=== PATIENT | female | born 1970 | race Two or more races ===

== ENCOUNTER 2020-11-17 09:16 | Outpatient (REF) | payer OTHER, SELFPAY ==
[2020-11-17 09:55] LABS: COVID-19 Test Negative (Negative); IDNOW Serial# 55D5AD1C
== END 2020-11-17 09:17 | disposition home or self-care (01) ==
LOC: HO.EMPCOV 09:16
PROVIDERS: Visit Provider Internal Medicine
DX: Z20.828 Contact with and (suspected) exposure to other viral communicable diseases (principal)
CPT/HCPCS: 87635; C9803

== ENCOUNTER 2020-11-25 09:18 | Outpatient (REF) | payer OTHER, SELFPAY ==
[2020-11-25 09:46] LABS: COVID-19 Test Negative (Negative)
== END 2020-11-25 09:19 | disposition home or self-care (01) ==
LOC: HO.EMPCOV 09:18
PROVIDERS: Visit Provider Internal Medicine
DX: Z20.822 Contact with and (suspected) exposure to COVID-19 (principal)
CPT/HCPCS: 36415; 87635; C9803

== ENCOUNTER 2020-11-29 09:55 | Outpatient (REF) | payer OTHER, SELFPAY ==
[2020-11-29 10:25] LABS: COVID-19 Test Negative (Negative)
== END 2020-11-29 09:56 | disposition home or self-care (01) ==
LOC: HO.EMPCOV 09:55
PROVIDERS: Visit Provider Internal Medicine
DX: Z20.822 Contact with and (suspected) exposure to COVID-19 (principal)
CPT/HCPCS: 36415; 87635; C9803

== ENCOUNTER 2021-01-16 11:22 | Outpatient (REF) | payer OTHER, SELFPAY ==
[2021-01-16 12:05] LABS: COVID-19 Test Negative (Negative); IDNOW Serial# 55D5AD1C
== END 2021-01-16 11:23 | disposition home or self-care (01) ==
LOC: HO.EMPCOV 11:22
PROVIDERS: Visit Provider Internal Medicine
DX: Z20.822 Contact with and (suspected) exposure to COVID-19 (principal)
CPT/HCPCS: 36415; 87635; C9803

== ENCOUNTER 2021-02-03 07:45 | Outpatient (REF) | payer OTHER, SELFPAY ==
[2021-02-03 08:06] LABS: COVID-19 Test Negative (Negative)
== END 2021-02-03 07:46 | disposition home or self-care (01) ==
LOC: HO.EMPCOV 07:45
PROVIDERS: Visit Provider Internal Medicine
DX: Z20.822 Contact with and (suspected) exposure to COVID-19 (principal)
CPT/HCPCS: 36415; 87635; C9803

== ENCOUNTER 2021-03-03 07:48 | Outpatient (REF) | payer OTHER, SELFPAY ==
[2021-03-03 09:23] LABS: COVID-19 Test Negative (Negative); IDNOW Serial# 55D5AD1C
== END 2021-03-03 07:49 | disposition home or self-care (01) ==
LOC: HO.EMPCOV 07:48
PROVIDERS: Visit Provider Internal Medicine
DX: Z20.822 Contact with and (suspected) exposure to COVID-19 (principal)
CPT/HCPCS: 36415; 87635; C9803

== ENCOUNTER 2021-03-07 07:43 | Outpatient (REF) | payer OTHER, SELFPAY ==
[2021-03-07 08:26] LABS: COVID-19 Test Negative (Negative)
== END 2021-03-07 07:44 | disposition home or self-care (01) ==
LOC: HO.EMPCOV 07:43
PROVIDERS: Visit Provider Internal Medicine
DX: Z20.822 Contact with and (suspected) exposure to COVID-19 (principal)
CPT/HCPCS: 36415; 87635; C9803

== ENCOUNTER → 2022-02-01 13:14 | Outpatient (BNVA) | payer OTHER, SELFPAY | PROVIDERS: PCP Nurse Practitioner Acute Care; Visit Provider Internal Medicine | DX: Z13.89 Encounter for screening for other disorder (principal) | CPT/HCPCS: 99203 ==

== ENCOUNTER → 2022-02-15 13:07 | Outpatient (BNVA) | payer OTHER, SELFPAY | PROVIDERS: PCP Nurse Practitioner Acute Care; Visit Provider Physician Assistant | DX: Z13.89 Encounter for screening for other disorder (principal) | CPT/HCPCS: 99213 ==

== ENCOUNTER 2022-03-08 14:00 | Outpatient (RCR) | payer OTHER, SELFPAY ==
--- NOTE | 2022-02-05 15:12 | MHC.PT.EP ---
[facility] [place] [facility] [place] [facility] [place] Office [address] Rosalva Ortiz [address] [phone] F: [phone] F: [phone] F: [phone] F: [phone] Physical Therapy Plan of Care Date of Evaluation: Date of Surgery: N/A Diagnosis: L trap and lat strain Assessment: pt's signs and symptoms consistent w/ muscle spasm and muscle strain. pt presents to physical therapy with pain, decreased range of motion, decreased strength, impaired functional mobility, impaired postural awareness, and gait deviations. pt is a good candidate for skilled PT due to age, potential remediation of impairments, typical disease/condition progression and prognosis, comorbidities, and motivation. pt would benefit from tailored strengthening and stretching exercise program, functional training, gait training, postural re-training, neuromuscular re-education, modalities as needed for pain, equipment safety demonstration. Frequency and Duration: The patient will be seen 2x/wk for 4 wks Short Term Goals: pt will be I w/ HEP to promote self-management of condition. pt will demo proper sitting posture w/ lumbar roll to promote neutral spine w/ seated ADLs and work-related tasks. Alf Goals: pt will report a statistically significant improvement in self-reported outcome measure, SPADI, to promote return to PLOF. pt will improve L shoulder flexion and abduction strength to at least 4+/5 to promote ease in carrying laundry basket down to basement. Treatment Plan: Modalities to reduce pain, spasms and effusion. Manual therapy to restore motion and function. Therapeutic exercise to improve strength and flexibility. Neuromuscular re-education for posture and balance. Therapeutic activities to return to functional activities of daily living. Electronically signed by: Elisha Lwo PT, DPT Please sign and return to therapist. Thank you for your referral.
--- NOTE | 2022-03-14 13:52 | MHC.PT.DC ---
[facility] [place] [facility] [place] [facility] [place] [facility] [address] Dev[address] Ortiz [address] [phone] F: [phone] F: [phone] F: [phone] F: [phone] Physical Therapy Discharge Report Diagnosis: L trap and lat strain Date of Surgery: N/A Date of Evaluation: 02/05/22 Date of Discharge: 03/14/22 Treatments to Date: 9 Cancellations to Date: 1 No Shows to Date: 0 Discharge Status: Achieved Goals Improved Function Independent with HEP Discharge Summary: The patient overall is reporting an improvement in her pain frequency and intensity. She has achieved all short term and salvage determiner goals established at the initial evaluation. She is independent with her home exercise program. She is discharged from this physical therapy plan of care. Electronically signed by: Elisha Low PT, DPT Please sign and return to therapist. Thank you for your referral.
== END 2022-03-14 13:52 | disposition home or self-care (01) ==
LOC: HO.PT 14:00
PROVIDERS: PCP Nurse Practitioner Acute Care; Visit Provider Physician Assistant
DX: S46.812D Strain of other muscles, fascia and tendons at shoulder and upper arm level, left arm, subsequent encounter (principal)
CPT/HCPCS: 97014; 97110; 97140; 97162; 97530

== ENCOUNTER 2022-05-05 07:57 | Outpatient (REF) | payer OTHER, SELFPAY ==
[2022-05-05 08:07] LABS: MANUAL DIFF FLAG NO
[2022-05-05 08:14] LABS: Basophils Percent Auto 0.4 % (0-2); Eosinophils Absolute Auto 0.1 X10*3/uL (0.0-0.4); Eosinophils Percent Auto 2.4 % (0-4); Hematocrit 40.1 % (37.0-47.0); Imm Gran Abs Auto 0.01 X10*3/uL (0.00-0.03); Imm Gran Pct Auto 0.2 % (0.0-0.4); Lymphocytes Absolute Auto 2.4 X10*3/uL (1.2-4.9); Lymphocytes Percent Auto 53.2 % (20-40); Mean Corpuscular HGB Conc 32.4 g/dl (31.0-35.0); Mean Corpuscular Hemoglobin 25.8 pg (27.0-33.0); Mean Corpuscular Volume 79.6 fL (80.0-98.0); Mean Platelet Volume 9.6 fL (9.4-12.3); Monocytes Absolute Auto 0.4 X10*3/uL (0.1-1.2); Monocytes Percent Auto 7.7 % (2-11); Neutrophils Absolute Auto 1.6 x10*3/uL (2.0-8.3); Neutrophils Percent Auto 36.1 % (45-73); Platelet Count 278 X10*3/uL (160-400); Red Blood Count 5.04 X10*6/uL (4.20-5.50); Red Cell Distribution Width 14.1 % (11.0-16.0); White Blood Count 4.5 X10*3/uL (4.8-10.8)
[2022-05-05 08:54] LABS: Alanine Aminotransferase 39 U/L (0-31); Albumin Level 3.8 g/dL (3.5-5.0); Alkaline Phosphatase 103 U/L (39-117); Anion Gap 10 (12-20); Aspartate Amino Transferase 23 U/L (5-31); Bilirubin Total 0.4 mg/dL (0.0-1.0); Blood Urea Nitrogen 13 mg/dL (9-16); Calcium 8.9 mg/dL (8.4-10.2); Carbon Dioxide 27 mmol/L (22-29); Chloride 109 mmol/L (96-108); Cholesterol 202 mg/dL; Estimated Glomerular Filt Rate > 60; Glucose Random 111 mg/dL (60-115); HDL Cholesterol 28 mg/dL; LDL Cholesterol Calculated 139 mg/dl; Potassium 4.1 mmol/L (3.3-5.1); Sodium 142 mmol/L (135-145); Total Protein 6.1 g/dL (6.5-8.0); Triglycerides 177 mg/dL; Uric Acid 5.8 mg/dL (2.4-5.7)
[2022-05-05 09:17] LABS: Free T4 (Free Thyroxine) 0.82 ng/dL (0.71-1.85); Thyroid Stimulating Hormone 2.56 uIU/mL (0.32-4.0)
[2022-05-07 06:13] LABS: Folate 5.2 ng/mL (> or = 4.0); Vitamin B12 < 146 pg/mL (200-900)
== END 2022-05-05 07:58 | disposition home or self-care (01) ==
LOC: HO.LAB 07:57
PROVIDERS: PCP Internal Medicine; Visit Provider Internal Medicine
DX: R79.89 Other specified abnormal findings of blood chemistry (principal); E78.00 Pure hypercholesterolemia, unspecified
CPT/HCPCS: 36415; 80053; 80061; 82607; 82746; 84439; 84443; 84550; 85025

== ENCOUNTER 2022-05-15 15:27 | Outpatient (REF) | payer OTHER, SELFPAY ==
--- NOTE | ~2022-05-15 | US_ITS ---
EXAMINATION: US RETROPERITONEAL LIMITED (RENAL ONLY) CLINICAL INFORMATION: Calculus of kidney. COMPARISON: None TECHNIQUE: Real-time imaging of the kidneys. FINDINGS: RIGHT KIDNEY: 10.8 x 3.8 x 5.3 cm (SAG x AP x TRV). The kidney is normal in size, contour, and echogenicity. Renal cortical thickness is normal. No calculi or focal parenchymal lesions. No hydronephrosis. LEFT KIDNEY: 11.6 x 5.7 x 4.9 cm (SAG x AP x TRV). The kidney is normal in size, contour, and echogenicity. Renal cortical thickness is normal. No renal calculi or hydronephrosis. There is a lateral midpole 1 cm cyst present with question of small wall calcification with the appearance of a Bosniak 2 cyst. US/US renal BI IMPRESSION: No renal calculi identified. 1 cm left renal cyst with the appearance of a Bosniak 2 cyst.
== END 2022-05-15 15:28 | disposition home or self-care (01) ==
LOC: HO.US 15:27
PROVIDERS: Visit Provider Internal Medicine
DX: N20.0 Calculus of kidney (principal)
CPT/HCPCS: 76775

== ENCOUNTER 2022-08-16 13:18 | Outpatient (REF) | payer OTHER, SELFPAY ==
[2022-08-16 14:10] LABS: Appearance Urine Hazy; Color Urine Yellow; Glucose Urine UA Negative (Negative); Leukocyte Esterase Urine Trace (Negative); Nitrite Urine Negative (Negative); PH 5.5 (5.0-9.0); Specific Gravity - Urine >= 1.030 (1.005-1.025); UMIC TRIGGER UACC YES; Urine Blood Large (3+) (Negative); Urine Ketones Negative (Negative); Urine Protein Trace mg/dL (Neg-Trace)
[2022-08-16 14:21] LABS: UACC Culture Trigger YES; WBC Urine >50 /HPF (0-5)
[2022-08-16 14:22] LABS: Bacteria Urine Trace (None Seen); Hyaline Casts Urine 0-2 /LPF (0-2); Squamous Epithelial Cell Urine 0-2 /HPF (0-2)
[2022-08-16 15:08] LABS: Folate 5.7 ng/mL (> or = 4.0); Vitamin B12 1277 pg/mL (200-900)
[2022-08-21 01:23] LABS: Intrinsic Factor Antibodies Negative (Negative)
[2022-08-22 10:57] LABS: Parietal Cell Antibody <=20.0 Unit (<=20.0)
== END 2022-08-16 13:19 | disposition home or self-care (01) ==
LOC: HO.LAB 13:18
PROVIDERS: PCP Internal Medicine; Visit Provider Internal Medicine
DX: E53.8 Deficiency of other specified B group vitamins (principal); R30.0 Dysuria
CPT/HCPCS: 36415; 81001; 82607; 82746; 83516; 86340; 87086; 87088; 87147; 87186

== ENCOUNTER 2022-08-17 11:25 | Outpatient (REF) | payer OTHER, SELFPAY ==
--- NOTE | ~2022-08-17 | XR_ITS ---
EXAMINATION: XR KNEE, RIGHT XR KNEE AP STANDING CLINICAL INFORMATION: Pain. COMPARISON: None. TECHNIQUE: Lateral and axial views of the right knee are submitted. AP bilateral standing view of the knees was obtained. FINDINGS: RIGHT KNEE: There is moderate asymmetric narrowing of the medial joint space compartment of the right knee. The lateral and patellofemoral joint space compartments are well-maintained. There is mild tricompartment peripheral osteophyte formation. No fracture, dislocation or significant joint effusion is seen. There is no foreign body. LEFT KNEE: The lateral and medial joint space compartments of the left knee are well maintained. There is mild peripheral osteophyte formation of the medial joint space compartment of the right knee. No significant varus or valgus configuration seen bilaterally. XR/XR knee standing BI IMPRESSION: 1. There is moderate osteoarthritic change of the medial joint space compartment of the right knee. 2. There is minimal osteoarthritic change of the medial joint space compartment the left knee. 3. No significant varus or valgus configuration is seen bilaterally.
--- NOTE | ~2022-08-17 | XR_ITS ---
EXAMINATION: XR KNEE, RIGHT XR KNEE AP STANDING CLINICAL INFORMATION: Pain. COMPARISON: None. TECHNIQUE: Lateral and axial views of the right knee are submitted. AP bilateral standing view of the knees was obtained. FINDINGS: RIGHT KNEE: There is moderate asymmetric narrowing of the medial joint space compartment of the right knee. The lateral and patellofemoral joint space compartments are well-maintained. There is mild tricompartment peripheral osteophyte formation. No fracture, dislocation or significant joint effusion is seen. There is no foreign body. LEFT KNEE: The lateral and medial joint space compartments of the left knee are well maintained. There is mild peripheral osteophyte formation of the medial joint space compartment of the right knee. No significant varus or valgus configuration seen bilaterally. XR/XR knee RT 2V IMPRESSION: 1. There is moderate osteoarthritic change of the medial joint space compartment of the right knee. 2. There is minimal osteoarthritic change of the medial joint space compartment the left knee. 3. No significant varus or valgus configuration is seen bilaterally.
== END 2022-08-17 11:26 | disposition home or self-care (01) ==
LOC: HO.HOSX 11:25
PROVIDERS: Visit Provider Orthopaedic Surgery
DX: M17.11 Unilateral primary osteoarthritis, right knee (principal)
CPT/HCPCS: 20610; 73560; 73565; J1100

== ENCOUNTER 2023-05-11 07:11 | Outpatient (REF) | payer OTHER, SELFPAY ==
[2023-05-11 07:34] LABS: MANUAL DIFF FLAG NO
[2023-05-11 07:52] LABS: Eosinophils Absolute Auto 0.1 X10*3/uL (0.0-0.4); Hematocrit 41.1 % (37.0-47.0); Hemoglobin 13.3 g/dl (12.0-16.0); Imm Gran Abs Auto 0.01 X10*3/uL (0.00-0.03); Imm Gran Pct Auto 0.2 % (0.0-0.4); Lymphocytes Absolute Auto 2.1 X10*3/uL (1.2-4.9); Lymphocytes Percent Auto 52.1 % (20-40); Mean Corpuscular HGB Conc 32.4 g/dl (31.0-35.0); Mean Corpuscular Hemoglobin 26.1 pg (27.0-33.0); Mean Corpuscular Volume 80.7 fL (80.0-98.0); Mean Platelet Volume 9.9 fL (9.4-12.3); Monocytes Absolute Auto 0.4 X10*3/uL (0.1-1.2); Neutrophils Absolute Auto 1.4 x10*3/uL (2.0-8.3); Neutrophils Percent Auto 34.7 % (45-73); Platelet Count 303 X10*3/uL (160-400); Red Blood Count 5.09 X10*6/uL (4.20-5.50); Red Cell Distribution Width 14.2 % (11.0-16.0)
[2023-05-11 08:08] LABS: Estimated Average Glucose 128 mg/dL; Hemoglobin A1c % 6.1 %
[2023-05-11 08:30] LABS: Alanine Aminotransferase 48 U/L (0-31); Albumin Level 3.9 g/dL (3.5-5.0); Alkaline Phosphatase 103 U/L (39-117); Anion Gap 10 (12-20); Aspartate Amino Transferase 26 U/L (5-31); Bilirubin Total 0.3 mg/dL (0.0-1.0); Blood Urea Nitrogen 10 mg/dL (9-16); Calcium 9.3 mg/dL (8.4-10.2); Carbon Dioxide 29 mmol/L (22-29); Chloride 107 mmol/L (96-108); Cholesterol 182 mg/dL; Estimated Glomerular Filt Rate > 60; Glucose Random 126 mg/dL (60-115); HDL Cholesterol 27 mg/dL; LDL Cholesterol Calculated 118 mg/dl; Potassium 4.3 mmol/L (3.3-5.1); Sodium 142 mmol/L (135-145); Total Protein 6.4 g/dL (6.5-8.0); Triglycerides 185 mg/dL
[2023-05-11 08:50] LABS: Free T4 (Free Thyroxine) 0.83 ng/dL (0.71-1.85); Vitamin D 25-OH Total 11.1 ng/mL (>30)
[2023-05-11 08:53] LABS: Folate 3.6 ng/mL (> or = 4.0); Vitamin B12 1848 pg/mL (200-900)
== END 2023-05-11 07:12 | disposition home or self-care (01) ==
LOC: HO.LAB 07:11
PROVIDERS: PCP Internal Medicine; Visit Provider Internal Medicine
DX: E78.00 Pure hypercholesterolemia, unspecified (principal); R73.02 Impaired glucose tolerance (oral); E55.9 Vitamin D deficiency, unspecified
CPT/HCPCS: 36415; 80053; 80061; 82306; 82607; 82746; 83036; 84439; 84443; 85025

== ENCOUNTER 2023-05-31 11:09 | Outpatient (AMB) | payer OTHER, SELFPAY ==
--- NOTE | 2023-05-31 11:09 | A.OFFPC_ITS ---
Intake Visit Reasons: Lab results Intake Note: Requesting a call back at around 11:45. Allergies Valium Allergy (Unknown, Uncoded 05/31/23 11:10) Abdominal Pain Tobacco use date assessed: 04/30/23 Dental Screening Dental Screen Date: 05/31/23 Did you have a dental visit in the last 12 months?: Yes Did you have a dental problem in the last 6 months where you did not have access to dental care?: No Was dental information given to patient?: Patient has dentist HPI Lab results HPI Details 53-year-old overweight female smoker with impaired glucose tolerance hypercholesterolemia generalized anxiety disorder coming in for follow-up through Telehealth last seen in 04/30/2023 and had blood work done. [facility] Medical History (Updated 05/31/23 @ 11:19 by Isi Cao MD) Generalized anxiety disorder Impaired glucose tolerance Knee osteoarthritis Obesity (BMI 30.0-34.9) Osteoarthritis of right knee Renal calculus, left TSH elevation Surgical History Breast cyst Hx of cholecystectomy Hx of tubal ligation Family History (Updated 04/30/23 @ 14:43 by Ila Ellis [facility]) Mother Breast cancer Cervical cancer Anxiety Father No problems noted. Sister Anxiety Sister No problems noted. Sister No problems noted. Sister No problems noted. Sister No problems noted. Brother No problems noted. Brother No problems noted. Brother No problems noted. Brother No problems noted. Daughter No problems noted. Daughter Substance abuse Daughter No problems noted. Social History (Updated 04/30/23 @ 15:15 by Isi Cao MD) Housing: House Alcohol intake: never Patient Tobacco Use Status: Current everyday Tobacco user Tobacco use type: Cigarette Cigarette Packs Per Day: 4 Cigarettes Per Day: 6 e-Cigarette/Vaping Use: Never Used Second Hand Smoke Exposure: No Current occupational status: employed Current occupation: [employer] Cognitive needs: No Hearing needs: No Vision needs: Yes Questionnaire PHQ-9 Over the last 2 weeks, how often have you been bothered by any of the following problems? 1. Little interest or pleasure in doing things: not at all 2. Feeling down, depressed, or hopeless: not at all 3. Trouble falling or staying asleep, or sleeping too much: not at all 4. Feeling tired or having little energy: not at all 5. Poor appetite or overeating: not at all 6. Feeling bad about yourself - or that you are a failure or have let yourself or your family down: not at all 7. Trouble concentrating on things, such as reading the newspaper or watching television: not at all 8. Moving or speaking so slowly that other people could have noticed. Or the opposite - being so fidgety or restless that you have been moving around a lot more than usual: not at all 9. Thoughts that you would be better off or of hurting yourself in some way: not at all Total score: 0 Depression Screening Interpretation: Negative Source: Developed by Drs. Medardo Sanches, Fabian Almonte and colleagues, with an educational dawood from [employer]. Thrive Questionnaire Date Thrive assessed: 04/30/23 AUDIT C Alcohol Use Questionnaire (AUDIT-C) 1. How often do you have a drink containing alcohol?: Never 3. How often do you have six or more drinks on one occasion?: Never Total Score: 0 JACQUELINE-7 AMB Questionnaire JACQUELINE-7 Date JACQUELINE - 7 assessed: 04/30/23 Source: Developed by Drs. Medardo Sanches, Fabian Almonte and colleagues, with an educational dawood from [employer]. Physical exam (Primary Care) Tobacco/Smoking Status: Tobacco use Status Tobacco use date assessed 04/30/23 05/31/23 11:11 Patient Tobacco Use Status Current everyday Tobacco 05/31/23 11:11 Tobacco use type Cigarette 05/31/23 11:11 e-Cigarette/Vaping Use Never Used 05/31/23 11:11 PHQ-9: PHQ-9 Score PHQ-9: Total score 0 05/31/23 11:11 Depression Screening Interpretation: Negative Thrive Assessment: Date of Thrive Assessment Date Thrive assessed 04/30/23 05/31/23 11:11 Telehealth Telehealth Location of provider rendering services: practice address Location of patient: address on file Patient Identification confirmed using: Name, : Yes Telehealth method: voice only Patient verbally consented to treatment: Yes Patient verbally consented to billing insurance company: Yes Patient informed of any privacy concerns related to visit: Yes Minutes spent on Phone/Video with Pt.: 25 Assessment and Plan Assessment & Plan (1) Type 2 diabetes mellitus with hyperglycemia: Code(s): E11.65 - Type 2 diabetes mellitus with hyperglycemia Plan: Decrease the amount of carbohydrate intake, pasta, bread, rice and potatoes are all sugar and that is aside from all the sweet stuff, remember that fruits are good but they are Sweet also. Hemoglobin A1c goal of less than 6.5 patient is at goal on diet and exercise. Advised to see the eye doctor every year (2) Folic acid deficiency: Code(s): E53.8 - Deficiency of other specified B group vitamins Plan: Folic acid 1 mg once a day (3) LFT elevation: Code(s): R79.89 - Other specified abnormal findings of blood chemistry Plan: Repeat blood work done as well as an ultrasound of the left (4) Tobacco abuse: Code(s): Z72.0 - Tobacco use Plan: Patient is strongly advised to stop! (5) Hypercholesterolemia: Code(s): E78.00 - Pure hypercholesterolemia, unspecified Plan: Avoid fried foods, chicken skin, eggs, butter margarine, pastries and meat. Be it pork or beef they have a lot of cholesterol LDL goal of less than 100 and triglyceride of less than 150 Orders: Orders Ferritin Today R79.89 - Other specified abnormal findings of blood chemistry Liver Panel Today R79.89 - Other specified abnormal findings of blood chemistry Hepatitis B,C Profile Today R79.89 - Other specified abnormal findings of blood chemistry US abdomen complete Today R79.89 - Other specified abnormal findings of blood chemistry Microalbumin, Random (w Creat) 3 Months E11.65 - Type 2 diabetes mellitus with hyperglycemia Creatinine Urine 3 Months E11.65 - Type 2 diabetes mellitus with hyperglycemia Hemoglobin A1c 3 Months E11.65 - Type 2 diabetes mellitus with hyperglycemia Lipid Panel 3 Months E11.65 - Type 2 diabetes mellitus with hyperglycemia, E78.00 - Pure hypercholesterolemia, unspecified Comprehensive Met. Panel 3 Months E11.65 - Type 2 diabetes mellitus with hyperglycemia Vitamin B12 and Folate 3 Months E11.65 - Type 2 diabetes mellitus with hyperglycemia Referrals Nutrition/Dietitian Referral E11.65 - Type 2 diabetes mellitus with hyperglycemia Medications: New folic acid 1 mg PO DAILY 30 tabs 3RF E53.8 - Deficiency of other specified B group vitamins folic acid 1 mg PO DAILY 30 tabs 3RF E53.8 - Deficiency of other specified B group vitamins Changed From cyanocobalamin (vitamin B-12) 1,000 mcg PO DAILY 30 days 30 caps 3RF E53.8 - Deficiency of other specified B group vitamins To cyanocobalamin (vitamin B-12) 1,000 mcg PO .Q week 12 caps 3RF 30 days E53.8 - Deficiency of other specified B group vitamins Coding Level of Care Code Tele Est Pt Level 4 (34386) Diagnoses Type 2 diabetes mellitus with hyperglycemia E11.65 Folic acid deficiency E53.8 LFT elevation R79.89 Tobacco abuse Z72.0 Hypercholesterolemia E78.00
== END 2023-05-31 11:45 | disposition home or self-care (01) ==
LOC: HO.HMGH 11:09
PROVIDERS: PCP Internal Medicine; Visit Provider Internal Medicine
DX: E11.65 Type 2 diabetes mellitus with hyperglycemia (principal); E53.8 Deficiency of other specified B group vitamins; R79.89 Other specified abnormal findings of blood chemistry; Z72.0 Tobacco use; E78.00 Pure hypercholesterolemia, unspecified
CPT/HCPCS: 99214

== ENCOUNTER 2023-06-13 08:04 | Outpatient (REF) | payer OTHER, SELFPAY ==
--- NOTE | ~2023-06-13 | US_ITS ---
EXAMINATION: US ABDOMEN COMPLETE CLINICAL INFORMATION: Other specified abnormal findings of blood chemistry. COMPARISON: Renal ultrasound 05/15/2022. TECHNIQUE: Real-time imaging of the abdominal viscera. Limited visualization due to bowel gas and body habitus. FINDINGS: PANCREAS: Limited visualization of pancreatic tail and head. Imaged portion of pancreatic body is unremarkable. ABDOMINAL AORTA: The proximal, mid, and distal segments are normal in caliber. INFERIOR VENA CAVA: Visualized portions are normal. LIVER: Diffuse increase in echogenicity of the liver is characteristic of hepatic steatosis and limits visualization of the liver. Hypoechoic areas within the liver, particularly adjacent to the gallbladder, are characteristic of focal sparing within a fatty liver. Liver measures 14.6 cm. GALLBLADDER: Surgically absent. COMMON BILE DUCT: Normal in caliber measuring 0.3 cm in diameter. RIGHT KIDNEY: No hydronephrosis. No renal calculi. Limited visualization. The kidney measures 10.1 cm in maximum dimension. LEFT KIDNEY: No hydronephrosis. No renal calculi. Limited visualization. The kidney measures 10.1 cm in maximum dimension. SPLEEN: Normal. The spleen measures 9.5 cm in maximum dimension. FREE FLUID: None. US/US abdomen complete IMPRESSION: 1. Diffuse increase in echogenicity of the liver is characteristic of hepatic steatosis and limits visualization of the liver. Hypoechoic areas within the liver, particularly adjacent to the gallbladder, are characteristic of focal sparing within a fatty liver. 2. Gallbladder surgically absent. 3. Limited visualization due to bowel gas and body habitus.
== END 2023-06-13 08:05 | disposition home or self-care (01) ==
LOC: HO.US 08:04
PROVIDERS: PCP Internal Medicine; Visit Provider Internal Medicine
DX: R79.89 Other specified abnormal findings of blood chemistry (principal)
CPT/HCPCS: 76700

== ENCOUNTER 2023-06-19 11:30 | Outpatient (AMB) | payer OTHER, SELFPAY ==
--- NOTE | 2023-06-19 11:32 | A.OFFVIS_ITS ---
Intake VS Expanded 06/19/23 11:35 06/19/23 12:58 Height 5 ft 5 ft Weight 147 lb 11.355 oz 148 lb BMI 28.8 28.9 Intake Visit Reasons: DM2 Allergies Valium Allergy (Unknown, Uncoded 05/31/23 11:10) Abdominal Pain HPI Nutrition Presentation Details Pt presents for MNT for hyperglycemia. 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 Patient reports working on trying different meal recipes that her care 2 words low carbohydrate. Food frequency Fruits: 0 per day Vegetables: 2-3 servings per day Dairy: To 3 servings per day Protein foods: Poultry, mainly, eggs, beef, fish Starches: Breads, root vegetables, oatmeal Beverages: Water or tea, 36 oz per day Physical activity: --- Alcohol: denies Smoking: Denies ARD-Dfznrxf-Mt.Jeor Equation Height 5 ft Weight 148 lb Resting Metabolic Rate 1191.55 Calculated Activity Level Sedentary Calories Needed to Maintain Weight 1429.86 Diagnosis Nutrition problem #1 food nutri know defi As related to (etiology) #1 diagnosis As evidenced by (sign/symptom) #1 knowledge deficit of diet Monitoring/Goals Nutrition problem monitoring level of knowledge/skill Nutrition goal/outcome list 3 CHO foods and list 3 high fiber foods Outcome progress verbalized understanding Learning/Education Readiness to learn good Stages of change action Educational materials provided Yes (Meal planning) Most Recent Diabetes Results: Cholesterol 182 mg/dL 05/11/23 HDL Cholesterol 27 mg/dL 05/11/23 Triglycerides 185 mg/dL 05/11/23 Creatinine 0.72 mg/dL (0.5-1.4) 05/11/23 Blood Urea Nitrogen 10 mg/dL (9-16) 05/11/23 Sodium 142 mmol/L (135-145) 05/11/23 Potassium 4.3 mmol/L (3.3-5.1) 05/11/23 Chloride 107 mmol/L (96-108) 05/11/23 Carbon Dioxide 29 mmol/L (22-29) 05/11/23 Calcium 9.3 mg/dL (8.4-10.2) 05/11/23 AST 26 U/L (5-31) 05/11/23 ALT 48 U/L (0-31) H 05/11/23 Total Protein 6.4 g/dL (6.5-8.0) L 05/11/23 Albumin 3.9 g/dL (3.5-5.0) 05/11/23 PFS Medical History (Updated 05/31/23 @ 11:19 by Isi Cao MD) Generalized anxiety disorder Impaired glucose tolerance Knee osteoarthritis Obesity (BMI 30.0-34.9) Osteoarthritis of right knee Renal calculus, left TSH elevation Surgical History Breast cyst Hx of cholecystectomy Hx of tubal ligation Family History (Updated 04/30/23 @ 14:43 by Ila Ellis CMA) Mother Breast cancer Cervical cancer Anxiety Father No problems noted. Sister Anxiety Sister No problems noted. Sister No problems noted. Sister No problems noted. Sister No problems noted. Brother No problems noted. Brother No problems noted. Brother No problems noted. Brother No problems noted. Daughter No problems noted. Daughter Substance abuse Daughter No problems noted. Social History (Updated 04/30/23 @ 15:15 by Isi Cao MD) Housing: House Alcohol intake: never Patient Tobacco Use Status: Current everyday Tobacco user Tobacco use type: Cigarette Cigarette Packs Per Day: 4 Cigarettes Per Day: 6 e-Cigarette/Vaping Use: Never Used Second Hand Smoke Exposure: No Current occupational status: employed Current occupation: [employer] Cognitive needs: No Hearing needs: No Vision needs: Yes Assessment & Plan Assessment & Plan (1) Type 2 diabetes mellitus with hyperglycemia: Code(s): E11.65 - Type 2 diabetes mellitus with hyperglycemia Plan: wt: 67 kg Est kcal needs as per MSJ: 1400 (40% carb, 30% protein/fat) Est fluid needs as per 25-30 ml/d: 1675 Est prot per day as per 1 g/kg bw: 67 Recommend fiber intake : 8-10 g per day and gradually increase to 25-28 g per day for women and 35-38 g for men or as tolerated Recommend sodium intake per day : less than 2000 mg Educated patient on: ( R = reviewed V = verbalizes understanding N/R = needs review N/A = not applicable * Food sources of carbohydrate, adequate serving sizes and its role in various health conditions: R * Differences between complex carbohydrates a simple carbohydrates, role of fiber in diet: R * Differences between types of fats and role in diet (mono on saturated fat fatty acids, saturated fatty acids, trans fats): R * Food sources of sodium in salt and healthy modifications for heart health in kidney health: R * Vitamins and minerals: R * Healthy plate method concept: R * Physical activity: Benefits a precaution: R * Dietary prevention of Hyperglycemia: R Patient Instructions: Work on having 3 balanced meals per day Following the healthy plate method reducing on total carbs to 30 -40 g Read food labels keep physically active see meal plan as reference l Coding Level of Care Code Nutr Indiv Intake (99363) Diagnoses Type 2 diabetes mellitus with hyperglycemia E11.65 Time Spent (min) 40
[2023-06-19 11:35] VITALS: BMI 28.8
[2023-06-26 08:53] VITALS: BMI 28.9
== END 2023-06-19 13:36 | disposition home or self-care (01) ==
PROVIDERS: PCP Internal Medicine; Visit Provider Dietitian, Registered
DX: E11.65 Type 2 diabetes mellitus with hyperglycemia (principal)

== ENCOUNTER → 2023-06-19 11:30 | Outpatient (BNVA) | payer OTHER, SELFPAY | PROVIDERS: PCP Internal Medicine; Visit Provider Dietitian, Registered | DX: E11.65 Type 2 diabetes mellitus with hyperglycemia (principal); Z71.3 Dietary counseling and surveillance | CPT/HCPCS: 97802 ==

== ENCOUNTER 2023-08-17 07:28 | Outpatient (REF) | payer OTHER, SELFPAY ==
[2023-08-17 08:23] LABS: Estimated Average Glucose 123 mg/dL; Hemoglobin A1c % 5.9 % (<6.0)
[2023-08-17 08:26] LABS: Appearance Urine Clear; Color Urine Yellow; Glucose Urine UA Negative (Negative); Leukocyte Esterase Urine Negative (Negative); Nitrite Urine Negative (Negative); PH 5.5 (5.0-9.0); UMIC TRIGGER UACC YES; Urine Blood Small (1+) (Negative); Urine Ketones Negative (Negative); Urine Protein Negative (Neg-Trace)
[2023-08-17 08:41] LABS: Microalbum/Creatinine Ratio Ur 5.3 ug/mg cr (<30)
[2023-08-17 08:45] LABS: Bacteria Urine None Seen (None Seen); Hyaline Casts Urine 0-2 /LPF (0-2); Squamous Epithelial Cell Urine 0-2 /HPF (0-2); WBC Urine 0-5 /HPF (0-5)
[2023-08-17 09:10] LABS: Alanine Aminotransferase 22 U/L (0-31); Alkaline Phosphatase 90 U/L (39-117); Anion Gap 15 (12-20); Aspartate Amino Transferase 17 U/L (5-31); Bilirubin Direct < 0.2 mg/dL (0.0-0.5); Bilirubin Total 0.2 mg/dL (0.0-1.0); Blood Urea Nitrogen 15 mg/dL (9-16); Calcium 9.5 mg/dL (8.4-10.2); Carbon Dioxide 23 mmol/L (22-29); Chloride 109 mmol/L (96-108); Cholesterol 203 mg/dL (<200); Estimated Glomerular Filt Rate > 60; Glucose Random 106 mg/dL (60-115); HDL Cholesterol 28 mg/dL (>40); LDL Cholesterol Calculated 150 mg/dL (<100); Sodium 143 mmol/L (135-145); Total Protein 6.6 g/dL (6.5-8.0); Triglycerides 128 mg/dL (<150)
[2023-08-17 09:25] LABS: Ferritin 90 ng/mL (10-250)
[2023-08-17 09:32] LABS: Folate 16.6 ng/mL (> or = 4.0); Vitamin B12 848 pg/mL (200-900)
[2023-08-19 08:17] LABS: HBS Num1 0.22 mIU/mL (0-7.99); HBc Num1 0.03 S/CO (0.00-0.79); HBsAGNum1 0.31 S/CO (0.00-0.99); Hepatitis B Core Antibody Nonreactive (Nonreactive); Hepatitis B Surface Antigen Negative (Negative); ~HepC Num1 0.03 S/CO (0.00-0.79); ~Hepatitis B Surface Antibody NONREACTIVE (Nonreactive); ~Hepatitis C Antibody Nonreactive (Nonreactive)
== END 2023-08-17 07:29 | disposition home or self-care (01) ==
LOC: HO.LAB 07:28
PROVIDERS: PCP Internal Medicine; Visit Provider Internal Medicine
DX: E11.65 Type 2 diabetes mellitus with hyperglycemia (principal); E78.00 Pure hypercholesterolemia, unspecified; R79.89 Other specified abnormal findings of blood chemistry
CPT/HCPCS: 36415; 80053; 80061; 81001; 82043; 82248; 82570; 82607; 82728; 82746; 83036; 86704; 86706; 86803; 87340

== ENCOUNTER 2023-08-20 14:04 | Outpatient (AMB) | payer OTHER, SELFPAY ==
[2023-08-20 14:12] VITALS: BP 120/60; PULSE 61; O2SAT 98; BMI 27.1
--- NOTE | 2023-08-20 14:12 | MHC.PC.OV ---
Vital Signs 08/20/23 14:12 Height 5 ft Weight 139 lb BMI 27.1 BP 120/60 Blood Pressure Location Lt brachial Position Sitting Pulse 61 Pulse Source Pulse Oximeter Pulse Oximetry (%) 98 Oxygen Delivery Method Room Air Intake Visit Reasons: elevated BP Corporate Director Talent Assessment: Not Required per policy Accompanied by: Self / Same As Patient Allergies Valium Allergy (Unknown, Uncoded 08/20/23 14:12) Abdominal Pain Medication List - Last Reconciled 08/20/23 by Isi Cao MD clonazepam 1 mg PO BEDTIME fluticasone propionate 50 mcg/actuation (Flonase Allergy Relief) 2 sprays intranasal DAILY folic acid 1 mg PO DAILY ibuprofen (Advil) 200 mg PO Q6H PRN Tobacco use date assessed: 04/30/23 Dental Screening Dental Screen Date: 08/20/23 Did you have a dental visit in the last 12 months?: No Did you have a dental problem in the last 6 months where you did not have access to dental care?: No Was dental information given to patient?: Patient has dentist HPI elevated BP HPI Details 53-year-old overweight female smoker with controlled diabetes mellitus hypercholesterolemia coming in for follow-up. Last seen in May 2023. Colonoscopy is up-to-date, mammogram is up-to-date. Review of the notes patient had an ultrasound of the liver in June 2023 showing hepatic steatosis PFSH Medical History (Updated 08/20/23 @ 14:49 by Isi Cao MD) LFT elevation Impaired glucose tolerance Osteoarthritis of right knee Knee osteoarthritis TSH elevation Renal calculus, left Generalized anxiety disorder Obesity (BMI 30.0-34.9) Surgical History Hx of cholecystectomy Breast cyst Hx of tubal ligation Family History Mother Breast cancer Cervical cancer Anxiety Father No problems noted. Sister Anxiety Sister No problems noted. Sister No problems noted. Sister No problems noted. Sister No problems noted. Brother No problems noted. Brother No problems noted. Brother No problems noted. Brother No problems noted. Daughter No problems noted. Daughter Substance abuse Daughter No problems noted. Social History Housing: House Alcohol intake: never Patient Tobacco Use Status: Current everyday Tobacco user Tobacco use type: Cigarette Cigarette Packs Per Day: 4 Cigarettes Per Day: 6 e-Cigarette/Vaping Use: Never Used Second Hand Smoke Exposure: No Current occupational status: employed Current occupation: [employer] [place] [employer] Cognitive needs: No Hearing needs: No Vision needs: Yes Questionnaire PHQ-9 Over the last 2 weeks, how often have you been bothered by any of the following problems? 1. Little interest or pleasure in doing things: not at all 2. Feeling down, depressed, or hopeless: not at all 3. Trouble falling or staying asleep, or sleeping too much: not at all 4. Feeling tired or having little energy: not at all 5. Poor appetite or overeating: not at all 6. Feeling bad about yourself - or that you are a failure or have let yourself or your family down: not at all 7. Trouble concentrating on things, such as reading the newspaper or watching television: not at all 8. Moving or speaking so slowly that other people could have noticed. Or the opposite - being so fidgety or restless that you have been moving around a lot more than usual: not at all 9. Thoughts that you would be better off or of hurting yourself in some way: not at all Total score: 0 Depression Screening Interpretation: Negative Depression Screening Done: Yes Source: Developed by Drs. Medardo Sanches, Ijeoma Botello, Fabian Stevenson and colleagues, with an educational dawood from [employer]. Thrive Questionnaire Date Thrive assessed: 04/30/23 JACQUELINE-7 AMB Questionnaire JACQUELINE-7 Date JACQUELINE - 7 assessed: 04/30/23 Source: Developed by Drs. Medardo Sanches, Ijeoma Botello, Fabian Stevenson and colleagues, with an educational dawood from [employer]. Physical exam (Primary Care) Vital Signs: Last Vital Signs Pulse 61 08/20/23 14:12 BP 120/60 08/20/23 14:12 Pulse Ox 98 08/20/23 14:12 Oxygen Delivery Method Room Air 08/20/23 14:12 BMI result Body Mass Index 27.1 Tobacco/Smoking Status: Tobacco use Status Tobacco use date assessed 04/30/23 08/20/23 14:13 Patient Tobacco Use Status Current everyday Tobacco 08/20/23 14:13 Tobacco use type Cigarette 08/20/23 14:13 e-Cigarette/Vaping Use Never Used 08/20/23 14:13 PHQ-9: PHQ-9 Score PHQ-9: Total score 0 08/20/23 14:23 Depression Screening Interpretation: Negative Thrive Assessment: Date of Thrive Assessment Date Thrive assessed 04/30/23 08/20/23 14:13 Const General: alert; No acute distress Eyes Conjunctivae: conjunctivae normal Resp Auscultation: clear to auscultation bilaterally Cardio Rate: regular rate Rhythm: regular rhythm GI Inspection: Yes normal to inspection Extrem General: Yes normal to inspection and No edema Office Procedures Flu Questionnaire Does the patient have a severe egg allergy?: No Does the patient have severe life threatening allergies?: No Does the patient have a fever or illness today?: No Has the patient ever had Guillain-[place] Syndrome?: No Has the patient ever had any past reaction to a flu shot?: No Immunizations flu vacc [id number] 6mos up(PF) 60 mcg(15 mcgx4)/0.5 mL IM syringe Performing Provider: Isi Cao MD Performing Location: [facility] Administered by: JOSEPH Holguin on 08/20/23 14:23 Dose Route Admin Location Dispensed Lot Number Expiration Date IAC Scoop Filler 0.5 mL IM Left Deltoid 0.5 mL [id number] 08/20/23 34511-328-56 [email or web address] V[facility] Given Date VIS Provided VIS Publication Date 08/20/23 Single Vaccine 21 Eligibility Eligibility Date Funding Source Not [facility] Eligible 08/20/23 Private Assessment and Plan Assessment & Plan (1) Type 2 diabetes mellitus with hyperglycemia: Comment: [employer] Code(s): E11.65 - Type 2 diabetes mellitus with hyperglycemia Plan: Decrease the amount of carbohydrate intake, pasta, bread, rice and potatoes are all sugar and that is aside from all the sweet stuff, remember that fruits are good but they are Sweet also. Hemoglobin A1c goal of less than 6.5 patient on diet control (2) Tobacco abuse: Code(s): Z72.0 - Tobacco use Plan: Patient is strongly advised to stop smoking! (3) Fatty liver: Code(s): K76.0 - Fatty (change of) liver, not elsewhere classified Plan: Low-fat diet and exercise (4) Hypercholesterolemia: Code(s): E78.00 - Pure hypercholesterolemia, unspecified Plan: Avoid fried foods, chicken skin, eggs, butter margarine, pastries and meat. Be it pork or beef they have a lot of cholesterol LDL goal of less than 100 (5) Overweight (BMI 25.0-29.9): Code(s): E66.3 - Overweight Plan: Diet and exercise noted weight loss extremity ! (6) Blood pressure elevated without history of HTN: Code(s): R03.0 - Elevated blood-pressure reading, without diagnosis of hypertension Plan: Blood pressure is controlled Orders: Orders Hemoglobin A1c 3 Months E78.00 - Pure hypercholesterolemia, unspecified Influenza [id number] Immunization Today Z23 - Encounter for immunization Lipid Panel 3 Months E78.00 - Pure hypercholesterolemia, unspecified Comprehensive Met. Panel 3 Months E78.00 - Pure hypercholesterolemia, unspecified Medications: New simvastatin 5 mg PO BEDTIME 30 tabs 4RF E78.00 - Pure hypercholesterolemia, unspecified simvastatin 5 mg PO BEDTIME 30 tabs 4RF E78.00 - Pure hypercholesterolemia, unspecified Coding Level of Care Code Est Pt Level 4 (88480) Diagnoses Type 2 diabetes mellitus with hyperglycemia E11.65 Tobacco abuse Z72.0 Fatty liver K76.0 Hypercholesterolemia E78.00 Overweight (BMI 25.0-29.9) E66.3 Blood pressure elevated without history of HTN R03.0
== END 2023-08-20 14:53 | disposition home or self-care (01) ==
PROVIDERS: PCP Internal Medicine; Visit Provider Internal Medicine
DX: E11.65 Type 2 diabetes mellitus with hyperglycemia (principal); Z72.0 Tobacco use; K76.0 Fatty (change of) liver, not elsewhere classified; E78.00 Pure hypercholesterolemia, unspecified; E66.3 Overweight; R03.0 Elevated blood-pressure reading, without diagnosis of hypertension; Z23 Encounter for immunization
CPT/HCPCS: 90471; 90686; 99214

== ENCOUNTER 2023-09-25 15:00 | Outpatient (AMB) | payer OTHER, SELFPAY ==
--- NOTE | 2023-09-25 15:00 | A.OFFPC_ITS ---
Vital Signs 09/25/23 15:02 Height 5 ft Weight 131 lb 6 oz BMI 25.7 BP 135/89 Blood Pressure Location Lt brachial Position Sitting Pulse 69 Pulse Source Pulse Oximeter Pulse Oximetry (%) 96 Oxygen Delivery Method Room Air Intake Visit Reasons: Hernia? Intake Note: Patient is here today for possible hernia Manager Of Regulatory Affairs Required: No Biochemistry Technologist: Not Required per policy Accompanied by: Self / Same As Patient Allergies Valium Allergy (Unknown, Uncoded 09/25/23 15:01) Abdominal Pain Tobacco use date assessed: 04/30/23 Dental Screening Did you have a dental visit in the last 12 months?: Yes Did you have a dental problem in the last 6 months where you did not have access to dental care?: No Was dental information given to patient?: Patient has dentist HPI Hernia? HPI Details 53-year-old overweight female smoker wit h controlled diabetes mellitus fatty liver hypercholesterolemia coming in for an acute problem. PAtient feels she has a her ia bilateral inguinal area. 2 days ago COUNT INCLUDES THE [facility] Medical History (Updated 09/25/23 @ 15:10 by Isi Cao MD) LFT elevation Impaired glucose tolerance Osteoarthritis of right knee Knee osteoarthritis TSH elevation Renal calculus, left Generalized anxiety disorder Obesity (BMI 30.0-34.9) Surgical History Hx of cholecystectomy Breast cyst Hx of tubal ligation Family History Mother Breast cancer Cervical cancer Anxiety Father No problems noted. Sister Anxiety Sister No problems noted. Sister No problems noted. Sister No problems noted. Sister No problems noted. Brother No problems noted. Brother No problems noted. Brother No problems noted. Brother No problems noted. Daughter No problems noted. Daughter Substance abuse Daughter No problems noted. Social History Housing: House Alcohol intake: never Patient Tobacco Use Status: Current everyday Tobacco user Tobacco use type: Cigarette Cigarette Packs Per Day: 4 Cigarettes Per Day: 6 e-Cigarette/Vaping Use: Never Used Second Hand Smoke Exposure: No Current occupational status: employed Current occupation: [employer] Cognitive needs: No Hearing needs: No Vision needs: Yes Questionnaire Thrive Questionnaire Date Thrive assessed: 04/30/23 JACQUELINE-7 AMB Questionnaire JACQUELINE-7 Date JACQUELINE - 7 assessed: 04/30/23 Source: Developed by Drs. Medardo Sanches, Ijeoma Botello, Fabian Stevenson and colleagues, with an educational dawood from [employer]. Physical exam (Primary Care) Vital Signs: Last Vital Signs Pulse 69 09/25/23 15:02 BP 135/89 09/25/23 15:02 Pulse Ox 96 09/25/23 15:02 Oxygen Delivery Method Room Air 09/25/23 15:02 BMI result Body Mass Index 25.7 Tobacco/Smoking Status: Tobacco use Status Tobacco use date assessed 04/30/23 09/25/23 15:03 Patient Tobacco Use Status Current everyday Tobacco 09/25/23 15:03 Tobacco use type Cigarette 09/25/23 15:03 e-Cigarette/Vaping Use Never Used 09/25/23 15:03 Thrive Assessment: Date of Thrive Assessment Date Thrive assessed 04/30/23 09/25/23 15:03 GI Other: Abdomen is soft tender on inguinal area no definite mass noted no redness no swelling no rebound no guarding. Assessment and Plan Assessment & Plan (1) Inguinal pain of both sides: Code(s): R10.31 - Right lower quadrant pain; R10.32 - Left lower quadrant pain Plan: will order for CT with contrast Orders: Orders CT abdomen pelvis w IV con Today R10.31 - Right lower quadrant pain, R10.32 - Left lower quadrant pain Blood Urea Nitrogen Today R10.31 - Right lower quadrant pain, R10.32 - Left lower quadrant pain Creatinine Today R10.31 - Right lower quadrant pain, R10.32 - Left lower quadrant pain Coding Level of Care Code Est Pt Level 3 (53109) Diagnoses Inguinal pain of both sides R10.31; R10.32
[2023-09-25 15:02] VITALS: BP 135/89; PULSE 69; O2SAT 96; BMI 25.7
== END 2023-09-25 15:17 | disposition home or self-care (01) ==
PROVIDERS: PCP Internal Medicine; Visit Provider Internal Medicine
DX: R10.31 Right lower quadrant pain (principal); R10.32 Left lower quadrant pain
CPT/HCPCS: 99213

== ENCOUNTER 2023-10-26 07:39 | Outpatient (REF) | payer OTHER, SELFPAY ==
[2023-10-26 08:19] LABS: Estimated Average Glucose 126 mg/dL
[2023-10-26 08:40] LABS: Alanine Aminotransferase 28 U/L (0-31); Albumin Level 3.9 g/dL (3.5-5.0); Alkaline Phosphatase 85 U/L (39-117); Anion Gap 12 (12-20); Aspartate Amino Transferase 20 U/L (5-31); Bilirubin Total 0.5 mg/dL (0.0-1.0); Blood Urea Nitrogen 10 mg/dL (9-16); Calcium 9.3 mg/dL (8.4-10.2); Carbon Dioxide 27 mmol/L (22-29); Chloride 109 mmol/L (96-108); Cholesterol 114 mg/dL (<200); Estimated Glomerular Filt Rate > 60; Glucose Random 106 mg/dL (60-115); HDL Cholesterol 26 mg/dL (>40); LDL Cholesterol Calculated 65 mg/dL (<100); Potassium 3.9 mmol/L (3.3-5.1); Sodium 144 mmol/L (135-145); Total Protein 6.7 g/dL (6.5-8.0); Triglycerides 118 mg/dL (<150)
== END 2023-10-26 07:40 | disposition home or self-care (01) ==
LOC: HO.LAB 07:39
PROVIDERS: PCP Internal Medicine; Visit Provider Internal Medicine
DX: E78.00 Pure hypercholesterolemia, unspecified (principal)
CPT/HCPCS: 36415; 80053; 80061; 83036

== ENCOUNTER 2023-10-31 08:20 | Outpatient (REF) | payer OTHER, SELFPAY ==
--- NOTE | ~2023-10-31 | CT_ITS ---
EXAMINATION: CT ABDOMEN AND PELVIS WITH CONTRAST CLINICAL INFORMATION: Right lower quadrant abdominal pain. COMPARISON: Abdominal ultrasound 06/13/2023. Renal ultrasound 05/15/2022. TECHNIQUE: Multidetector volumetric images were obtained from the superior aspect of the liver through the pubic symphysis following administration 85 mL of Omnipaque 350 intravenous contrast. Sagittal and coronal reformatted images were obtained on the technologist's workstation. Oral contrast: Yes This CT examination was performed using dose optimization techniques as appropriate, variously including the following: *Automated exposure control *Adjustment of mA and/or kV according to patient size (this includes techniques or standardized protocols for targeted exams where dose is matched to indication/reason for exam; i.e. extremities or head) *Use of iterative reconstruction technique DLP: 274 mGy-cm FINDINGS: LUNG BASES: The visualized lung bases are unremarkable. LIVER, GALLBLADDER, AND BILIARY TREE: Mild low-attenuation of the liver parenchyma consistent with steatosis seen on ultrasound. The liver is not enlarged. No suspicious liver mass. No biliary ductal dilatation. Cholecystectomy. PANCREAS: No discrete pancreatic mass. No pancreatic ductal dilatation. No peripancreatic inflammation. SPLEEN: Normal size spleen. ADRENAL GLANDS: No adrenal mass. KIDNEYS AND URETERS: Symmetric nephrograms. Small cyst in the posterior mid left kidney measures simple attenuation. No follow-up imaging is recommended. No nephrolithiasis or hydronephrosis. BLADDER: Unremarkable. GASTROINTESTINAL TRACT: The small and large bowel are normal in caliber. No mesenteric mass or fluid. The appendix is normal. No periappendiceal inflammation. No evidence of enteritis or colitis. Nonspecific subtle haziness in the mesentery suggestive of panniculitis. No mesenteric adenopathy. ABDOMINAL WALL: No significant hernia is appreciated. LYMPH NODES: No lymphadenopathy. VASCULAR: No aortic aneurysm. PELVIC VISCERA: Unremarkable. OSSEOUS STRUCTURES: Mild degenerative changes in the lower thoracic and lumbar spine. CT/CT abdomen pelvis w IV con IMPRESSION: No explanation for right lower quadrant pain. Normal appendix. No nephrolithiasis or hydronephrosis. Hepatic steatosis. Fleischner guidelines were followed.
[2023-10-31] MEDS: iohexoL 350 MG/ML 100 ML INFUS..BTL IV (10:52)
[2023-10-31] MEDS: Barium Sulfate Oral (Mocha) 450 ML ORAL.SUSP 900 ML PO (10:53)
== END 2023-10-31 08:21 | disposition home or self-care (01) ==
LOC: HO.CT 08:20
PROVIDERS: PCP Internal Medicine; Visit Provider Internal Medicine
DX: R10.31 Right lower quadrant pain (principal); R10.32 Left lower quadrant pain
CPT/HCPCS: 74177; Q9967

== ENCOUNTER 2023-12-05 14:45 | Outpatient (AMB) | payer OTHER, SELFPAY ==
[2023-12-05 14:47] VITALS: BP 124/72; PULSE 99; O2SAT 97; BMI 24.8
--- NOTE | 2023-12-05 14:47 | A.OFFPC_ITS ---
Vital Signs 12/05/23 14:47 Height 5 ft Weight 127 lb 0.4 oz BMI 24.8 BP 124/72 Blood Pressure Location Lt brachial Position Sitting Pulse 99 Pulse Source Pulse Oximeter Pulse Oximetry (%) 97 Oxygen Delivery Method Room Air Intake Visit Reasons: cholesterol Senior Climate Advisor Required: No Allergies Valium Allergy (Unknown, Uncoded 12/05/23 14:50) Abdominal Pain Medication List - Last Reconciled 12/05/23 by Isi Cao MD clonazepam 1 mg PO BEDTIME fluticasone propionate 50 mcg/actuation (Flonase Allergy Relief) 2 sprays intranasal DAILY folic acid 1 mg PO DAILY ibuprofen (Advil) 200 mg PO Q6H PRN simvastatin 5 mg PO BEDTIME tizanidine 4 mg PO BEDTIME PRN Tobacco use date assessed: 12/05/23 Dental Screening Dental Screen Date: 12/05/23 Did you have a dental visit in the last 12 months?: No Did you have a dental problem in the last 6 months where you did not have access to dental care?: No HPI cholesterol HPI Details 53-year-old female smoker with generaliz ed anxiety disorder, left nephrolithiasis knee osteoarthritis diabetes mellitus coming in for follow-up. Last seen in September [address] scan ordered. Patient's colonoscopy is up-to-date January 2022 mammogram up-to-date February 2023 CT done October 31 showing hepatic steatosis mild degenerative changes in the lower thoracic and lumbar spine mid left kidney posterior cyst blood work done showing impaired glucose tolerance with an A1c of 6.0 cholesterol is much better with an LDL of 65 PFSH Medical History (Updated 12/05/23 @ 15:00 by Isi Cao MD) Annual physical exam Overweight (BMI 25.0-29.9) Dysuria Blood pressure elevated without history of HTN COVID-19 virus infection Nasal congestion Burn of pharynx Renal calculus, left LFT elevation Impaired glucose tolerance Osteoarthritis of right knee Knee osteoarthritis TSH elevation Generalized anxiety disorder Obesity (BMI 30.0-34.9) Surgical History Hx of cholecystectomy Breast cyst Hx of tubal ligation Family History Mother Breast cancer Cervical cancer Anxiety Father No problems noted. Sister Anxiety Sister No problems noted. Sister No problems noted. Sister No problems noted. Sister No problems noted. Brother No problems noted. Brother No problems noted. Brother No problems noted. Brother No problems noted. Daughter No problems noted. Daughter Substance abuse Daughter No problems noted. Social History Housing: House Alcohol intake: never Patient Tobacco Use Status: Current everyday Tobacco user Tobacco use type: Cigarette Cigarette Packs Per Day: 4 Cigarettes Per Day: 6 e-Cigarette/Vaping Use: Never Used Second Hand Smoke Exposure: No Current occupational status: employed Current occupation: [employer] Cognitive needs: No Hearing needs: No Vision needs: Yes Questionnaire Thrive Questionnaire Date Thrive assessed: 12/05/23 AUDIT C Alcohol Use Questionnaire (AUDIT-C) 1. How often do you have a drink containing alcohol?: Never 3. How often do you have six or more drinks on one occasion?: Never Total Score: 0 JACQUELINE-7 AMB Questionnaire JACQUELINE-7 Date JACQUELINE - 7 assessed: 12/05/23 Source: Developed by Drs. Medardo Sanches, Ijeoma Botello, Fabian Stevenson and colleagues, with an educational dawood from [employer]. Physical exam (Primary Care) Vital Signs: Last Vital Signs Pulse 99 12/05/23 14:47 BP 124/72 12/05/23 14:47 Pulse Ox 97 12/05/23 14:47 Oxygen Delivery Method Room Air 12/05/23 14:47 BMI result Body Mass Index 24.8 Tobacco/Smoking Status: Tobacco use Status Tobacco use date assessed 12/05/23 12/05/23 14:48 Patient Tobacco Use Status Current everyday Tobacco 12/05/23 14:48 Tobacco use type Cigarette 12/05/23 14:48 e-Cigarette/Vaping Use Never Used 12/05/23 14:48 Thrive Assessment: Date of Thrive Assessment Date Thrive assessed 12/05/23 12/05/23 14:48 Const General: alert; No acute distress Eyes Conjunctivae: conjunctivae normal Resp Auscultation: clear to auscultation bilaterally Cardio Rate: regular rate Rhythm: regular rhythm GI Inspection: Yes normal to inspection Extrem General: Yes normal to inspection and No edema Assessment and Plan Assessment & Plan (1) Inguinal pain of both sides: Comment: CT scan done November 06- Code(s): R10.31 - Right lower quadrant pain; R10.32 - Left lower quadrant pain Plan: CT scan done revealed negative results (2) Fatty liver: Code(s): K76.0 - Fatty (change of) liver, not elsewhere classified Plan: Low-fat diet and exercise (3) Type 2 diabetes mellitus with hyperglycemia: Comment: [employer] Code(s): E11.65 - Type 2 diabetes mellitus with hyperglycemia Plan: Decrease the amount of carbohydrate intake, pasta, bread, rice and potatoes are all sugar and that is aside from all the sweet stuff, remember that fruits are good but they are Sweet also. Diet controlled A1c 6.0 (4) Tobacco abuse: Code(s): Z72.0 - Tobacco use Plan: Strongly advised to stop smoking (5) Hypercholesterolemia: Code(s): E78.00 - Pure hypercholesterolemia, unspecified Plan: Avoid fried foods, chicken skin, eggs, butter margarine, pastries and meat. Be it pork or beef they have a lot of cholesterol LDL goal of less than 100 and triglyceride of less than 150. Patient is on simvastatin 5 mg at bedtime (6) Generalized anxiety disorder: Comment: [facility] Dr. Fabian Q3 months counselling Q month (03/2022) Code(s): F41.1 - Generalized anxiety disorder Plan: Continue with counseling and therapy Coding Level of Care Code Est Pt Level 4 (26842) Diagnoses Inguinal pain of both sides R10.31; R10.32 Fatty liver K76.0 Type 2 diabetes mellitus with hyperglycemia E11.65 Tobacco abuse Z72.0 Hypercholesterolemia E78.00 Generalized anxiety disorder F41.1
== END 2023-12-05 15:17 | disposition home or self-care (01) ==
PROVIDERS: PCP Internal Medicine; Visit Provider Internal Medicine
DX: R10.31 Right lower quadrant pain (principal); R10.32 Left lower quadrant pain; K76.0 Fatty (change of) liver, not elsewhere classified; E11.65 Type 2 diabetes mellitus with hyperglycemia; Z72.0 Tobacco use; E78.00 Pure hypercholesterolemia, unspecified; F41.1 Generalized anxiety disorder
CPT/HCPCS: 99214

== ENCOUNTER 2024-02-18 16:12 | Outpatient (AMB) | payer OTHER, SELFPAY ==
--- NOTE | 2024-02-18 16:12 | MHC.PC.OV ---
Intake Visit Reasons: Sinus Infection Restorative Care Technician Required: No Allergies Valium Allergy (Unknown, Uncoded 02/18/24 16:12) Abdominal Pain Medication List - Last Reconciled 02/18/24 by Isi Cao MD amoxicillin 875 mg PO BID clonazepam 1 mg PO BEDTIME fexofenadine (Esther Allergy) 180 mg PO DAILY fluticasone propionate 50 mcg/actuation (Flonase Allergy Relief) 2 sprays intranasal DAILY folic acid 1 mg PO DAILY ibuprofen (Advil) 200 mg PO Q6H PRN simvastatin 5 mg PO BEDTIME tizanidine 4 mg PO BEDTIME PRN Tobacco use date assessed: 02/18/24 Dental Screening Dental Screen Date: 12/05/23 HPI Sinus Infection HPI Details 53 Year old female smoker with a history of diabetes mellitus controlled hypercholesterolemia generalized anxiety disorder coming in for follow-up through Telehealth. still smoking. was in [place] - saturday, sick vomiting, dizzy, congestion, nasal no fevers, has chills, ear pain. . [facility] Medical History (Updated 02/18/24 @ 16:48 by Isi Cao MD) Nasal congestion Annual physical exam Overweight (BMI 25.0-29.9) Dysuria Blood pressure elevated without history of HTN COVID-19 virus infection Burn of pharynx Renal calculus, left LFT elevation Impaired glucose tolerance Osteoarthritis of right knee Knee osteoarthritis TSH elevation Generalized anxiety disorder Obesity (BMI 30.0-34.9) Surgical History Hx of cholecystectomy Breast cyst Hx of tubal ligation Family History Mother Breast cancer Cervical cancer Anxiety Father No problems noted. Sister Anxiety Sister No problems noted. Sister No problems noted. Sister No problems noted. Sister No problems noted. Brother No problems noted. Brother No problems noted. Brother No problems noted. Brother No problems noted. Daughter No problems noted. Daughter Substance abuse Daughter No problems noted. Social History Housing: House Alcohol intake: never Patient Tobacco Use Status: Current everyday Tobacco user Tobacco use type: Cigarette Cigarette Packs Per Day: 4 Cigarettes Per Day: 6 e-Cigarette/Vaping Use: Never Used Second Hand Smoke Exposure: No Current occupational status: employed Current occupation: [employer] - [employer] Cognitive needs: No Hearing needs: No Vision needs: Yes Questionnaire Thrive Questionnaire Date Thrive assessed: 12/05/23 JACQUELINE-7 AMB Questionnaire JACQUELINE-7 Date JACQUELINE - 7 assessed: 12/05/23 Source: Developed by Drs. Medardo Sanches, Ijeoma Botello, Fabian Stevenson and colleagues, with an educational dawood from [employer]. Physical exam (Primary Care) Tobacco/Smoking Status: Tobacco use Status Tobacco use date assessed 02/18/24 02/18/24 16:13 Patient Tobacco Use Status Current everyday Tobacco 02/18/24 16:13 Tobacco use type Cigarette 02/18/24 16:13 e-Cigarette/Vaping Use Never Used 02/18/24 16:13 Thrive Assessment: Date of Thrive Assessment Date Thrive assessed 12/05/23 02/18/24 16:13 Telehealth Telehealth Location of provider rendering services: practice address Location of patient: address on file Patient Identification confirmed using: Name, : Yes Telehealth method: voice only Patient verbally consented to treatment: Yes Patient verbally consented to billing insurance company: Yes Patient informed of any privacy concerns related to visit: Yes Minutes spent on Phone/Video with Pt.: 15 Assessment and Plan Assessment & Plan (1) Nasal congestion: Code(s): R09.81 - Nasal congestion Plan: advised to take allergy and flonase. Declined nausea medication advised to keep well hydrated to avoid dehydration (2) Nausea: Code(s): R11.0 - Nausea Plan: Declined nausea medication. Patient states was able to take oral today. Advised to increase oral fluids to avoid dehydration. (3) Tobacco abuse: Code(s): Z72.0 - Tobacco use Plan: Patient still continues to smoke. Advised to stop! Medications: New amoxicillin 875 mg PO BID 14 tabs 0RF R09.81 - Nasal congestion fexofenadine (Esther Allergy) 180 mg PO DAILY 30 tabs 3RF R09.81 - Nasal congestion Refilled fluticasone propionate 50 mcg/actuation (Flonase Allergy Relief) administer into each nostril 2 sprays intranasal DAILY 16 grams 0RF R09.81 - Nasal congestion Coding Level of Care Code Tele Est Pt Level 4 (12024) Diagnoses Nasal congestion R09.81 Nausea R11.0 Tobacco abuse Z72.0
== END 2024-02-18 17:53 | disposition home or self-care (01) ==
LOC: HO.HMGH 16:12
PROVIDERS: PCP Internal Medicine; Visit Provider Internal Medicine
DX: R09.81 Nasal congestion (principal); R11.0 Nausea; Z72.0 Tobacco use
CPT/HCPCS: 99214

== ENCOUNTER 2024-02-20 13:17 | Outpatient (REF) | payer OTHER, SELFPAY | END 2024-02-20 13:18 | disposition home or self-care (01) | LOC: HO.LAB 13:17 | PROVIDERS: Visit Provider Urology | DX: N39.0 Urinary tract infection, site not specified (principal) | CPT/HCPCS: 87086; 87147 ==

== ENCOUNTER 2024-04-16 11:31 | Outpatient (AMB) | payer OTHER, SELFPAY ==
[2024-04-16 11:32] VITALS: BP 128/68; PULSE 72; O2SAT 98; BMI 25.0
--- NOTE | 2024-04-16 11:32 | A.OFFPC_ITS ---
Vital Signs 04/16/24 11:32 Height 5 ft Weight 128 lb BMI 25.0 BP 128/68 Blood Pressure Location Lt brachial Position Sitting Pulse 72 Pulse Source Pulse Oximeter Pulse Oximetry (%) 98 Oxygen Delivery Method Room Air Intake Visit Reasons: Popping sound in ears [employer] Required: No Allergies Valium Allergy (Unknown, Uncoded 04/16/24 11:33) Abdominal Pain Tobacco use date assessed: 04/16/24 Dental Screening Dental Screen Date: 12/05/23 HPI Popping sound in ears HPI Details 53-year-old female smoker with diabetes and hypercholesterolemia coming in for an acute problem.. still smoking . 1 week ago urgent cares congested strep throat and antibiotic given congestion better but R ear blocked [facility] Medical History (Updated 04/16/24 @ 12:05 by Isi Cao MD) Nasal congestion Annual physical exam Overweight (BMI 25.0-29.9) Dysuria Blood pressure elevated without history of HTN COVID-19 virus infection Burn of pharynx Renal calculus, left LFT elevation Impaired glucose tolerance Osteoarthritis of right knee Knee osteoarthritis TSH elevation Generalized anxiety disorder Obesity (BMI 30.0-34.9) Surgical History Hx of cholecystectomy Breast cyst Hx of tubal ligation Family History Mother Breast cancer Cervical cancer Anxiety Father No problems noted. Sister Anxiety Sister No problems noted. Sister No problems noted. Sister No problems noted. Sister No problems noted. Brother No problems noted. Brother No problems noted. Brother No problems noted. Brother No problems noted. Daughter No problems noted. Daughter Substance abuse Daughter No problems noted. Social History Housing: House Alcohol intake: never Patient Tobacco Use Status: Current everyday Tobacco user Tobacco use type: Cigarette Cigarette Packs Per Day: 4 Cigarettes Per Day: 6 e-Cigarette/Vaping Use: Never Used Second Hand Smoke Exposure: No Current occupational status: employed Current occupation: [employer] [place] Cognitive needs: No Hearing needs: No Vision needs: Yes Questionnaire Thrive Questionnaire Date Thrive assessed: 12/05/23 AUDIT C Alcohol Use Questionnaire (AUDIT-C) 1. How often do you have a drink containing alcohol?: Never 3. How often do you have six or more drinks on one occasion?: Never Total Score: 0 JACQUELINE-7 AMB Questionnaire JACQUELINE-7 Date JACQUELINE - 7 assessed: 12/05/23 Source: Developed by Drs. Medardo Sanches, Ijeoma Botello, Fabian Stevenson and colleagues, with an educational dawood from [employer]. Physical exam (Primary Care) Vital Signs: Last Vital Signs Pulse 72 04/16/24 11:32 BP 128/68 04/16/24 11:32 Pulse Ox 98 04/16/24 11:32 Oxygen Delivery Method Room Air 04/16/24 11:32 BMI result Body Mass Index 25.0 Tobacco/Smoking Status: Tobacco use Status Tobacco use date assessed 04/16/24 04/16/24 11:33 Patient Tobacco Use Status Current everyday Tobacco 04/16/24 11:33 Tobacco use type Cigarette 04/16/24 11:33 e-Cigarette/Vaping Use Never Used 04/16/24 11:33 Thrive Assessment: Date of Thrive Assessment Date Thrive assessed 12/05/23 04/16/24 11:33 Const General: alert; No acute distress Eyes Conjunctivae: conjunctivae normal Resp Auscultation: clear to auscultation bilaterally Cardio Rate: regular rate Rhythm: regular rhythm GI Inspection: Yes normal to inspection Extrem General: Yes normal to inspection and No edema Results AMB Hemoglobin A1c AMB Hemoglobin A1c 6.0 % Last Edit by JOSEPH Ayala on 04/16/24 11:44 Results Reviewed Results Reviewed: Laboratory Last Values Hgb A1c (Clinic) 6.0 % (4.0-6.0) 04/16/24 11:31 Assessment and Plan Assessment & Plan (1) Type 2 diabetes mellitus with hyperglycemia: Comment: [employer] Code(s): E11.65 - Type 2 diabetes mellitus with hyperglycemia Plan: Decrease the amount of carbohydrate intake, pasta, bread, rice and potatoes are all sugar and that is aside from all the sweet stuff, remember that fruits are good but they are Sweet also. Hemoglobin A1c goal of less than 6.5 patient is at goal diet controlled (2) Hypercholesterolemia: Code(s): E78.00 - Pure hypercholesterolemia, unspecified Plan: Avoid fried foods, chicken skin, eggs, butter margarine, pastries and meat. Be it pork or beef they have a lot of cholesterol LDL goal of less than 100 and triglyceride of less than 150 on simvastatin 5 mg once a day 11/06/2023 last blood work (3) Tobacco abuse: Code(s): Z72.0 - Tobacco use Plan: Patient is strongly advised to stop smoking! 3-4 cigarettes a day (4) Otitis media, right: Code(s): H66.91 - Otitis media, unspecified, right ear Orders: Orders AMB Hemoglobin A1c Today E11.65 - Type 2 diabetes mellitus with hyperglycemia Medications: New levofloxacin 750 mg PO DAILY 5 days 5 tabs 0RF H66.91 - Otitis media, unspecified, right ear metaoaty-cqbykkdbx-US 3.5-10,000-1 mg/mL-unit/mL-% 4 drps otic (ear) right Q8H 10 days 10 mL 0RF H66.91 - Otitis media, unspecified, right ear Coding Level of Care Code Est Pt Level 4 (91548) Complex EM visit Add On G2211 Diagnoses Type 2 diabetes mellitus with hyperglycemia E11.65 Hypercholesterolemia E78.00 Tobacco abuse Z72.0 Otitis media, right H66.91
== END 2024-04-16 13:17 | disposition home or self-care (01) ==
PROVIDERS: PCP Internal Medicine; Visit Provider Internal Medicine
DX: E11.65 Type 2 diabetes mellitus with hyperglycemia (principal); E78.00 Pure hypercholesterolemia, unspecified; Z72.0 Tobacco use; H66.91 Otitis media, unspecified, right ear
CPT/HCPCS: 83036; 99214; G2211

== ENCOUNTER → 2024-06-29 15:31 | Outpatient (BNV) | payer OTHER, SELFPAY | PROVIDERS: PCP Internal Medicine; Visit Provider Urology | DX: N20.0 Calculus of kidney (principal); R30.0 Dysuria | CPT/HCPCS: 81003 ==

== ENCOUNTER 2024-06-29 16:13 | Outpatient (REF) | payer OTHER, SELFPAY | END 2024-06-29 16:14 | disposition home or self-care (01) | LOC: HO.LNP 16:13 | PROVIDERS: Visit Provider Urology | DX: N20.0 Calculus of kidney (principal); R30.0 Dysuria | CPT/HCPCS: 87086; 87088; 87186 ==

== ENCOUNTER 2024-07-14 08:09 | Outpatient (REF) | payer OTHER, SELFPAY | END 2024-07-14 08:10 | disposition home or self-care (01) | LOC: HO.LAB 08:09 | PROVIDERS: Visit Provider Urology | DX: N39.0 Urinary tract infection, site not specified (principal); A49.9 Bacterial infection, unspecified | CPT/HCPCS: 87086 ==

== ENCOUNTER → 2024-07-14 08:09 | Outpatient (BNV) | payer OTHER, SELFPAY | PROVIDERS: PCP Internal Medicine; Visit Provider Urology | DX: N39.0 Urinary tract infection, site not specified (principal); A49.9 Bacterial infection, unspecified | CPT/HCPCS: 81003 ==

== ENCOUNTER 2024-09-19 07:15 | Outpatient (REF) | payer OTHER, SELFPAY ==
[2024-09-19 07:29] LABS: MANUAL DIFF FLAG NO
[2024-09-19 07:39] LABS: Basophils Percent Auto 0.4 % (0-2); Eosinophils Absolute Auto 0.1 X10*3/uL (0.0-0.4); Hematocrit 41.6 % (37.0-47.0); Hemoglobin 13.6 g/dl (12.0-16.0); Imm Gran Abs Auto 0.01 X10*3/uL (0.00-0.03); Imm Gran Pct Auto 0.2 % (0.0-0.4); Lymphocytes Absolute Auto 2.4 X10*3/uL (1.2-4.9); Lymphocytes Percent Auto 51.7 % (20-40); Mean Corpuscular HGB Conc 32.7 g/dl (31.0-35.0); Mean Corpuscular Hemoglobin 26.3 pg (27.0-33.0); Mean Corpuscular Volume 80.3 fL (80.0-98.0); Mean Platelet Volume 9.5 fL (9.4-12.3); Monocytes Absolute Auto 0.4 X10*3/uL (0.1-1.2); Monocytes Percent Auto 8.9 % (2-11); Neutrophils Absolute Auto 1.7 x10*3/uL (2.0-8.3); Neutrophils Percent Auto 35.8 % (45-73); Platelet Count 255 X10*3/uL (160-400); Red Blood Count 5.18 X10*6/uL (4.20-5.50); Red Cell Distribution Width 13.6 % (11.0-16.0); White Blood Count 4.7 X10*3/uL (4.8-10.8)
[2024-09-19 07:49] LABS: Estimated Average Glucose 126 mg/dL; Hemoglobin A1C 145.7277 umol/L; Total Hemoglobin (HGBA1C) 3505.5777 umol/L
[2024-09-19 08:13] LABS: Creatinine Urine 264.14 mg/dL; Microalbum/Creatinine Ratio Ur 6.8 ug/mg cr (<30)
[2024-09-19 08:21] LABS: Alanine Aminotransferase 40 U/L (0-31); Albumin Level 4.1 g/dL (3.5-5.0); Alkaline Phosphatase 80 U/L (39-117); Anion Gap 13 (12-20); Aspartate Amino Transferase 25 U/L (5-31); Bilirubin Total 0.5 mg/dL (0.0-1.0); Blood Urea Nitrogen 13 mg/dL (9-16); Calcium 9.2 mg/dL (8.4-10.2); Carbon Dioxide 26 mmol/L (22-29); Chloride 110 mmol/L (96-108); Cholesterol 144 mg/dL (<200); Estimated Glomerular Filt Rate > 60; Glucose Random 114 mg/dL (60-115); HDL Cholesterol 38 mg/dL (>40); LDL Cholesterol Calculated 89 mg/dL (<100); Potassium 3.9 mmol/L (3.3-5.1); Sodium 145 mmol/L (135-145); Total Protein 6.9 g/dL (6.5-8.0); Triglycerides 89 mg/dL (<150)
[2024-09-19 08:31] LABS: Free T4 (Free Thyroxine) 0.99 ng/dL (0.71-1.85)
[2024-09-19 08:43] LABS: Folate 5.6 ng/mL (> or = 4.0); Vitamin B12 323 pg/mL (200-900)
== END 2024-09-19 07:16 | disposition home or self-care (01) ==
LOC: HO.LAB 07:15
PROVIDERS: PCP Internal Medicine; Visit Provider Internal Medicine
DX: E11.65 Type 2 diabetes mellitus with hyperglycemia (principal); E78.00 Pure hypercholesterolemia, unspecified; L65.9 Nonscarring hair loss, unspecified
CPT/HCPCS: 36415; 80053; 80061; 82043; 82306; 82570; 82607; 82746; 83036; 84439; 84443; 85025

== ENCOUNTER 2024-10-08 12:59 | Outpatient (AMB) | payer OTHER, SELFPAY ==
[2024-10-08 13:03] VITALS: BP 130/68; PULSE 52; O2SAT 99; BMI 26.2
--- NOTE | 2024-10-08 13:03 | A.OFFPC_ITS ---
Vital Signs 10/08/24 13:03 Height 5 ft Weight 134 lb 0.2 oz BMI 26.2 BP 130/68 Blood Pressure Location Lt brachial Position Sitting Pulse 52 Pulse Source Pulse Oximeter Pulse Oximetry (%) 99 Oxygen Delivery Method Room Air Intake Visit Reasons: Physical Allergies Valium Allergy (Unknown, Uncoded 10/08/24 13:15) Abdominal Pain Medication List - Last Reconciled 10/08/24 by Taylor Espinal PA-C clonazepam 1 mg PO BEDTIME fluticasone propionate 50 mcg/actuation 2 sprays intranasal DAILY simvastatin 5 mg PO BEDTIME Tobacco use date assessed: 04/16/24 Dental Screening Dental Screen Date: 12/05/23 HPI Physical HPI Details 53-year-old female with tobacco abuse, d iabetes, generalized anxiety disorder, fatty liver disease, hypercholesterolemia last seen by Dr. Cao March 2024 coming in for annual exam. Patient states she is feeling generally well. She states these simvastatin has been causing constipation and would like to discontinue it. She also recently started her shingles vaccine. [facility] Medical History (Updated 10/08/24 @ 14:00 by Taylor Espinal PA-C) Annual physical exam Nasal congestion Overweight (BMI 25.0-29.9) Dysuria Blood pressure elevated without history of HTN COVID-19 virus infection Burn of pharynx Renal calculus, left LFT elevation Impaired glucose tolerance Osteoarthritis of right knee Knee osteoarthritis TSH elevation Generalized anxiety disorder Obesity (BMI 30.0-34.9) Surgical History Hx of cholecystectomy Breast cyst Hx of tubal ligation Family History Mother Breast cancer Cervical cancer Anxiety Father No problems noted. Sister Anxiety Sister No problems noted. Sister No problems noted. Sister No problems noted. Sister No problems noted. Brother No problems noted. Brother No problems noted. Brother No problems noted. Brother No problems noted. Daughter No problems noted. Daughter Substance abuse Daughter No problems noted. Other UTI (urinary tract infection), bacterial Social History Housing: House Alcohol intake: never Patient Tobacco Use Status: Current everyday Tobacco user Tobacco use type: Cigarette Cigarette Packs Per Day: 4 Cigarettes Per Day: 6 e-Cigarette/Vaping Use: Never Used Second Hand Smoke Exposure: No Current occupational status: employed Current occupation: [employer] [place] - [place] Cognitive needs: No Hearing needs: No Vision needs: Yes Questionnaire PHQ-9 Over the last 2 weeks, how often have you been bothered by any of the following problems? 1. Little interest or pleasure in doing things: not at all 2. Feeling down, depressed, or hopeless: several days 3. Trouble falling or staying asleep, or sleeping too much: not at all 4. Feeling tired or having little energy: not at all 5. Poor appetite or overeating: not at all 6. Feeling bad about yourself - or that you are a failure or have let yourself or your family down: not at all 7. Trouble concentrating on things, such as reading the newspaper or watching television: not at all 8. Moving or speaking so slowly that other people could have noticed. Or the opposite - being so fidgety or restless that you have been moving around a lot more than usual: not at all 9. Thoughts that you would be better off or of hurting yourself in some way: not at all Total score: 1 Depression Screening Interpretation: Negative Depression Screening Done: Yes 15919 - PHQ-9 Billing: Yes Source: Developed by Drs. Medardo Sanches, Ijeoma Botello, Fabian Stevenson and colleagues, with an educational dawood from [employer]. Thrive Questionnaire Date Thrive assessed: 12/05/23 I am a: Patient What is your living situation today?: I choose not to answer this question Within the past 12 months, did the food you bought not last and you didn't have the money to get more?: I choose not to answer this question Within the past 12 months, did you worry whether your food would run out before you got money to buy more?: I choose not to answer this question Do you have trouble paying for medicines?: No Do you have trouble getting transportation to medical appointments?: No Do you have trouble paying your heating and electricity bill?: No Do you have trouble taking care of your child, family member or friend?: No Do you have trouble with day-to-day activities such as bathing, preparing meals, shopping, managing finances, etc.?: No Are you currently unemployed and looking for a job?: No Are you interested in more education?: No Please select the resources that you would like help with: None Currently or been in a relationship where the following occur: No concerns reported THRIVE Score: 0 AUDIT C Alcohol Use Questionnaire (AUDIT-C) 1. How often do you have a drink containing alcohol?: Never 3. How often do you have six or more drinks on one occasion?: Never Total Score: 0 JACQUELINE-7 AMB Questionnaire JACQUELINE-7 Date JACQUELINE - 7 assessed: 10/08/24 Feeling nervous, anxious, or on edge: 0 = Not at all Not being able to stop or control worryin = Not at all Worrying too much about different things: 0 = Not at all Trouble relaxin = Not at all Being so restless that it is hard to sit still: 0 = Not at all Becoming easily annoyed or irritable: 0 = Not at all Feeling afraid as if something awful might happen: 0 = Not at all Total JACQUELINE-7 score (0-4 normal; 5-9 mild; 10-14 moderate; 15-21 severe): 0 Source: Developed by Drs. Medardo Sanches, Ijeoma Botello, Fabian Stevenson and colleagues, with an educational dawood from [employer]. JACQUELINE-7 Assessment Billing JACQUELINE-7 Assessment Tool: JACQUELINE-7 Assessment 63308 Review of Systems Const Denies body aches, Denies fatigue, Denies fever(s), Denies frequent falls, Denies headache(s) and Denies weakness Eyes Reports no additional complaints and Denies change in vision ENT Denies dysphagia, Denies dizziness, Denies facial pain, Denies headache(s), Denies nasal congestion and Denies odynophagia Card Denies chest pain, Denies syncope, Denies irregular heart rhythm, Denies leg edema, Denies lightheadedness and Denies dyspnea Resp Denies cough and Denies dyspnea GI Denies constipation, Denies dysphagia, Denies dyspepsia, Denies diarrhea, Denies nausea, Denies odynophagia and Denies vomiting Denies urinary frequency, Denies dysuria, Denies urinary hesitancy and Denies urinary urgency Musc Denies back pain and Denies myalgias Skin/Breast Reports system reviewed and no additional complaints, except as documented Neuro Denies dizziness, Denies syncope, Denies frequent falls, Denies headache(s) and Denies weakness Psych Reports no additional complaints Endo Denies fatigue Physical exam (Primary Care) Vital Signs: Oxygen Delivery Method Room Air 10/08/24 13:03 BMI result Body Mass Index 26.2 Tobacco/Smoking Status: Tobacco use Status Tobacco use date assessed 04/16/24 10/08/24 13:08 Patient Tobacco Use Status Current everyday Tobacco 10/08/24 13:08 Tobacco use type Cigarette 10/08/24 13:08 e-Cigarette/Vaping Use Never Used 10/08/24 13:08 PHQ-9: PHQ-9 Score PHQ-9: Total score 0 10/08/24 13:08 Depression Screening Interpretation: Negative Thrive Assessment: Date of Thrive Assessment Date Thrive assessed 12/05/23 10/08/24 13:08 Currently or been in a relationship where the following occur: No concerns reported Const General: cooperative, healthy appearing, comfortable and no acute distress Orientation/consciousness: patient oriented x3 HENMT Head: Yes normocephalic Ears: hearing grossly normal bilaterally, external ears normal, TM's normal bilaterally and EAC's normal General nose exam: Normal external nose present Face and sinus: Yes normal facial exam and Yes sinuses nontender Mouth: Normal oral and palatal mucosa present and tongue normal Throat: Yes posterior oropharynx normal Eyes General: appearance normal, both eyes and all related structures Conjunctivae: conjunctivae normal Pupils: Equal, round and reactive pupils present EOM: EOMs intact bilaterally and No Nystagmus present Neck Neck: Yes normal visual inspection, Yes full ROM and Yes no lymphadenopathy Chest Chest palpation & inspection: normal inspection of the chest Resp Effort & Inspection: normal respiratory effort Auscultation: clear to auscultation bilaterally, no crackles, no rales, no rhonchi, no wheezes and breath sounds present Cardio Rate: regular rate Rhythm: regular rhythm Peripheral pulses: radial pulses present and dorsalis pedis present GI Inspection: Yes normal to inspection and No Abdominal wall edema Palpation (GI): Soft to palpation, not firm and nontender Auscultation: normal bowel sounds Rectal Exam - Female: deferred General: Yes no CVA tenderness Back/Spine/Pelvis Back: no CVA tenderness Skin General skin exam: no rashes or lesions noted Neuro General: patient oriented x3 Cranial nerves: Yes Equal, round and reactive pupils present, Yes Midline tongue present, Yes Ability to bilaterally elevate shoulders present and No Nystagmus present Gait exam (Neuro): Normal gait present Extrem General: Yes normal to inspection, Yes full ROM, No no pedal edema and No edema Psych Speech and movement: Normal speech and movement present Affect: normal affect Insight: Good insight present (Psych) Judgement: Good judgement present (Psych) Coding Level of Care Code Est Pt Prev Care 40-64y(93506) Diagnoses Type 2 diabetes mellitus with hyperglycemia E11.65 Tobacco abuse Z72.0 Hypercholesterolemia E78.00 Knee osteoarthritis M17.10 Vitamin B12 deficiency E53.8 Generalized anxiety disorder F41.1 Hair loss L65.9 Annual physical exam Z00.00 Additional Codes JACQUELINE-7 Assessment Billing - JACQUELINE-7 Assessment Tool: JACQUELINE-7 Assessment 01620 ([id number]) PHQ-9 - 17209 - PHQ-9 Billing: Yes ([id number]) Assessment & Plan Assessment & Plan (1) Type 2 diabetes mellitus with hyperglycemia: Comment: [employer] Code(s): E11.65 - Type 2 diabetes mellitus with hyperglycemia Category: Medical Plan: Decrease the amount of carbohydrates such as pasta, bread, rice, and potatoes and limit the amount of sweets. Although fruits are generally healthy they should be eaten in moderation as they are still high in sugar. Hemoglobin A1c goal of less than 7% (2) Tobacco abuse: Code(s): Z72.0 - Tobacco use Category: Medical Plan: Smoking cigarettes and the use of tobacco can be harmful. We discussed the importance of stopping and options to aid in smoking cessation. (3) Hypercholesterolemia: Code(s): E78.00 - Pure hypercholesterolemia, unspecified Category: Medical Plan: Avoid foods that are high in cholesterol such as red meat, fried foods, eggs and baked goods. Triglyceride goal of less than 150 and LDL goal of less than 100. We will discontinue simvastatin at this time and redraw cholesterol labs in 3 months. (4) Knee osteoarthritis: Comment: July 2022There is moderate osteoarthritic change of the medial joint space compartment of the right knee. 2. There is minimal osteoarthritic change of the medial joint space compartment the left knee. 3. No significant varus or valgus configuration is seen bilaterally. Code(s): M17.10 - Unilateral primary osteoarthritis, unspecified knee Category: Medical (5) Vitamin B12 deficiency: Code(s): E53.8 - Deficiency of other specified B group vitamins Category: Medical Plan: Will continue to monitor blood work (6) Generalized anxiety disorder: Comment: [facility] Dr. Fabian Q3 months counselling Q month (03/2022) Code(s): F41.1 - Generalized anxiety disorder Category: Medical Plan: Continue to follow with [facility]. Taking Clonazepam daily. (7) Hair loss: Code(s): L65.9 - Nonscarring hair loss, unspecified Category: Medical Plan: Will order for iron panel. likely related to postmenopausal changes. Advised patient to use over the counter biotin. (8) Annual physical exam: Code(s): Z00.00 - Encounter for general adult medical examination without abnormal findings Category: Medical Plan: patient is up to date on all recommended routine screenings for her age. She is not up to date on her tetanus and is refusing the vaccine today. She is not up to date on her annual pap smear was referred to Gynecology today. Blood work up-to-date. Plan This note was constructed using voice recognition software. While every effort has been made to ensure accuracy and financial analysis manager, still areas may have been included sometimes these areas may affect the content or meeting of the given symptoms. Total time spent caring for the patient today was 30 minutes. This includes time spent before the visit reviewing the chart, time spent during the visit, and time spent after the visit and documentation. Orders: Orders IRON PROFILE Today L65.9 - Nonscarring hair loss, unspecified Lipid Panel Today E78.00 - Pure hypercholesterolemia, unspecified MM tomosynthesis screening BI 4 Months Z12.31 - Encounter for screening mammogram for malignant neoplasm of breast Referrals [facility] Referral Z12.4 - Encounter for screening for malignant neoplasm of cervix Medications: New cholecalciferol (vitamin D3) 25 mcg PO DAILY 90 caps 3RF On Hold simvastatin Hold Comment: Doctor's Order 5 mg PO BEDTIME 30 tabs 3RF E78.00 - Pure hypercholesterolemia, unspecified
== END 2024-10-08 13:43 | disposition home or self-care (01) ==
PROVIDERS: PCP Internal Medicine
DX: E11.65 Type 2 diabetes mellitus with hyperglycemia (principal); Z72.0 Tobacco use; E78.00 Pure hypercholesterolemia, unspecified; M17.10 Unilateral primary osteoarthritis, unspecified knee; E53.8 Deficiency of other specified B group vitamins; F41.1 Generalized anxiety disorder; L65.9 Nonscarring hair loss, unspecified; Z00.00 Encounter for general adult medical examination without abnormal findings

== ENCOUNTER → 2024-10-08 12:59 | Outpatient (BNVA) | payer OTHER, SELFPAY | PROVIDERS: PCP Internal Medicine | DX: Z00.00 Encounter for general adult medical examination without abnormal findings (principal); E11.65 Type 2 diabetes mellitus with hyperglycemia; E78.00 Pure hypercholesterolemia, unspecified; M17.0 Bilateral primary osteoarthritis of knee; E53.8 Deficiency of other specified B group vitamins; F41.1 Generalized anxiety disorder; L65.9 Nonscarring hair loss, unspecified; F17.210 Nicotine dependence, cigarettes, uncomplicated | CPT/HCPCS: 96127 ==

== ENCOUNTER 2024-12-21 10:47 | Outpatient (AMB) | payer OTHER, SELFPAY ==
--- NOTE | 2024-12-21 11:04 | AM.OFFWIN_ITS ---
Intake Vital Signs 12/21/24 11:07 Weight 136 lb BP 130/82 Blood Pressure Location Rt brachial Position Sitting Pulse 100 Pulse Source Pulse Oximeter Temp 100 F Temp Source Oral Pulse Oximetry (%) 98 Oxygen Delivery Method Room Air Intake Visit Reasons: EP-fever, chills, headaches Intake Note: Patient here for cough,headache, fevers which started yesterday morning. Patient Tobacco Use Status: Current everyday Tobacco user Allergies Valium Allergy (Unknown, Uncoded 12/21/24 11:07) Abdominal Pain Do you need a note to return to daycare/school/sports/work: Yes HPI HPI Comments History of Present Illness Details 54 y/o female patient who presents to [facility] clinic with c/o URI symptoms since Saturday. Pt reports Fevers, chills and cough. [facility] Medical History (Updated 12/21/24 @ 11:21 by Elayne Bob NP) Acute respiratory disease Annual physical exam Nasal congestion Overweight (BMI 25.0-29.9) Dysuria Blood pressure elevated without history of HTN COVID-19 virus infection Burn of pharynx Renal calculus, left LFT elevation Impaired glucose tolerance Osteoarthritis of right knee Knee osteoarthritis TSH elevation Generalized anxiety disorder Obesity (BMI 30.0-34.9) Surgical History Hx of cholecystectomy Breast cyst Hx of tubal ligation Family History Mother Breast cancer Cervical cancer Anxiety Father No problems noted. Sister Anxiety Sister No problems noted. Sister No problems noted. Sister No problems noted. Sister No problems noted. Brother No problems noted. Brother No problems noted. Brother No problems noted. Brother No problems noted. Daughter No problems noted. Daughter Substance abuse Daughter No problems noted. Other UTI (urinary tract infection), bacterial Social History Housing: House Alcohol intake: never Patient Tobacco Use Status: Current everyday Tobacco user Tobacco use type: Cigarette Cigarette Packs Per Day: 4 Cigarettes Per Day: 6 e-Cigarette/Vaping Use: Never Used Second Hand Smoke Exposure: No Current occupational status: employed Current [place]: [employer] [place] Cognitive needs: No Hearing needs: No Vision needs: Yes Review of Systems Const All systems reviewed & are unremarkable except as noted in HPI and below Physical Exam Vital Signs: Last Vital Signs Temp 100 F 12/21/24 11:07 Pulse 100 12/21/24 11:07 BP 130/82 12/21/24 11:07 Pulse Ox 98 12/21/24 11:07 Oxygen Delivery Method Room Air 12/21/24 11:07 Const General: cooperative and no acute distress; No comfortable Orientation/consciousness: patient oriented x3 HEENT Head: Yes normocephalic Ears: external ears normal and TM abnormal with fluid behind the TM General nose exam: Normal external nose present and Nasal discharge present Face and sinus: Yes sinuses nontender Mouth: moist mucous membranes Resp Effort & Inspection: normal respiratory effort, able to speak in complete sentences, no audible wheezes and Actively coughing Auscultation: clear to auscultation bilaterally, no crackles, no rales, no rhonchi and no wheezes Cardio Heart sounds: S1 normal heart sound present and S2 normal heart sound present Neuro General: patient oriented x3, gait normal and moves all extremities Psych Speech and movement: Normal speech and movement present Assessment & Plan Assessment & Plan (1) Acute respiratory disease: Code(s): J06.9 - Acute upper respiratory infection, unspecified Plan: Acetaminophen for pain and fever relief Rest and hydrate well Ordered SARs Medications: New acetaminophen 1,000 mg (2 x 500 mg) PO Q8H PRN 30 caps 0RF fever J06.9 - Acute upper respiratory infection, unspecified Coding Level of Care Code Est Pt Level 4 (68831) Diagnoses Acute respiratory disease J06.9 Time Spent (min) 20
[2024-12-21 11:07] VITALS: BP 130/82; PULSE 100; TEMP 37.7; O2SAT 98
--- OUTSIDE RECORDS SUMMARY | 2024-12-21 11:42 | XMS_ITS | Clinical Summary ---
Author Organization [facility] it Address [address] [place] [address] Care Team Providers Care Truck Guard Name Role Phone Adenike Haider MD Primary Care Provider [phone] Allergies Active Allergy Reactions Criticality Noted Date Comments Diazepam Other 12/03/2012 suicidal ideation Medications Medication Sig Dispensed Refills Start Date End Date Status clonazePAM (KlonoPIN) 1 mg tablet Take 1 mg by mouth at bedtime. Active Active Problems Problem Noted Date Diagnosed Date Anxiety 11/03/2024 Bilateral sciatica 11/03/2024 Major depression 11/03/2024 Hypothyroidism 10/25/2021 Cervical polyp 01/18/2020 Overview (11/03/2024): Last Assessment & Plan: Biopsy performed 03/29/2020 and if benign, no further intervention Chronic maxillary sinusitis 02/28/2016 Degenerative disc disease, lumbar 06/18/2014 Immunizations Name Administration Dates Next Due Influenza Quadravalent, MDCK , 0.5ml, preservative free (Flucelvax) 6mo and older 08/04/2018 Influenza trivalent, with pr eservative (Fluzone; Afluria) 6mo and older 10/21/2013,12/03/2012 Influenza, Unspecified 09/15/2021,09/18/2016 Moderna SARS-CoV-2 COVID-19, mRNA, LNP-S, preservative free 02/27/2021 Tdap Tetanus diptheria acell ular pertussis (Boostrix; Adacel) 7yo and older 10/21/2013 Surgical History Surgery Date Site/Laterality Comments TUBAL LIGATION PROCEDURE: HISTORICAL TUBAL LIGATION CHOLECYSTECTOMY PROCEDURE: HISTORICAL CHOLECYSTECTOMY; COMMENT: 1989 LASER ABLATION OF THE CERVIX PROCEDURE: [place] CAUTERY CERVIX LASER ABLATION; COMMENT: for a polyp BREAST SURGERY 25 YRS AGO PROCEDURE: [place] UNLISTED PROCEDURE BREAST; COMMENT: for a cyst on the right breast OTHER SURGICAL HISTORY 07/2021 PROCEDURE: MAMMOGRAM, SCREENING, BOTH BREASTS COLONOSCOPY 02/07/2022 PROCEDURE: HISTORICAL COLONOSCOPY; COMMENT: tiny polyps removed - normal mucosa Medical History Medical History Date Comments Major depression DX:Major depres tanya; COMMENT: follows at [facility]- Dr Marte Anxiety DX:Anxiety Bilateral sciatica DX:Bilateral sciatica Degenerative disc disease, lumbar 06/18/2014 DX:Degenerative disc disease, lumbar Chronic maxillary sinusitis 02/28/2016 DX:C hronic maxillary sinusitis Subclinical hypothyroidism DX:Slade bclinical hypothyroidism Hypothyroidism 10/25/2021 Family History Medical History Relation Name Comments Depression Brother Breast cancer Maternal Grandmother dx'd age 70s Breast cancer Mother dx'd age 50 cervical cance r, of cervical cancer in her late 50s, HTN, cholesterol Depression Sister Colon cancer Neg Hx Ovarian cancer Neg Hx Relation Name Status Comments Brother Maternal Grandmother dx'd age 70s Mother dx'd age 50 Sister Social History Tobacco Use Types Packs/Day Years Used Date Smoking Tobacco: Every Day Cigarettes Smokeless Tobacco: Never Alcohol Use Standard Drinks/Week Comments No 0 (1 standard drink = 0.6 oz pur e alcohol) Sex and Gender Information Value Date Recorded Sex Assigned at Not on file Gender Identity Not on file Sexual Orientation Not on file Obstetrics History Plan of Treatment Upcoming Encounters Date Type Department Care Team (Late Contact Info) Description 03/27/2025 12:00 PM EDT Appointment Radiology Department [address] [address] Health Maintenance Due Date Last Done Comments Pneumococcal Vaccine: Pediatrics (0 to 5 Years) and At-Risk Patients (6 to 64 Years) (1 of 2 - PCV) 1974 Hepatitis B Vaccines (1 of 3 - 19+ 3-dose series) 1987 Zoster Vaccines (1 of 2) 2018 Cervical Cancer Screening: Pap Smear 10/29/2021 10/29/2018, 10/29/2018, 10/29/2018 Depression Screening 10/27/2022 HIV Screening 10/27/2022 Hepatitis C Screening 10/27/2022 Social Influencers of Health Screening 10/27/2022 DTaP,Tdap,and Td Vaccines (2 - Td or Tdap) 10/21/2023 10/21/2013 Cholesterol Screening (Lipid Panel) 03/09/2024 03/09/2019 COVID-19 Vaccine (3 - season) 2024 03/29/2021, 02/27/2021 Influenza Vaccine (#1) 2024 , 08/04/2018, 09/18/2016, Additional history exists Breast Cancer Screening 03/07/2026 03/07/20, 03/07/2024, 02/09/2023, Additional history exists Colorectal Cancer Screening: Colonoscopy 02/08/2032 02/07/2022 HIB Vaccines Aged Out No longer eligi ble based on patient's age to complete this topic HPV Vaccines Aged Out No longer eligi ble based on patient's age to complete this topic Hepatitis A Vaccines Aged Out No long er eligible based on patient's age to complete this topic IPV Vaccines Aged Out No longer eligi ble based on patient's age to complete this topic MMR Vaccines Aged Out No longer eligi ble based on patient's age to complete this topic Meningococcal ACWY Vaccine Aged Out N o longer eligible based on patient's age to complete this topic RSV Immunization Patients Under 20 months Aged Out No longer eligible based on patient's age to complete this topic Varicella Vaccines Aged Out No longer eligible based on patient's age to complete this topic Procedures Procedure Name Priority Date/Time Associated Diagnosis Comments SCREENING MAMMOGRAPHY BI 2-VIEW BREAST INC CAD Routine 03/07/2024 12:27 PM EDT Encounter for screening mammogram for malignant neoplasm of breast HM COLONOSCOPY Routine 02/07/2022 LIPID PANEL Routine 03/09/2019 PAP SMEAR Routine 10/29/2018 from Last 3 Months or Most Recently Relevant to Health Maintenance Results * SCREENING MAMMOGRAPHY BI 2-VIEW BREAST INC CAD (03/07/2024 12:27 PM EDT) Anatomical Region Laterality Modality Radiographic Roxy ging 02/09/2023 12:4 8 PM EDT Narrative 03/09/2024 5:24 PM EDT This is a summary report. The complete report is available in the patient's medical record. If you cannot access the medical record, please contact the sending organization for a detailed fax or copy. BILATERAL 3D DIGITAL SCREENING MAMMOGRAM History: Routine screening. ??No current breast complaints. ??Family history of breast cancer in mother and grandmother Comparison: Multiple priors dating back to 08/08/2019 Technique: Bilateral full-field digital 3D mammography was performed using standard CC and MLO projections CAD was used to evaluate this mammogram. Findings: Density: ??There are scattered areas of fibroglandular density-B RIGHT: No suspicious masses, groups of microcalcification or areas of architectural distortion identified. Stable typically benign parenchymal asymmetries LEFT: No suspicious masses, groups of microcalcifications or areas of architectural distortion identified. Stable typically benign parenchymal asymmetries IMPRESSION: : 1. ??No mammographic evidence of malignancy. BI-RADS Category 2 benign findings Recommendation: Routine annual screening mammography is recommended Procedure Note Kenna Villaseñor MD - 07/06/2024 This is a summary report. The complete report is available in thepatient's medical record. If you cannot access the medical record, pleasecontact the sending organization for a detailed fax or copy. BILATERAL 3D DIGITAL SCREENING MAMMOGRAM History: Routine screening. No current breast complaints. Family historyof breast cancer in mother and grandmother Comparison: Multiple priors dating back to 08/08/2019 Technique: Bilateral full-field digital 3D mammography was performed usingstandard CC and MLO projections CAD was used to evaluate this mammogram. Findings: Density: There are scattered areas of fibroglandular density-B RIGHT: No suspicious masses, groups of microcalcification or areas ofarchitectural distortion identified. Stable typically benign parenchymalasymmetries LEFT: No suspicious masses, groups of microcalcifications or areas ofarchitectural distortion identified. Stable typically benign parenchymalasymmetries IMPRESSION: : 1. No mammographic evidence of malignancy. BI-RADS Category 2 benign findings Recommendation: Routine annual screening mammography is recommended Isi Cao MD IMG XR PROCEDURES * Colonoscopy (02/07/2022) Colonoscopy abstracted,no interpretation Anatomical Region Laterality Modality Other Historical Provider MD LONI TERRY E * (ABNORMAL) Lipid panel (03/09/2019) LDL/HDL Ratio 4 0 - 4 Triglycerides 191(A) 0 - 150 mg/dL Cholesterol 142 0 - 200 mg/dL HDL 32(A) 40 mg/dL LDL Cholesterol 72 0 - 100 mg/dL Blood Venous blood specimen / Unknown Historical Provider LAB BLOOD ORDERAB LES * Pap smear (10/29/2018) 10/29/2018 Narrative HISTORICAL TESTING LAB RESULTING AGENCY - 11/03/2018 1:18 PM EST [id number] THINPREP PAP, IMAGED: NEGATIVE FOR SQUAMOUS INTRAEPITHELIAL LESION AND MALIGNANCY . ANDREINA BRODERICK(ASCP) (CASE ELECTRONICALLY SIGNED 11 03 2018) RESULT OF APTIMA HIGH RISK HPV ASSAY: HIGH RISK HPV: ??NEGATIVE (SEROTYPES 16,18,31,33,35,39,45,51,52,56,58,59,66,68) COMPLETED ON 2018-10-31 ADEQUACY: SATISFACTORY ENDOCERVICAL/TRANSFORMATION ZONE COMPONENT PRESENT. SOURCE: THINPREP PAP HPV ANY DX: ??REFLEX 16 AND 18, CERVICAL, IMAGED CLINICAL INFORMATION: HPV ANY DIAGNOSIS. Z12.4, Z01.419 MENOPAUSE, POSITIVE HX ABN PAP PER PATIENT Charleen Nix MD LAB CYTOLOGY ORDERAB LES HISTORICAL TESTING LAB RESULTING AGENCY from Last 3 Months or Most Recently Relevant to Health Maintenance Care Teams Truck Guard Relationship Specialty Start Date End Date Adenike Haider MD [address] [place] [address] PCP - General Internal Medicine 05/24/21
== END 2024-12-21 11:34 | disposition home or self-care (01) ==
PROVIDERS: PCP Internal Medicine; Visit Provider Nurse Practitioner Family
DX: J06.9 Acute upper respiratory infection, unspecified (principal)

== ENCOUNTER 2024-12-21 10:48 | Outpatient (REF) | payer OTHER, SELFPAY ==
--- OUTSIDE RECORDS SUMMARY | 2024-12-21 15:53 | XMS_ITS | Clinical Summary ---
Author Organization [facility] it Address [address] [place] [address] Care Team Providers Care Watershed Engineer Name Role Phone Adenike Haider MD Primary Care Provider [phone] Allergies Active Allergy Reactions Criticality Noted Date [...] 1989 LASER ABLATION OF THE CERVIX PROCEDURE: [place] CAUTERY CERVIX LASER ABLATION; COMMENT: for a polyp BREAST SURGERY 25 YRS AGO PROCEDURE: [place] UNLISTED PROCEDURE BREAST; COMMENT: for a cyst on the right breast OTHER SURGICAL HISTORY 07/2021 PROCEDURE: MAMMOGRAM, SCREENING, BOTH BREASTS COLONOSCOPY 02/07/2022 PROCEDURE: HISTORICAL COLONOSCOPY; COMMENT: tiny polyps removed - normal mucosa Medical History Medical History Date Comments Major depression DX:Major depres tanya; COMMENT: follows at [facility]- Dr Marte Anxiety DX:Anxiety Bilateral sciatica DX:Bilateral [...] 03/27/2025 12:00 PM EDT Appointment Radiology Department [address] [address] Health Maintenance Due Date Last Done Comments [...] RESULTING AGENCY - 11/03/2018 1:18 PM EST [id number] THINPREP PAP, IMAGED: NEGATIVE FOR SQUAMOUS INTRAEPITHELIAL [...] Recently Relevant to Health Maintenance Care Teams Watershed Engineer Relationship Specialty Start Date End Date Adenike Haider MD [address] [place] [address] PCP - General Internal Medicine 05/24/21
[2024-12-21 17:30] LABS: Influenza A PCR NEGATIVE (Negative); Influenza B PCR NEGATIVE (Negative); Resp Syncy Virus RNA Qual PCR NEGATIVE (Negative); SARS COV2 PCR INHOUSE NEGATIVE (Negative)
== END 2024-12-21 10:49 | disposition home or self-care (01) ==
LOC: HO.LNP 10:48
PROVIDERS: PCP Internal Medicine; Visit Provider Nurse Practitioner Family
DX: J06.9 Acute upper respiratory infection, unspecified (principal)
CPT/HCPCS: 0241U

== ENCOUNTER 2025-01-05 07:01 | Outpatient (REF) | payer OTHER, SELFPAY ==
[2025-01-05 11:06] LABS: Cholesterol 234 mg/dL (<200); HDL Cholesterol 40 mg/dL (>40); Iron 101 mcg/dL (30-160); LDL Cholesterol Calculated 161 mg/dL (<100); Percent Iron Saturation 34 % (15-50); Total Iron Binding Capacity 297 mcg/dL (228-428); Triglycerides 168 mg/dL (<150); Unsaturated Iron Binding 196 ug/dL
== END 2025-01-05 07:02 | disposition home or self-care (01) ==
LOC: HO.10HDL 07:01
DX: L65.9 Nonscarring hair loss, unspecified (principal); E78.00 Pure hypercholesterolemia, unspecified
CPT/HCPCS: 36415; 80061; 83540

== ENCOUNTER 2025-01-11 15:37 | Outpatient (AMB) | payer OTHER, SELFPAY ==
--- NOTE | 2025-01-11 15:49 | A.OFFPC_ITS ---
Vital Signs 01/11/25 15:56 Height 5 ft Weight 135 lb BMI 26.4 BP 150/78 H Blood Pressure Location Lt brachial Position Sitting Pulse 52 Pulse Source Pulse Oximeter Pulse Oximetry (%) 98 Oxygen Delivery Method Room Air Intake Visit Reasons: f/u cholesterol Intake Note: Patient here for a follow cholesterol Healthcare Science Specialist Required: No Accompanied by: Self / Same As Patient Allergies Valium Allergy (Unknown, Uncoded 01/11/25 15:52) Abdominal Pain zetia Adverse Reaction (Severe, Uncoded 01/11/25 15:55) drowsyness, bodyaches Medication List - Last Reconciled 01/11/25 by Isi Cao MD acetaminophen 1,000 mg (2 x 500 mg) PO Q8H PRN cholecalciferol (vitamin D3) 25 mcg PO DAILY clonazepam 1 mg PO BEDTIME fluticasone propionate 50 mcg/actuation 2 sprays intranasal DAILY simvastatin 5 mg PO BEDTIME Tobacco use date assessed: 01/11/25 Dental Screening Dental Screen Date: 01/11/25 Did you have a dental visit in the last 12 months?: No Did you have a dental problem in the last 6 months where you did not have access to dental care?: No Was dental information given to patient?: Patient has dentist [facility] Medical History (Updated 01/11/25 @ 16:20 by Isi Cao MD) Blood pressure elevated without history of HTN Acute respiratory disease Annual physical exam Nasal congestion Overweight (BMI 25.0-29.9) Dysuria COVID-19 virus infection Burn of pharynx Renal calculus, left LFT elevation Impaired glucose tolerance Osteoarthritis of right knee Knee osteoarthritis TSH elevation Generalized anxiety disorder Obesity (BMI 30.0-34.9) Surgical History Hx of cholecystectomy Breast cyst Hx of tubal ligation Family History Mother Breast cancer Cervical cancer Anxiety Father No problems noted. Sister Anxiety Sister No problems noted. Sister No problems noted. Sister No problems noted. Sister No problems noted. Brother No problems noted. Brother No problems noted. Brother No problems noted. Brother No problems noted. Daughter No problems noted. Daughter Substance abuse Daughter No problems noted. Other UTI (urinary tract infection), bacterial Social History Housing: House Alcohol intake: never Patient Tobacco Use Status: Current everyday Tobacco user Tobacco use type: Cigarette Cigarette Packs Per Day: 4 Cigarettes Per Day: 6 e-Cigarette/Vaping Use: Never Used Second Hand Smoke Exposure: No service: No Current occupational status: employed Current occupation: [employer] - [employer] Current occupational exposures/hazards: No Cognitive needs: No Hearing needs: No Vision needs: Yes Questionnaire PHQ-9 Over the last 2 weeks, how often have you been bothered by any of the following problems? 1. Little interest or pleasure in doing things: not at all 2. Feeling down, depressed, or hopeless: not at all 3. Trouble falling or staying asleep, or sleeping too much: not at all 4. Feeling tired or having little energy: not at all 5. Poor appetite or overeating: not at all 6. Feeling bad about yourself - or that you are a failure or have let yourself or your family down: not at all 7. Trouble concentrating on things, such as reading the newspaper or watching television: not at all 8. Moving or speaking so slowly that other people could have noticed. Or the opposite - being so fidgety or restless that you have been moving around a lot more than usual: not at all 9. Thoughts that you would be better off or of hurting yourself in some way: not at all Total score: 0 Depression Screening Interpretation: Negative Depression Screening Done: Yes Source: Developed by Drs. Medardo Sanches, Ijeoma Botello, Fabian Stevenson and colleagues, with an educational dawood from [employer]. Thrive Questionnaire Date Thrive assessed: 01/11/25 I am a: Patient What is your living situation today?: I choose not to answer this question Within the past 12 months, did the food you bought not last and you didn't have the money to get more?: I choose not to answer this question Within the past 12 months, did you worry whether your food would run out before you got money to buy more?: I choose not to answer this question Do you have trouble paying for medicines?: No Do you have trouble getting transportation to medical appointments?: No Do you have trouble paying your heating and electricity bill?: No Do you have trouble taking care of your child, family member or friend?: No Do you have trouble with day-to-day activities such as bathing, preparing meals, shopping, managing finances, etc.?: No Are you currently unemployed and looking for a job?: No Are you interested in more education?: No Please select the resources that you would like help with: None Currently or been in a relationship where the following occur: No concerns reported THRIVE Score: 0 AUDIT C Alcohol Use Questionnaire (AUDIT-C) 1. How often do you have a drink containing alcohol?: Never Total Score: 0 JACQUELINE-7 AMB Questionnaire JACQUELINE-7 Date JACQUELINE - 7 assessed: 01/11/25 Feeling nervous, anxious, or on edge: 0 = Not at all Not being able to stop or control worryin = Not at all Worrying too much about different things: 0 = Not at all Trouble relaxin = Not at all Being so restless that it is hard to sit still: 0 = Not at all Becoming easily annoyed or irritable: 0 = Not at all Feeling afraid as if something awful might happen: 0 = Not at all Total JACQUELINE-7 score (0-4 normal; 5-9 mild; 10-14 moderate; 15-21 severe): 0 Source: Developed by Drs. Medardo aSnches, Ijeoma Botello, Fabian Stevenson and colleagues, with an educational dawood from [employer]. Physical exam (Primary Care) Vital Signs: Last Vital Signs Pulse 52 01/11/25 15:56 BP 150/78 H 01/11/25 15:56 Pulse Ox 98 01/11/25 15:56 Oxygen Delivery Method Room Air 01/11/25 15:56 BMI result Body Mass Index 26.4 Tobacco/Smoking Status: Tobacco use Status Tobacco use date assessed 01/11/25 01/11/25 15:58 Patient Tobacco Use Status Current everyday Tobacco 01/11/25 15:58 Tobacco use type Cigarette 01/11/25 15:58 e-Cigarette/Vaping Use Never Used 01/11/25 15:58 PHQ-9: PHQ-9 Score PHQ-9: Total score 0 01/11/25 16:36 Depression Screening Interpretation: Negative Thrive Assessment: Date of Thrive Assessment Date Thrive assessed 01/11/25 01/11/25 15:58 Currently or been in a relationship where the following occur: No concerns reported Const General: alert; No acute distress Eyes Conjunctivae: conjunctivae normal Resp Auscultation: clear to auscultation bilaterally Cardio Rate: regular rate Rhythm: regular rhythm GI Inspection: Yes normal to inspection Extrem General: Yes normal to inspection and No edema Office Procedures Flu Questionnaire Does the patient have a severe egg allergy?: No Does the patient have severe life threatening allergies?: No Does the patient have a fever or illness today?: No Has the patient ever had Guillain-[place] Syndrome?: No Has the patient ever had any past reaction to a flu shot?: No Immunizations Fluarix Triv [id number] (PF) 45 mcg (15 mcg x 3)/0.5 mL IM syringe Performing Provider: Isi Cao MD Performing Location: [facility] Administered by: JOSEPH Javier on 01/11/25 16:36 Dose Route Admin Location Dispensed Lot Number Expiration Date [facility] Scaffold Setter 0.5 mL IM Left Deltoid 0.5 mL [id number] 05/17/25 [id number] Sviral VIS Given Date VIS Provided VIS Publication Date 01/11/25 Single Vaccine 21 Eligibility Eligibility Date Funding Source Not [facility] Eligible 01/11/25 Private Coding Level of Care Code Est Pt Level 4 (71114) Complex EM visit Add On G2211 Diagnoses Type 2 diabetes mellitus with hyperglycemia E11.65 Tobacco abuse Z72.0 Hypercholesterolemia E78.00 Generalized anxiety disorder F41.1 Fatty liver K76.0 Blood pressure elevated without history of HTN R03.0 Assessment & Plan Assessment & Plan (1) Type 2 diabetes mellitus with hyperglycemia: Comment: [employer] Code(s): E11.65 - Type 2 diabetes mellitus with hyperglycemia Category: Medical Plan: Decrease the amount of carbohydrate intake, pasta, bread, rice and potatoes are all sugar and that is aside from all the sweet stuff, remember that fruits are good but they are Sweet also. Hemoglobin A1c goal of less than 6.5. Patient diet controlled (2) Tobacco abuse: Code(s): Z72.0 - Tobacco use Category: Medical Plan: Patient is strongly advised to stop smoking (3) Hypercholesterolemia: Code(s): E78.00 - Pure hypercholesterolemia, unspecified Category: Medical Plan: Avoid fried foods, chicken skin, eggs, butter margarine, pastries and meat. Be it pork or beef they have a lot of cholesterol LDL goal of less than 100 and triglyceride of less than 150 on simvastatin 5 mg at bedtime (4) Generalized anxiety disorder: Comment: [facility] Dr. Fabian Q3 months counselling Q month (03/2022) Code(s): F41.1 - Generalized anxiety disorder Category: Medical Plan: Continue with clonazepam as needed (5) Fatty liver: Code(s): K76.0 - Fatty (change of) liver, not elsewhere classified Category: Medical Plan: Low-fat diet (6) Blood pressure elevated without history of HTN: Code(s): R03.0 - Elevated blood-pressure reading, without diagnosis of hypertension Category: Medical Plan: monitor BP and record Plan History of Present Illness The patient is a 54-year-old female presenting with a follow-up visit for her chronic conditions, including type 2 diabetes mellitus, hypercholesterolemia, generalized anxiety disorder, and nonalcoholic fatty liver disease. The patient has a significant history of smoking. She previously had episodes of fever, chills, and headache, leading to a diagnosis of an acute respiratory tract infection, for which she was seen in December at an urgent care center. Her diabetes has been diet-controlled, with a recent hemoglobin A1c of 6.0 reported in September, but she requires ongoing lifestyle management to prevent elevation. Her hypercholesterolemia remains poorly controlled, with LDL levels noted to be very high and cholesterol readings increasing to 234, despite management with simvastatin. There is underutilization of pharmacotherapy due to the patient's personal preference to avoid medications. Anxiety is mentioned; however, no recent exacerbations were noted. She has been advised on lifestyle modifications and periodically tests her cholesterol at home. Previous blood work from September demonstrated mild leukopenia, a normal platelet count, and satisfactory liver function except for elevations consistent with her diagnosed fatty liver. Health Maintenance - Last colonoscopy and mammogram are up to date. - She was advised to adhere to a diet to control diabetes, with a focus on maintaining an A1c below 6.5%. - Encouraged to discontinue smoking for overall health improvement and reduction of cardiovascular risk. - Blood pressure monitoring and documentation were advised for cardiovascular risk mitigation. Social History - Long-standing history of smoking. - Prefers dietary management over pharmacological treatments for diabetes. - Reports social interactions and family support as central to her lifestyle. - Self-disciplined in maintaining a diet controlled regimen for diabetes. - Occasionally consumes peanuts as part of her diet. Review of Systems - Cardiovascular: Reports no current symptoms related to blood pressure elevation. - Musculoskeletal: Mentions issues with her shoulder. - Neurological: Denies current headaches. - Ophthalmological: Seen by an eye doctor earlier this year. Physical Exam Results - Labs: Hemoglobin A1c was 6.0 in September; cholesterol was 234; LDL was very high. - Mild leukopenia noted in prior blood work. Plan - Encourage continued lifestyle management, primarily dietary control for diabetes. - Discussed need for adjustment in hypercholesterolemia management, considering pharmacotherapy adherence. - Smoking cessation was reinforced as a crucial intervention. - Regular follow-up and blood work advised in three months to review cholesterol and glycemic control. - Suggested continuation of existing anxiolytics for anxiety management as needed. Patient was informed and verbally consented to the use of an ambient scribe for clinic note documentation during this visit. Discussion Notes I discussed with the patient the importance of maintaining lifestyle modifications for her diabetes and hypercholesterolemia. We reviewed the recent blood work, emphasizing the need to adjust her cholesterol management plan due to current elevated values. I detailed the benefits of continuing physical activity and advised monitoring vital signs, particularly related to her cardiovascular risks. We consented on a follow-up plan include home monitoring and regular office visits to ensure consistent management of her chronic conditions. She acknowledged understanding the significance of medication adherence, particularly in controlling her lipids, while maintaining her preference for diet-focused management when possible. Patient Instructions - Continue to monitor and document blood pressure regularly. - Maintain dietary modifications to continue managing diabetes. - Attempt to quit smoking with available cessation resources. - Adhere to prescribed medications for hypercholesterolemia unless side effects occur. - Follow-up appointment scheduled in three months; contact the office for any new or worsening symptoms in the interim. Orders: Orders Vitamin B12 and Folate 3 Months E11. - Type 2 diabetes mellitus with hyperglycemia Influenza [id number] Immunization Today Z23 - Encounter for immunization Complete Blood Count Auto Diff 3 Months - Type 2 diabetes mellitus with hyperglycemia Comprehensive Met. Panel 3 Months - Type 2 diabetes mellitus with hyperglycemia Free T4 (Free Thyroxine) 3 Months . - Type 2 diabetes mellitus with hyperglycemia Hemoglobin A1c 3 Months . - Type 2 diabetes mellitus with hyperglycemia Thyroid Stimulating Hormone 3 Months E11.65 - Type 2 diabetes mellitus with hyperglycemia Lipid Panel 3 Months E11.65 - Type 2 diabetes mellitus with hyperglycemia, E78.00 - Pure hypercholesterolemia, unspecified Vitamin D 25-OH Total 3 Months E11.65 - Type 2 diabetes mellitus with hyperglycemia Creatinine Urine 3 Months E11.65 - Type 2 diabetes mellitus with hyperglycemia Microalbumin, Random (w Creat) 3 Months E11.65 - Type 2 diabetes mellitus with hyperglycemia Medications: Resumed simvastatin 5 mg PO BEDTIME 90 tabs 3RF E78.00 - Pure hypercholesterolemia, unspecified simvastatin 5 mg PO BEDTIME 30 tabs 3RF E78.00 - Pure hypercholesterolemia, unspecified simvastatin 5 mg PO BEDTIME 30 tabs 3RF E78.00 - Pure hypercholesterolemia, unspecified
[2025-01-11 15:56] VITALS: BP 150/78; PULSE 52; O2SAT 98; BMI 26.4
--- OUTSIDE RECORDS SUMMARY | 2025-01-11 17:52 | XMS_ITS | Clinical Summary ---
Author Organization [facility] it Address [address] [place] [address] Care Team Providers Care Life Skills Worker Name Role Phone Adenike Haider MD Primary Care Provider [phone] Allergies Active Allergy Reactions Criticality Noted Date Comments Diazepam Other 12/03/2012 suicidal ideation Medications clonazePAM (KlonoPIN) 1 mg tablet Take 1 [...] 1989 LASER ABLATION OF THE CERVIX PROCEDURE: RI CAUTERY CERVIX LASER ABLATION; COMMENT: for a polyp BREAST SURGERY 25 YRS AGO PROCEDURE: RI UNLISTED PROCEDURE BREAST; COMMENT: for a cyst on the right breast OTHER SURGICAL HISTORY 07/2021 PROCEDURE: MAMMOGRAM, SCREENING, BOTH BREASTS COLONOSCOPY 02/07/2022 PROCEDURE: HISTORICAL COLONOSCOPY; COMMENT: tiny polyps removed - normal mucosa Medical History Medical History Date Comments Major depression DX:Major depres tanya; COMMENT: follows at [facility] [place]- Dr Marte Anxiety DX:Anxiety Bilateral sciatica DX:Bilateral [...] drink = 0.6 oz pur e alcohol) Comments Unknown Sex and Gender Information Value Date Recorded Sex Assigned at Not on file Legal Sex Female 9:43 AM EST Gender Identity Not on file Sexual Orientation Not on file Obstetrics History Plan of Treatment Upcoming Encounters Date Type Department Care Team ([facility] Contact Info) Description 03/27/2025 12:00 PM EDT Appointment Radiology Department [address] [address] Health Maintenance Due Date Last Done Comments Hepatitis B Vaccines (1 of 3 - 19+ 3-dose series) 1987 Pneumococcal Vaccine: 50+ Years (1 of 2 - PCV) 1987 Pneumococcal Vaccine: Pediatrics (0 to 5 Years) and At-Risk Patients (6 to 64 Years) (1 of 2 - PCV) 1987 Zoster Vaccines (1 of 2) 2018 [...] patient's age to complete this topic Meningococcal B Vacine Aged Out No lo nger eligible based on patient's age to complete [...] recommended Isi Cao MD IMG XR PROCEDURES Final Result * Colonoscopy (02/07/2022) Colonoscopy abstracted,no interpretation Anatomical Region Laterality Modality Other Historical Provider HEALTH MAINTENANCE Final Result * (ABNORMAL) Lipid panel (03/09/2019) LDL/HDL Ratio 4 0 - 4 Triglycerides 191(A) 0 - 150 mg/dL Cholesterol 142 0 - 200 mg/dL HDL 32(A) >=40 mg/dL LDL Cholesterol 72 0 - 100 mg/dL Blood Venous blood specimen / Unknown Historical Provider LAB BLOOD ORDERABLES Evelia l Result * Pap smear (10/29/2018) 10/29/2018 Narrative HISTORICAL TESTING LAB RESULTING AGENCY - 11/03/2018 1:18 PM EST [id number] THINPREP PAP, IMAGED: NEGATIVE FOR SQUAMOUS INTRAEPITHELIAL LESION AND MALIGNANCY . NESHA SANTIAGO , ANDREINA(ASCP) (CASE ELECTRONICALLY SIGNED 11 03 2018) RESULT OF APTIMA HIGH RISK HPV ASSAY: HIGH RISK HPV: ??NEGATIVE (SEROTYPES 16,18,31,33,35,39,45,51,52,56,58,59,66,68) COMPLETED ON 2018-10-31 ADEQUACY: SATISFACTORY ENDOCERVICAL/TRANSFORMATION ZONE COMPONENT PRESENT. SOURCE: THINPREP PAP HPV ANY DX: ??REFLEX 16 AND 18, CERVICAL, IMAGED CLINICAL INFORMATION: HPV ANY DIAGNOSIS. Z12.4, Z01.419 MENOPAUSE, POSITIVE HX ABN PAP PER PATIENT Charleen Nxi MD LAB CYTOLOGY ORDERABLES Final R esult HISTORICAL TESTING LAB RESULTING AGENCY from Last 3 Months or Most Recently Relevant to Health Maintenance Care Teams Life Skills Worker Relationship Specialty Start Date End Date Adenike Haider MD [address] [place] [address] PCP - General Internal Medicine 05/24/21
== END 2025-01-11 16:35 | disposition home or self-care (01) ==
PROVIDERS: PCP Internal Medicine; Visit Provider Internal Medicine
DX: E11.65 Type 2 diabetes mellitus with hyperglycemia (principal); Z72.0 Tobacco use; E78.00 Pure hypercholesterolemia, unspecified; F41.1 Generalized anxiety disorder; K76.0 Fatty (change of) liver, not elsewhere classified; R03.0 Elevated blood-pressure reading, without diagnosis of hypertension; Z23 Encounter for immunization

== ENCOUNTER → 2025-01-11 15:37 | Outpatient (BNVA) | payer OTHER, SELFPAY | PROVIDERS: PCP Internal Medicine; Visit Provider Internal Medicine | DX: E11.65 Type 2 diabetes mellitus with hyperglycemia (principal); E78.00 Pure hypercholesterolemia, unspecified; F41.1 Generalized anxiety disorder; R03.0 Elevated blood-pressure reading, without diagnosis of hypertension; Z72.0 Tobacco use; Z23 Encounter for immunization | CPT/HCPCS: 90471; 90656; 96127 ==

== ENCOUNTER 2025-01-21 16:03 | Outpatient (AMB) | payer OTHER, SELFPAY ==
[2025-01-21 16:09] VITALS: BP 130/74; PULSE 56; RESP 16; TEMP 36.3; O2SAT 96; BMI 26.4
--- NOTE | 2025-01-21 16:09 | A.OFFPC_ITS ---
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 Required: No Accompanied by: Self / Same As Patient Allergies diazepam [From Valium] Adverse Reaction (Unknown, Verified 01/21/25 16:18) Abdominal Pain ezetimibe [From Zetia] Adverse Reaction (Unknown, Verified 01/21/25 16:18) Drowsiness, Bodyaches Medication List - Last Reconciled 01/21/25 by Taylor Espinal PA-C acetaminophen 1,000 mg (2 x 500 mg) PO Q8H PRN cholecalciferol (vitamin D3) 25 mcg PO DAILY clonazepam 1 mg PO BEDTIME fluticasone propionate 50 mcg/actuation 2 sprays intranasal DAILY simvastatin 5 mg PO BEDTIME Tobacco use date assessed: 01/11/25 Dental Screening Dental Screen Date: 01/11/25 HPI (R) shoulder pain HPI Details 54-year-old female with past medical his tory of tobacco abuse, diabetes, generalized anxiety disorder, fatty liver disease, hypercholesterolemia last seen 12/2024 coming in for acute problem. Presenting with muscular strain. Current pain and tenderness have been present for one week, seemingly brought on by awkward sleeping positions affecting the trapezius muscle. The pain is unilateral, located in the shoulder area, and is worsened by specific arm movements. Initial interventions with ibuprofen have alleviated some symptoms, but the pain persists variably, without sleep interruption. She has a history of elevated cholesterol related to diet, though currently managed through dietary adjustments. [facility] Medical History Blood pressure elevated without history of HTN Acute respiratory disease Annual physical exam Nasal congestion Overweight (BMI 25.0-29.9) Dysuria COVID-19 virus infection Burn of pharynx Renal calculus, left LFT elevation Impaired glucose tolerance Osteoarthritis of right knee Knee osteoarthritis TSH elevation Generalized anxiety disorder Obesity (BMI 30.0-34.9) Surgical History Hx of cholecystectomy Breast cyst Hx of tubal ligation Family History Mother Breast cancer Cervical cancer Anxiety Father No problems noted. Sister Anxiety Sister No problems noted. Sister No problems noted. Sister No problems noted. Sister No problems noted. Brother No problems noted. Brother No problems noted. Brother No problems noted. Brother No problems noted. Daughter No problems noted. Daughter Substance abuse Daughter No problems noted. Other UTI (urinary tract infection), bacterial Social History Housing: House Alcohol intake: never Patient Tobacco Use Status: Current everyday Tobacco user Tobacco use type: Cigarette Cigarette Packs Per Day: 4 Cigarettes Per Day: 6 e-Cigarette/Vaping Use: Never Used Second Hand Smoke Exposure: No service: No Current occupational status: employed Current occupation: [employer] Current occupational exposures/hazards: No Cognitive needs: No Hearing needs: No Vision needs: Yes Questionnaire Thrive Questionnaire Date Thrive assessed: 01/11/25 JACQUELINE-7 AMB Questionnaire JACQUELINE-7 Date JACQUELINE - 7 assessed: 01/11/25 Source: Developed by Drs. Medardo Sanches, Ijeoma Botello, Fabian Stevenson and colleagues, with an educational dawood from [employer]. Review of Systems Const Denies body aches, Denies chills, Denies fever(s), Denies headache(s) and Denies poor appetite Eyes Reports no additional complaints ENT Denies dysphagia, Denies dizziness, Denies headache(s) and Denies odynophagia Card Denies chest pain, Denies syncope, Denies edema, Denies irregular heart rhythm, Denies lightheadedness and Denies dyspnea Resp Denies cough and Denies dyspnea GI Denies abdominal pain, Denies constipation, Denies dysphagia, Denies diarrhea, Denies nausea, Denies odynophagia and Denies vomiting Reports no additional complaints Musc Reports no additional complaints and Denies abnormal gait Skin/Breast Reports system reviewed and no additional complaints, except as documented Neuro Denies abnormal gait, Denies dizziness, Denies syncope and Denies headache(s) Psych Reports no additional complaints Physical exam (Primary Care) Vital Signs: Last Vital Signs Temp 97.3 F 01/21/25 16:09 Pulse 56 03/06/25 16:09 Resp 16 01/21/25 16:09 BP 130/74 01/21/25 16:09 Pulse Ox 96 01/21/25 16:09 Oxygen Delivery Method Room Air 01/21/25 16:09 BMI result Body Mass Index 26.4 Tobacco/Smoking Status: Tobacco use Status Tobacco use date assessed 01/11/25 01/21/25 16:12 Patient Tobacco Use Status Current everyday Tobacco 01/21/25 16:12 Tobacco use type Cigarette 01/21/25 16:12 e-Cigarette/Vaping Use Never Used 01/21/25 16:12 Thrive Assessment: Date of Thrive Assessment Date Thrive assessed 01/11/25 01/21/25 16:12 Const General: cooperative, healthy appearing, comfortable and no acute distress Orientation/consciousness: patient oriented x3 HENMT Head: Yes normocephalic Ears: hearing grossly normal bilaterally General nose exam: Normal external nose present Eyes General: appearance normal, both eyes and all related structures Conjunctivae: conjunctivae normal Neck Neck: Yes full ROM and Yes no lymphadenopathy Resp Effort & Inspection: normal respiratory effort Auscultation: clear to auscultation bilaterally, no crackles, no rales, no rhonchi and no wheezes Cardio Rate: regular rate Rhythm: regular rhythm Skin General skin exam: no rashes or lesions noted Neuro General: patient oriented x3 Gait exam (Neuro): Normal gait present Extrem Other: Tenderness to palpation over entirety of left shoulder. Pain with extension flexion of shoulder. Intact strength and sensation and pulses General: Yes normal to inspection, Yes full ROM and No edema Psych Affect: normal affect Attitude: cooperative Insight: Good insight present (Psych) Judgement: Good judgement present (Psych) Coding Level of Care Code Est Pt Level 3 (45157) Diagnoses Right shoulder pain M25.511 Assessment & Plan Assessment & Plan (1) Right shoulder pain: Code(s): M25.511 - Pain in right shoulder Category: Medical Plan: The patient's symptoms are consistent with a muscular strain of the trapezius, managed with ibuprofen, heat therapy, and stretches. Lidocaine patches may provide additional relief, with an emphasis on posture correction and sleeping modifications. Advised to follow up worsens or persists. Can consider referral to physical therapy. Plan This note was constructed using voice recognition software. While every effort has been made to ensure accuracy and nightman, still areas may have been included sometimes these areas may affect the content or meeting of the given symptoms. Total time spent caring for the patient today was 30 minutes. This includes time spent before the visit reviewing the chart, time spent during the visit, and time spent after the visit and documentation. Medications: New lidocaine 5% leave on most painful area for up to 12 hrs 1 patch topical DAILY 30 ea 0RF
--- OUTSIDE RECORDS SUMMARY | 2025-01-21 19:18 | XMS_ITS | Clinical Summary ---
Author Organization [facility] it Address [address] [place] [address] Care Team Providers Care Laborer Wood Preserving Plant Name Role Phone Adenike Haider MD Primary Care Provider [phone] Allergies Active Allergy Reactions Criticality Noted Date [...] 1989 LASER ABLATION OF THE CERVIX PROCEDURE: [place] CAUTERY CERVIX LASER ABLATION; COMMENT: for a polyp BREAST SURGERY 25 YRS AGO PROCEDURE: [place] UNLISTED PROCEDURE BREAST; COMMENT: for a cyst on the right breast OTHER SURGICAL HISTORY 07/2021 PROCEDURE: MAMMOGRAM, SCREENING, BOTH BREASTS COLONOSCOPY 02/07/2022 PROCEDURE: HISTORICAL COLONOSCOPY; COMMENT: tiny polyps removed - normal mucosa Medical History Medical History Date Comments Major depression DX:Major depres tanya; COMMENT: follows at [facility]- Dr Marte Anxiety DX:Anxiety Bilateral sciatica DX:Bilateral [...] Upcoming Encounters Date Type Department Care Team ([facility] Contact Info) Description 03/27/2025 12:00 PM EDT Appointment Radiology Department [address] [address] Health Maintenance Due Date Last Done Comments [...] RESULTING AGENCY - 11/03/2018 1:18 PM EST [id number] THINPREP PAP, IMAGED: NEGATIVE FOR SQUAMOUS INTRAEPITHELIAL [...] PER PATIENT Charleen Nix MD LAB CYTOLOGY ORDERABLES Final R esult HISTORICAL TESTING LAB RESULTING AGENCY from Last 3 Months or Most Recently Relevant to Health Maintenance Care Teams Laborer Wood Preserving Plant Relationship Specialty Start Date End Date Adenike Haider MD [address] [place] [address] PCP - General Internal Medicine 05/24/21
== END 2025-01-21 16:43 | disposition home or self-care (01) ==
PROVIDERS: PCP Internal Medicine
DX: M25.511 Pain in right shoulder (principal)

== ENCOUNTER 2025-03-12 14:54 | Outpatient (AMB) | payer OTHER, SELFPAY ==
[2025-03-12 14:59] VITALS: BP 120/86; PULSE 59; O2SAT 95; BMI 26.2
--- NOTE | 2025-03-12 14:59 | A.OFFPC_ITS ---
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: No Accompanied by: Self / Same As Patient Allergies diazepam [From Valium] Adverse Reaction (Unknown, Verified 03/12/25 14:59) Abdominal Pain ezetimibe [From Zetia] Adverse Reaction (Unknown, Verified 03/12/25 14:59) Drowsiness, Bodyaches Tobacco use date assessed: 03/12/25 Dental Screening Dental Screen Date: 03/12/25 Did you have a dental visit in the last 12 months?: No Did you have a dental problem in the last 6 months where you did not have access to dental care?: No Was dental information given to patient?: No HPI HPI Comments 2 History of Present Illness0 Details 54 y/o Female patient who presents to [facility] for same day appointment with c/o Right breast Pain/Tenderness. Pt reports h/o Right breast Cysts. Previous Screening Mammo 03/07/24 done at [facility] showed BI-RADS 2. [facility] Medical History (Updated 03/12/25 @ 15:29 by Elayne Bob NP) Breast tenderness Blood pressure elevated without history of HTN Acute respiratory disease Annual physical exam Nasal congestion Overweight (BMI 25.0-29.9) Dysuria COVID-19 virus infection Burn of pharynx Renal calculus, left LFT elevation Impaired glucose tolerance Osteoarthritis of right knee Knee osteoarthritis TSH elevation Generalized anxiety disorder Obesity (BMI 30.0-34.9) Surgical History Hx of cholecystectomy Breast cyst Hx of tubal ligation Family History Mother Breast cancer Cervical cancer Anxiety Father No problems noted. Sister Anxiety Sister No problems noted. Sister No problems noted. Sister No problems noted. Sister No problems noted. Brother No problems noted. Brother No problems noted. Brother No problems noted. Brother No problems noted. Daughter No problems noted. Daughter Substance abuse Daughter No problems noted. Other UTI (urinary tract infection), bacterial Social History Housing: House Alcohol intake: never Patient Tobacco Use Status: Current everyday Tobacco user Tobacco use type: Cigarette Cigarette Packs Per Day: 4 Cigarettes Per Day: 6 e-Cigarette/Vaping Use: Never Used Second Hand Smoke Exposure: No service: No Current occupational status: employed Current occupation: [employer] [place] [employer] Current occupational exposures/hazards: No Cognitive needs: No Hearing needs: No Vision needs: Yes Questionnaire PHQ-9 Over the last 2 weeks, how often have you been bothered by any of the following problems? 1. Little interest or pleasure in doing things: not at all 2. Feeling down, depressed, or hopeless: not at all 3. Trouble falling or staying asleep, or sleeping too much: not at all 4. Feeling tired or having little energy: not at all 5. Poor appetite or overeating: not at all 6. Feeling bad about yourself - or that you are a failure or have let yourself or your family down: not at all 7. Trouble concentrating on things, such as reading the newspaper or watching television: not at all 8. Moving or speaking so slowly that other people could have noticed. Or the opposite - being so fidgety or restless that you have been moving around a lot more than usual: not at all 9. Thoughts that you would be better off or of hurting yourself in some way: not at all Total score: 0 Source: Developed by Drs. Medardo Sanches, Ijeoma Botello, Fabian Stevenson and colleagues, with an educational dawood from [employer]. Thrive Questionnaire Date Thrive assessed: 03/12/25 I am a: Patient What is your living situation today?: I have a steady place to live Within the past 12 months, did the food you bought not last and you didn't have the money to get more?: Never true Within the past 12 months, did you worry whether your food would run out before you got money to buy more?: Never true Do you have trouble paying for medicines?: No Do you have trouble getting transportation to medical appointments?: No Do you have trouble paying your heating and electricity bill?: No Do you have trouble taking care of your child, family member or friend?: No Do you have trouble with day-to-day activities such as bathing, preparing meals, shopping, managing finances, etc.?: No Are you currently unemployed and looking for a job?: No Are you interested in more education?: No Please select the resources that you would like help with: None Currently or been in a relationship where the following occur: No concerns reported THRIVE Score: 0 AUDIT C Alcohol Use Questionnaire (AUDIT-C) 1. How often do you have a drink containing alcohol?: Never 3. How often do you have six or more drinks on one occasion?: Never Total Score: 0 JACQUELINE-7 AMB Questionnaire JACQUELINE-7 Date JACQUELINE - 7 assessed: 03/12/25 Feeling nervous, anxious, or on edge: 0 = Not at all Not being able to stop or control worryin = Not at all Worrying too much about different things: 0 = Not at all Trouble relaxin = Not at all Being so restless that it is hard to sit still: 0 = Not at all Becoming easily annoyed or irritable: 0 = Not at all Feeling afraid as if something awful might happen: 0 = Not at all Total JACQUELINE-7 score (0-4 normal; 5-9 mild; 10-14 moderate; 15-21 severe): 0 Source: Developed by Drs. Medardo Sanches, Ijeoma Botello, Fabian Stevenson and colleagues, with an educational dawood from [employer]. Review of Systems Const All systems reviewed & are unremarkable except as noted in HPI and below Physical exam (Primary Care) Vital Signs: Last Vital Signs Pulse 59 03/12/25 14:59 BP 120/86 03/12/25 14:59 Pulse Ox 95 03/12/25 14:59 Oxygen Delivery Method Room Air 03/12/25 14:59 BMI result Body Mass Index 26.2 Tobacco/Smoking Status: Tobacco use Status Tobacco use date assessed 03/12/25 03/12/25 15:04 Patient Tobacco Use Status Current everyday Tobacco 03/12/25 15:04 Tobacco use type Cigarette 03/12/25 15:04 e-Cigarette/Vaping Use Never Used 03/12/25 15:04 PHQ-9: PHQ-9 Score PHQ-9: Total score 0 03/12/25 15:29 Thrive Assessment: Date of Thrive Assessment Date Thrive assessed 03/12/25 03/12/25 15:04 Currently or been in a relationship where the following occur: No concerns reported Const General: cooperative and no acute distress Nutritional Appearance: overweight Orientation/consciousness: patient oriented x3 Chest Breast/axilla inspection: normal inspection of the breasts and normal inspection of the axillae Breast/axilla palpation: normal palpation of the breasts, normal palpation of the axillae and no axillary lymphadenopathy Chest/axillae images: 2 1. TTP between 11 and 12'oclock regions. No masses or lumps palpated. Skin General skin exam: no rashes or lesions noted Neuro General: patient oriented x3, gait normal and moves all extremities Psych Speech and movement: Normal speech and movement present Coding Level of Care Code Est Pt Level 4 (97855) Diagnoses Breast tenderness N64.4 Time Spent (min) 20 Assessment & Plan Assessment & Plan (1) Breast tenderness: Code(s): N64.4 - Mastodynia Category: Medical Plan: Ordered Dx Mammo and US right breast. NSAIDs and Acetaminophen for pain relief. Orders: Orders 2 MM diagnostic mammo unilat RT Today N64.4 - Mastodynia US breast RT complete Today N64.4 - Mastodynia
--- OUTSIDE RECORDS SUMMARY | 2025-03-12 15:37 | XMS_ITS | Clinical Summary ---
Author Organization [facility] it Address [address] [place] [address] Care Team Providers Care Gravel Wheeler Name Role Phone Adenike Haider MD Primary Care Provider [phone] Allergies Active Allergy Reactions Criticality Noted Date [...] 1989 LASER ABLATION OF THE CERVIX PROCEDURE: [place] CAUTERY CERVIX LASER ABLATION; COMMENT: for a polyp BREAST SURGERY 25 YRS AGO PROCEDURE: [place] UNLISTED PROCEDURE BREAST; COMMENT: for a cyst on the right breast OTHER SURGICAL HISTORY 07/2021 PROCEDURE: MAMMOGRAM, SCREENING, BOTH BREASTS COLONOSCOPY 02/07/2022 PROCEDURE: HISTORICAL COLONOSCOPY; COMMENT: tiny polyps removed - normal mucosa Medical History Medical History Date Comments Major depression DX:Major depres tanya; COMMENT: [place] at [facility] [place] Marte Anxiety DX:Anxiety Bilateral sciatica DX:Bilateral [...] Upcoming Encounters Date Type Department Care Team ([facility] Contact Info) Description 03/27/2025 12:00 PM EDT Appointment Radiology Department [address] [address] Health Maintenance Due Date Last Done Comments [...] Screening (Lipid Panel) 03/09/2024 03/09/2019 COVID-19 Vaccine ( season) 2024 03/29/2021, 02/27/2021 Influenza Vaccine (Season Ended) 2025 09/15/2021, 08/04/2018, 09/18/2016, Additional history exists Breast Cancer [...] age to complete this topic Meningococcal B Vaccine Aged Out No l onger eligible based on patient's age to complete [...] RESULTING AGENCY - 11/03/2018 1:18 PM EST [id number] THINPREP PAP, IMAGED: NEGATIVE FOR SQUAMOUS INTRAEPITHELIAL [...] Recently Relevant to Health Maintenance Care Teams Gravel Wheeler Relationship Specialty Start Date End Date Adenike Haider MD [address] [place] [address] PCP - General Internal Medicine 05/24/21
== END 2025-03-12 15:32 | disposition home or self-care (01) ==
LOC: HO.HMCH 14:55
PROVIDERS: PCP Internal Medicine; Visit Provider Nurse Practitioner Family
DX: N64.4 Mastodynia (principal)

== ENCOUNTER → 2025-03-12 14:54 | Outpatient (BNVA) | payer OTHER, SELFPAY | PROVIDERS: PCP Internal Medicine; Visit Provider Nurse Practitioner Family | DX: Z13.89 Encounter for screening for other disorder (principal) ==

== ENCOUNTER 2025-04-17 07:13 | Outpatient (REF) | payer OTHER, SELFPAY ==
[2025-04-17 07:27] LABS: MANUAL DIFF FLAG NO
[2025-04-17 07:55] LABS: Eosinophils Absolute Auto 0.1 X10*3/uL (0.0-0.4); Eosinophils Percent Auto 2.7 % (0-4); Hematocrit 41.1 % (37.0-47.0); Hemoglobin 13.3 g/dl (12.0-16.0); Imm Gran Abs Auto 0.01 X10*3/uL (0.00-0.03); Imm Gran Pct Auto 0.2 % (0.0-0.4); Lymphocytes Absolute Auto 2.2 X10*3/uL (1.2-4.9); Lymphocytes Percent Auto 53.8 % (20-40); Mean Corpuscular HGB Conc 32.4 g/dl (31.0-35.0); Mean Corpuscular Volume 80.3 fL (80.0-98.0); Mean Platelet Volume 9.3 fL (9.4-12.3); Monocytes Absolute Auto 0.3 X10*3/uL (0.1-1.2); Monocytes Percent Auto 7.7 % (2-11); Neutrophils Absolute Auto 1.4 x10*3/uL (2.0-8.3); Neutrophils Percent Auto 34.6 % (45-73); Platelet Count 265 X10*3/uL (160-400); Red Blood Count 5.12 X10*6/uL (4.20-5.50); Red Cell Distribution Width 13.5 % (11.0-16.0); White Blood Count 4.1 X10*3/uL (4.8-10.8)
[2025-04-17 08:03] LABS: Estimated Average Glucose 126 mg/dL
[2025-04-17 08:36] LABS: Alanine Aminotransferase 35 U/L (0-31); Albumin Level 4.1 g/dL (3.5-5.0); Alkaline Phosphatase 70 U/L (39-117); Anion Gap 12 (12-20); Aspartate Amino Transferase 26 U/L (5-31); Bilirubin Total 0.5 mg/dL (0.0-1.0); Blood Urea Nitrogen 14 mg/dL (9-16); Calcium 9.2 mg/dL (8.4-10.2); Carbon Dioxide 27 mmol/L (22-29); Chloride 109 mmol/L (96-108); Cholesterol 148 mg/dL (<200); Estimated Glomerular Filt Rate > 60; Glucose Random 104 mg/dL (60-115); HDL Cholesterol 36 mg/dL (>40); LDL Cholesterol Calculated 85 mg/dL (<100); Potassium 3.9 mmol/L (3.3-5.1); Sodium 144 mmol/L (135-145); Total Protein 6.7 g/dL (6.5-8.0); Triglycerides 138 mg/dL (<150)
[2025-04-17 08:52] LABS: Free T4 (Free Thyroxine) 0.91 ng/dL (0.71-1.85); Thyroid Stimulating Hormone 3.18 uIU/mL (0.32-4.0); Vitamin D 25-OH Total 35.7 ng/mL (>30)
[2025-04-17 08:55] LABS: Folate 5.2 ng/mL (> or = 4.0); Vitamin B12 278 pg/mL (200-900)
[2025-04-17 10:09] LABS: Creatinine Urine 213.63 mg/dL
== END 2025-04-17 07:14 | disposition home or self-care (01) ==
LOC: HO.LAB 07:13
PROVIDERS: PCP Internal Medicine; Visit Provider Internal Medicine
DX: E11.65 Type 2 diabetes mellitus with hyperglycemia (principal); E78.00 Pure hypercholesterolemia, unspecified
CPT/HCPCS: 36415; 80053; 80061; 82043; 82306; 82570; 82607; 82746; 83036; 84439; 84443; 85025

== ENCOUNTER 2025-04-22 16:04 | Outpatient (AMB) | payer OTHER, SELFPAY ==
--- NOTE | 2025-04-22 16:05 | MHC.PC.OV ---
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: No Accompanied by: Self / Same As Patient Allergies diazepam [From Valium] Adverse Reaction (Unknown, Verified 04/22/25 16:05) Abdominal Pain ezetimibe [From Zetia] Adverse Reaction (Unknown, Verified 04/22/25 16:05) Drowsiness, Bodyaches Medication List - Last Reconciled 04/22/25 by Isi Cao MD acetaminophen 1,000 mg (2 x 500 mg) PO Q8H PRN cholecalciferol (vitamin D3) 25 mcg PO DAILY cholestyramine-aspartame 4 gram (Prevalite) 4 grams PO BID clonazepam 1 mg PO BEDTIME cyanocobalamin (vitamin B-12) 1,000 mcg PO .once a week 90 days fluticasone propionate 50 mcg/actuation 2 sprays intranasal DAILY lidocaine 5% 1 patch topical DAILY loratadine (Claritin) 10 mg PO DAILY simvastatin 5 mg PO BEDTIME Tobacco use date assessed: 04/22/25 Dental Screening Dental Screen Date: 04/22/25 [facility] Medical History (Updated 03/12/25 @ 15:29 by Elayne Bob NP) Breast tenderness Blood pressure elevated without history of HTN Acute respiratory disease Annual physical exam Nasal congestion Overweight (BMI 25.0-29.9) Dysuria COVID-19 virus infection Burn of pharynx Renal calculus, left LFT elevation Impaired glucose tolerance Osteoarthritis of right knee Knee osteoarthritis TSH elevation Generalized anxiety disorder Obesity (BMI 30.0-34.9) Surgical History Hx of cholecystectomy Breast cyst Hx of tubal ligation Family History Mother Breast cancer Cervical cancer Anxiety Father No problems noted. Sister Anxiety Sister No problems noted. Sister No problems noted. Sister No problems noted. Sister No problems noted. Brother No problems noted. Brother No problems noted. Brother No problems noted. Brother No problems noted. Daughter No problems noted. Daughter Substance abuse Daughter No problems noted. Other UTI (urinary tract infection), bacterial Social History Housing: House Alcohol intake: never Patient Tobacco Use Status: Current everyday Tobacco user Tobacco use type: Cigarette Cigarette Packs Per Day: 4 Cigarettes Per Day: 6 e-Cigarette/Vaping Use: Never Used Second Hand Smoke Exposure: No service: No Current occupational status: employed Current occupation: [employer] Current occupational exposures/hazards: No Cognitive needs: No Hearing needs: No Vision needs: Yes Questionnaire PHQ-9 Over the last 2 weeks, how often have you been bothered by any of the following problems? 1. Little interest or pleasure in doing things: not at all 2. Feeling down, depressed, or hopeless: not at all 3. Trouble falling or staying asleep, or sleeping too much: not at all 4. Feeling tired or having little energy: not at all 5. Poor appetite or overeating: not at all 6. Feeling bad about yourself - or that you are a failure or have let yourself or your family down: not at all 7. Trouble concentrating on things, such as reading the newspaper or watching television: not at all 8. Moving or speaking so slowly that other people could have noticed. Or the opposite - being so fidgety or restless that you have been moving around a lot more than usual: not at all 9. Thoughts that you would be better off or of hurting yourself in some way: not at all Total score: 0 Source: Developed by Drs. Medardo Sanches, Ijeoma Boetllo, Fabian Stevenson and colleagues, with an educational dawood from [employer]. Thrive Questionnaire Date Thrive assessed: 04/22/25 I am a: Patient What is your living situation today?: I have a steady place to live Within the past 12 months, did the food you bought not last and you didn't have the money to get more?: Never true Within the past 12 months, did you worry whether your food would run out before you got money to buy more?: Never true Do you have trouble paying for medicines?: No Do you have trouble getting transportation to medical appointments?: No Do you have trouble paying your heating and electricity bill?: No Do you have trouble taking care of your child, family member or friend?: No Do you have trouble with day-to-day activities such as bathing, preparing meals, shopping, managing finances, etc.?: No Are you currently unemployed and looking for a job?: No Are you interested in more education?: No Please select the resources that you would like help with: None Currently or been in a relationship where the following occur: No concerns reported THRIVE Score: 0 AUDIT C Alcohol Use Questionnaire (AUDIT-C) 1. How often do you have a drink containing alcohol?: Monthly or less 2. How many drinks containing alcohol do you have on a typical day when you are drinking?: 1 or 2 3. How often do you have six or more drinks on one occasion?: Never Total Score: 1 JACQUELINE-7 AMB Questionnaire JACQUELINE-7 Date JACQUELINE - 7 assessed: 04/22/25 Feeling nervous, anxious, or on edge: 0 = Not at all Not being able to stop or control worryin = Not at all Worrying too much about different things: 0 = Not at all Trouble relaxin = Not at all Being so restless that it is hard to sit still: 0 = Not at all Becoming easily annoyed or irritable: 0 = Not at all Feeling afraid as if something awful might happen: 0 = Not at all Total JACQUELINE-7 score (0-4 normal; 5-9 mild; 10-14 moderate; 15-21 severe): 0 Source: Developed by Drs. Medardo Sanches, Ijeoma Botello, Fabian Stevenson and colleagues, with an educational dawood from [employer]. Physical exam (Primary Care) Tobacco/Smoking Status: Tobacco use Status Tobacco use date assessed 04/22/25 04/22/25 16:07 Patient Tobacco Use Status Current everyday Tobacco 04/22/25 16:07 Tobacco use type Cigarette 04/22/25 16:07 e-Cigarette/Vaping Use Never Used 04/22/25 16:07 PHQ-9: PHQ-9 Score PHQ-9: Total score 0 04/22/25 17:36 Thrive Assessment: Date of Thrive Assessment Date Thrive assessed 04/22/25 04/22/25 16:07 Currently or been in a relationship where the following occur: No concerns reported Telehealth Telehealth Telehealth Platform: Telephone Location of provider rendering services: practice address Location of patient: address on file Patient Identification confirmed using: Name, : Yes Telehealth method: video (IPHONE) Patient verbally consented to treatment: Yes Patient verbally consented to billing insurance company: Yes Patient informed of any privacy concerns related to visit: Yes Minutes spent on Phone/Video with Pt.: 25 Coding Level of Care Code Tele Est Pt Level 4 (50589) Diagnoses Type 2 diabetes mellitus with hyperglycemia E11.65 Hypercholesterolemia E78.00 Vitamin B12 deficiency E53.8 Generalized anxiety disorder F41.1 Tobacco abuse Z72.0 Fatty liver K76.0 Breast tenderness N64.4 Assessment & Plan Assessment & Plan (1) Type 2 diabetes mellitus with hyperglycemia: Comment: [employer] Code(s): E11.65 - Type 2 diabetes mellitus with hyperglycemia Category: Medical Plan: Decrease the amount of carbohydrate intake, pasta, bread, rice and potatoes are all sugar and that is aside from all the sweet stuff, remember that fruits are good but they are Sweet also. Hemoglobin A1c goal of less than 6.5 diet controlled (2) Hypercholesterolemia: Code(s): E78.00 - Pure hypercholesterolemia, unspecified Category: Medical Plan: Avoid fried foods, chicken skin, eggs, butter margarine, pastries and meat. Be it pork or beef they have a lot of cholesterol LDL goal of less than 100 and triglyceride of less than 150 on simvastatin 5 mg once a day (3) Vitamin B12 deficiency: Code(s): E53.8 - Deficiency of other specified B group vitamins Category: Medical Plan: Vitamin B12 1000 mcg once a day (4) Generalized anxiety disorder: Comment: [facility] Dr. Fabian Q3 months counselling Q month (03/2022) Code(s): F41.1 - Generalized anxiety disorder Category: Medical Plan: On clonazepam take as needed (5) Tobacco abuse: Code(s): Z72.0 - Tobacco use Category: Medical Plan: Patient is strongly advised to stop smoking!! (6) Fatty liver: Code(s): K76.0 - Fatty (change of) liver, not elsewhere classified Category: Medical Plan: Low-fat diet and exercise (7) Breast tenderness: Code(s): N64.4 - Mastodynia Category: Medical Plan: Mammogram is pending Plan History of Present Illness The patient is a 54-year-old female presenting with breast pain, which necessitates a follow-up mammogram scheduled for May 03. Her medical history is significant for diabetes mellitus, which is well-controlled with an HbA1c of 6.0%, hypercholesterolemia now within target levels, anxiety disorder, and the presence of a hepatic septum cyst. She is a current smoker, despite being advised to cease smoking for health benefits. In the past, the patient has undergone a colon test and a previous mammogram, the latter revealing no significant results. Routine blood work indicates normal renal function, electrolyte balance, and no anemia; however, mild leukopenia persists. The patient?s cholesterol levels have improved significantly, and liver function tests remain stable. Despite supplementation, vitamin B12 levels are slightly below the desired range. The patient has also raised concerns regarding increased hair shedding, which was addressed with a potential need for biotin. Continued vitamin D3 supplementation is advised, given her levels are above the threshold. She is pending a second dose of the shingles vaccine within the recommended interval. Review of Systems - General: Denies weight loss or fever. - Endocrine: Denies thyroid symptoms. - Cardiovascular: Reports hypercholesterolemia. - Respiratory: Reports smoking; denies respiratory symptoms. - Gastrointestinal: Denies abdominal pain; reports normal liver function. - Hematologic: Reports mild leukopenia. - Dermatologic: Reports increased hair shedding. - Mental Health: Reports anxiety disorder. - Breast: Reports pain warranting follow-up mammogram. Plan 1. 5%. Her lipid profile is improved under simvastatin 5 mg, with cholesterol targets achieved. Management of vitamin deficiency includes weekly supplementation, with the prescription sent to [facility]. Tobacco cessation remains a priority due to its adverse health effects, necessitating the patient's commitment. Vitamin D levels are sufficient, with continuation of supplementation, and her shingles vaccination schedule is to be completed accordingly: . Patient was informed and verbally consented to the use of an ambient scribe for clinic note documentation during this visit. Discussion Notes During the consultation, I discussed the breast pain and scheduled mammogram for further assessment. The patient's overall metabolic control was acknowledged, particularly her managed HbA1c and improved cholesterol levels under current therapy. I emphasized the significance of smoking cessation, addressing the patient's hesitation and underscoring the health benefits of quitting. We discussed the low vitamin B12 levels, addressing concerns about hair shedding with supplemental biotin. Plans for completing the shingles vaccine were outlined, while reinforcing adherence to prescribed medications for managing chronic conditions. Patient Instructions - Attend the mammogram appointment on May 03. - Maintain current diet to control blood sugar and cholesterol. - Take simvastatin 5 mg daily for cholesterol management. - Use vitamin B12 supplement weekly as directed. - Keep taking vitamin D3; maintain levels above 30 ng/mL. - Plan to get the second shingles shot within the next 2-6 months. - Strongly advised to quit smoking; seek help if needed. - Monitor hair health; consider biotin supplementation. - Follow up as recommended with any new or worsening symptoms. Medications: New cyanocobalamin (vitamin B-12) 1,000 mcg PO .once a week 13 caps 3RF 90 days E53.8 - Deficiency of other specified B group vitamins
--- OUTSIDE RECORDS SUMMARY | 2025-04-22 18:11 | XMS_ITS | Clinical Summary ---
Author Organization [facility] it Address [address] [place] [address] Care Team Providers Care Clinical Research Administrator Name Role Phone Adenike Haider MD Primary Care Provider [phone] Allergies Active Allergy Reactions Criticality Noted Date [...] 1989 LASER ABLATION OF THE CERVIX PROCEDURE: [place] CAUTERY CERVIX LASER ABLATION; COMMENT: for a polyp BREAST SURGERY 25 YRS AGO PROCEDURE: [place] UNLISTED PROCEDURE BREAST; COMMENT: for a cyst on the right breast OTHER SURGICAL HISTORY 07/2021 PROCEDURE: MAMMOGRAM, SCREENING, BOTH BREASTS COLONOSCOPY 02/07/2022 PROCEDURE: HISTORICAL COLONOSCOPY; COMMENT: tiny polyps removed - normal mucosa Medical History Medical History Date Comments Major depression DX:Major depres tanya; COMMENT: follows at [facility]- Dr Marte Anxiety DX:Anxiety Bilateral sciatica DX:Bilateral [...] on file Obstetrics History Plan of Treatment Health Maintenance Due Date Last Done Comments [...] MD IMG XR PROCEDURES Final Result * Hm Colonoscopy (02/07/2022) Pathologist [facility] HM Colonoscopy abstracted,no interpretation Anatomical Region Laterality Modality Other Historical Provider HEALTH MAINTENANCE Final Result * (ABNORMAL) Lipid panel (03/09/2019) Pathologist [facility] LDL/HDL Ratio 4 0 - 4 Triglycerides 191(A) 0 - 150 mg/dL Cholesterol 142 0 - 200 mg/dL HDL 32(A) >=40 mg/dL LDL Cholesterol 72 0 - 100 mg/dL Blood Venous blood specimen / Unknown Historical Provider LAB BLOOD ORDERABLES Evelia l Result * Pap smear (10/29/2018) 10/29/2018 Narrative HISTORICAL TESTING LAB RESULTING AGENCY - 11/03/2018 1:18 PM EST [id number] THINPREP PAP, IMAGED: NEGATIVE FOR SQUAMOUS INTRAEPITHELIAL [...] Recently Relevant to Health Maintenance Care Teams Clinical Research Administrator Relationship Specialty Start Date End Date Adenike Haider MD [address] [place] [address] PCP - General Internal Medicine 05/24/21
== END 2025-04-22 18:08 | disposition home or self-care (01) ==
LOC: HO.HMCH 16:04
PROVIDERS: PCP Internal Medicine; Visit Provider Internal Medicine
DX: E11.65 Type 2 diabetes mellitus with hyperglycemia (principal); E78.00 Pure hypercholesterolemia, unspecified; E53.8 Deficiency of other specified B group vitamins; F41.1 Generalized anxiety disorder; Z72.0 Tobacco use; K76.0 Fatty (change of) liver, not elsewhere classified; N64.4 Mastodynia

== ENCOUNTER → 2025-04-22 16:04 | Outpatient (BNVA) | payer OTHER, SELFPAY | PROVIDERS: PCP Internal Medicine; Visit Provider Internal Medicine ==

== ENCOUNTER 2025-05-03 08:22 | Outpatient (REF) | payer OTHER, SELFPAY ==
--- NOTE | ~2025-05-03 | US_ITS ---
EXAMINATION: MM DIAGNOSTIC DIGITAL BREAST TOMOSYNTHESIS, BILATERAL Limited right breast ultrasound. CLINICAL INFORMATION: Right breast pain. COMPARISON: Mammography: Comparison is made with relevant prior exams. TECHNIQUE: Digital breast mammography with tomosynthesis is performed in both the craniocaudal and mediolateral oblique views along with computer-aided detection (CAD). FINDINGS: There are scattered areas of fibroglandular density (ACR BI-RADS breast composition Category b). Right excisional biopsy. Bilateral circumscribed oval masses which wax and wane consistent with benign fibrocystic changes. Some were demonstrated to be simple cysts on prior ultrasounds. There are no significant masses, abnormal calcifications, or other abnormalities. Targeted color Doppler ultrasound scanning in the area of the patient's right breast pain from 10-2 o'clock demonstrates incidental hypoechoic oval circumscribed minimally complicated cysts at 12:00 2 cm from nipple measuring 5 x 6 x 5 mm and at 10:00 4 7 m from nipple measuring 6 x 5 x 3 mm. These cysts are not significantly changed on prior mammograms and are benign. There is no internal vascular flow. Results are provided to the patient at time of visit by the technologist. US/US breast RT limited mamm only IMPRESSION: Left: Minimally complicated cysts on ultrasound. Benign. No mammographic or sonographic abnormal finding in the right breast to account for the patient's right breast pain. Recommend clinical evaluation and follow-up. Left: Benign. ASSESSMENT: BI-RADS BI-RADS 2 - Benign Findings RECOMMENDATION: 1 year F/U This patient's information was entered into a reminder system with a target due date for their next mammogram. Electronically signed by: Ban Becerra DO 05/03/2025 12:04 PM EDT
--- OUTSIDE RECORDS SUMMARY | 2025-05-03 08:43 | XMS_ITS | Clinical Summary ---
Author Organization [facility] it Address [address] [place] [address] Care Team Providers Care Athletic Field Custodian Name Role Phone Adenike Haider MD Primary Care Provider [phone] Allergies Active Allergy Reactions Criticality Noted Date [...] 1989 LASER ABLATION OF THE CERVIX PROCEDURE: [place] CAUTERY CERVIX LASER ABLATION; COMMENT: for a polyp BREAST SURGERY 25 YRS AGO PROCEDURE: [place] UNLISTED PROCEDURE BREAST; COMMENT: for a cyst on the right breast OTHER SURGICAL HISTORY 07/2021 PROCEDURE: MAMMOGRAM, SCREENING, BOTH BREASTS COLONOSCOPY 02/07/2022 PROCEDURE: HISTORICAL COLONOSCOPY; COMMENT: tiny polyps removed - normal mucosa Medical History Medical History Date Comments Major depression DX:Major depres tanya; COMMENT: follows at [facility]- Dr Marte Anxiety DX:Anxiety Bilateral [...] Final Result * Hm Colonoscopy (02/07/2022) Pathologist [facility] HM Colonoscopy abstracted,no interpretation Anatomical Region Laterality Modality Other Historical Provider HEALTH MAINTENANCE Final Result * (ABNORMAL) Lipid panel (03/09/2019) Pathologist [facility] LDL/HDL Ratio 4 0 - 4 Triglycerides 191(A) 0 - 150 mg/dL Cholesterol 142 0 - 200 mg/dL HDL 32(A) >=40 mg/dL LDL Cholesterol 72 0 - 100 mg/dL Blood Venous blood specimen / Unknown Historical Provider LAB BLOOD ORDERABLES Evelia l Result * Pap smear (10/29/2018) 10/29/2018 Narrative HISTORICAL TESTING LAB RESULTING AGENCY - 11/03/2018 1:18 PM EST [id number] THINPREP PAP, IMAGED: NEGATIVE FOR SQUAMOUS INTRAEPITHELIAL [...] Recently Relevant to Health Maintenance Care Teams Athletic Field Custodian Relationship Specialty Start Date End Date Adenike Haider MD [address] [place] [address] PCP - General Internal Medicine 05/24/21
== END 2025-05-03 08:23 | disposition home or self-care (01) ==
LOC: HO.MAMMO 08:22
PROVIDERS: PCP Internal Medicine; Visit Provider Nurse Practitioner Family
DX: N64.4 Mastodynia (principal)
CPT/HCPCS: 76642; 77062; 77066

== ENCOUNTER → 2025-05-03 08:30 | Outpatient (BNV) | payer OTHER, SELFPAY | PROVIDERS: PCP Internal Medicine; Visit Provider Internal Medicine | DX: N64.4 Mastodynia (principal); N60.01 Solitary cyst of right breast | CPT/HCPCS: 76642; 77062; 77066 ==

== ENCOUNTER 2025-05-10 13:55 | Outpatient (REF) | payer OTHER, SELFPAY ==
--- NOTE | ~2025-05-10 | XR_ITS ---
EXAMINATION: XR KNEE, RIGHT CLINICAL INFORMATION: M17.11 - Unilateral primary osteoarthritis, right knee COMPARISON: August 17, 2022 TECHNIQUE: AP standing, lateral, and sunrise view of the right knee. FINDINGS: There is moderate narrowing of the medial greater than lateral joint space. There are large marginal osteophytes along the medial joint line and small osteophytes along the lateral. Patellofemoral joint marginal osteophytes are also present, largest along the medial trochlea. There is a small amount of joint fluid. XR/XR knee RT 3V IMPRESSION: Moderate degenerative changes consistent with osteoarthritis. Electronically signed by: Angel Henriquez MD 05/10/2025 03:34 PM EDT
--- OUTSIDE RECORDS SUMMARY | 2025-05-10 15:27 | XMS_ITS | Clinical Summary ---
Author Organization [facility] it Address [address] [place] [address] Care Team Providers Care Utilization Review Specialist Name Role Phone Adenike Haider MD Primary Care Provider [phone] Allergies Active Allergy Reactions Criticality Noted Date [...] 1989 LASER ABLATION OF THE CERVIX PROCEDURE: CT CAUTERY CERVIX LASER ABLATION; COMMENT: for a polyp BREAST SURGERY 25 YRS AGO PROCEDURE: CT UNLISTED PROCEDURE BREAST; COMMENT: for a cyst on the right breast OTHER SURGICAL HISTORY 07/2021 PROCEDURE: MAMMOGRAM, SCREENING, BOTH BREASTS COLONOSCOPY 02/07/2022 PROCEDURE: HISTORICAL COLONOSCOPY; COMMENT: tiny polyps removed - normal mucosa Medical History Medical History Date Comments Major depression DX:Major depres tanya; COMMENT: follows at [facility]- Dr Marte Anxiety DX:Anxiety Bilateral [...] Routine screening. No current breast complaints. Family history of breast cancer in mother and [...] typically benign parenchymal asymmetries IMPRESSION: : 1. No mammographic evidence of [...] XR PROCEDURES Final Result * Colonoscopy (02/07/2022) HM Colonoscopy abstracted,no interpretation Anatomical Region Laterality Modality Other Historical Provider HEALTH MAINTENANCE Final Result * (ABNORMAL) Lipid panel (03/09/2019) Pathologist [facility] LDL/HDL Ratio 4 0 - 4 Triglycerides 191(A) 0 - 150 mg/dL Cholesterol 142 0 - 200 mg/dL HDL 32(A) >=40 mg/dL LDL Cholesterol 72 0 - 100 mg/dL Blood Venous blood specimen / Unknown Historical Provider LAB BLOOD ORDERABLES Evelia l Result * Pap smear (10/29/2018) 10/29/2018 Narrative HISTORICAL TESTING LAB RESULTING AGENCY - 11/03/2018 1:18 PM EST [id number] THINPREP PAP, IMAGED: NEGATIVE FOR SQUAMOUS INTRAEPITHELIAL LESION AND MALIGNANCY . ANDREINA BRODERICK(ASCP) (CASE ELECTRONICALLY SIGNED 11 03 2018) RESULT OF APTIMA HIGH RISK HPV ASSAY: HIGH RISK HPV: NEGATIVE (SEROTYPES 16,18,31,33,35,39,45,51,52,56,58,59,66,68) COMPLETED ON 2018-10-31 ADEQUACY: SATISFACTORY ENDOCERVICAL/TRANSFORMATION ZONE COMPONENT PRESENT. SOURCE: THINPREP PAP HPV ANY DX: REFLEX 16 AND 18, CERVICAL, IMAGED CLINICAL INFORMATION: HPV ANY DIAGNOSIS. Z12.4, Z01.419 MENOPAUSE, POSITIVE HX ABN PAP PER PATIENT Charleen Nix MD LAB CYTOLOGY ORDERABLES Final R esult HISTORICAL TESTING LAB RESULTING AGENCY from Last 3 Months or Most Recently Relevant to Health Maintenance Care Teams Utilization Review Specialist Relationship Specialty Start Date End Date Adenike Haider MD [address] [place] [address] PCP - General Internal Medicine 05/24/21
== END 2025-05-10 13:56 | disposition home or self-care (01) ==
LOC: HO.HOSX 13:55
DX: M17.11 Unilateral primary osteoarthritis, right knee (principal)
CPT/HCPCS: 20610; 73562; J1010; J2003

== ENCOUNTER 2025-05-10 14:44 | Outpatient (AMB) | payer OTHER, SELFPAY ==
--- NOTE | 2025-05-10 15:03 | A.OFFVIS_ITS ---
Vital Signs 05/10/25 15:04 Height 5 ft Weight 137 lb BMI 26.8 Intake Visit Reasons: OV-RT knee OA f/u Intake Note: Priyanka 55 yr old female presents today for a follow up visit for her right knee S/P knee injection with Dr Qureshi on 08/17/22. States injection did not help. At her last visait she was also ordered a knee brace. Reports she received the brace however it did not help either. States she is here to discuss other treatment options. Allergies diazepam (From Valium) Adverse Reaction (Unknown, Verified 05/10/25 15:08) Abdominal Pain ezetimibe (From Zetia) Adverse Reaction (Unknown, Verified 05/10/25 15:08) Drowsiness, Bodyaches HPI HPI OV-RT knee OA f/u: Details: Priyanka 55 yr old female presents today for a follow up visit for her right knee S/P knee injection with Dr Qureshi on 08/17/22. States injection helped for a while, but states that over the last few days her knee pain has been gradually worsening.. At her last visait she was also ordered a knee brace. Reports she received the brace however it did not help either. States she is here to discuss other treatment options. [facility] Medical History (Updated 03/12/25 @ 15:29 by Elayne Bob NP) Breast tenderness Blood pressure elevated without history of HTN Acute respiratory disease Annual physical exam Nasal congestion Overweight (BMI 25.0-29.9) Dysuria COVID-19 virus infection Burn of pharynx Renal calculus, left LFT elevation Impaired glucose tolerance Osteoarthritis of right knee Knee osteoarthritis TSH elevation Generalized anxiety disorder Obesity (BMI 30.0-34.9) Surgical History Hx of cholecystectomy Breast cyst Hx of tubal ligation Family History Mother Breast cancer Cervical cancer Anxiety Father No problems noted. Sister Anxiety Sister No problems noted. Sister No problems noted. Sister No problems noted. Sister No problems noted. Brother No problems noted. Brother No problems noted. Brother No problems noted. Brother No problems noted. Daughter No problems noted. Daughter Substance abuse Daughter No problems noted. Other UTI (urinary tract infection), bacterial Social History Housing: House Alcohol intake: never Patient Tobacco Use Status: Current everyday Tobacco user Tobacco use type: Cigarette Cigarette Packs Per Day: 4 Cigarettes Per Day: 6 e-Cigarette/Vaping Use: Never Used Second Hand Smoke Exposure: No service: No Current occupational status: employed Current occupation: [employer] - [employer] Current occupational exposures/hazards: No Cognitive needs: No Hearing needs: No Vision needs: Yes Review of Systems Const All systems reviewed & are unremarkable except as noted in HPI and below Physical Exam Vital Signs: BMI result Body Mass Index 26.8 Extrem Other: Patient's right knee normal to inspection No erythema, ecchymosis, edema noted No lacerations, abrasions, open areas No evidence of infection Patient reports tenderness to palpation of the medial and lateral joint lines, posterior knee Positive patellar grind Patient is able to flex and extend the right knee fully Negative Evgeny's Distal sensation intact Capillary refill brisk Office Procedures Joint Inj/Aspir; Non-Pain Clin Joint Injection/Drain Prep: site was prepped using aseptic technique and injection warnings given Approach Used: anterolateral Procedure: The patient tolerated the procedure well and there was some relief with the local anesthesia Shoulders, Hips, Knees, Knee Large Joint Injection [id number]: Right Knee Coding Procedure code (CPT) selection complete Results Reviewed Results Reviewed: X-rays obtained in the office today and independently reviewed by me, Justus Oliveira PA-C, demonstrate moderate to severe tricompartmental arthritis of the right knee. Assessment & Plan Assessment & Plan (1) Knee osteoarthritis: Comment: July 2022There is moderate osteoarthritic change of the medial joint space compartment of the right knee. 2. There is minimal osteoarthritic change of the medial joint space compartment the left knee. 3. No significant varus or valgus configuration is seen bilaterally. Code(s): M17.10 - Unilateral primary osteoarthritis, unspecified knee Category: Medical Plan 1. Osteoarthritis of right knee Patient is educated about this condition Patient is educated about the treatment options available Patient would like to proceed with steroid injection The risks and benefits of a steroid injection including but not limited to risk of damage to blood vessels, nerves, tendons, infection, skin bleaching, failure to improve symptoms, increased pain, and possible need for further injections or other intervention were discussed with the patient and the patient wishes to proceed with the steroid injection. Once consent was obtained, I aseptically prepped the area over the anterolateral joint line of the right knee. I then injected the area over the lateral epicondyle with a combination of 40 mg of dexamethasone and 8 mL of 1% lidocaine. The patient tolerated the procedure well with no complications. If the patient continues to experience symptoms over the following few weeks or months, they can make an appointment to return and discuss alternative treatment measures, such as physical therapy. Follow-up prn Coding Level of Care Code New Pt Level 3 (78326) Diagnoses Knee osteoarthritis M17.10 CPT Codes Shoulders, Hips, Knees, - Knee Large Joint Injection : Right Knee ([id number])
[2025-05-10 15:04] VITALS: BMI 26.8
== END 2025-05-10 15:52 | disposition home or self-care (01) ==
LOC: HO.HOS 14:45
PROVIDERS: PCP Internal Medicine
DX: M17.11 Unilateral primary osteoarthritis, right knee (principal)
CPT/HCPCS: 20610; 99203

== ENCOUNTER → 2025-05-10 14:53 | Outpatient (BNV) | payer OTHER, SELFPAY | PROVIDERS: Visit Provider Radiology Diagnostic Radiology | DX: M17.11 Unilateral primary osteoarthritis, right knee (principal) | CPT/HCPCS: 73562 ==

== ENCOUNTER 2025-08-09 13:32 | Outpatient (AMB) | payer OTHER, SELFPAY ==
--- NOTE | 2025-08-09 13:46 | A.OFFPC_ITS ---
Vital Signs 08/09/25 13:47 Height 5 ft Weight 125 lb 3.561 oz BMI 24.5 BP 120/66 Blood Pressure Location Rt brachial Position Sitting Pulse 59 Pulse Source Pulse Oximeter Temp 97.1 F Temp Source Temporal Artery Scan Pulse Oximetry (%) 95 Oxygen Delivery Method Room Air Intake Visit Reasons: [facility], 08/01 Intake Note: Patient is here for hospital discharge follow up. Patient was discharged from [facility] on 08/01/25. Certified Home Health Aide Required: No Cryptologic Technician: Present Accompanied by: Daughter Allergies diazepam (From Valium) Adverse Reaction (Unknown, Verified 08/09/25 13:47) Abdominal Pain ezetimibe (From Zetia) Adverse Reaction (Unknown, Verified 08/09/25 13:47) Drowsiness, Bodyaches Medication List - Last Reconciled 08/09/25 by Michelle Mendoza MD acetaminophen 1,000 mg (2 x 500 mg) PO Q8H PRN aspirin 1 tab PO DAILY cholecalciferol (vitamin D3) 25 mcg PO DAILY cholestyramine-aspartame 4 gram (Prevalite) 4 grams PO BID clonazepam 1 mg PO BEDTIME docusate sodium 100 mg (10 mL) PO BEDTIME fluoxetine 20 mg PO BEDTIME lidocaine 5% 1 patch topical DAILY loratadine (Claritin) 10 mg PO DAILY metformin 500 mg PO BID ondansetron HCl 4 mg PO Q8H PRN 7 days simethicone (Gas Relief 80 (simethicone)) 80 mg PO TID-QID PRN simvastatin 5 mg PO BEDTIME Tobacco use date assessed: 08/09/25 Dental Screening Dental Screen Date: 04/22/25 HPI HPI Comments History of Present Illness Details The patient is a 55-year-old female presenting with a hospital discharge follow-up after a stroke. She was hospitalized for a stroke and subsequently underwent rehabilitation, which was beneficial. Patient had G tube placed at rehab center. Her PO intake improved and she has been taking some pills per mouth. I advised her caregiver to check with pharmacy if all pills can be crushed. She was started on Statin and ASA in the hospital which she has been tolearting well. Today she reported history of heart murmur. She did not undergo an echo, carotid US nore LE US while in the hospital as per her caregiver. [facility] Medical History (Updated 06/17/25 @ 14:30 by Isi Cao MD) Breast tenderness Blood pressure elevated without history of HTN Acute respiratory disease Annual physical exam Nasal congestion Overweight (BMI 25.0-29.9) Dysuria COVID-19 virus infection Burn of pharynx Renal calculus, left LFT elevation Impaired glucose tolerance Osteoarthritis of right knee Knee osteoarthritis TSH elevation Generalized anxiety disorder Obesity (BMI 30.0-34.9) Surgical History (Updated 08/09/25 @ 14:00 by JOSEPH Cardoza) History of surgery History of brain surgery Hx of cholecystectomy Breast cyst Hx of tubal ligation Family History Mother Breast cancer Cervical cancer Anxiety Father No problems noted. Sister Anxiety Sister No problems noted. Sister No problems noted. Sister No problems noted. Sister No problems noted. Brother No problems noted. Brother No problems noted. Brother No problems noted. Brother No problems noted. Daughter No problems noted. Daughter Substance abuse Daughter No problems noted. Other UTI (urinary tract infection), bacterial Social History Housing: House Alcohol intake: never Patient Tobacco Use Status: Former Tobacco user Tobacco use type: Cigarette Cigarette Packs Per Day: 4 Cigarettes Per Day: 6 e-Cigarette/Vaping Use: Never Used Second Hand Smoke Exposure: Yes service: No Current occupational status: employed Current occupation: [employer] Current occupational exposures/hazards: No Cognitive needs: No Hearing needs: No Vision needs: Yes Questionnaire Thrive Questionnaire Date Thrive assessed: 03/12/25 I am a: Patient What is your living situation today?: I have a steady place to live Within the past 12 months, did the food you bought not last and you didn't have the money to get more?: Never true Within the past 12 months, did you worry whether your food would run out before you got money to buy more?: Never true Do you have trouble paying for medicines?: No Do you have trouble getting transportation to medical appointments?: No Do you have trouble paying your heating and electricity bill?: No Do you have trouble taking care of your child, family member or friend?: No Do you have trouble with day-to-day activities such as bathing, preparing meals, shopping, managing finances, etc.?: No Are you currently unemployed and looking for a job?: No Are you interested in more education?: No Please select the resources that you would like help with: None Currently or been in a relationship where the following occur: No concerns reported THRIVE Score: 0 JACQUELINE-7 AMB Questionnaire JACQUELINE-7 Date JACQUELINE - 7 assessed: 04/22/25 Source: Developed by Drs. Medardo Sanches, Ijeoma Botello, Fabian Stevenson and colleagues, with an educational dawood from [employer]. Review of Systems Const Details: Not completed. Physical exam (Primary Care) Vital Signs: Last Vital Signs Temp 97.1 F 08/09/25 13:47 Pulse 59 08/09/25 13:47 BP 120/66 08/09/25 13:47 Pulse Ox 95 08/09/25 13:47 Oxygen Delivery Method Room Air 08/09/25 13:47 BMI result Body Mass Index 24.5 Tobacco/Smoking Status: Tobacco use Status Tobacco use date assessed 08/09/25 08/09/25 13:52 Patient Tobacco Use Status Former Tobacco user 08/09/25 14:01 Tobacco use type Cigarette 08/09/25 13:52 e-Cigarette/Vaping Use Never Used 08/09/25 13:52 Thrive Assessment: Date of Thrive Assessment Date Thrive assessed 03/12/25 08/09/25 13:52 Currently or been in a relationship where the following occur: No concerns reported Const Other: Pertinent findings are in BOLD GENERAL APPEARANCE NAD, activity normal for age, well developed/ well nourished, no cyanosis, pallor, or diaphoresis. EYES lids/conjunctiva normal. EARS/NOSE/THROAT Mucous membranes moist, nares normal, lips/teeth normal uvula midline without oral pharyngeal erythema, exudate or swelling TMs normal bilaterally. No lymphangitis/lymphedema. HEAD/NECK normocephalic atraumatic, no facial trauma, neck is supple. RESPIRATORY respiratory effort normal, speaks in full sentences, no tripod position, no accessory muscle use. Lungs clear to auscultation without rhonchi, wheezes, rales CARDIAC Regular rate and rhythm, no edema, Systolic murmur. ABDOMINAL Soft, ND/NT. No evidence of fluid wave. No pulsatile masses on exam, rebound tenderness, Prince sign or pain over Mcburney's point. MUSCLES/EXTREMITIES No abnormal range of motion, no swelling. SKIN Warm, pink and dry. No rashes, dermatoses, petechiae or lesions. NEUROLOGICAL Speech is clear and appropriate. Normal level of consciousness. Gait and coordination are normal. 3/5 Muscle strength on left side. PSYCH Normal mood and affect. Judgement/competence is appropriate Coding Level of Care Code Est Pt Level 4 (19609) Diagnoses CVA (cerebral vascular accident) I63.9 Time Spent (min) 30 Comment Time spent on physical exam, hosp records. Assessment & Plan Assessment & Plan (1) CVA (cerebral vascular accident): Comment: Right middle cerebral, 06/16/2025 left hemiplegia TNK had thrombectomy via right femoral access Code(s): I63.9 - Cerebral infarction, unspecified Category: Medical Plan: Patient following up today after recent hospitalization for CVA. She completed and tolerated well PT. She continues to have home PT, OT and sppeech therapy at home. Continue Statin, ASA as prescribed in the hospital. Neurology referral placed. To complete stroke W-U and knowing the patient's history of heart murmur we will get: heart US, BL LE US and carotid US. Orders: Orders CA Echo Limited Today I63.9 - Cerebral infarction, unspecified US arterial duplex LE BI Today I63.9 - Cerebral infarction, unspecified US carotid duplex BI Today I63.9 - Cerebral infarction, unspecified Referrals Neurology Referral I63.9 - Cerebral infarction, unspecified
[2025-08-09 13:47] VITALS: BP 120/66; PULSE 59; TEMP 36.2; O2SAT 95; BMI 24.5
--- OUTSIDE RECORDS SUMMARY | 2025-08-09 15:59 | XMS_ITS | Encounter Summary ---
Author Organization [facility] Address [address] [place] [address] Care Team Providers Care Pullman Car Repairer Name Role Phone Adenike Haider MD Primary Care Provider [phone] Encounter Details Date Type Department Care Team (Late st Contact Info) Description 07/29/[address] [facility] - Main Lab [address] [place] [address] Reji Cueto PA [address] [place] [phone]
--- OUTSIDE RECORDS SUMMARY | 2025-08-09 15:59 | XMS_ITS | Encounter Summary ---
Author Organization [facility] Address [address] [place] [address] Care Team Providers Care Laminator Printed Circuit Boards Name Role Phone Adenike Haider MD Primary Care Provider Encounter Details Date Type Department Care Team (Late st Contact Info) Description 07/22/2025 Lab Requisition [facility] - Main Lab
--- OUTSIDE RECORDS SUMMARY | 2025-08-09 15:59 | XMS_ITS ---
[facility] Total Bilirubin 0.3 0.0 - 1.4 mg/dL LAB CHEMISTRY METHOD 07/13/2025 2:12 PM EDT [facility] Blood Venous blood specimen / Unknown Venipuncture / Unknown 07/13/2025 6:20 AM EDT 07/13/2025 10:28 AM EDT Zoë TOLBERT LAB BLOOD ORDERABLES Final Re sult Performing Organization Address [facility] Co de Phone Number [facility] [address] [place] [address], [place] [phone] * Magnesium (07/10/2025 5:26 AM EDT) Magnesium 2.4 1.9 - 2.6 mg/dL LAB CHEMISTRY METHOD 07/10/2025 11:26 AM EDT [facility] Blood Venous blood specimen / Unknown Venipuncture / Unknown 07/10/2025 5:26 AM EDT 07/10/2025 10:06 AM EDT Destiney TOLBERT LAB BLOOD ORDERABLES Final Resul t Performing Organization Address [facility] de Phone Number [facility] [address] [place] [address], [place] [phone] * SCREENING MAMMOGRAPHY BI 2-VIEW BREAST INC [...] Anatomical Region Laterality Modality Other Historical Provider [facility] Final Result * (ABNORMAL) Lipid panel (03/09/2019) LDL/HDL Ratio 4 0 - 4 Triglycerides 191(A) 0 - 150 mg/dL Cholesterol 142 0 - 200 mg/dL HDL 32(A) >=40 mg/dL LDL Cholesterol 72 0 - 100 mg/dL Blood Venous blood specimen / Unknown us Historical Provider LAB BLOOD ORDERABLES Evelia brittani Result * Pap smear (10/29/2018) 10/29/2018 Narrative HISTORICAL TESTING LAB RESULTING AGENCY - 11/03/2018 1:18 PM EST [id number] THINPREP PAP, IMAGED: NEGATIVE FOR SQUAMOUS INTRAEPITHELIAL [...] or Most Recently Relevant to Health Maintenance Insurance [facility] Care Teams Tractor Driver Relationship Specialty Start Date End Date Adenike Haider MD [address] [place] [address] PCP - General Internal Medicine 05/24/21
== END 2025-08-09 14:33 | disposition home or self-care (01) ==
LOC: HO.HMCH 13:33
PROVIDERS: Visit Provider Internal Medicine
DX: I63.9 Cerebral infarction, unspecified (principal)

== ENCOUNTER 2025-08-19 12:35 | Outpatient (REF) | payer OTHER, SELFPAY ==
--- OUTSIDE RECORDS SUMMARY | 2025-08-19 14:02 | XMS_ITS | Encounter Summary ---
Author Organization [facility] Address [address] [place] [address] Care Team Providers Care Cash Applications Analyst Name Role Phone Adenike Haider MD Primary Care Provider [phone] Encounter Details Date Type Department Care Team (Late st Contact Info) Description 07/26/2025 Lab Requisition [facility] - Main Lab [address] [facility] [employer] [place] [phone] Reji Cueto PA [address] [address] Other longterm (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 therapy Social History Tobacco Use Types Packs/Day Years [...] on file Sexual Orientation Not on file documented as of this encounter Plan of Treatment Not on file documented as of this encounter Procedures Procedure Name Priority Date/Time Associated Diagnosis Comments CBC WITH AUTO DIFFERENTIAL Routine 07/26/2025 6:19 AM EDT 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 (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 therapy CBC AND DIFFERENTIAL Routine 07/26/2025 6:19 AM EDT Other longterm (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 therapy BASIC METABOLIC PANEL Routine 07/26/2025 6:19 AM EDT 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 (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 therapy documented in this encounter Results * (ABNORMAL) CBC auto differential (07/26/2025 6:19 AM EDT) [facility] WBC 5.6 4.8 - 10.8 K/mcL LAB HEMETOLOGY METHOD 07/26/2025 8:30 AM [facility] RBC 3.70(L) 3.80 - 4.80 M/mcL LAB HEMETOLOGY METHOD 07/26/2025 8:30 AM [facility] Hemoglobin 9.5(L) 11.5 - 16.0 g/dL LAB HEMETOLOGY METHOD 07/26/2025 8:30 AM [facility] Hematocrit 30.7(L) 35.0 - 47.0 % LAB HEMETOLOGY METHOD 07/26/2025 8:30 AM [facility] MCV 82.7 79.0 - 98.0 FL LAB HEMETOLOGY METHOD 07/26/2025 8:30 AM [facility] MCH 25.6(L) 27.0 - 32.0 pcg LAB HEMETOLOGY METHOD 07/26/2025 8:30 AM [facility] MCHC 30.9(L) 32.0 - 37.0 g/dL LAB HEMETOLOGY METHOD 07/26/2025 8:30 AM [facility] RDW 14.9 11.0 - 15.0 % LAB HEMETOLOGY METHOD 07/26/2025 8:30 AM [facility] Platelets 351 130 - 400 K/mcL LAB HEMETOLOGY METHOD 07/26/2025 8:30 AM [facility] MPV 9.1 7.0 - 11.0 FL LAB HEMETOLOGY METHOD 07/26/2025 8:30 AM [facility] NRBC 0.0 <1.0 % LAB HEMETOLOGY METHOD 07/26/2025 8:30 AM [facility] NRBC Absolute 0.00 <0.10 K/mcL LAB HEMETOLOGY METHOD 07/26/2025 8:30 AM [facility] Neutrophils Relative 45.8 % LAB HEMETOLOGY METHOD 07/26/2025 8:30 AM [facility] Lymphocytes Relative 39.2 % LAB HEMETOLOGY METHOD 07/26/2025 8:30 AM [facility] Monocytes Relative 8.4 % LAB HEMETOLOGY METHOD 07/26/2025 8:30 AM [facility] Eosinophils Relative 5.2 % LAB HEMETOLOGY METHOD 07/26/2025 8:30 AM [facility] Basophils Relative 0.7 % LAB HEMETOLOGY METHOD 07/26/2025 8:30 AM [facility] Immature Granulocytes Relative 0.7 % LAB HEMETOLOGY METHOD 07/26/2025 8:30 AM [facility] Neutrophils Absolute 2.57 1.50 - 7.00 K/mcL LAB HEMETOLOGY METHOD 07/26/2025 8:30 AM [facility] Lymphocytes Absolute 2.20 1.00 - 5.00 K/mcL LAB HEMETOLOGY METHOD 07/26/2025 8:30 AM [facility] Monocytes Absolute 0.47 0.20 - 1.00 K/mcL LAB HEMETOLOGY METHOD 07/26/2025 8:30 AM [facility] Eosinophils Absolute 0.29 0.00 - 0.50 K/mcL LAB HEMETOLOGY METHOD 07/26/2025 8:30 AM [facility] Basophils Absolute 0.04 0.00 - 0.20 K/mcL LAB HEMETOLOGY METHOD 07/26/2025 8:30 AM [facility] Immature Granulocytes Absolute 0.04(H) 0.00 - 0.03 K/mcL LAB HEMETOLOGY METHOD 07/26/2025 8:30 AM [facility] Blood Venous blood specimen / Unknown 07/26/2025 6:19 AM EDT 07/26/2025 7:23 AM EDT us Reji TOLBERT LAB BLOOD ORDERABLES Final R esult [facility] [address] [place] [address], * (ABNORMAL) Basic metabolic panel (07/26/2025 6:19 AM EDT) Sodium 139 133 - 145 mmol/L LAB CHEMISTRY METHOD 07/26/2025 8:33 AM [facility] Potassium 4.3 3.5 - 5.5 mmol/L LAB CHEMISTRY METHOD 07/26/2025 8:33 AM [facility] Chloride 107 96 - 110 mmol/L LAB CHEMISTRY METHOD 07/26/2025 8:33 AM [facility] CO2 30 21 - 32 mmol/L LAB CHEMISTRY METHOD 07/26/2025 8:33 AM [facility] Anion Gap 2(L) 3 - 11 LAB CHEMISTRY METHOD 07/26/2025 8:33 AM [facility] Glucose 84 70 - 100 mg/dL LAB CHEMISTRY METHOD 07/26/2025 8:33 AM [facility] BUN 17 5 - 25 mg/dL LAB CHEMISTRY METHOD 07/26/2025 8:33 AM [facility] Creatinine 0.55 0.50 - 1.10 mg/dL LAB CHEMISTRY METHOD 07/26/2025 8:33 AM [facility] eGFR 107 >=60 mL/min/1. 73m2 LAB CHEMISTRY METHOD 07/26/2025 8:33 AM [facility] Comment:Calculation based on the Chronic Kidney Disease Epidemiology Collaboration (CKD-EPI) equation refit without adjustment for race. BUN/Creatinine Ratio 30.9 LAB CHEMISTRY METHOD 07/26/2025 8:33 AM EDT [facility] Calcium 9.1 8.5 - 10.5 mg/dL LAB CHEMISTRY METHOD 07/26/2025 8:33 AM EDT [facility] Blood Venous blood specimen / Unknown Venipuncture / Unknown 07/26/2025 6:19 AM EDT 07/26/2025 7:23 AM EDT us Reji TOLBERT LAB BLOOD ORDERABLES Final R esult [facility] [address] [place] [address], documented in this encounter Visit Diagnoses Diagnosis 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 (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 therapy documented in this encounter Care Teams Cash Applications Analyst Relationship Specialty Start Date End Date Adenike Haider MD [address] [place] [address] PCP - General Internal Medicine 05/24/21 documented as of this encounter
--- OUTSIDE RECORDS SUMMARY | 2025-08-19 14:02 | XMS_ITS | Encounter Summary ---
Author Organization [facility] Address [address] [place] [address] Care Team Providers Care Animal Attendant Name Role Phone Adenike Haider MD Primary Care Provider [phone] Encounter Details Date Type Department Care Team (Late st Contact Info) Description 07/13/2025 Lab Requisition [facility] - Main Lab [address] [facility] [place] [address] Zoë Zambrano PA [address] [place] [id number] Encounter for other general examination Social History Tobacco Use Types Packs/Day Years [...] Diagnosis Comments CBC WITH AUTO DIFFERENTIAL Routine 07/13/2025 6:20 AM EDT Encounter for other general examination CBC AND DIFFERENTIAL Routine 07/13/2025 6:20 AM EDT Encounter for other general examination LIPASE Routine 07/13/2025 6:20 AM EDT Encounter for other general examination AMYLASE Routine 07/13/2025 6:20 AM EDT Encounter for other general examination COMPREHENSIVE METABOLIC PANEL Routine 07/13/2025 6:20 AM EDT Encounter for other general examination documented in this encounter Results * (ABNORMAL) CBC auto differential (07/13/2025 6:20 AM EDT) WBC 6.9 4.8 - 10.8 K/mcL LAB HEMETOLOGY METHOD 07/13/2025 11:27 AM [facility] RBC 4.00 3.80 - 4.80 M/mcL LAB HEMETOLOGY METHOD 07/13/2025 11:27 AM [facility] Hemoglobin 10.1(L) 11.5 - 16.0 g/dL LAB HEMETOLOGY METHOD 07/13/2025 11:27 AM [facility] Hematocrit 33.0(L) 35.0 - 47.0 % LAB HEMETOLOGY METHOD 07/13/2025 11:27 AM [facility] MCV 83.1 79.0 - 98.0 FL LAB HEMETOLOGY METHOD 07/13/2025 11:27 AM [facility] MCH 25.4(L) 27.0 - 32.0 pcg LAB HEMETOLOGY METHOD 07/13/2025 11:27 AM [facility] MCHC 30.6(L) 32.0 - 37.0 g/dL LAB HEMETOLOGY METHOD 07/13/2025 11:27 AM [facility] RDW 14.8 11.0 - 15.0 % LAB HEMETOLOGY METHOD 07/13/2025 11:27 AM [facility] Platelets 371 130 - 400 K/mcL LAB HEMETOLOGY METHOD 07/13/2025 11:27 AM [facility] MPV 10.4 7.0 - 11.0 FL LAB HEMETOLOGY METHOD 07/13/2025 11:27 AM [facility] NRBC 0.0 <1.0 % LAB HEMETOLOGY METHOD 07/13/2025 11:27 AM [facility] NRBC Absolute 0.00 <0.10 K/mcL LAB HEMETOLOGY METHOD 07/13/2025 11:27 AM [facility] Neutrophils Relative 55.6 % LAB HEMETOLOGY METHOD 07/13/2025 11:27 AM [facility] Lymphocytes Relative 33.4 % LAB HEMETOLOGY METHOD 07/13/2025 11:27 AM [facility] Monocytes Relative 6.7 % LAB HEMETOLOGY METHOD 07/13/2025 11:27 AM [facility] Eosinophils Relative 3.4 % LAB HEMETOLOGY METHOD 07/13/2025 11:27 AM [facility] Basophils Relative 0.3 % LAB HEMETOLOGY METHOD 07/13/2025 11:27 AM [facility] Immature Granulocytes Relative 0.6 % LAB HEMETOLOGY METHOD 07/13/2025 11:27 AM [facility] Neutrophils Absolute 3.81 1.50 - 7.00 K/mcL LAB HEMETOLOGY METHOD 07/13/2025 11:27 AM [facility] Lymphocytes Absolute 2.29 1.00 - 5.00 K/mcL LAB HEMETOLOGY METHOD 07/13/2025 11:27 AM [facility] Monocytes Absolute 0.46 0.20 - 1.00 K/mcL LAB HEMETOLOGY METHOD 07/13/2025 11:27 AM [facility] Eosinophils Absolute 0.23 0.00 - 0.50 K/mcL LAB HEMETOLOGY METHOD 07/13/2025 11:27 AM [facility] Basophils Absolute 0.02 0.00 - 0.20 K/mcL LAB HEMETOLOGY METHOD 07/13/2025 11:27 AM [facility] Immature Granulocytes Absolute 0.04(H) 0.00 - 0.03 K/mcL LAB HEMETOLOGY METHOD 07/13/2025 11:27 AM EDT [facility] Blood Venous blood specimen / Unknown Venipuncture / Unknown 07/13/2025 6:20 AM EDT 07/13/2025 10:28 AM EDT us Zoë TOLBERT LAB BLOOD ORDERABLES Final Re sult [facility] [address] [place] [address], * (ABNORMAL) Comprehensive metabolic panel (07/13/2025 6:20 AM EDT) Sodium 135 133 - 145 mmol/L LAB CHEMISTRY METHOD 07/13/2025 2:12 PM [facility] Potassium 4.7 3.5 - 5.5 mmol/L LAB CHEMISTRY METHOD 07/13/2025 2:12 PM [facility] Chloride 100 96 - 110 mmol/L LAB CHEMISTRY METHOD 07/13/2025 2:12 PM [facility] CO2 27 21 - 32 mmol/L LAB CHEMISTRY METHOD 07/13/2025 2:12 PM [facility] Anion Gap 8 3 - 11 LAB CHEMISTRY METHOD 07/13/2025 2:12 PM [facility] Glucose 109(H) 70 - 100 mg/dL LAB CHEMISTRY METHOD 07/13/2025 2:12 PM [facility] BUN 19 5 - 25 mg/dL LAB CHEMISTRY METHOD 07/13/2025 2:12 PM [facility] Creatinine 0.57 0.50 - 1.10 mg/dL LAB CHEMISTRY METHOD 07/13/2025 2:12 PM [facility] eGFR 106 >=60 mL/min/1. 73m2 LAB CHEMISTRY METHOD 07/13/2025 2:12 PM EDT [facility] Comment:Calculation based on the Chronic Kidney Disease Epidemiology Collaboration (CKD-EPI) equation refit without adjustment for race. BUN/Creatinine Ratio 33.3 LAB CHEMISTRY METHOD 07/13/2025 2:12 PM EDT [facility] Calcium 9.7 8.5 - 10.5 mg/dL LAB CHEMISTRY METHOD 07/13/2025 2:12 PM EDT [facility] AST (SGOT) 40 10 - 42 unit/L LAB CHEMISTRY METHOD 07/13/2025 2:12 PM [facility] ALT (SGPT) 121(H) 10 - 60 unit/L LAB CHEMISTRY METHOD 07/13/2025 2:12 PM [facility] Alkaline Phosphatase 179(H) 42 - 121 unit/L LAB CHEMISTRY METHOD 07/13/2025 2:[facility] Total Protein 6.3 6.0 - 8.0 g/dL LAB CHEMISTRY METHOD 07/13/2025 2:12 PM [facility] Albumin 3.2 3.2 - 5.0 g/dL LAB CHEMISTRY METHOD 07/13/2025 2:12 PM [facility] Total Bilirubin 0.3 0.0 - 1.4 mg/dL LAB CHEMISTRY METHOD 07/13/2025 2:12 PM T [facility] Blood Venous blood specimen / Unknown Venipuncture / Unknown 07/13/2025 6:20 AM EDT 07/13/2025 10:28 AM EDT us Zoë TOLBERT LAB BLOOD ORDERABLES Final Re sult [facility] [address] [place] [address], * Lipase (07/13/2025 6:20 AM EDT) Lipase 57 13 - 75 unit/L LAB CHEMISTRY METHOD 07/13/2025 1:48 PM EDT [facility] Blood Venous blood specimen / Unknown Venipuncture / Unknown 07/13/2025 6:20 AM EDT 07/13/2025 10:28 AM EDT Zoë TOLBERT LAB BLOOD ORDERABLES Final Re sult Performing Organization Address [facility]/ZIP Co de Phone Number [facility] [address] [place] [address], [place] [phone] * Amylase (07/13/2025 6:20 AM EDT) Amylase 51 25 - 115 unit/L LAB CHEMISTRY METHOD 07/13/2025 1:48 PM EDT [facility] Blood Venous blood specimen / Unknown Venipuncture / Unknown 07/13/2025 6:20 AM EDT 07/13/2025 10:28 AM EDT Zoë TOLBERT LAB BLOOD ORDERABLES Final Re sult Performing Organization Address [facility] Co de Phone Number [facility] [address] [place] [address], [place] [phone] documented in this encounter Visit Diagnoses Diagnosis Encounter for other general examination documented in this encounter Care Teams Animal Attendant Relationship Specialty Start Date End Date Adenike Haider MD [address] [place] [address] PCP - General Internal Medicine 05/24/21 documented as of this encounter
--- OUTSIDE RECORDS SUMMARY | 2025-08-19 14:02 | XMS_ITS | Clinical Summary ---
Author Organization [address] [facility] Address [address] [place] [address] Phone Care Team Providers Care Vp Software Support Name Role Phone Adenike Haider MD Primary Care Provider [phone] Allergies Active Allergy Reactions Criticality Noted Date [...] sinusitis 02/28/2016 Degenerative disc disease, lumbar 06/18/2014 Encounters Date Type Department Care Team Description 07/31/[address] [facility] Main Lab [address] [place] [address] Kerri Hardy PA Encounter for other general examination 07/29/2025 Lab Requisition [facility] Lab [address] [place] [address] Reji Cueto PA Encounter for other general examination 07/26/[address] [facility] Main Lab [address] [place] [phone] Reji Cueto PA Other alf (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 therapy 07/22/2025 Lab Requisition [facility] - Main Lab [address] [place] [phone] Reji Cueto PA Encounter for other general examination 07/19/2025 Lab Requisition [facility] - Main Lab [address] [place] [phone] eRji Cueto PA Encounter for other general examination 07/15/[address] [facility] Main Lab [address] [place] [phone] Reji Cueto PA Encounter for other general examination 07/13/2025 Lab Requisition [facility] Lab [address] [place] [phone] Zoë Zambrano PA Encounter for other general examination 07/10/2025 Lab Requisition [facility] Lab [address] [place] [phone] Destiney Red PA Encounter for other general examination from Last 3 Months Immunizations Immunization Administration Dates Next Due Influenza Quadravalent, MDCK [...] 1989 LASER ABLATION OF THE CERVIX PROCEDURE: [place] CAUTERY CERVIX LASER ABLATION; COMMENT: for a polyp BREAST SURGERY 25 YRS AGO PROCEDURE: [place] UNLISTED PROCEDURE BREAST; COMMENT: for a cyst on the right breast OTHER SURGICAL HISTORY 07/2021 PROCEDURE: MAMMOGRAM, SCREENING, BOTH BREASTS COLONOSCOPY 02/07/2022 PROCEDURE: HISTORICAL COLONOSCOPY; COMMENT: tiny polyps removed - normal mucosa Medical History Medical History Date Comments Major depression DX:Major depres tanya; COMMENT: follows at [facility]- Dr Marte Anxiety DX:Anxiety Bilateral sciatica DX:Bilateral [...] Years (1 of 2 - PCV) 1987 Zoster Vaccines (1 of 2) 2018 Cervical Cancer Screening: Pap Smear 10/29/2021 10/29/2018, 10/29/2018, 10/29/2018 HIV Screening 10/27/2022 Hepatitis C Screening 10/27/2022 Social Influencers of Health Screening 10/27/2022 DTaP,Tdap,and Td Vaccines (2 - Td or Tdap) 10/21/2023 10/21/2013 Cholesterol Screening (Lipid Panel) 03/09/2024 03/09/2019 Depression Screening 11/18/2024 COVID-19 Vaccine (3 - 2024- season) 2025 03/29/2021, 02/27/2021 Influenza Vaccine (#1) 2025 , 08/04/2018, 09/18/2016, Additional history exists Breast Cancer Screening 03/07/2026 03/07/20 24, 03/07/2024, 02/09/2023, Additional history exists Colorectal Cancer Screening: Colonoscopy 02/08/2032 02/07/2022 RSV Immunization Adult Patients (1 - 1-dose 75+ series) 2043 HIB Vaccines Aged Out No longer eligi [...] Diagnosis Comments CBC WITH AUTO DIFFERENTIAL Routine 07/31/2025 7:12 AM EDT Encounter for other general examination CBC AND DIFFERENTIAL Routine 07/31/2025 7:12 AM EDT Encounter for other general examination BASIC METABOLIC PANEL Routine 07/29/2025 6:54 AM EDT Encounter for other general examination CBC WITH AUTO DIFFERENTIAL Routine 07/26/2025 6:19 AM EDT Other alf (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 therapy CBC AND DIFFERENTIAL Routine 07/26/2025 6:19 AM EDT Other alf (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 therapy BASIC METABOLIC PANEL Routine 07/26/2025 6:19 AM EDT Other alf (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 therapy BASIC METABOLIC PANEL Routine 07/22/2025 5:56 AM EDT Encounter for other general examination BASIC METABOLIC PANEL Routine 07/19/2025 6:06 AM EDT Encounter for other general examination BASIC METABOLIC PANEL Routine 07/15/2025 6:05 AM EDT Encounter for other general examination CBC WITH AUTO DIFFERENTIAL Routine 07/13/2025 6:20 AM EDT Encounter for other general examination CBC AND DIFFERENTIAL Routine 07/13/2025 6:20 AM EDT Encounter for other general examination COMPREHENSIVE METABOLIC PANEL Routine 07/13/2025 6:20 AM EDT Encounter for other general examination LIPASE Routine 07/13/2025 6:20 AM EDT Encounter for other general examination AMYLASE Routine 07/13/2025 6:20 AM EDT Encounter for other general examination CBC WITH AUTO DIFFERENTIAL Routine 07/10/2025 5:26 AM EDT Encounter for other general examination CBC AND DIFFERENTIAL Routine 07/10/2025 5:26 AM EDT Encounter for other general examination MAGNESIUM Routine 07/10/2025 5:26 AM EDT Encounter for other general examination COMPREHENSIVE METABOLIC PANEL Routine 07/10/2025 5:26 AM EDT Encounter for other general examination SCREENING MAMMOGRAPHY BI 2-VIEW BREAST INC CAD Routine 03/07/2024 12:27 PM EDT Encounter for screening mammogram for malignant neoplasm of breast HM COLONOSCOPY Routine 02/07/2022 LIPID PANEL Routine 03/09/2019 PAP SMEAR Routine 10/29/2018 from Last 3 Months or Most Recently Relevant to Health Maintenance Results * (ABNORMAL) CBC auto differential (07/31/2025 7:12 AM EDT) Only the most recent of4 resultswithin the time period is included. [facility] WBC 5.0 4.8 - 10.8 K/mcL LAB HEMETOLOGY METHOD 07/31/2025 10:55 AM [facility] RBC 4.50 3.80 - 4.80 M/mcL LAB HEMETOLOGY METHOD 07/31/2025 10:55 AM [facility] Hemoglobin 11.4(L) 11.5 - 16.0 g/dL LAB HEMETOLOGY METHOD 07/31/2025 10:55 AM [facility] Hematocrit 36.8 35.0 - 47.0 % LAB HEMETOLOGY METHOD 07/31/2025 10:55 AM [facility] MCV 82.0 79.0 - 98.0 FL LAB HEMETOLOGY METHOD 07/31/2025 10:55 AM [facility] MCH 25.4(L) 27.0 - 32.0 pcg LAB HEMETOLOGY METHOD 07/31/2025 10:55 AM [facility] MCHC 31.0(L) 32.0 - 37.0 g/dL LAB HEMETOLOGY METHOD 07/31/2025 10:55 AM [facility] RDW 15.0 11.0 - 15.0 % LAB HEMETOLOGY METHOD 07/31/2025 10:55 AM [facility] Platelets 441(H) 130 - 400 K/mcL LAB HEMETOLOGY METHOD 07/31/2025 10:55 AM [facility] MPV 9.3 7.0 - 11.0 FL LAB HEMETOLOGY METHOD 07/31/2025 10:55 AM [facility] NRBC 0.0 <1.0 % LAB HEMETOLOGY METHOD 07/31/2025 10:55 AM [facility] NRBC Absolute 0.00 <0.10 K/mcL LAB HEMETOLOGY METHOD 07/31/2025 10:55 AM [facility] Neutrophils Relative 43.0 % LAB HEMETOLOGY METHOD 07/31/2025 10:55 AM [facility] Lymphocytes Relative 44.0 % LAB HEMETOLOGY METHOD 07/31/2025 10:55 AM [facility] Monocytes Relative 8.4 % LAB HEMETOLOGY METHOD 07/31/2025 10:55 AM [facility] Eosinophils Relative 3.6 % LAB HEMETOLOGY METHOD 07/31/2025 10:55 AM [facility] Basophils Relative 0.6 % LAB HEMETOLOGY METHOD 07/31/2025 10:55 AM [facility] Immature Granulocytes Relative 0.4 % LAB HEMETOLOGY METHOD 07/31/2025 10:55 AM [facility] Neutrophils Absolute 2.16 1.50 - 7.00 K/mcL LAB HEMETOLOGY METHOD 07/31/2025 10:55 AM [facility] Lymphocytes Absolute 2.21 1.00 - 5.00 K/mcL LAB HEMETOLOGY METHOD 07/31/2025 10:55 AM [facility] Monocytes Absolute 0.42 0.20 - 1.00 K/mcL LAB HEMETOLOGY METHOD 07/31/2025 10:55 AM [facility] Eosinophils Absolute 0.18 0.00 - 0.50 K/mcL LAB HEMETOLOGY METHOD 07/31/2025 10:55 AM [facility] Basophils Absolute 0.03 0.00 - 0.20 K/mcL LAB HEMETOLOGY METHOD 07/31/2025 10:55 AM [facility] Immature Granulocytes Absolute 0.02 0.00 - 0.03 K/mcL LAB HEMETOLOGY METHOD 07/31/2025 10:55 AM [facility] Blood Venous blood specimen / Unknown Venipuncture / Unknown 07/31/2025 7:12 AM EDT 07/31/2025 9:56 AM EDT us Kerri TOLBERT LAB BLOOD ORDERABLES Final Resu lt [facility] [address] [place] [address], [place] [phone] * Basic metabolic panel (07/29/2025 6:54 AM EDT) Only the most recent of5 resultswithin the time period is included. Sodium 140 133 - 145 mmol/L LAB CHEMISTRY METHOD 07/29/2025 1:57 PM [facility] Potassium 4.3 3.5 - 5.5 mmol/L LAB CHEMISTRY METHOD 07/29/2025 1:57 PM [facility] Chloride 106 96 - 110 mmol/L LAB CHEMISTRY METHOD 07/29/2025 1:57 PM [facility] CO2 26 21 - 32 mmol/L LAB CHEMISTRY METHOD 07/29/2025 1:57 PM [facility] Anion Gap 8 3 - 11 LAB CHEMISTRY METHOD 07/29/2025 1:57 PM [facility] Glucose 80 70 - 100 mg/dL LAB CHEMISTRY METHOD 07/29/2025 1:[address] [facility] BUN 9 5 - 25 mg/dL LAB CHEMISTRY METHOD 07/29/2025 1:57 PM [facility] Creatinine 0.50 0.50 - 1.10 mg/dL LAB CHEMISTRY METHOD 07/29/2025 1:57 PM [facility] eGFR 110 >=60 mL/min/1. 73m2 LAB CHEMISTRY METHOD 07/29/2025 1:57 PM [facility] Comment:Calculation based on the Chronic Kidney Disease Epidemiology Collaboration (CKD-EPI) equation refit without adjustment for race. BUN/Creatinine Ratio 18.0 LAB CHEMISTRY METHOD 07/29/2025 1:[address] [facility] Calcium 9.4 8.5 - 10.5 mg/dL LAB CHEMISTRY METHOD 07/29/2025 1:[address] [facility] Blood Venous blood specimen / Unknown Venipuncture / Unknown 07/29/2025 6:54 AM EDT 07/29/2025 10:27 AM EDT Reji TOLBERT LAB BLOOD ORDERABLES Final R esult [facility] [address] [place] [address], [place] [phone] * Lipase (07/13/2025 6:20 AM EDT) Lipase 57 13 - 75 unit/L LAB CHEMISTRY METHOD 07/13/2025 1:[address] [facility] Blood Venous blood specimen / Unknown Venipuncture / Unknown 07/13/2025 6:20 AM EDT 07/13/2025 10:28 AM EDT Zoë TOLBERT LAB BLOOD ORDERABLES Final Re sult [facility] [address] [place] [address], [place] [phone] * Amylase (07/13/2025 6:20 AM EDT) Amylase 51 25 - 115 unit/L LAB CHEMISTRY METHOD 07/13/2025 1:[address] [facility] Blood Venous blood specimen / Unknown Venipuncture / Unknown 07/13/2025 6:20 AM EDT 07/13/2025 10:28 AM EDT Zoë TOLBERT LAB BLOOD ORDERABLES Final Re sult [facility] [address] [place] [address], * (ABNORMAL) Comprehensive metabolic panel (07/13/2025 6:20 AM EDT) Only the most recent of2 resultswithin the time period is included. Sodium 135 133 - 145 mmol/L LAB [facility] Potassium 4.7 3.5 - 5.5 mmol/L LAB CHEMISTRY METHOD 07/13/2025 2:12 PM [facility] Chloride 100 96 - 110 mmol/L LAB CHEMISTRY METHOD 07/13/2025 2:12 PM [facility] CO2 27 21 - 32 mmol/L LAB CHEMISTRY METHOD 07/13/2025 2:12 PM [facility] Anion Gap 8 3 - 11 LAB CHEMISTRY METHOD 07/13/2025 2:12 PM [facility] Glucose 109(H) 70 - 100 mg/dL LAB CHEMISTRY METHOD 07/13/2025 2:12 PM [facility] BUN 19 5 - 25 mg/dL LAB CHEMISTRY METHOD 07/13/2025 2:12 PM [facility] Creatinine 0.57 0.50 - 1.10 mg/dL LAB CHEMISTRY METHOD 07/13/2025 2:12 PM [facility] eGFR 106 >=60 mL/min/1. 73m2 LAB CHEMISTRY METHOD 07/13/2025 2:12 PM [facility] Comment:Calculation based on the Chronic Kidney Disease Epidemiology Collaboration (CKD-EPI) equation refit without adjustment for race. BUN/Creatinine Ratio 33.3 LAB CHEMISTRY METHOD 07/13/2025 2:12 PM [facility] Calcium 9.7 8.5 - 10.5 mg/dL LAB CHEMISTRY METHOD 07/13/2025 2:[address] [facility] AST (SGOT) 40 10 - 42 unit/L LAB CHEMISTRY METHOD 07/13/2025 2:[address] [facility] ALT (SGPT) 121(H) 10 - 60 unit/L LAB CHEMISTRY METHOD 07/13/2025 2:[address] [facility] Alkaline Phosphatase 179(H) 42 - 121 unit/L LAB CHEMISTRY METHOD 07/13/2025 2:[address] [facility] Total Protein 6.3 6.0 - 8.0 g/dL LAB CHEMISTRY METHOD 07/13/2025 2:[address] [facility] Albumin 3.2 3.2 - 5.0 g/dL LAB CHEMISTRY METHOD 07/13/2025 2:[address] [facility] Total Bilirubin 0.3 0.0 - 1.4 mg/dL LAB CHEMISTRY METHOD 07/13/2025 2:[address] [facility] Blood Venous blood specimen / Unknown Venipuncture / Unknown 07/13/2025 6:20 AM EDT 07/13/2025 10:28 AM EDT Zoë TOLBERT LAB BLOOD ORDERABLES Final Re sult [facility] [address] [place] [address], * Magnesium (07/10/2025 5:26 AM EDT) Magnesium 2.4 1.9 - 2.6 mg/dL LAB CHEMISTRY METHOD 07/10/2025 11:[address] [facility] Blood Venous blood specimen / Unknown Venipuncture / Unknown 07/10/2025 5:26 AM EDT 07/10/2025 10:06 AM EDT us Destiney TOLBERT LAB BLOOD ORDERABLES Final Resul t [facility] [place] [address] [facility] [place] [address], * SCREENING MAMMOGRAPHY BI 2-VIEW BREAST INC [...] RESULTING AGENCY - 11/03/2018 1:18 PM EST [id number] THINPREP PAP, IMAGED: NEGATIVE FOR SQUAMOUS INTRAEPITHELIAL [...] MENOPAUSE, POSITIVE HX ABN PAP PER PATIENT us Charleen Nix MD LAB CYTOLOGY ORDERABLES Final R esult [facility] RESULTING AGENCY from Last 3 Months or Most Recently Relevant to Health Maintenance Insurance Care Teams Vp Software Support Relationship Specialty Start Date End Date Adenike Haider MD [address] [place] [phone] PCP - General Internal Medicine 05/24/21
--- OUTSIDE RECORDS SUMMARY | 2025-08-19 14:02 | XMS_ITS | Encounter Summary ---
[facility] Organization [facility] Address [address] [place] [address] Care Team Providers Care Digital Media Analyst Name Role Phone Adenike Haider MD Primary Care Provider [phone] Encounter Details Date Type Department Care Team (Late st Contact Info) Description 07/19/2025 Lab Requisition [facility] - Main Lab [address] [facility] [place] [address] Reji Cueto PA [address] [address] Encounter for other general examination Social History [...] Procedure Name Priority Date/Time Associated Diagnosis Comments BASIC METABOLIC PANEL Routine 07/19/2025 6:06 AM EDT Encounter for other general examination documented in this encounter Results * (ABNORMAL) Basic metabolic panel (07/19/2025 6:06 AM EDT) Sodium 135 133 - 145 mmol/L LAB CHEMISTRY METHOD 07/19/2025 9:55 AM EDT [facility] Potassium 4.0 3.5 - 5.5 mmol/L LAB CHEMISTRY METHOD 07/19/2025 9:55 AM [facility] Chloride 98 96 - 110 mmol/L LAB CHEMISTRY METHOD 07/19/2025 9:55 AM [facility] CO2 30 21 - 32 mmol/L LAB CHEMISTRY METHOD 07/19/2025 9:55 AM [facility] Anion Gap 7 3 - 11 LAB CHEMISTRY METHOD 07/19/2025 9:55 AM [facility] Glucose 139(H) 70 - 100 mg/dL LAB CHEMISTRY METHOD 07/19/2025 9:55 AM [facility] BUN 25 5 - 25 mg/dL LAB CHEMISTRY METHOD 07/19/2025 9:55 AM [facility] Creatinine 0.47(L) 0.50 - 1.10 mg/dL LAB CHEMISTRY METHOD 07/19/2025 9:55 AM [facility] eGFR 111 >=60 mL/min/1. 73m2 LAB CHEMISTRY METHOD 07/19/2025 9:55 AM [facility] Comment:Calculation based on the Chronic Kidney Disease Epidemiology Collaboration (CKD-EPI) equation refit without adjustment for race. BUN/Creatinine Ratio 53.2 LAB CHEMISTRY METHOD 07/19/2025 9:55 AM [facility] Calcium 9.3 8.5 - 10.5 mg/dL LAB CHEMISTRY METHOD 07/19/2025 9:55 AM [facility] Blood Venous blood specimen / Unknown Venipuncture / Unknown 07/19/2025 6:06 AM EDT 07/19/2025 8:54 AM EDT us Reji TOLBERT LAB BLOOD ORDERABLES Final R esult [facility] [address] [place] [address], documented in this encounter Visit Diagnoses Diagnosis Encounter for other general examination documented in this encounter Care Teams Digital Media Analyst Relationship Specialty Start Date End Date Adenike Haider MD [address] [place] [address] PCP - General Internal Medicine 05/24/21 documented as of this encounter
--- OUTSIDE RECORDS SUMMARY | 2025-08-19 14:02 | XMS_ITS | Encounter Summary ---
Author Organization [facility] Address [address] [place] [address] Care Team Providers Care Greige Goods Examiner Name Role Phone Adenike Haider MD Primary Care Provider [phone] Encounter Details Date Type Department Care Team (Late st Contact Info) Description 07/10/2025 Lab Requisition [facility] - Main Lab 299 [facility] [place] [address] Destiney Red PA [address] [place] [phone] Encounter for other general examination Social History [...] Diagnosis Comments CBC WITH AUTO DIFFERENTIAL Routine 07/10/2025 5:26 AM EDT Encounter for other general examination CBC AND DIFFERENTIAL Routine 07/10/2025 5:26 AM EDT Encounter for other general examination MAGNESIUM Routine 07/10/2025 5:26 AM EDT Encounter for other general examination COMPREHENSIVE METABOLIC PANEL Routine 07/10/2025 5:26 AM EDT Encounter for other general examination documented in this encounter Results * (ABNORMAL) CBC auto differential (07/10/2025 5:26 AM EDT) [facility] Signature WBC 7.4 4.8 - 10.8 K/mcL LAB HEMETOLOGY METHOD 07/10/2025 10:57 AM [facility] LAB RBC 4.10 3.80 - 4.80 M/mcL LAB HEMETOLOGY METHOD 07/10/2025 10:57 AM [facility] LAB Hemoglobin 10.3(L) 11.5 - 16.0 g/dL LAB HEMETOLOGY METHOD 07/10/2025 10:57 AM [facility] LAB Hematocrit 33.3(L) 35.0 - 47.0 % LAB HEMETOLOGY METHOD 07/10/2025 10:57 AM [facility] LAB MCV 82.2 79.0 - 98.0 FL LAB HEMETOLOGY METHOD 07/10/2025 10:57 AM [facility] LAB MCH 25.4(L) 27.0 - 32.0 pcg LAB HEMETOLOGY METHOD 07/10/2025 10:57 AM [facility] LAB MCHC 30.9(L) 32.0 - 37.0 g/dL LAB HEMETOLOGY METHOD 07/10/2025 10:57 AM [facility] LAB RDW 15.2(H) 11.0 - 15.0 % LAB HEMETOLOGY METHOD 07/10/2025 10:57 AM [facility] LAB Platelets 466(H) 130 - 400 K/mcL LAB HEMETOLOGY METHOD 07/10/2025 10:57 AM [facility] LAB MPV 10.3 7.0 - 11.0 FL LAB HEMETOLOGY METHOD 07/10/2025 10:57 AM [facility] LAB NRBC 0.0 <1.0 % LAB HEMETOLOGY METHOD 07/10/2025 10:57 AM [facility] LAB NRBC Absolute 0.00 <0.10 K/mcL LAB HEMETOLOGY METHOD 07/10/2025 10:57 AM [facility] LAB Neutrophils Relative 47.6 % LAB HEMETOLOGY METHOD 07/10/2025 10:57 AM [facility] LAB Lymphocytes Relative 39.7 % LAB HEMETOLOGY METHOD 07/10/2025 10:57 AM [facility] LAB Monocytes Relative 7.6 % LAB HEMETOLOGY METHOD 07/10/2025 10:57 AM [facility] LAB Eosinophils Relative 3.4 % LAB HEMETOLOGY METHOD 07/10/2025 10:57 AM [facility] LAB Basophils Relative 0.5 % LAB HEMETOLOGY METHOD 07/10/2025 10:57 AM [facility] LAB Immature Granulocytes Relative 1.2 % LAB HEMETOLOGY METHOD 07/10/2025 10:57 AM [facility] LAB Neutrophils Absolute 3.51 1.50 - 7.00 K/mcL LAB HEMETOLOGY METHOD 07/10/2025 10:57 AM [facility] LAB Lymphocytes Absolute 2.93 1.00 - 5.00 K/mcL LAB HEMETOLOGY METHOD 07/10/2025 10:57 AM [facility] LAB Monocytes Absolute 0.56 0.20 - 1.00 K/mcL LAB HEMETOLOGY METHOD 07/10/2025 10:57 AM [facility] LAB Eosinophils Absolute 0.25 0.00 - 0.50 K/mcL LAB HEMETOLOGY METHOD 07/10/2025 10:57 AM [facility] LAB Basophils Absolute 0.04 0.00 - 0.20 K/mcL LAB HEMETOLOGY METHOD 07/10/2025 10:57 AM [facility] LAB Immature Granulocytes Absolute 0.09(H) 0.00 - 0.03 K/mcL LAB HEMETOLOGY METHOD 07/10/2025 10:57 AM EDT [facility] LAB Blood Venous blood specimen / Unknown Venipuncture / Unknown 07/10/2025 5:26 AM EDT 07/10/2025 10:06 AM EDT Destiney TOLBERT LAB BLOOD ORDERABLES Final Resul t [facility] LAB [address] [place] [address], [place] [phone] * Magnesium (07/10/2025 5:26 AM EDT) Pathologist [facility] Magnesium 2.4 1.9 - 2.6 mg/dL LAB CHEMISTRY METHOD 07/10/2025 11:26 AM EDT [facility] LAB Blood Venous blood specimen / Unknown Venipuncture / Unknown 07/10/2025 5:26 AM EDT 07/10/2025 10:06 AM EDT Destiney TOLBERT LAB BLOOD ORDERABLES Final Resul t Performing Organization Address City/[facility]/ZIP Co de Phone Number [facility] LAB [address] [place] [address], [place] [phone] * (ABNORMAL) Comprehensive metabolic panel (07/10/2025 5:26 AM EDT) Pathologist [facility] Sodium 134 133 - 145 mmol/L LAB CHEMISTRY METHOD 07/10/2025 11:26 AM EDT [facility] LAB Potassium 4.7 3.5 - 5.5 mmol/L LAB CHEMISTRY METHOD 07/10/2025 11:26 AM EDT [facility] LAB Chloride 99 96 - 110 mmol/L LAB CHEMISTRY METHOD 07/10/2025 11:26 AM EDT [facility] LAB CO2 27 21 - 32 mmol/L LAB CHEMISTRY METHOD 07/10/2025 11:26 AM EDT [facility] LAB Anion Gap 8 3 - 11 LAB CHEMISTRY METHOD 07/10/2025 11:26 AM [facility] LAB Glucose 113(H) 70 - 100 mg/dL LAB CHEMISTRY METHOD 07/10/2025 11:26 AM [facility] LAB BUN 22 5 - 25 mg/dL LAB CHEMISTRY METHOD 07/10/2025 11:26 AM [facility] LAB Creatinine 0.58 0.50 - 1.10 mg/dL LAB CHEMISTRY METHOD 07/10/2025 11:26 AM [facility] LAB eGFR 106 >=60 mL/min/1. 73m2 LAB CHEMISTRY METHOD 07/10/2025 11:26 AM [facility] LAB Comment:Calculation based on the Chronic Kidney Disease Epidemiology Collaboration (CKD-EPI) equation refit without adjustment for race. BUN/Creatinine Ratio 37.9 LAB CHEMISTRY METHOD 07/10/2025 11:26 AM [facility] LAB Calcium 9.4 8.5 - 10.5 mg/dL LAB CHEMISTRY METHOD 07/10/2025 11:26 AM [facility] LAB AST (SGOT) 70(H) 10 - 42 unit/L LAB CHEMISTRY METHOD 07/10/2025 11:26 AM [facility] LAB ALT (SGPT) 198(H) 10 - 60 unit/L LAB CHEMISTRY METHOD 07/10/2025 11:26 AM [facility] LAB Alkaline Phosphatase 179(H) 42 - 121 unit/L LAB CHEMISTRY METHOD 07/10/2025 11:26 AM [facility] LAB Total Protein 6.5 6.0 - 8.0 g/dL LAB CHEMISTRY METHOD 07/10/2025 11:26 AM [facility] LAB Albumin 3.1(L) 3.2 - 5.0 g/dL LAB CHEMISTRY METHOD 07/10/2025 11:26 AM [facility] Total Bilirubin 0.3 0.0 - 1.4 mg/dL LAB CHEMISTRY METHOD 07/10/2025 11:26 AM EDT [facility] LAB Blood Venous blood specimen / Unknown Venipuncture / Unknown 07/10/2025 5:26 AM EDT 07/10/2025 10:06 AM EDT us Detsiney TOLBERT LAB BLOOD ORDERABLES Final Resul t [facility] LAB [address] [place] [address], documented in this encounter Visit Diagnoses Diagnosis Encounter for other general examination documented in this encounter Care Teams Greige Goods Examiner Relationship Specialty Start Date End Date Adenike Haider MD [address] [place] [address] PCP - General Internal Medicine 05/24/21 documented as of this encounter
--- OUTSIDE RECORDS SUMMARY | 2025-08-19 14:02 | XMS_ITS | Encounter Summary ---
Author Organization [facility] Address [address] [place] [address] Care Team Providers Care Property Site Manager Name Role Phone Adenike Haider MD Primary Care Provider [phone] Encounter Details Date Type Department Care Team (Late st Contact Info) Description 07/22/2025 Lab Requisition [facility] - Main Lab 299 [facility] [place] [address] Reji Cueto PA [address] [address] Encounter for other general examination [...] Associated Diagnosis Comments BASIC METABOLIC PANEL Routine 07/22/2025 5:56 AM EDT Encounter for other general examination documented in this encounter Results * Basic metabolic panel (07/22/2025 5:56 AM EDT) Sodium 139 133 - 145 mmol/L LAB CHEMISTRY METHOD 07/22/2025 12:31 PM EDT [facility] LAB Potassium 4.2 3.5 - 5.5 mmol/L LAB CHEMISTRY METHOD 07/22/2025 12:31 PM [facility] LAB Chloride 102 96 - 110 mmol/L LAB CHEMISTRY METHOD 07/22/2025 12:31 PM [facility] LAB CO2 28 21 - 32 mmol/L LAB CHEMISTRY METHOD 07/22/2025 12:31 PM [facility] LAB Anion Gap 9 3 - 11 LAB CHEMISTRY METHOD 07/22/2025 12:31 PM [facility] LAB Glucose 95 70 - 100 mg/dL LAB CHEMISTRY METHOD 07/22/2025 12:31 PM [facility] LAB BUN 21 5 - 25 mg/dL LAB CHEMISTRY METHOD 07/22/2025 12:31 PM [facility] LAB Creatinine 0.58 0.50 - 1.10 mg/dL LAB CHEMISTRY METHOD 07/22/2025 12:31 PM [facility] LAB eGFR 106 >=60 mL/min/1. 73m2 LAB CHEMISTRY METHOD 07/22/2025 12:31 PM [facility] LAB Comment:Calculation based on the Chronic Kidney Disease Epidemiology Collaboration (CKD-EPI) equation refit without adjustment for race. BUN/Creatinine Ratio 36.2 LAB CHEMISTRY METHOD 07/22/2025 12:31 PM [facility] LAB Calcium 9.2 8.5 - 10.5 mg/dL LAB CHEMISTRY METHOD 07/22/2025 12:31 PM [facility] LAB Blood Venous blood specimen / Unknown Venipuncture / Unknown 07/22/2025 5:56 AM EDT 07/22/2025 9:40 AM EDT us Reji TOLBERT LAB BLOOD ORDERABLES Final R esult [facility] LAB [address] [place] [address], documented in this encounter Visit Diagnoses Diagnosis Encounter for other general examination documented in this encounter Care Teams Property Site Manager Relationship Specialty Start Date End Date Adenike Haider MD [address] [place] [address] PCP - General Internal Medicine 05/24/21 documented as of this encounter
--- OUTSIDE RECORDS SUMMARY | 2025-08-19 14:02 | XMS_ITS | Encounter Summary ---
Author Organization [facility] Address [address] [place] [address] Care Team Providers Care Director Of Occupational Health Name Role Phone Adenike Haider MD Primary Care Provider [phone] Encounter Details Date Type Department Care Team (Late st Contact Info) Description 07/15/2025 Lab Requisition [facility] - Main Lab 299 [facility] [place] [employer] [address] Reji Cueto PA [address] [address] Encounter for other general examination [...] Associated Diagnosis Comments BASIC METABOLIC PANEL Routine 07/15/2025 6:05 AM EDT Encounter for other general examination documented in this encounter Results * Basic metabolic panel (07/15/2025 6:05 AM EDT) Sodium 134 133 - 145 mmol/L LAB CHEMISTRY METHOD 07/15/2025 12:51 PM EDT [facility] LAB Potassium 4.4 3.5 - 5.5 mmol/L LAB CHEMISTRY METHOD 07/15/2025 12:51 PM [facility] Chloride 97 96 - 110 mmol/L LAB CHEMISTRY METHOD 07/15/2025 12:51 PM [facility] CO2 29 21 - 32 mmol/L LAB CHEMISTRY METHOD 07/15/2025 12:51 PM [facility] Anion Gap 8 3 - 11 LAB CHEMISTRY METHOD 07/15/2025 12:51 PM [facility] Glucose 94 70 - 100 mg/dL LAB CHEMISTRY METHOD 07/15/2025 12:51 PM [facility] BUN 23 5 - 25 mg/dL LAB CHEMISTRY METHOD 07/15/2025 12:51 PM [facility] Creatinine 0.52 0.50 - 1.10 mg/dL LAB CHEMISTRY METHOD 07/15/2025 12:51 PM [facility] LAB eGFR 109 >=60 mL/min/1. 73m2 LAB CHEMISTRY METHOD 07/15/2025 12:51 PM [facility] LAB Comment:Calculation based on the Chronic Kidney Disease Epidemiology Collaboration (CKD-EPI) equation refit without adjustment for race. BUN/Creatinine Ratio 44.2 LAB CHEMISTRY METHOD 07/15/2025 12:51 PM [facility] Calcium 9.7 8.5 - 10.5 mg/dL LAB CHEMISTRY METHOD 07/15/2025 12:51 PM [facility] LAB Blood Venous blood specimen / Unknown Venipuncture / Unknown 07/15/2025 6:05 AM EDT 07/15/2025 11:04 AM EDT us Reji TOLBERT LAB BLOOD ORDERABLES Final R esult [facility] LAB [address] [place] [address], documented in this encounter Visit Diagnoses Diagnosis Encounter for other general examination documented in this encounter Care Teams Director Of Occupational Health Relationship Specialty Start Date End Date Adenike Haider MD [address] [place] [address] PCP - General Internal Medicine 05/24/21 documented as of this encounter
--- OUTSIDE RECORDS SUMMARY | 2025-08-19 14:02 | XMS_ITS | Encounter Summary ---
Author Organization [facility] Address [address] [place] [address] Care Team Providers Care Ventilation Mechanic Name Role Phone Adenike Haidre MD Primary Care Provider [phone] Encounter Details Date Type Department Care Team (Late st Contact Info) Description 07/31/2025 Lab Requisition [facility] - Main Lab 299 [facility] [phone] Kerri Hardy PA [address] [place] [phone] Encounter for other general examination Social History [...] encounter Results * (ABNORMAL) CBC auto differential (07/31/2025 7:12 AM EDT) WBC 5.0 4.8 - 10.8 K/[facility] LAB HEMETOLOGY METHOD 07/31/2025 10:55 AM [facility] LAB RBC 4.50 3.80 - 4.80 M/mcL LAB HEMETOLOGY METHOD 07/31/2025 10:55 AM [facility] LAB Hemoglobin 11.4(L) 11.5 - 16.0 g/dL LAB HEMETOLOGY METHOD 07/31/2025 10:55 AM [facility] LAB Hematocrit 36.8 35.0 - 47.0 % LAB HEMETOLOGY METHOD 07/31/2025 10:55 AM [facility] LAB MCV 82.0 79.0 - 98.0 FL LAB HEMETOLOGY METHOD 07/31/2025 10:55 AM [facility] LAB MCH 25.4(L) 27.0 - 32.0 pcg LAB HEMETOLOGY METHOD 07/31/2025 10:55 AM [facility] LAB MCHC 31.0(L) 32.0 - 37.0 g/dL LAB HEMETOLOGY METHOD 07/31/2025 10:55 AM [facility] LAB RDW 15.0 11.0 - 15.0 % LAB HEMETOLOGY METHOD 07/31/2025 10:55 AM [facility] LAB Platelets 441(H) 130 - 400 K/mcL LAB HEMETOLOGY METHOD 07/31/2025 10:55 AM [facility] LAB MPV 9.3 7.0 - 11.0 FL LAB HEMETOLOGY METHOD 07/31/2025 10:55 AM [facility] LAB NRBC 0.0 <1.0 % LAB HEMETOLOGY METHOD 07/31/2025 10:55 AM [facility] LAB NRBC Absolute 0.00 <0.10 K/mcL LAB HEMETOLOGY METHOD 07/31/2025 10:55 AM [facility] LAB Neutrophils Relative 43.0 % LAB HEMETOLOGY METHOD 07/31/2025 10:55 AM [facility] LAB Lymphocytes Relative 44.0 % LAB HEMETOLOGY METHOD 07/31/2025 10:55 AM [facility] LAB Monocytes Relative 8.4 % LAB HEMETOLOGY METHOD 07/31/2025 10:55 AM [facility] LAB Eosinophils Relative 3.6 % LAB HEMETOLOGY METHOD 07/31/2025 10:55 AM [facility] LAB Basophils Relative 0.6 % LAB HEMETOLOGY METHOD 07/31/2025 10:55 AM [facility] LAB Immature Granulocytes Relative 0.4 % LAB HEMETOLOGY METHOD 07/31/2025 10:55 AM [facility] LAB Neutrophils Absolute 2.16 1.50 - 7.00 K/mcL LAB HEMETOLOGY METHOD 07/31/2025 10:55 AM [facility] LAB Lymphocytes Absolute 2.21 1.00 - 5.00 K/mcL LAB HEMETOLOGY METHOD 07/31/2025 10:55 AM [facility] LAB Monocytes Absolute 0.42 0.20 - 1.00 K/mcL LAB HEMETOLOGY METHOD 07/31/2025 10:55 AM [facility] LAB Eosinophils Absolute 0.18 0.00 - 0.50 K/mcL LAB HEMETOLOGY METHOD 07/31/2025 10:55 AM [facility] LAB Basophils Absolute 0.03 0.00 - 0.20 K/mcL LAB HEMETOLOGY METHOD 07/31/2025 10:55 AM [facility] LAB Immature Granulocytes Absolute 0.02 0.00 - 0.03 K/mcL LAB HEMETOLOGY METHOD 07/31/2025 10:55 AM [facility] LAB Blood Venous blood specimen / Unknown Venipuncture / Unknown 07/31/2025 7:12 AM EDT 07/31/2025 9:56 AM EDT us Kerri TOLBERT LAB BLOOD ORDERABLES Final Resu lt [facility] LAB [address] [place] [address], documented in this encounter Visit Diagnoses Diagnosis Encounter for other general examination documented in this encounter Care Teams Ventilation Mechanic Relationship Specialty Start Date End Date Adenike Haider MD [address] [place] [address] PCP - General Internal Medicine 05/24/21 documented as of this encounter
--- OUTSIDE RECORDS SUMMARY | 2025-08-19 14:02 | XMS_ITS | Encounter Summary ---
Author Organization [facility] Address [address] [place] [address] Care Team Providers Care Six Sigma Black Belt Engineer Name Role Phone Adenike Haider MD Primary Care Provider [phone] Encounter Details Date Type Department Care Team (Late st Contact Info) Description 07/29/2025 Lab Requisition [facility] - Main Lab [address] [facility] [employer] [place] [address] Reji Cueto PA [address] [address] Encounter for other general examination [...] Associated Diagnosis Comments BASIC METABOLIC PANEL Routine 07/29/2025 6:54 AM EDT Encounter for other general examination documented in this encounter Results * Basic metabolic panel (07/29/2025 6:54 AM EDT) Sodium 140 133 - 145 mmol/L LAB CHEMISTRY METHOD 07/29/2025 1:57 PM EDT [facility] LAB Potassium 4.3 3.5 - 5.5 mmol/L LAB CHEMISTRY METHOD 07/29/2025 1:57 PM EDT [facility] LAB Chloride 106 96 - 110 mmol/L LAB CHEMISTRY METHOD 07/29/2025 1:57 PM EDT [facility] LAB CO2 26 21 - 32 mmol/L LAB CHEMISTRY METHOD 07/29/2025 1:57 PM [facility] LAB Anion Gap 8 3 - 11 LAB CHEMISTRY METHOD 07/29/2025 1:57 PM EDT [facility] LAB Glucose 80 70 - 100 mg/dL LAB CHEMISTRY METHOD 07/29/2025 1:57 PM [facility] LAB BUN 9 5 - 25 mg/dL LAB CHEMISTRY METHOD 07/29/2025 1:57 PM [facility] LAB Creatinine 0.50 0.50 - 1.10 mg/dL LAB CHE[facility]STR[facility] e[facility] 110 >=60 mL/min/1. 73m2 LAB CHEMISTRY METHOD 07/29/2025 1:57 PM T [facility] LAB Comment:Calculation based on the Chronic Kidney Disease Epidemiology Collaboration (CKD-EPI) equation refit without adjustment for race. BUN/Creatinine Ratio 18.0 LAB CHEMISTRY METHOD 07/29/2025 1:57 PM T [facility] LAB Calcium 9.4 8.5 - 10.5 mg/dL LAB CHEMISTRY METHOD 07/29/2025 1:57 PM T [facility] LAB Blood Venous blood specimen / Unknown Venipuncture / Unknown 07/29/2025 6:54 AM EDT 07/29/2025 10:27 AM EDT us Reji TOLBERT LAB BLOOD ORDERABLES Final R esult [facility] LAB [address] [place] [address], documented in this encounter Visit Diagnoses Diagnosis Encounter for other general examination documented in this encounter Care Teams Six Sigma Black Belt Engineer Relationship Specialty Start Date End Date Adenike Haider MD [address] [place] [address] PCP - General Internal Medicine 05/24/21 documented as of this encounter
== END 2025-08-19 12:36 | disposition home or self-care (01) ==
LOC: HO.HVNA 12:35
PROVIDERS: Visit Provider Internal Medicine
DX: E11.65 Type 2 diabetes mellitus with hyperglycemia (principal); R30.0 Dysuria
CPT/HCPCS: 82570; 87086

== ENCOUNTER 2025-08-27 10:13 | Outpatient (AMB) | payer OTHER, SELFPAY ==
--- NOTE | 2025-08-27 10:37 | MHC.PC.OV ---
Vital Signs 08/27/25 10:38 Height 5 ft BMI Reason not done Patient refused/unable BP 120/80 Blood Pressure Location Lt brachial Position Sitting Pulse 58 Pulse Source Pulse Oximeter Temp 96.9 F Temp Source Temporal Artery Scan Pulse Oximetry (%) 98 Oxygen Delivery Method Room Air Intake Visit Reasons: discuss extending FMLA Intake Note: Patient is here to follow up on FMLA extension. Varying Exceptionalities Teacher Required: No Certified Appliance Service Technician: Present Accompanied by: Daughter Allergies diazepam (From Valium) Adverse Reaction (Unknown, Verified 08/27/25 10:37) Abdominal Pain ezetimibe (From Zetia) Adverse Reaction (Unknown, Verified 08/27/25 10:37) Drowsiness, Bodyaches Tobacco use date assessed: 08/27/25 Dental Screening Dental Screen Date: 04/22/25 HPI HPI Comments History of Present Illness Details Patient and family member presenting for FMLA paperwork assistance. Patient's daughter and were provided FMLA paperwork until 11/17/[address] Cao on 08/26/2025. No further needs at this time. [facility] Medical History (Updated 06/17/25 @ 14:30 by Isi Cao MD) Breast tenderness Blood pressure elevated without history of HTN Acute respiratory disease Annual physical exam Nasal congestion Overweight (BMI 25.0-29.9) Dysuria COVID-19 virus infection Burn of pharynx Renal calculus, left LFT elevation Impaired glucose tolerance Osteoarthritis of right knee Knee osteoarthritis TSH elevation Generalized anxiety disorder Obesity (BMI 30.0-34.9) Surgical History History of surgery History of brain surgery Hx of cholecystectomy Breast cyst Hx of tubal ligation Family History Mother Breast cancer Cervical cancer Anxiety Father No problems noted. Sister Anxiety Sister No problems noted. Sister No problems noted. Sister No problems noted. Sister No problems noted. Brother No problems noted. Brother No problems noted. Brother No problems noted. Brother No problems noted. Daughter No problems noted. Daughter Substance abuse Daughter No problems noted. Other UTI (urinary tract infection), bacterial Social History Housing: House Alcohol intake: never Patient Tobacco Use Status: Former Tobacco user Tobacco use type: Cigarette Cigarette Packs Per Day: 4 Cigarettes Per Day: 6 e-Cigarette/Vaping Use: Never Used Second Hand Smoke Exposure: Yes service: No Current occupational status: employed Current occupation: [employer] Current occupational exposures/hazards: No Cognitive needs: No Hearing needs: No Vision needs: Yes Questionnaire Thrive Questionnaire Date Thrive assessed: 03/12/25 I am a: Patient What is your living situation today?: I have a steady place to live Within the past 12 months, did the food you bought not last and you didn't have the money to get more?: Never true Within the past 12 months, did you worry whether your food would run out before you got money to buy more?: Never true Do you have trouble paying for medicines?: No Do you have trouble getting transportation to medical appointments?: No Do you have trouble paying your heating and electricity bill?: No Do you have trouble taking care of your child, family member or friend?: No Do you have trouble with day-to-day activities such as bathing, preparing meals, shopping, managing finances, etc.?: No Are you currently unemployed and looking for a job?: No Are you interested in more education?: No Please select the resources that you would like help with: None Currently or been in a relationship where the following occur: No concerns reported THRIVE Score: 0 JACQUELINE-7 AMB Questionnaire JACQUELINE-7 Date JACQUELINE - 7 assessed: 04/22/25 Source: Developed by Drs. Medardo Sanches, Ijeoma Botello, Fabian Stevenson and colleagues, with an educational dawood from [employer]. Review of Systems Const Details: Not applicable. Physical exam (Primary Care) Vital Signs: Last Vital Signs Temp 96.9 F 08/27/25 10:38 Pulse 58 08/27/25 10:38 BP 120/80 08/27/25 10:38 Pulse Ox 98 08/27/25 10:38 Oxygen Delivery Method Room Air 08/27/25 10:38 Tobacco/Smoking Status: Tobacco use Status Tobacco use date assessed 08/27/25 08/27/25 10:42 Patient Tobacco Use Status Former Tobacco user 08/27/25 10:42 Tobacco use type Cigarette 08/27/25 10:42 e-Cigarette/Vaping Use Never Used 08/27/25 10:42 Thrive Assessment: Date of Thrive Assessment Date Thrive assessed 03/12/25 08/27/25 10:42 Currently or been in a relationship where the following occur: No concerns reported Const Other: Not applicable. Coding Level of Care Code Admin Sign Off/No Billing Diagnoses CVA (cerebral vascular accident) I63.9 Comment No billing required as the visit was for assistance with documentation. 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 Plan FMLA paperwork provided to family members until 11/17/2025.
[2025-08-27 10:38] VITALS: BP 120/80; PULSE 58; TEMP 36.1; O2SAT 98
== END 2025-08-27 12:19 | disposition home or self-care (01) ==
LOC: HO.HMCH 10:14
PROVIDERS: PCP Internal Medicine; Visit Provider Internal Medicine
DX: I63.9 Cerebral infarction, unspecified (principal)

== ENCOUNTER → 2025-09-08 12:44 | Outpatient (REF) | payer OTHER, SELFPAY ==
--- NOTE | 2025-09-08 12:48 | CA_ITS ---
Transthoracic Echocardiogram Patient (Last, First, Middle): Priyanka Dean, Gender: F Date of : 1970 Age: 55 Procedure Date: 09/08/2025 Procedure Type: Transthoracic Echocardiogram Location: OP Height: 152.4 cm Weight: 57.61 kg BSA: 1.54 m2 Heart Rate: 46 bpm BP: 110 / 76 mmHg Powderer: FABIENNE Referring MD: Michelle Mendoza MD Manufacturing Baker: Chris Morales MD Symptoms: I63.9 - Cerebral infarction, unspecified Study Quality: Fair ECG Rhythm: Bradycardia Conclusions: - Essentially normal study with no evidence of intracardiac shunting by saline contrast study Findings Procedure Information Contrast agent, definity, is being given per protocol without apparent complications. The quality of the study was technically difficult. The study quality is limited by lung artifact. Left Ventricle Normal left ventricular size, thickness, and systolic function. The visually estimated ejection fraction is between 55-60%. Spectral Doppler is indicative of an impaired relaxation filling pattern. E/E prime ratio is <8, consistent with normal filling pressures. Evidence suggests grade I (mild) diastolic dysfunction. Right Ventricle The right ventricle was not well visualized. Normal right ventricular cavity size. Atria The left atrium is normal in size. There is no evidence of interatrial shunt by color Doppler and contrast. The right atrium was not well visualized. Aortic Valve The aortic valve structure and function is likely normal. There is no aortic valve stenosis. There is no aortic valve regurgitation. Mitral Valve Normal mitral valve structure and function. There is trace mitral valve regurgitation. There is no mitral valve stenosis. Pulmonic Valve The pulmonic valve was not well visualized. Tricuspid Valve Likely normal tricuspid valve structure and function. There is trace tricuspid valve regurgitation. The right ventricular systolic pressure is normal. The right ventricular systolic pressure is 20 mmHg. Normal right atrial pressure. There is no evidence of pulmonary hypertension. Great Vessels The aorta was not well visualized. The pulmonary artery was not well visualized. There is no dilatation of the ascending aorta measuring 3.20 cm. Venous The inferior vena cava is normal in size and collapses greater than 50% with inspiration. Pericardium/Pleural There is no evidence of pericardial effusion. Prior Study Comparison No prior study available for comparison. Measurements 2D Linear Measurements IVSd: 0.96 0.6-0.9/0.6-1.0 cm LVIDd: 4.41 3.9-5.3/4.2-5.9 cm LVIDd Index: 2.86 2.4-3.2/2.2-3.1 cm/m2 LVIDs: 3.23 2.0-3.6 cm LVPWd: 0.59 0.7-1.1 cm LA Diam: 3.30 2.7-3.8/3.0-4.0 cm LAIDs Index: 2.14 1.5-2.3 cm/m2 LV Mass: 131.20 67-162/88-224 g LV Mass Index: 85.20 43-95/49-115 g/m2 LVOT Diam: 2.00 3.0+(-)1.3 cm 2D Systolic Function EF 4C: 48.10 >55% EF 2C: 68.00 >55% EF BiP: 57.60 >55% Mitral Valve MV Pk E: 0.63 MV PK A: 0.44 MV Decel Time: 229.00 E/A: 1.40 E'Lateral: 8.81 E'Medial: 6.20 E/E' Med: 10.20 E/E' Lat: 7.20 PHT: 67.00 MVA PHT: 3.28 Decel Barry: 2.75 Aortic Valve AoV Pk Emre: 1.17 AoV Mn Emre: 0.83 AoV VTI: 0.25 AoV Pk Grad: 5.00 Aov Mn Grad: 3.00 JUAN C Cont.VTI: 2.42 LVOT LVOT Pk Emre: 0.99 LVOT Mn Emre: 0.70 LVOT VTI: 0.19 LVOT Pk Grad: 4.00 LVOT Mn Grad: 2.00 LVOT Diam: 2.00 LVOT Area: 3.14 Diastolic Function MV Pk E: 0.63 MV Pk A: 0.44 E/A: 1.40 E'Medial: 6.20 E/E' Med: 10.20 E' Laterial: 8.81 E/E' Lat: 7.20 Right Ventricle TAPSE (mm): 17.10 TVS' Emre: 12.20 Tricuspid Valve TR Pk Emre: 2.07 TR Pk Grad: 17.00 RA Press: 3.00 RVSP: 20.00 Great Vessels Aorta Sinus of Valsalva: 3.00 2.0-3.5 cm Ao Asc: 3.20 2.1-3.4 cm Pulmonary Valve PV Pk Emre: 0.68 Peak PV Grad: 2.00 Updated in Other Vendor System with Status of Final Chris Morales MD electronically signed on 09/08/2025 3:28:47 PM with status of Final
== END ==
LOC: HO.CARD 12:44
PROVIDERS: PCP Internal Medicine; Visit Provider Internal Medicine
DX: I63.9 Cerebral infarction, unspecified (principal)
CPT/HCPCS: 93306; Q9957

== ENCOUNTER → 2025-09-08 12:48 | Outpatient (BNV) | payer OTHER, SELFPAY | PROVIDERS: PCP Internal Medicine; Visit Provider Internal Medicine Cardiovascular Disease | DX: I63.9 Cerebral infarction, unspecified (principal); I51.89 Other ill-defined heart diseases | CPT/HCPCS: 93306 ==

== ENCOUNTER 2025-09-20 15:21 | Outpatient (AMB) | payer OTHER, SELFPAY ==
--- NOTE | 2025-09-20 15:24 | A.OFFPC_ITS ---
Vital Signs 09/20/25 15:31 Height 5 ft BP 130/82 Blood Pressure Location Rt brachial Position Sitting Pulse 64 Pulse Source Pulse Oximeter Temp 97.3 F Temp Source Temporal Artery Scan Pulse Oximetry (%) 97 Oxygen Delivery Method Room Air Intake Visit Reasons: Pain Right Breast Accompanied by: DAUGHTER AND SPOUSE Allergies diazepam (From Valium) Adverse Reaction (Unknown, Verified 09/20/25 15:35) Abdominal Pain ezetimibe (From Zetia) Adverse Reaction (Unknown, Verified 09/20/25 15:35) Drowsiness, Bodyaches Medication List - Last Reconciled 09/20/25 by Michelle Mendoza MD acetaminophen 1,000 mg (2 x 500 mg) PO Q8H PRN aspirin 1 tab PO DAILY cholecalciferol (vitamin D3) 25 mcg PO DAILY cholestyramine-aspartame 4 gram (Prevalite) 4 grams PO BID clonazepam 1 mg PO BEDTIME docusate sodium 100 mg (10 mL) PO BEDTIME fluoxetine 20 mg PO BEDTIME gabapentin 100 mg PO BEDTIME lidocaine 5% 1 patch topical DAILY loratadine (Claritin) 10 mg PO DAILY metformin 500 mg PO BID ondansetron HCl 4 mg PO Q8H PRN 7 days simethicone (Gas Relief 80 (simethicone)) 80 mg PO TID-QID PRN simvastatin 5 mg PO BEDTIME trazodone 50 mg PO BEDTIME PRN Tobacco use date assessed: 08/27/25 Dental Screening Dental Screen Date: 09/20/25 Did you have a dental visit in the last 12 months?: No Did you have a dental problem in the last 6 months where you did not have access to dental care?: No Was dental information given to patient?: No HPI HPI Comments History of Present Illness Details The patient is a 55-year-old female presenting with right breast pain. The pain, rated as 7/10, has been bothering her for a couple of days and feels superficial, worsening with touch. She denies any associated skin changes, rashes, or nipple discharge. The patient is postmenopausal and denies any postmenopausal bleeding. She has a family history of breast cancer as her mother from the disease, which causes her concern. Her last mammogram was in February of the previous year and was negative. The patient also reports having trouble sleeping. She has tried 5 mg of melatonin without relief, and fluoxetine has not been effective. She was prescribed Trazadone by Dr. Cao but she never picked it up. She reports that her G-tube has been removed and she is eating and drinking well. [facility]LY [facility] Medical History Breast tenderness Blood pressure elevated without history of HTN Acute respiratory disease Annual physical exam Nasal congestion Overweight (BMI 25.0-29.9) Dysuria COVID-19 virus infection Burn of pharynx Renal calculus, left LFT elevation Impaired glucose tolerance Osteoarthritis of right knee Knee osteoarthritis TSH elevation Generalized anxiety disorder Obesity (BMI 30.0-34.9) Surgical History History of surgery History of brain surgery Hx of cholecystectomy Breast cyst Hx of tubal ligation Family History Mother Breast cancer Cervical cancer Anxiety Father No problems noted. Sister Anxiety Sister No problems noted. Sister No problems noted. Sister No problems noted. Sister No problems noted. Brother No problems noted. Brother No problems noted. Brother No problems noted. Brother No problems noted. Daughter No problems noted. Daughter Substance abuse Daughter No problems noted. Other UTI (urinary tract infection), bacterial Social History Housing: House Alcohol intake: never Patient Tobacco Use Status: Former Tobacco user Tobacco use type: Cigarette Cigarette Packs Per Day: 4 Cigarettes Per Day: 6 e-Cigarette/Vaping Use: Never Used Second Hand Smoke Exposure: No service: No Current occupational status: employed Current occupation: [employer] – [place] [employer] Current occupational exposures/hazards: No Cognitive needs: No Hearing needs: No Vision needs: Yes Questionnaire PHQ-9 Over the last 2 weeks, how often have you been bothered by any of the following problems? 1. Little interest or pleasure in doing things: not at all 2. Feeling down, depressed, or hopeless: not at all 3. Trouble falling or staying asleep, or sleeping too much: not at all 4. Feeling tired or having little energy: not at all 5. Poor appetite or overeating: not at all 6. Feeling bad about yourself - or that you are a failure or have let yourself or your family down: not at all 7. Trouble concentrating on things, such as reading the newspaper or watching television: not at all 8. Moving or speaking so slowly that other people could have noticed. Or the opposite - being so fidgety or restless that you have been moving around a lot more than usual: not at all 9. Thoughts that you would be better off or of hurting yourself in some way: not at all Total score: 0 Source: Developed by Drs. Medardo Sanches, Ijeoma Botello, Fabian Stevenson and colleagues, with an educational dawood from [employer]. Thrive Questionnaire Date Thrive assessed: 09/20/25 I am a: Patient What is your living situation today?: I have a steady place to live Within the past 12 months, did the food you bought not last and you didn't have the money to get more?: Never true Within the past 12 months, did you worry whether your food would run out before you got money to buy more?: Never true Do you have trouble paying for medicines?: No Do you have trouble getting transportation to medical appointments?: No Do you have trouble paying your heating and electricity bill?: No Do you have trouble taking care of your child, family member or friend?: No Do you have trouble with day-to-day activities such as bathing, preparing meals, shopping, managing finances, etc.?: No Are you currently unemployed and looking for a job?: No Are you interested in more education?: No Please select the resources that you would like help with: None Currently or been in a relationship where the following occur: No concerns reported THRIVE Score: 0 AUDIT C Alcohol Use Questionnaire (AUDIT-C) 1. How often do you have a drink containing alcohol?: Monthly or less 2. How many drinks containing alcohol do you have on a typical day when you are drinking?: 1 or 2 3. How often do you have six or more drinks on one occasion?: Never Total Score: 1 JACQUELINE-7 AMB Questionnaire JACQUELINE-7 Date JACQUELINE - 7 assessed: 09/20/25 Source: Developed by Drs. Medardo Sanches, Ijeoma Botello, Fabian Stevenson and colleagues, with an educational dawood from [employer]. Review of Systems Const Details: As per HPI. Physical exam (Primary Care) Vital Signs: Last Vital Signs Temp 97.3 F 09/20/25 15:31 Pulse 64 09/20/25 15:31 BP 130/82 09/20/25 15:31 Pulse Ox 97 09/20/25 15:31 Oxygen Delivery Method Room Air 09/20/25 15:31 Tobacco/Smoking Status: Tobacco use Status Tobacco use date assessed 08/27/25 09/20/25 15:25 Patient Tobacco Use Status Former Tobacco user 09/20/25 15:25 Tobacco use type Cigarette 09/20/25 15:25 e-Cigarette/Vaping Use Never Used 09/20/25 15:25 PHQ-9: PHQ-9 Score PHQ-9: Total score 0 09/20/25 15:41 Thrive Assessment: Date of Thrive Assessment Date Thrive assessed 09/20/25 09/20/25 15:41 Currently or been in a relationship where the following occur: No concerns reported Const Other: Pertinent findings are in BOLD GENERAL APPEARANCE NAD, activity normal for age, well developed/ well nourished, no cyanosis, pallor, or diaphoresis. EYES lids/conjunctiva normal. EARS/NOSE/THROAT Mucous membranes moist, nares normal, lips/teeth normal uvula midline without oral pharyngeal erythema, exudate or swelling TMs normal bilaterally. No lymphangitis/lymphedema. HEAD/NECK normocephalic atraumatic, no facial trauma, neck is supple. RESPIRATORY respiratory effort normal, speaks in full sentences, no tripod position, no accessory muscle use. Lungs clear to auscultation without rhonchi, wheezes, rales CARDIAC Regular rate and rhythm, no edema. ABDOMINAL Soft, ND/NT. No evidence of fluid wave. No pulsatile masses on exam, rebound tenderness, Prince sign or pain over Mcburney's point. MUSCLES/EXTREMITIES No abnormal range of motion, no swelling. SKIN Warm, pink and dry. No rashes, dermatoses, petechiae or lesions. Lump in right breast (3 oclock) NEUROLOGICAL Speech is clear and appropriate. Normal level of consciousness. Gait and coordination are normal. 5/5 strength in all extremities. PSYCH Normal mood and affect. Judgement/competence is appropriate Coding Level of Care Code Est Pt Level 4 (74529) Diagnoses Breast lump in female N63.0 Primary insomnia F51.01 Insomnia type: primary Time Spent (min) 30 Assessment & Plan Assessment & Plan (1) Breast lump in female: Code(s): N63.0 - Unspecified lump in unspecified breast Category: Medical Plan: - The patient presents with new-onset right breast pain, rated 7/10, with tenderness on exam. - While the last mammogram was negative, it was over a year ago. - A new mammogram will be ordered to evaluate the current symptoms, with consideration for family history. (lump in 3 oclock). - For symptomatic relief, the patient can use Advil (ibuprofen), continue topical lidocaine, and apply hot or cold compresses. - The patient will follow up with her primary care physician, Dr. Cao, after the mammogram. (2) Insomnia: Code(s): G47.00 - Insomnia, unspecified Category: Medical Qualifiers: Insomnia type: primary Qualified Code(s): F51.01 - Primary insomnia Plan: - The patient reports that melatonin 5mg and fluoxetine are not effective for her sleep disturbance. - It was noted that her PCP, Dr. Cao, recently prescribed trazodone for sleep, which should be available at her pharmacy. 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 - The use of clonazepam was discussed; given a recent history of stroke, it is advised to use it only intermittently (e.g., half a pill) if absolutely necessary and to discuss further with her PCP. Plan I discussed with the patient her new complaint of right breast pain. Given her symptoms, physical exam findings, and strong family history of breast cancer, I recommended a new mammogram to be scheduled, even though her last one a year ago was negative. For pain relief in the interim, I advised that she could use ibuprofen, continue with topical lidocaine, and apply a heating pad. We also addressed her trouble with sleep. I informed her that her primary care provider had recently prescribed trazodone, and she should try that medication. We discussed the use of her remaining clonazepam, and I advised cautious, intermittent use only, with a recommendation to discuss long-term sleep management with her PCP due to her history of stroke. I refilled her metformin and aspirin as requested. I recommended she follow up with her PCP, Dr. Cao, for continuity of care, preferably after the mammogram is completed. Orders: Orders MM diagnostic mammo unilat RT Today N63.0 - Unspecified lump in unspecified breast Medications: New metformin 500 mg PO BID 60 tabs 3RF Refilled aspirin 1 tab PO DAILY 30 tabs 0RF
[2025-09-20 15:31] VITALS: BP 130/82; PULSE 64; TEMP 36.3; O2SAT 97
== END 2025-09-20 16:13 | disposition home or self-care (01) ==
LOC: HO.HMCH 15:22
PROVIDERS: PCP Internal Medicine; Visit Provider Internal Medicine
DX: N63.0 Unspecified lump in unspecified breast (principal); F51.01 Primary insomnia

== ENCOUNTER 2025-10-06 13:57 | Outpatient (REF) | payer OTHER, SELFPAY ==
--- NOTE | ~2025-10-06 | US_ITS ---
EXAMINATION: US EXTRACRANIAL CAROTID DUPLEX, BILATERAL CLINICAL INFORMATION: I 63.9. COMPARISON: None available. TECHNIQUE: Real-time ultrasound and Doppler techniques (integrating B-mode 2-D vascular images, Doppler spectral analysis and color-flow Doppler imaging) were utilized to interrogate the extracranial carotid arteries, the vertebral arteries and proximal subclavian arteries bilaterally. The degree of stenosis is determined by criteria similar to NASCET. FINDINGS: Right Side: 1. There is mixed atherosclerotic plaque seen in the bifurcation/proximal ICA region. 2. The common carotid artery PSV proximally is 68 cm/s and distally 55 cm/s. 3. The proximal internal carotid artery velocities are 62 cm/s systolic and 16 cm/s diastolic. 4. The proximal external carotid artery PSV is 72 cm/s. 5. The vertebral artery shows antegrade flow. 6. The subclavian artery waveforms are normal. ICA/CCA ratio: 0.76. Left Side: 1. There is small atherosclerotic plaque seen in the bifurcation/proximal ICA region. 2. The common carotid artery PSV proximally is 70 cm/s and distally 62 cm/s. 3. The proximal internal carotid artery velocities are 85 cm/s systolic and 36 cm/s diastolic. 4. The proximal external carotid artery PSV is 71 cm/s. 5. The vertebral artery shows antegrade flow. 6. The subclavian artery waveforms are normal. ICA/CCA ratio: 1.13. US/US venous duplex LE IMPRESSION: 1. RIGHT: Mixed plaque representing 0-49% stenosis by ultrasound criteria. 2. LEFT: Small plaque representing 0-49% stenosis by ultrasound criteria. EXAMINATION: US TRIPLEX LOWER EXTREMITY, BILATERAL CLINICAL INFORMATION: I 82.409. COMPARISON: None available. TECHNIQUE: Color-flow triplex imaging with spectral analysis and compression Doppler were performed on the bilateral lower extremities. FINDINGS: Respiratory variation, normal compression and augmented flow are demonstrated in the interrogated common femoral vein, superficial femoral vein, profunda femoral vein, popliteal vein and midcalf peroneal and posterior tibial venous segments, both lower extremities. There is no Garza's cyst. IMPRESSION: No acute deep venous thrombosis i interrogated veins of the lower extremities. Negative for DVT. Electronically signed by: Osvaldo Lacy MD 10/06/2025 03:51 PM [facility]
--- NOTE | ~2025-10-06 | US_ITS ---
EXAMINATION: US EXTRACRANIAL CAROTID DUPLEX, BILATERAL CLINICAL INFORMATION: I 63.9. COMPARISON: None available. TECHNIQUE: Real-time ultrasound and Doppler techniques (integrating B-mode 2-D vascular images, Doppler spectral analysis and color-flow Doppler imaging) were utilized to interrogate the extracranial carotid arteries, the vertebral arteries and proximal subclavian arteries bilaterally. The degree of stenosis is determined by criteria similar to NASCET. FINDINGS: Right Side: 1. There is mixed atherosclerotic plaque seen in the bifurcation/proximal ICA region. 2. The common carotid artery PSV proximally is 68 cm/s and distally 55 cm/s. 3. The proximal internal carotid artery velocities are 62 cm/s systolic and 16 cm/s diastolic. 4. The proximal external carotid artery PSV is 72 cm/s. 5. The vertebral artery shows antegrade flow. 6. The subclavian artery waveforms are normal. ICA/CCA ratio: 0.76. Left Side: 1. There is small atherosclerotic plaque seen in the bifurcation/proximal ICA region. 2. The common carotid artery PSV proximally is 70 cm/s and distally 62 cm/s. 3. The proximal internal carotid artery velocities are 85 cm/s systolic and 36 cm/s diastolic. 4. The proximal external carotid artery PSV is 71 cm/s. 5. The vertebral artery shows antegrade flow. 6. The subclavian artery waveforms are normal. ICA/CCA ratio: 1.13. US/US carotid duplex BI IMPRESSION: 1. RIGHT: Mixed plaque representing 0-49% stenosis by ultrasound criteria. 2. LEFT: Small plaque representing 0-49% stenosis by ultrasound criteria. EXAMINATION: US TRIPLEX LOWER EXTREMITY, BILATERAL CLINICAL INFORMATION: I 82.409. COMPARISON: None available. TECHNIQUE: Color-flow triplex imaging with spectral analysis and compression Doppler were performed on the bilateral lower extremities. FINDINGS: Respiratory variation, normal compression and augmented flow are demonstrated in the interrogated common femoral vein, superficial femoral vein, profunda femoral vein, popliteal vein and midcalf peroneal and posterior tibial venous segments, both lower extremities. There is no Garza's cyst. IMPRESSION: No acute deep venous thrombosis i interrogated veins of the lower extremities. Negative for DVT. Electronically signed by: Osvaldo Lacy MD 10/06/2025 03:51 PM [facility]
== END 2025-10-06 13:58 | disposition home or self-care (01) ==
LOC: HO.US 13:57
PROVIDERS: PCP Internal Medicine; Visit Provider Internal Medicine
DX: I82.403 Acute embolism and thrombosis of unspecified deep veins of lower extremity, bilateral (principal); I63.9 Cerebral infarction, unspecified
CPT/HCPCS: 93880; 93970

== ENCOUNTER → 2025-10-06 14:00 | Outpatient (BNV) | payer OTHER, SELFPAY | PROVIDERS: PCP Internal Medicine; Visit Provider Radiology Diagnostic Radiology | DX: I63.9 Cerebral infarction, unspecified (principal); I82.403 Acute embolism and thrombosis of unspecified deep veins of lower extremity, bilateral | CPT/HCPCS: 93880; 93970 ==

== ENCOUNTER 2025-10-10 10:01 | Emergency (ER) | payer OTHER, SELFPAY ==
[2025-10-10 10:15] VITALS: BP 112/64; PULSE 76; RESP 16; TEMP 36.4; O2SAT 99; BMI 22.7
--- NOTE | 2025-10-10 11:30 | ED_ITS ---
HPI - Skin/Abscess/Foreign Bdy General Chief complaint: Skin/Abscess/Foreign Body Stated complaint: L breast pain, cyst Time Seen by Provider: 10/10/25 11:02 Source: patient and family (daughter/son) Mode of arrival: wheelchair Limitations: no limitations History of Present Illness ED Provider: Kayli Shea APRN HPI narrative: This is a 55-year-old female with a history of a CVA with left-sided deficits, high cholesterol, diabetes presents to the ER with complaints of right breast pain for several days. [facility] and ultrasound within the last week which showed a cyst. it was recommended that she follow up outpatient with her primary care doctor. she returns today for worsening pain over the last 2 days. She takes Tylenol every 8 hours 1000 mg and used a Salonpas patch prior to arrival. she denies any redness, swelling, fevers or chills. No previous injury to the site. no chest pain, shortness of breath, fevers, chills, leg swelling, leg pain. Related Data Home Medications ?Medication ?Instructions ?Recorded ?Confirmed clonazepam 1 mg tablet 1 mg PO BEDTIME 04/03/2202/09 fluoxetine 20 mg/5 mL (4 mg/mL) 20 mg PO BEDTIME 08/0909/20/25 oral solution Previous Rx's ?Medication ?Instructions ?Recorded lidocaine 5 % topical patch 1 patch topical DAILY #30 ea 01/21/25 cholestyramine-aspartame 4 gram 4 g PO BID #60 ea 01/17 05/12 oral powder for susp in a packet (Prevalite) loratadine 10 mg tablet (Claritin) 10 mg PO DAILY #90 tabs 04/14/25 acetaminophen 500 mg capsule 1,000 mg (2 x 500 mg) PO Q8H PRN 08/06/25 fever #30 caps cholecalciferol (vitamin D3) 25 25 mcg PO DAILY #90 ca ps 08/06/25 mcg (1,000 unit) capsule simethicone 80 mg chewable tablet 80 mg PO TID-QID PRN abdominal 08/06/25 (Gas Relief 80 (simethicone)) distention #60 tabs ondansetron HCl 4 mg tablet 4 mg PO Q8H PRN nausea and 08/07/25 vomiting 7 days #14 tabs docusate sodium 50 mg/5 mL oral 100 mg (10 mL) PO BEDT KARYNA #200 mL 09/01/25 liquid simvastatin 5 mg tablet 5 mg PO BEDTIME #90 tabs gabapentin 100 mg capsule 100 mg PO BEDTIME #30 caps 1 trazodone 50 mg tablet 50 mg PO BEDTIME PRN sleep # 20 tabs 09/15/25 aspirin 81 mg chewable tablet 1 tab PO DAILY #30 tabs 09/20/25 metformin 500 mg tablet 500 mg PO BID #60 tabs 09/20 acetaminophen 500 mg capsule 1,000 mg (2 x 500 mg) PO .q8 PRN 10/10/25 pain #60 caps lidocaine 5 % topical patch 1 patch topical DAILY #15 ea 10/10/25 (Lidoderm) Allergies Allergy/AdvReac Type Severity Reaction Status Date / Time diazepam (From Valium) AdvReac Unknown Abdominal Verified 10/10/25 10:15 Pain ezetimibe (From Zetia) AdvReac Unknown Drowsiness, Verified 10/10/25 10:15 Bodyaches Review of Systems Review of Systems: Yes all other systems are reviewed and are negative Constitutional: Constitutional: Reports no additional constitutional complaints, Denies body ache(s), Denies chills, Denies fever(s), Denies headache(s) and Denies weakness Eyes: Eyes: Reports no additional eye complaints and Denies change in vision ENT: Reports system reviewed and no additional complaints, except as documented, Denies dizziness, Denies headache(s), Denies nasal congestion, Denies nasal discharge and Denies neck pain Cardiovascular: Cardiovascular: Reports no additional cardiovascular complaints, Denies chest pain, Denies leg edema and Denies dyspnea Respiratory: Respiratory: Reports no additional respiratory complaints, Denies cough and Denies dyspnea Gastrointestinal: Gastrointestinal: Reports no additional gastrointestinal com plaints, Denies abdominal pain, Denies diarrhea, Denies nausea and Denies vomiting Genitourinary: Genitourinary: Reports no additional female genitourinary complaints, Denies nipple discharge and Denies urinary incontinence Musculoskeletal: Musculoskeletal: Reports no additional musculoskeletal complaints, Denies back pain, Denies arthralgias, Denies joint swelling, Denies neck pain, Denies numbness and Denies tingling Integumentary/Breasts: Skin/Breast: Reports system reviewed and no additional complaints, except as docu, Denies breast swelling, Denies swelling, Denies breast skin changes, Reports breast pain, Denies breast mass, Denies change in breast shape, Denies nipple discharge, Denies erythema and Denies rash Neurologic: Reports system reviewed and no additional complaints, except as documented, Denies Abnormal speech present, Denies dizziness, Denies headache(s), Denies numbness, Denies tingling and Denies weakness PMFSH Past Medical History Attestation statement: The following information was validated with the patient. Source: old records reviewed and nursing notes reviewed Medical History Breast tenderness Blood pressure elevated without history of HTN Acute respiratory disease Annual physical exam Nasal congestion Overweight (BMI 25.0-29.9) Dysuria COVID-19 virus infection Burn of pharynx Renal calculus, left LFT elevation Impaired glucose tolerance Osteoarthritis of right knee Knee osteoarthritis TSH elevation Generalized anxiety disorder Obesity (BMI 30.0-34.9) Surgical History History of surgery History of brain surgery Hx of cholecystectomy Breast cyst Hx of tubal ligation Family History Family History Mother Breast cancer Cervical cancer Anxiety Father No problems noted. Sister Anxiety Sister No problems noted. Sister No problems noted. Sister No problems noted. Sister No problems noted. Brother No problems noted. Brother No problems noted. Brother No problems noted. Brother No problems noted. Daughter No problems noted. Daughter Substance abuse Daughter No problems noted. Other UTI (urinary tract infection), bacterial Social History Social History Housing: House Alcohol intake: never Patient Tobacco Use Status: Former Tobacco user Tobacco use type: Cigarette Cigarette Packs Per Day: 4 Cigarettes Per Day: 6 e-Cigarette/Vaping Use: Never Used Second Hand Smoke Exposure: No Advance Directives: No Advance Directives Information Provided: Yes service: No Current occupational status: employed Current occupation: [employer] Current occupational exposures/hazards: No Cognitive needs: No Hearing needs: No Vision needs: Yes Physical Exam Vital Signs: Vital Signs: Last Vital Signs Temp 97.6 F 10/10/25 12:05 Pulse 76 10/10/25 12:05 Resp 16 10/10/25 12:05 BP 112/64 10/10/25 12:05 Pulse Ox 99 10/10/25 12:05 O2 Del Method Room Air 10/10/25 12:05 BMI result Body Mass Index 22.7 Const: General: cooperative, healthy appearing, comfortable and no acute distress Orientation/consciousness: patient oriented x3 Limitations: no limitations HEENT: Head: Yes normal to inspection Ears: hearing grossly normal bilaterally General nose exam: Normal external nose present Face and sinus: Yes normal facial exam Mouth: Normal oral and palatal mucosa present Throat: Yes posterior oropharynx normal Eyes: General: appearance normal, both eyes and all related structures Pupils: Equal, round and reactive pupils present Neck: Neck: Yes normal visual inspection Chest: Other: On exam she has tenderness on palpation to the 10 to 2 o'clock position of breast with no warmth, swelling. There is no nipple discharge. The breast is dense with multiple irregularities but I cannot palpate a specific mass. no axillary lymphadenopathy Chest palpation & inspection: normal inspection of the chest Resp: Effort & Inspection: normal respiratory effort Auscultation: clear to auscultation bilaterally Cardio: Rate: regular rate Rhythm: regular rhythm Peripheral pulses: Peripheral pulses 2+ throughout GI: Inspection: Yes normal to inspection Palpation (GI): Soft to palpation and nontender Auscultation: normal bowel sounds Back/Spine/Pelvis: Thoracic/Lumbar Spine: thoracic and lumbar spine normal to inspection Skin: General skin exam: no rashes or lesions noted Neuro: General: patient oriented x3, no focal motor deficits and normal sensation to monofilament Cranial nerves: Yes Equal, round and reactive pupils present Cognition (Neuro): normal cognition Speech: No Abnormal speech present Gait exam (Neuro): Normal gait present Motor exam (neuro): 5/5 motor strength present throughout Extrem: General: Yes normal to inspection Medications Administered Discontinued Medications Generic Name Dose Route Start Last Admin Trade Name Freq PRN Reason Stop Dose Admin Lidocaine 1 patch 10/10/25 11:28 10/10/25 11:51 Lidocaine 4 % Patch Adh..Patch TRANSDERMA 10/10/25 11:29 1 patch ONCE ONE Administration Protocol Medical Decision Making Medical Decision Making [facility] Narrative: This is a 55-year-old female with a history of a CVA with left-sided deficits, high cholesterol, diabetes presents to the ER with complaints of right breast pain for several days. Patient reports that she went to the [facility] and had an outpatient mammogram and ultrasound within the last week which showed a cyst. it was recommended that she follow up outpatient with her primary care doctor. she returns today for worsening pain over the last 2 days. She takes Tylenol every 8 hours 1000 mg and used a Salonpas patch prior to arrival. she denies any redness, swelling, fevers or chills. No previous injury to the site. no chest pain, shortness of breath, fevers, chills, leg swelling, leg pain. On chart review I am seeing A breast mammogram and ultrasound in April of 2025 which does show cyst in the right breast. I do not see any more recent imaging but the patient does not cyst with her family that she had imaging within the last week. On exam she has tenderness on palpation to the 10 to 2 o'clock position of breast with no warmth, swelling. There is no nipple discharge. The breast is dense with multiple irregularities but I cannot palpate a specific mass. no axillary lymphadenopathy No s/s infection. Low concern for other pathology. Recommend f/u with [facility], PCP as needed Reviewed return precautions. Will discharge home with prescriptions for Tylenol and Lidoderm patches Differential Diagnosis Differential Diagnoses: The differential diagnosis associated with the presentation includes see above Admission/Observation Consideration of admission/observation: Escalation of care including admission/observation considered External Record Review External record reviewed: Prior outpatient radiology Prescription Management I considered prescription management with: Pain Medication Discharge Plan Discharge Clinical Impression: Breast pain Patient Disposition: Home, Self-Care Instructions: Fibrocystic Breast Changes (ED) Additional Instructions: Please follow up with [facility] and or your primary care doctor as you may need additional imaging to rule out cancer or cyst requiring surgery Return for any signs of infection since redness, swelling, fevers or chills take the prescriptions as prescribed Prescriptions: New acetaminophen 500 mg capsule 1,000 mg PO .q8 PRN (Reason: pain) Qty: 60 0RF lidocaine [Lidoderm] 5 % adhesive patch,medicated 1 patch topical DAILY Qty: 15 0RF Rx Instructions: leave on most painful area for up to 12 hrs No Action cholestyramine-aspartame [Prevalite] 4 gram powder in packet 4 g PO BID Qty: 60 8RF Rx Instructions: administer w/meal; avoid other meds within 1hr before or 4-6hr after dose loratadine [Claritin] 10 mg tablet 10 mg PO DAILY Qty: 90 0RF cholecalciferol (vitamin D3) 25 mcg (1,000 unit) capsule 25 mcg PO DAILY Qty: 90 3RF acetaminophen 500 mg capsule 1,000 mg PO Q8H PRN (Reason: fever) Qty: 30 0RF simethicone [Gas Relief 80 (simethicone)] 80 mg tablet,chewable 80 mg PO TID-QID PRN (Reason: abdominal distention) Qty: 60 0RF ondansetron HCl 4 mg tablet 4 mg PO Q8H PRN (Reason: nausea and vomiting) 7 Days Qty: 14 0RF simvastatin 5 mg tablet 5 mg PO BEDTIME Qty: 90 3RF docusate sodium 50 mg/5 mL liquid 100 mg PO BEDTIME Qty: 200 0RF gabapentin 100 mg capsule 100 mg PO BEDTIME Qty: 30 0RF trazodone 50 mg tablet 50 mg PO BEDTIME PRN (Reason: sleep) Qty: 20 0RF clonazepam 1 mg tablet 1 mg PO BEDTIME Rx Instructions: administer 30 minutes before bedtime fluoxetine 20 mg/5 mL (4 mg/mL) solution 20 mg PO BEDTIME lidocaine 5 % adhesive patch,medicated 1 patch topical DAILY Qty: 30 0RF Rx Instructions: leave on most painful area for up to 12 hrs metformin 500 mg tablet 500 mg PO BID Qty: 60 3RF aspirin 81 mg tablet,chewable 1 tab PO DAILY Qty: 30 0RF Referrals: Po,Isi Vallejo MD [Primary Care Provider, Internal Medicine] Interventions: ED Discharge Assessment Last Done: 10/10/25 12:05 Discharge Date/Time: 10/10/25 12:06 Print Language: Bolivian
--- OUTSIDE RECORDS SUMMARY | 2025-10-10 11:36 | XMS_ITS | Encounter Summary ---
Author Organization [facility] Address [address] [place] [address] Care Team Providers Care Clearing Tub Worker Name Role Phone Adenike Haider MD Primary Care Provider [phone] Encounter Details Date Type Department Care Team (Late st Contact Info) Description 07/19/2025 Lab Requisition [facility] - Main Lab [address] [facility] [place] [address] Reji Cueto PA [address] [phone] Encounter for other general examination [...] LAB CHEMISTRY METHOD 07/19/2025 9:55 AM EDT [facility] Potassium 4.0 3.5 - 5.5 mmol/L LAB CHEMISTRY METHOD 07/19/2025 9:55 AM [facility] LAB Chloride 98 96 - 110 mmol/L LAB CHEMISTRY METHOD 07/19/2025 9:55 AM [facility] LAB CO2 30 21 - 32 mmol/L LAB CHEMISTRY METHOD 07/19/2025 9:55 AM [facility] LAB Anion Gap 7 3 - 11 LAB CHEMISTRY METHOD 07/19/2025 9:55 AM [facility] LAB Glucose 139(H) 70 - 100 mg/dL LAB CHEMISTRY METHOD 07/19/2025 9:55 AM [facility] LAB BUN 25 5 - 25 mg/dL LAB CHEMISTRY METHOD 07/19/2025 9:55 AM [facility] LAB Creatinine 0.47(L) 0.50 - 1.10 mg/dL LAB CHEMISTRY METHOD 07/19/2025 9:55 AM [facility] LAB eGFR 111 >=60 mL/min/1. 73m2 LAB CHEMISTRY METHOD 07/19/2025 9:55 AM [facility] LAB Comment:Calculation based on the Chronic Kidney Disease Epidemiology Collaboration (CKD-EPI) equation refit without adjustment for race. BUN/Creatinine Ratio 53.2 LAB CHEMISTRY METHOD 07/19/2025 9:55 AM [facility] LAB Calcium 9.3 8.5 - 10.5 mg/dL LAB CHEMISTRY METHOD 07/19/2025 9:55 AM [facility] LAB Blood Venous blood specimen / Unknown Venipuncture / Unknown 07/19/2025 6:06 AM EDT 07/19/2025 8:54 AM EDT us Reji TOLBERT LAB BLOOD ORDERABLES Final R esult [facility] [address] [place] [address], documented in this encounter Visit Diagnoses Diagnosis Encounter for other general examination documented in this encounter Care Teams Clearing Tub Worker Relationship Specialty Start Date End Date Adenike Haider MD [address] [place] [address] PCP - General Internal Medicine 05/24/21 documented as of this encounter
--- OUTSIDE RECORDS SUMMARY | 2025-10-10 11:36 | XMS_ITS | Encounter Summary ---
Author Organization [facility] Address [address] [place] [address] Care Team Providers Care Facilities Project Manager Name Role Phone Adenike Haider MD Primary Care Provider [phone] Encounter Details Date Type Department Care Team (Late st Contact Info) Description 07/26/2025 Lab Requisition [facility] - Main Lab [address] [facility] [place] [place] [phone] Reji Cueto PA [address] [address] Other detention (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 therapy Social History Tobacco Use [...] DIFFERENTIAL Routine 07/26/2025 6:19 AM EDT Other terminal superintendent (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 therapy CBC AND DIFFERENTIAL Routine 07/26/2025 6:19 AM EDT Other terminal superintendent (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 therapy BASIC METABOLIC PANEL Routine 07/26/2025 6:19 AM EDT Other detention (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 therapy documented in this encounter Results * (ABNORMAL) CBC auto differential (07/26/2025 6:19 AM EDT) [facility] WBC 5.6 4.8 - 10.8 K/mcL LAB [...] TOLBERT LAB BLOOD ORDERABLES Final R esult [facility] [address] [place] [address], * (ABNORMAL) Basic metabolic panel (07/26/2025 6:19 [...] LAB CHEMISTRY METHOD 07/26/2025 8:33 AM EDT [facility] Calcium 9.1 8.5 - 10.5 mg/dL LAB CHEMISTRY METHOD 07/26/2025 8:33 AM EDT [facility] Blood Venous blood specimen / Unknown Venipuncture / Unknown 07/26/2025 6:19 AM EDT 07/26/2025 7:23 AM EDT us Reji TOLBERT LAB BLOOD ORDERABLES Final R esult [facility] [address] [place] [address], documented in this encounter Visit Diagnoses Diagnosis Other terminal superintendent (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 therapy documented in this encounter Care Teams Facilities Project Manager Relationship Specialty Start Date End Date Adenike Haider MD [address] [place] [address] PCP - General Internal Medicine 05/24/21 documented as of this encounter
--- OUTSIDE RECORDS SUMMARY | 2025-10-10 11:36 | XMS_ITS | Encounter Summary ---
Author Organization [facility] [address] Address [address] [place] [address] Care Team Providers Care Radiation Protection Technician Name Role Phone Adenike Haider MD Primary Care Provider [phone] Encounter Details Date Type Department Care Team (Late st Contact Info) Description 07/31/[address] [facility] - Main Lab [address] [facility] [place] [phone] Kerri Hardy PA [address] [place] [phone] Encounter for other general examination Social History [...] AM EDT) WBC 5.0 4.8 - 10.8 [facility] LAB HEMETOLOGY METHOD 07/31/2025 10:55 AM [facility] LAB RBC 4.50 3.80 - 4.80 M/mcL LAB HEMETOLOGY METHOD 07/31/2025 10:55 AM [facility] LAB Hemoglobin 11.4(L) 11.5 - 16.0 g/dL LAB HEMETOLOGY METHOD 07/31/2025 10:55 AM [facility] LAB Hematocrit 36.8 35.0 - 47.0 % LAB HEMETOLOGY METHOD 07/31/2025 10:55 AM [facility] LAB MCV 82.0 79.0 - 98.0 FL LAB HEMETOLOGY METHOD 07/31/2025 10:55 AM [facility] LAB MCH 25.4(L) 27.0 - 32.0 pcg LAB HEMETOLOGY METHOD 07/31/2025 10:55 AM [facility] LAB MCHC 31.0(L) 32.0 - 37.0 g/dL LAB HEMETOLOGY METHOD 07/31/2025 10:55 AM [facility] LAB RDW 15.0 11.0 - 15.0 % LAB HEMETOLOGY METHOD 07/31/2025 10:55 AM [facility] LAB Platelets 441(H) 130 - 400 K/mcL LAB HEMETOLOGY METHOD 07/31/2025 10:55 AM [facility] LAB MPV 9.3 7.0 - 11.0 FL LAB HEMETOLOGY METHOD 07/31/2025 10:55 AM [facility] LAB NRBC 0.0 <1.0 % LAB HEMETOLOGY METHOD 07/31/2025 10:55 AM [facility] LAB NRBC Absolute 0.00 <0.10 K/mcL LAB HEMETOLOGY METHOD 07/31/2025 10:55 AM [facility] LAB Neutrophils Relative 43.0 % LAB HEMETOLOGY METHOD 07/31/2025 10:55 AM [facility] Lymphocytes Relative 44.0 % LAB HEMETOLOGY METHOD 07/31/2025 10:55 AM [facility] Monocytes Relative 8.4 % LAB HEMETOLOGY METHOD 07/31/2025 10:55 AM [facility] Eosinophils Relative 3.6 % LAB HEMETOLOGY METHOD 07/31/2025 10:55 AM [facility] Basophils Relative 0.6 % LAB HEMETOLOGY METHOD 07/31/2025 10:55 AM [facility] LAB Immature Granulocytes Relative 0.4 % LAB HEMETOLOGY METHOD 07/31/2025 10:55 AM [facility] LAB Neutrophils Absolute 2.16 1.50 - 7.00 K/mcL LAB HEMETOLOGY METHOD 07/31/2025 10:55 AM [facility] LAB Lymphocytes Absolute 2.21 1.00 - 5.00 K/mcL LAB HEMETOLOGY METHOD 07/31/2025 10:55 AM [facility] LAB Monocytes Absolute 0.42 0.20 - 1.00 K/mcL LAB HEMETOLOGY METHOD 07/31/2025 10:55 AM [facility] LAB Eosinophils Absolute 0.18 0.00 - 0.50 K/mcL LAB HEMETOLOGY METHOD 07/31/2025 10:55 AM [facility] LAB Basophils Absolute 0.03 0.00 - 0.20 K/mcL LAB HEMETOLOGY METHOD 07/31/2025 10:55 AM [facility] LAB Immature Granulocytes Absolute 0.02 0.00 - 0.03 K/mcL LAB HEMETOLOGY METHOD 07/31/2025 10:55 AM [facility] LAB Blood Venous blood specimen / Unknown Venipuncture / Unknown 07/31/2025 7:12 AM EDT 07/31/2025 9:56 AM EDT us Kerri TOLBERT LAB BLOOD ORDERABLES Final Resu lt [facility] ([facility] [address] [place] [address], documented in this encounter Visit Diagnoses Diagnosis Encounter for other general examination documented in this encounter Care Teams Radiation Protection Technician Relationship Specialty Start Date End Date Adenike Haider MD [address] [place] [address] PCP - General Internal Medicine 05/24/21 documented as of this encounter
--- OUTSIDE RECORDS SUMMARY | 2025-10-10 11:36 | XMS_ITS | Encounter Summary ---
Author Organization [facility] Address [address] [place] [address] Care Team Providers Care Steam Turbine Assembler Name Role Phone Adenike Haider MD Primary Care Provider [phone] Encounter Details Date Type Department Care Team (Late st Contact Info) Description 07/22/2025 Lab Requisition [facility] - Main Lab [address] [facility] [place] [address] Reji Cueto PA [address] [phone] Encounter for other general examination [...] LAB CHEMISTRY METHOD 07/22/2025 12:31 PM EDT [facility] Potassium 4.2 3.5 - 5.5 mmol/L LAB CHEMISTRY METHOD 07/22/2025 12:31 PM [facility] LAB Chloride 102 96 - 110 mmol/L LAB CHEMISTRY METHOD 07/22/2025 12:31 PM [facility] LAB CO2 28 21 - 32 mmol/L LAB CHEMISTRY METHOD 07/22/2025 12:31 PM [facility] LAB Anion Gap 9 3 - 11 LAB CHEMISTRY METHOD 07/22/2025 12:31 PM [facility] LAB Glucose 95 70 - 100 mg/dL LAB CHEMISTRY METHOD 07/22/2025 12:31 PM [facility] LAB BUN 21 5 - 25 mg/dL LAB CHEMISTRY METHOD 07/22/2025 12:31 PM [facility] LAB Creatinine 0.58 0.50 - 1.10 mg/dL LAB CHEMISTRY METHOD 07/22/2025 12:31 PM [facility] LAB eGFR 106 >=60 mL/min/1. 73m2 LAB CHEMISTRY METHOD 07/22/2025 12:31 PM [facility] LAB Comment:Calculation based on the Chronic Kidney Disease Epidemiology Collaboration (CKD-EPI) equation refit without adjustment for race. BUN/Creatinine Ratio 36.2 LAB CHEMISTRY METHOD 07/22/2025 12:31 PM [facility] LAB Calcium 9.2 8.5 - 10.5 mg/dL LAB CHEMISTRY METHOD 07/22/2025 12:31 PM [facility] LAB Blood Venous blood specimen / Unknown Venipuncture / Unknown 07/22/2025 5:56 AM EDT 07/22/2025 9:40 AM EDT us Reji TOLBERT LAB BLOOD ORDERABLES Final R esult [facility] [address] [place] [address], documented in this encounter Visit Diagnoses Diagnosis Encounter for other general examination documented in this encounter Care Teams Steam Turbine Assembler Relationship Specialty Start Date End Date Adenike Haider MD [address] [place] [address] PCP - General Internal Medicine 05/24/21 documented as of this encounter
--- OUTSIDE RECORDS SUMMARY | 2025-10-10 11:36 | XMS_ITS | Encounter Summary ---
[facility] Organization [facility] Address [address] [place] [address] Care Team Providers Care Nitrator Operator Name Role Phone Adenike aHider MD Primary Care Provider [phone] Encounter Details Date Type Department Care Team (Late st Contact Info) Description 07/15/2025 Lab Requisition [facility] - Main Lab [address] [facility] [place] [address] Reji Cueto PA [address] [address] Encounter for other general examination [...] LAB CHEMISTRY METHOD 07/15/2025 12:51 PM EDT [facility] Potassium 4.4 3.5 - 5.5 mmol/L LAB CHEMISTRY METHOD 07/15/2025 12:51 PM [facility] Chloride 97 96 - 110 mmol/L LAB CHEMISTRY METHOD 07/15/2025 12:51 PM [facility] CO2 29 21 - 32 mmol/L LAB CHEMISTRY METHOD 07/15/2025 12:51 PM [facility] Anion Gap 8 3 - 11 LAB CHEMISTRY METHOD 07/15/2025 12:51 PM [facility] Glucose 94 70 - 100 mg/dL LAB CHEMISTRY METHOD 07/15/2025 12:51 PM [facility] BUN 23 5 - 25 mg/dL LAB CHEMISTRY METHOD 07/15/2025 12:51 PM [facility] Creatinine 0.52 0.50 - 1.10 mg/dL LAB CHEMISTRY METHOD 07/15/2025 12:51 PM [facility] eGFR 109 >=60 mL/min/1. 73m2 LAB CHEMISTRY METHOD 07/15/2025 12:51 PM [facility] Comment:Calculation based on the Chronic Kidney Disease Epidemiology Collaboration (CKD-EPI) equation refit without adjustment for race. BUN/Creatinine Ratio 44.2 LAB CHEMISTRY METHOD 07/15/2025 12:51 PM [facility] Calcium 9.7 8.5 - 10.5 mg/dL LAB CHEMISTRY METHOD 07/15/2025 12:51 PM [facility] Blood Venous blood specimen / Unknown Venipuncture / Unknown 07/15/2025 6:05 AM EDT 07/15/2025 11:04 AM EDT us Reji TOLBERT LAB BLOOD ORDERABLES Final R esult [facility] [address] [place] [address], documented in this encounter Visit Diagnoses Diagnosis Encounter for other general examination documented in this encounter Care Teams Nitrator Operator Relationship Specialty Start Date End Date Adenike Haider MD [address] [place] [address] PCP - General Internal Medicine 05/24/21 documented as of this encounter
--- OUTSIDE RECORDS SUMMARY | 2025-10-10 11:36 | XMS_ITS | Encounter Summary ---
Author Organization [facility] Address [address] [place] [address] Care Team Providers Care Eyewear Consultant Name Role Phone Adenike Haider MD Primary Care Provider [phone] Encounter Details Date Type Department Care Team (Late st Contact Info) Description 07/10/2025 Lab Requisition [facility] - Main Lab 299 [facility] [place] [address] Destiney Red PA [address] [place] [phone] Encounter for other general examination Social History [...] CBC auto differential (07/10/2025 5:26 AM EDT) [facility] Signature WBC 7.4 4.8 - 10.8 K/mcL LAB HEMETOLOGY METHOD 07/10/2025 10:57 AM [facility] RBC 4.10 3.80 - 4.80 M/mcL LAB HEMETOLOGY METHOD 07/10/2025 10:57 AM [facility] Hemoglobin 10.3(L) 11.5 - 16.0 g/dL LAB HEMETOLOGY METHOD 07/10/2025 10:57 AM [facility] Hematocrit 33.3(L) 35.0 - 47.0 % LAB HEMETOLOGY METHOD 07/10/2025 10:57 AM [facility] MCV 82.2 79.0 - 98.0 FL LAB HEMETOLOGY METHOD 07/10/2025 10:57 AM [facility] MCH 25.4(L) 27.0 - 32.0 pcg LAB HEMETOLOGY METHOD 07/10/2025 10:57 AM [facility] MCHC 30.9(L) 32.0 - 37.0 g/dL LAB HEMETOLOGY METHOD 07/10/2025 10:57 AM [facility] RDW 15.2(H) 11.0 - 15.0 % LAB HEMETOLOGY METHOD 07/10/2025 10:57 AM [facility] Platelets 466(H) 130 - 400 K/mcL LAB HEMETOLOGY METHOD 07/10/2025 10:57 AM [facility] MPV 10.3 7.0 - 11.0 FL LAB HEMETOLOGY METHOD 07/10/2025 10:57 AM [facility] NRBC 0.0 <1.0 % LAB HEMETOLOGY METHOD 07/10/2025 10:57 AM [facility] NRBC Absolute 0.00 <0.10 K/mcL LAB HEMETOLOGY METHOD 07/10/2025 10:57 AM [facility] Neutrophils Relative 47.6 % LAB HEMETOLOGY METHOD 07/10/2025 10:57 AM [facility] Lymphocytes Relative 39.7 % LAB HEMETOLOGY METHOD 07/10/2025 10:57 AM [facility] Monocytes Relative 7.6 % LAB HEMETOLOGY METHOD 07/10/2025 10:57 AM [facility] Eosinophils Relative 3.4 % LAB HEMETOLOGY METHOD 07/10/2025 10:57 AM [facility] Basophils Relative 0.5 % LAB HEMETOLOGY METHOD 07/10/2025 10:57 AM [facility] Immature Granulocytes Relative 1.2 % LAB HEMETOLOGY METHOD 07/10/2025 10:57 AM [facility] Neutrophils Absolute 3.51 1.50 - 7.00 K/mcL LAB HEMETOLOGY METHOD 07/10/2025 10:57 AM [facility] Lymphocytes Absolute 2.93 1.00 - 5.00 K/mcL LAB HEMETOLOGY METHOD 07/10/2025 10:57 AM [facility] Monocytes Absolute 0.56 0.20 - 1.00 K/mcL LAB HEMETOLOGY METHOD 07/10/2025 10:57 AM [facility] Eosinophils Absolute 0.25 0.00 - 0.50 K/mcL LAB HEMETOLOGY METHOD 07/10/2025 10:57 AM [facility] Basophils Absolute 0.04 0.00 - 0.20 K/mcL LAB HEMETOLOGY METHOD 07/10/2025 10:57 AM [facility] Immature Granulocytes Absolute 0.09(H) 0.00 - 0.03 K/mcL LAB HEMETOLOGY METHOD 07/10/2025 10:57 AM EDT [facility] Blood Venous blood specimen / Unknown Venipuncture / Unknown 07/10/2025 5:26 AM EDT 07/10/2025 10:06 AM EDT Destiney TOLBERT LAB BLOOD ORDERABLES Final Resul t [facility] [address] [place] [address], [place] [phone] * Magnesium (07/10/2025 5:26 AM EDT) Pathologist [facility] Magnesium 2.4 1.9 - 2.6 mg/dL LAB CHEMISTRY METHOD 07/10/2025 11:26 AM EDT [facility] Blood Venous blood specimen / Unknown Venipuncture / Unknown 07/10/2025 5:26 AM EDT 07/10/2025 10:06 AM EDT Destiney TOLBERT LAB BLOOD ORDERABLES Final Resul t Performing Organization Address City/[facility]/ZIP Co de Phone Number [facility] [address] [place] [address], [place] [phone] * (ABNORMAL) Comprehensive metabolic panel (07/10/2025 5:26 AM EDT) Pathologist [facility] Sodium 134 133 - 145 mmol/L LAB CHEMISTRY METHOD 07/10/2025 11:26 AM EDT [facility] Potassium 4.7 3.5 - 5.5 mmol/L LAB CHEMISTRY METHOD 07/10/2025 11:26 AM EDT [facility] Chloride 99 96 - 110 mmol/L LAB CHEMISTRY METHOD 07/10/2025 11:26 AM EDT [facility] CO2 27 21 - 32 mmol/L LAB CHEMISTRY METHOD 07/10/2025 11:26 AM EDT [facility] Anion Gap 8 3 - 11 LAB CHEMISTRY METHOD 07/10/2025 11:26 AM [facility] Glucose 113(H) 70 - 100 mg/dL LAB CHEMISTRY METHOD 07/10/2025 11:26 AM [facility] BUN 22 5 - 25 mg/dL LAB CHEMISTRY METHOD 07/10/2025 11:26 AM [facility] Creatinine 0.58 0.50 - 1.10 mg/dL LAB CHEMISTRY METHOD 07/10/2025 11:26 AM [facility] eGFR 106 >=60 mL/min/1. 73m2 LAB CHEMISTRY METHOD 07/10/2025 11:26 AM [facility] Comment:Calculation based on the Chronic Kidney Disease Epidemiology Collaboration (CKD-EPI) equation refit without adjustment for race. BUN/Creatinine Ratio 37.9 LAB CHEMISTRY METHOD 07/10/2025 11:26 AM [facility] Calcium 9.4 8.5 - 10.5 mg/dL LAB CHEMISTRY METHOD 07/10/2025 11:26 AM [facility] AST (SGOT) 70(H) 10 - 42 unit/L LAB CHEMISTRY METHOD 07/10/2025 11:26 AM [facility] ALT (SGPT) 198(H) 10 - 60 unit/L LAB CHEMISTRY METHOD 07/10/2025 11:26 AM [facility] Alkaline Phosphatase 179(H) 42 - 121 unit/L LAB CHEMISTRY METHOD 07/10/2025 11:26 AM [facility] Total Protein 6.5 6.0 - 8.0 g/dL LAB CHEMISTRY METHOD 07/10/2025 11:26 AM [facility] Albumin 3.1(L) 3.2 - 5.0 g/dL LAB CHEMISTRY METHOD 07/10/2025 11:26 AM [facility] Total Bilirubin 0.3 0.0 - 1.4 mg/dL LAB CHEMISTRY METHOD 07/10/2025 11:26 AM EDT [facility] Blood Venous blood specimen / Unknown Venipuncture / Unknown 07/10/2025 5:26 AM EDT 07/10/2025 10:06 AM EDT us Destiney TOLBERT LAB BLOOD ORDERABLES Final Resul t [facility] [address] [place] [address], documented in this encounter Visit Diagnoses Diagnosis Encounter for other general examination documented in this encounter Care Teams Eyewear Consultant Relationship Specialty Start Date End Date Adenike Haider MD [address] [place] [address] PCP - General Internal Medicine 05/24/21 documented as of this encounter
--- OUTSIDE RECORDS SUMMARY | 2025-10-10 11:36 | XMS_ITS | Clinical Summary ---
Author Organization 299 [facility] Address [address] [place] [address] Phone Care Team Providers Care Overhauler Bus Truck Name Role Phone Adenike Haider MD Primary Care Provider [phone] Allergies Active Allergy Reactions Criticality Noted Date [...] Department Care Team Description 07/31/2025 Lab Requisition [facility] Main Lab [address] [place] [address] Kerri Hardy PA Encounter for other general examination 07/29/2025 Lab Requisition [facility] Lab [address] [place] [address] Reji Cueto PA Encounter for other general examination 07/26/2025 Lab Requisition [facility] Main Lab [address] [place] [phone] Reji Cueto PA 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 07/22/2025 Lab Requisition [facility] - Main Lab [address] [place] [phone] Reji Cueto PA Encounter for other general examination 07/19/2025 Lab Requisition [facility] - Main Lab [address] [place] [phone] Reji Cueto PA Encounter for other general examination 07/15/2025 Lab Requisition [facility] Main Lab [address] [place] [phone] Reji Cueto PA Encounter for other general examination 07/13/2025 Lab Requisition [facility] Lab [address] [place] [phone] Zoë Zambrano PA Encounter for other general examination 07/10/2025 Lab Requisition [facility] Lab [address] [place] [phone] Destiney Red PA Encounter for other general [...] 1989 LASER ABLATION OF THE CERVIX PROCEDURE: [place] CAUTERY CERVIX LASER ABLATION; COMMENT: for a polyp BREAST SURGERY 25 YRS AGO PROCEDURE: [place] UNLISTED PROCEDURE BREAST; COMMENT: for a cyst on the right breast OTHER SURGICAL HISTORY 07/2021 PROCEDURE: MAMMOGRAM, SCREENING, BOTH BREASTS COLONOSCOPY 02/07/2022 PROCEDURE: HISTORICAL COLONOSCOPY; COMMENT: tiny polyps removed - normal mucosa Medical History Medical History Date Comments Major depression DX:Major depres tanya; COMMENT: follows at [facility]- Dr Marte Anxiety DX:Anxiety Bilateral sciatica DX:Bilateral [...] DIFFERENTIAL Routine 07/26/2025 6:19 AM EDT Other group home (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 therapy CBC AND DIFFERENTIAL Routine 07/26/2025 6:19 AM EDT 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 [facility] WBC 5.0 4.8 - 10.8 K/mcL LAB HEMETOLOGY METHOD 07/31/2025 10:55 AM [facility] RBC 4.50 3.80 - 4.80 M/mcL LAB HEMETOLOGY METHOD 07/31/2025 10:55 AM [facility] Hemoglobin 11.4(L) 11.5 - 16.0 g/dL LAB HEMETOLOGY METHOD 07/31/2025 10:55 AM [facility] Hematocrit 36.8 35.0 - 47.0 % LAB HEMETOLOGY METHOD 07/31/2025 10:55 AM [facility] MCV 82.0 79.0 - 98.0 FL LAB HEMETOLOGY METHOD 07/31/2025 10:55 AM [facility] MCH 25.4(L) 27.0 - 32.0 pcg LAB HEMETOLOGY METHOD 07/31/2025 10:55 AM [facility] MCHC 31.0(L) 32.0 - 37.0 g/dL LAB HEMETOLOGY METHOD 07/31/2025 10:55 AM [facility] RDW 15.0 11.0 - 15.0 % LAB HEMETOLOGY METHOD 07/31/2025 10:55 AM [facility] Platelets 441(H) 130 - 400 K/mcL LAB HEMETOLOGY METHOD 07/31/2025 10:55 AM [facility] MPV 9.3 7.0 - 11.0 FL LAB HEMETOLOGY METHOD 07/31/2025 10:55 AM [facility] NRBC 0.0 <1.0 % LAB HEMETOLOGY METHOD 07/31/2025 10:55 AM [facility] NRBC Absolute 0.00 <0.10 K/mcL LAB HEMETOLOGY METHOD 07/31/2025 10:55 AM [facility] Neutrophils Relative 43.0 % LAB HEMETOLOGY METHOD 07/31/2025 10:55 AM [facility] Lymphocytes Relative 44.0 % LAB HEMETOLOGY METHOD 07/31/2025 10:55 AM [facility] Monocytes Relative 8.4 % LAB HEMETOLOGY METHOD 07/31/2025 10:55 AM [facility] Eosinophils Relative 3.6 % LAB HEMETOLOGY METHOD 07/31/2025 10:55 AM [facility] Basophils Relative 0.6 % LAB HEMETOLOGY METHOD 07/31/2025 10:55 AM [facility] Immature Granulocytes Relative 0.4 % LAB HEMETOLOGY METHOD 07/31/2025 10:55 AM [facility] Neutrophils Absolute 2.16 1.50 - 7.00 K/mcL LAB HEMETOLOGY METHOD 07/31/2025 10:55 AM [facility] Lymphocytes Absolute 2.21 1.00 - 5.00 K/mcL LAB HEMETOLOGY METHOD 07/31/2025 10:55 AM [facility] Monocytes Absolute 0.42 0.20 - 1.00 K/mcL LAB HEMETOLOGY METHOD 07/31/2025 10:55 AM [facility] Eosinophils Absolute 0.18 0.00 - 0.50 K/mcL LAB HEMETOLOGY METHOD 07/31/2025 10:55 AM [facility] Basophils Absolute 0.03 0.00 - 0.20 K/mcL LAB HEMETOLOGY METHOD 07/31/2025 10:55 AM [facility] Immature Granulocytes Absolute 0.02 0.00 - 0.03 K/mcL LAB HEMETOLOGY METHOD 07/31/2025 10:55 AM [facility] Blood Venous blood specimen / Unknown Venipuncture / Unknown 07/31/2025 7:12 AM EDT 07/31/2025 9:56 AM EDT us Kerri TOLBERT LAB BLOOD ORDERABLES Final Resu lt [facility] [address] [place] [address], [place] [phone] * Basic metabolic panel (07/29/2025 6:54 AM EDT) Only the most recent of5 resultswithin the time period is included. Sodium 140 133 - 145 mmol/L LAB CHEMISTRY METHOD 07/29/2025 1:57 PM [facility] Potassium 4.3 3.5 - 5.5 mmol/L LAB CHEMISTRY METHOD 07/29/2025 1:57 PM [facility] Chloride 106 96 - 110 mmol/L LAB CHEMISTRY METHOD 07/29/2025 1:57 PM [facility] CO2 26 21 - 32 mmol/L LAB CHEMISTRY METHOD 07/29/2025 1:57 PM [facility] Anion Gap 8 3 - 11 LAB CHEMISTRY METHOD 07/29/2025 1:57 PM [facility] Glucose 80 70 - 100 mg/dL LAB CHEMISTRY METHOD 07/29/2025 1:57 PM T [facility] BUN 9 5 - 25 mg/dL LAB CHEMISTRY METHOD 07/29/2025 1:57 PM [facility] Creatinine 0.50 0.50 - 1.10 mg/dL LAB CHEMISTRY METHOD 07/29/2025 1:57 PM [facility] eGFR 110 >=60 mL/min/1. 73m2 LAB CHEMISTRY METHOD 07/29/2025 1:57 PM [facility] Comment:Calculation based on the Chronic Kidney Disease Epidemiology Collaboration (CKD-EPI) equation refit without adjustment for race. BUN/Creatinine Ratio 18.0 LAB CHEMISTRY METHOD 07/29/2025 1:57 PM EDT [facility] Calcium 9.4 8.5 - 10.5 mg/dL LAB CHEMISTRY METHOD 07/29/2025 1:57 PM EDT [facility] Blood Venous blood specimen / Unknown Venipuncture / Unknown 07/29/2025 6:54 AM EDT 07/29/2025 10:27 AM EDT Reji TOLBERT LAB BLOOD ORDERABLES Final R esult [facility] [address] [place] [address], [place] [phone] * Lipase (07/13/2025 6:20 AM EDT) Lipase 57 13 - 75 unit/L LAB CHEMISTRY METHOD 07/13/2025 1:48 PM EDT [facility] Blood Venous blood specimen / Unknown Venipuncture / Unknown 07/13/2025 6:20 AM EDT 07/13/2025 10:28 AM EDT Zoë TOLBERT LAB BLOOD ORDERABLES Final Re sult [facility] [address] [place] [address], [place] [phone] * Amylase (07/13/2025 6:20 AM EDT) Amylase 51 25 - 115 unit/L LAB CHEMISTRY METHOD 07/13/2025 1:48 PM EDT [facility] Blood Venous blood specimen / Unknown Venipuncture / Unknown 07/13/2025 6:20 AM EDT 07/13/2025 10:28 AM EDT Zoë TOLBERT LAB BLOOD ORDERABLES Final Re sult [facility] [address] [place] [address], * (ABNORMAL) Comprehensive metabolic panel (07/13/2025 6:20 AM EDT) Only the most recent of2 resultswithin the time period is included. Sodium 135 133 - 145 mmol/L LAB CHEMISTRY [facility] Potassium 4.7 3.5 - 5.5 mmol/L LAB CHEMISTRY METHOD 07/13/2025 2:12 PM [facility] Chloride 100 96 - 110 mmol/L LAB CHEMISTRY METHOD 07/13/2025 2:12 PM [facility] CO2 27 21 - 32 mmol/L LAB CHEMISTRY METHOD 07/13/2025 2:12 PM [facility] Anion Gap 8 3 - 11 LAB CHEMISTRY METHOD 07/13/2025 2:12 PM [facility] Glucose 109(H) 70 - 100 mg/dL LAB CHEMISTRY METHOD 07/13/2025 2:12 PM [facility] BUN 19 5 - 25 mg/dL LAB CHEMISTRY METHOD 07/13/2025 2:12 PM [facility] Creatinine 0.57 0.50 - 1.10 mg/dL LAB CHEMISTRY METHOD 07/13/2025 2:12 PM [facility] eGFR 106 >=60 mL/min/1. 73m2 LAB CHEMISTRY METHOD 07/13/2025 2:12 PM [facility] Comment:Calculation based on the Chronic Kidney Disease Epidemiology Collaboration (CKD-EPI) equation refit without adjustment for race. BUN/Creatinine Ratio 33.3 LAB CHEMISTRY METHOD 07/13/2025 2:12 PM [facility] Calcium 9.7 8.5 - 10.5 mg/dL LAB CHEMISTRY METHOD 07/13/2025 2:12 PM EDT [facility] AST (SGOT) 40 10 - 42 unit/L LAB CHEMISTRY METHOD 07/13/2025 2:12 PM EDT [facility] ALT (SGPT) 121(H) 10 - 60 unit/L LAB CHEMISTRY METHOD 07/13/2025 2:12 PM EDT [facility] Alkaline Phosphatase 179(H) 42 - 121 unit/L LAB CHEMISTRY METHOD 07/13/2025 2:12 PM EDT [facility] Total Protein 6.3 6.0 - 8.0 g/dL LAB CHEMISTRY METHOD 07/13/2025 2:12 PM EDT [facility] Albumin 3.2 3.2 - 5.0 g/dL LAB CHEMISTRY METHOD 07/13/2025 2:12 PM EDT [facility] Total Bilirubin 0.3 0.0 - 1.4 mg/dL LAB CHEMISTRY METHOD 07/13/2025 2:12 PM EDT [facility] Blood Venous blood specimen / Unknown Venipuncture / Unknown 07/13/2025 6:20 AM EDT 07/13/2025 10:28 AM EDT Zoë TOLBERT LAB BLOOD ORDERABLES Final Re sult [facility] [address] [place] [address], * Magnesium (07/10/2025 5:26 AM EDT) Magnesium 2.4 1.9 - 2.6 mg/dL LAB CHEMISTRY METHOD 07/10/2025 11:26 AM EDT [facility] Blood Venous blood specimen / Unknown Venipuncture / Unknown 07/10/2025 5:26 AM EDT 07/10/2025 10:06 AM EDT us Destiney TOLBERT LAB BLOOD ORDERABLES Final Resul t [facility] [address] [facility] [place] [address], * SCREENING MAMMOGRAPHY BI 2-VIEW BREAST INC [...] RESULTING AGENCY - 11/03/2018 1:18 PM EST [id number] THINPREP PAP, IMAGED: NEGATIVE FOR SQUAMOUS INTRAEPITHELIAL [...] Relevant to Health Maintenance Insurance Care Teams Overhauler Bus Truck Relationship Specialty Start Date End Date Adenike Haider MD [address] [place] [phone] PCP - General Internal Medicine 05/24/21
--- OUTSIDE RECORDS SUMMARY | 2025-10-10 11:36 | XMS_ITS | Encounter Summary ---
Author Organization [facility] Address [address] [place] [address] Care Team Providers Care Strategic Development Manager Name Role Phone Adenike Haider MD Primary Care Provider [phone] Encounter Details Date Type Department Care Team (Late st Contact Info) Description 07/29/2025 Lab Requisition [facility] - Main Lab [address] [facility] [place] [address] Reji Cueto PA [address] [address] Encounter for other general examination [...] PM EDT [facility] Potassium 4.3 3.5 - 5.5 mmol/L LAB CHEMISTRY METHOD 07/29/2025 1:57 PM EDT [facility] Chloride 106 96 - 110 mmol/L LAB CHEMISTRY METHOD 07/29/2025 1:57 PM EDT [facility] CO2 26 21 - 32 mmol/L LAB CHEMISTRY METHOD 07/29/2025 1:57 PM [facility] Anion Gap 8 3 - 11 LAB CHEMISTRY METHOD 07/29/2025 1:57 PM EDT [facility] Glucose 80 70 - 100 mg/dL LAB CHEMISTRY METHOD 07/29/2025 1:57 PM [facility] BUN 9 5 - 25 mg/dL LAB CHEMISTRY METHOD 07/29/2025 1:57 PM [facility] Creatinine 0.50 0.50 - 1.10 mg/dL LAB CHEMISTRY METHOD 07/29[facility]2025 [facility] e[facility] 110 >=60 mL/min/1. 73m2 LAB CHEMISTRY METHOD 07/29/2025 1:57 PM T [facility] Comment:Calculation based on the Chronic Kidney Disease Epidemiology Collaboration (CKD-EPI) equation refit without adjustment for race. BUN/Creatinine Ratio 18.0 LAB CHEMISTRY METHOD 07/29/2025 1:57 PM T [facility] Calcium 9.4 8.5 - 10.5 mg/dL LAB CHEMISTRY METHOD 07/29/2025 1:57 PM T [facility] Blood Venous blood specimen / Unknown Venipuncture / Unknown 07/29/2025 6:54 AM EDT 07/29/2025 10:27 AM EDT us Reji TOLBERT LAB BLOOD ORDERABLES Final R esult [facility] [address] [place] [address], documented in this encounter Visit Diagnoses Diagnosis Encounter for other general examination documented in this encounter Care Teams Strategic Development Manager Relationship Specialty Start Date End Date Adenike Haider MD [address] [place] [address] PCP - General Internal Medicine 05/24/21 documented as of this encounter
--- OUTSIDE RECORDS SUMMARY | 2025-10-10 11:37 | XMS_ITS | Encounter Summary ---
Author Organization [facility] Address [address] [place] [address] Care Team Providers Care Combat Systems Officer Name Role Phone Adenike Haider MD Primary Care Provider [phone] Encounter Details Date Type Department Care Team (Late st Contact Info) Description 07/13/2025 Lab Requisition [facility] - Main Lab [address] [facility] [place] [address] Zoë Zambrano PA [address] [place] [id number] Encounter for other general examination Social History [...] K/mcL LAB HEMETOLOGY METHOD 07/13/2025 11:27 AM [facility] RBC 4.00 3.80 - 4.80 M/mcL LAB HEMETOLOGY METHOD 07/13/2025 11:27 AM [facility] Hemoglobin 10.1(L) 11.5 - 16.0 g/dL LAB HEMETOLOGY METHOD 07/13/2025 11:27 AM [facility] Hematocrit 33.0(L) 35.0 - 47.0 % LAB HEMETOLOGY METHOD 07/13/2025 11:27 AM [facility] MCV 83.1 79.0 - 98.0 FL LAB HEMETOLOGY METHOD 07/13/2025 11:27 AM [facility] MCH 25.4(L) 27.0 - 32.0 pcg LAB HEMETOLOGY METHOD 07/13/2025 11:27 AM [facility] LAB MCHC 30.6(L) 32.0 - 37.0 g/dL LAB HEMETOLOGY METHOD 07/13/2025 11:27 AM [facility] RDW 14.8 11.0 - 15.0 % LAB HEMETOLOGY METHOD 07/13/2025 11:27 AM [facility] Platelets 371 130 - 400 K/mcL LAB HEMETOLOGY METHOD 07/13/2025 11:27 AM [facility] LAB MPV 10.4 7.0 - 11.0 FL LAB HEMETOLOGY METHOD 07/13/2025 11:27 AM [facility] NRBC 0.0 <1.0 % LAB HEMETOLOGY METHOD 07/13/2025 11:27 AM [facility] LAB NRBC Absolute 0.00 <0.10 K/mcL LAB HEMETOLOGY METHOD 07/13/2025 11:27 AM [facility] Neutrophils Relative 55.6 % LAB HEMETOLOGY METHOD 07/13/2025 11:27 AM [facility] Lymphocytes Relative 33.4 % LAB HEMETOLOGY METHOD 07/13/2025 11:27 AM [facility] Monocytes Relative 6.7 % LAB HEMETOLOGY METHOD 07/13/2025 11:27 AM [facility] Eosinophils Relative 3.4 % LAB HEMETOLOGY METHOD 07/13/2025 11:27 AM [facility] Basophils Relative 0.3 % LAB HEMETOLOGY METHOD 07/13/2025 11:27 AM [facility] Immature Granulocytes Relative 0.6 % LAB HEMETOLOGY METHOD 07/13/2025 11:27 AM [facility] Neutrophils Absolute 3.81 1.50 - 7.00 K/mcL LAB HEMETOLOGY METHOD 07/13/2025 11:27 AM [facility] Lymphocytes Absolute 2.29 1.00 - 5.00 K/mcL LAB HEMETOLOGY METHOD 07/13/2025 11:27 AM [facility] Monocytes Absolute 0.46 0.20 - 1.00 K/mcL LAB HEMETOLOGY METHOD 07/13/2025 11:27 AM [facility] Eosinophils Absolute 0.23 0.00 - 0.50 K/mcL LAB HEMETOLOGY METHOD 07/13/2025 11:27 AM [facility] Basophils Absolute 0.02 0.00 - 0.20 K/mcL LAB HEMETOLOGY METHOD 07/13/2025 11:27 AM [facility] Immature Granulocytes Absolute 0.04(H) 0.00 - 0.03 K/mcL LAB HEMETOLOGY METHOD 07/13/2025 11:27 AM EDT [facility] Blood Venous blood specimen / Unknown Venipuncture / Unknown 07/13/2025 6:20 AM EDT 07/13/2025 10:28 AM EDT us Zoë TOLBERT LAB BLOOD ORDERABLES Final Re sult [facility] [address] [place] [address], * (ABNORMAL) Comprehensive metabolic panel (07/13/2025 6:20 AM EDT) Sodium 135 133 - 145 mmol/L LAB CHEMISTRY METHOD 07/13/2025 2:12 PM [facility] Potassium 4.7 3.5 - 5.5 mmol/L LAB CHEMISTRY METHOD 07/13/2025 2:12 PM [facility] Chloride 100 96 - 110 mmol/L LAB CHEMISTRY METHOD 07/13/2025 2:12 PM [facility] CO2 27 21 - 32 mmol/L LAB CHEMISTRY METHOD 07/13/2025 2:12 PM [facility] Anion Gap 8 3 - 11 LAB CHEMISTRY METHOD 07/13/2025 2:12 PM [facility] Glucose 109(H) 70 - 100 mg/dL LAB CHEMISTRY METHOD 07/13/2025 2:12 PM [facility] BUN 19 5 - 25 mg/dL LAB CHEMISTRY METHOD 07/13/2025 2:12 PM [facility] Creatinine 0.57 0.50 - 1.10 mg/dL LAB CHEMISTRY METHOD 07/13/2025 2:12 PM [facility] eGFR 106 >=60 mL/min/1. 73m2 LAB CHEMISTRY METHOD 07/13/2025 2:12 PM EDT [facility] Comment:Calculation based on the Chronic Kidney Disease Epidemiology Collaboration (CKD-EPI) equation refit without adjustment for race. BUN/Creatinine Ratio 33.3 LAB CHEMISTRY METHOD 07/13/2025 2:12 PM EDT [facility] Calcium 9.7 8.5 - 10.5 mg/dL LAB CHEMISTRY METHOD 07/13/2025 2:12 PM EDT [facility] AST (SGOT) 40 10 - 42 unit/L LAB CHEMISTRY METHOD 07/13/2025 2:12 PM [facility] ALT (SGPT) 121(H) 10 - 60 unit/L LAB CHEMISTRY METHOD 07/13/2025 2:12 PM [facility] Alkaline Phosphatase 179(H) 42 - 121 unit/L LAB CHE[facility]STR[facility] Total Protein 6.3 6.0 - 8.0 g/dL LAB CHEMISTRY METHOD 07/13/2025 2:12 PM [facility] Albumin 3.2 3.2 - 5.0 g/dL LAB CHEMISTRY METHOD 07/13/2025 2:12 PM [facility] Total Bilirubin 0.3 0.0 - 1.4 mg/dL LAB CHEMISTRY METHOD 07/13/2025 2:12 PM T [facility] Blood Venous blood specimen / Unknown Venipuncture / Unknown 07/13/2025 6:20 AM EDT 07/13/2025 10:28 AM EDT us Zoë TOLBERT LAB BLOOD ORDERABLES Final Re sult [facility] [address] [place] [address], * Lipase (07/13/2025 6:20 AM EDT) Lipase 57 13 - 75 unit/L LAB CHEMISTRY METHOD 07/13/2025 1:48 PM EDT [facility] Blood Venous blood specimen / Unknown Venipuncture / Unknown 07/13/2025 6:20 AM EDT 07/13/2025 10:28 AM EDT Zoë TOLBERT LAB BLOOD ORDERABLES Final Re sult Performing Organization Address [facility]/ZIP Co de Phone Number [facility] [address] [place] [address], [place] [phone] * Amylase (07/13/2025 6:20 AM EDT) Amylase 51 25 - 115 unit/L LAB CHEMISTRY METHOD 07/13/2025 1:48 PM EDT [facility] Blood Venous blood specimen / Unknown Venipuncture / Unknown 07/13/2025 6:20 AM EDT 07/13/2025 10:28 AM EDT Zoë TOLBERT LAB BLOOD ORDERABLES Final Re sult Performing Organization Address [facility] Co de Phone Number [facility] [address] [place] [address], [place] [phone] documented in this encounter Visit Diagnoses Diagnosis Encounter for other general examination documented in this encounter Care Teams Combat Systems Officer Relationship Specialty Start Date End Date Adenike Haider MD [address] [place] [address] PCP - General Internal Medicine 05/24/21 documented as of this encounter
[2025-10-10] MEDS: Lidocaine 4 % Patch ADH..PATCH 1 PATCH TRANSDERMA (11:51)
[2025-10-10 12:05] VITALS: BP 112/64; PULSE 76; RESP 16; TEMP 36.4; O2SAT 99
--- NOTE | 2025-10-10 12:06 | PC.NURSE ---
breast not visualized as pt requested privacy, family placed lidocaine patch on pt
== END 2025-10-10 12:06 | disposition home or self-care (01) ==
PROVIDERS: Emergency Provider Emergency Medicine Emergency Medical Services; PCP Internal Medicine
DX: N64.4 Mastodynia (principal); N60.01 Solitary cyst of right breast; E11.9 Type 2 diabetes mellitus without complications; I69.354 Hemiplegia and hemiparesis following cerebral infarction affecting left non-dominant side
CPT/HCPCS: 99283

== ENCOUNTER 2025-10-20 13:17 | Outpatient (AMB) | payer OTHER, SELFPAY ==
--- NOTE | 2025-10-20 13:38 | A.OFFPC_ITS ---
Vital Signs 10/20/25 13:48 Weight 112 lb 6.972 oz BP 122/70 Pulse 71 Pulse Source Pulse Oximeter Temp 97.8 F Temp Source Temporal Artery Scan Pulse Oximetry (%) 99 Oxygen Delivery Method Room Air Intake Visit Reasons: 4 week f/u Special Investigation Unit Investigator Required: No Accompanied by: Daughter Allergies diazepam (From Valium) Adverse Reaction (Unknown, Verified 10/20/25 13:38) Abdominal Pain ezetimibe (From Zetia) Adverse Reaction (Unknown, Verified 10/20/25 13:38) Drowsiness, Bodyaches Tobacco use date assessed: 08/27/25 Dental Screening Dental Screen Date: 09/20/25 HPI HPI Comments History of Present Illness Details The patient is a 55 year old F with PMH of stroke c/b left sided hemiplagia, behavioral changes, memory issues, presenting for follow-up for paperwork. The patient experienced a stroke on June 16, was hospitalized until July 09, and then transferred to a rehab facility until August 02. Sequelae from the stroke include left-sided weakness, inability to walk with the left leg, and memory impairment. The patient has reportedly fallen from the wheelchair twice. The patient's family reports significant trouble with sleep, with the patient waking up at 4:00 in the morning. Medications for sleep include trazodone and clonazepam, but the insomnia persists. Melatonin was previously tried without effect. Behavioral changes have increased since the stroke, characterized by frustration, confusion, aggression, and making accusations. The patient has been calling people nonstop, including a 911 call for pain that was an expected part of recovery, which resulted in the patient's phone being taken away. The family is requesting a refill of ondansetron for nausea. The patient experiences pain managed with gabapentin. There is also a need for diapers due to incontinence. [facility] Medical History Breast tenderness Blood pressure elevated without history of HTN Acute respiratory disease Annual physical exam Nasal congestion Overweight (BMI 25.0-29.9) Dysuria COVID-19 virus infection Burn of pharynx Renal calculus, left LFT elevation Impaired glucose tolerance Osteoarthritis of right knee Knee osteoarthritis TSH elevation Generalized anxiety disorder Obesity (BMI 30.0-34.9) Surgical History History of surgery History of brain surgery Hx of cholecystectomy Breast cyst Hx of tubal ligation Family History Mother Breast cancer Cervical cancer Anxiety Father No problems noted. Sister Anxiety Sister No problems noted. Sister No problems noted. Sister No problems noted. Sister No problems noted. Brother No problems noted. Brother No problems noted. Brother No problems noted. Brother No problems noted. Daughter No problems noted. Daughter Substance abuse Daughter No problems noted. Other UTI (urinary tract infection), bacterial Social History Housing: House Alcohol intake: never Patient Tobacco Use Status: Former Tobacco user Tobacco use type: Cigarette Cigarette Packs Per Day: 4 Cigarettes Per Day: 6 e-Cigarette/Vaping Use: Never Used Second Hand Smoke Exposure: No service: No Current occupational status: employed Current occupation: [employer] Current occupational exposures/hazards: No Cognitive needs: No Hearing needs: No Vision needs: Yes Questionnaire Thrive Questionnaire Date Thrive assessed: 03/12/25 I am a: Patient What is your living situation today?: I have a steady place to live Within the past 12 months, did the food you bought not last and you didn't have the money to get more?: Never true Within the past 12 months, did you worry whether your food would run out before you got money to buy more?: Never true Do you have trouble paying for medicines?: No Do you have trouble getting transportation to medical appointments?: No Do you have trouble paying your heating and electricity bill?: No Do you have trouble taking care of your child, family member or friend?: No Do you have trouble with day-to-day activities such as bathing, preparing meals, shopping, managing finances, etc.?: No Are you currently unemployed and looking for a job?: No Are you interested in more education?: No Please select the resources that you would like help with: None Currently or been in a relationship where the following occur: No concerns reported THRIVE Score: 0 JACQUELINE-7 AMB Questionnaire JACQUELINE-7 Date JACQUELINE - 7 assessed: 09/20/25 Source: Developed by Drs. Medardo Sanches, Ijeoma Botello, Fabian Stevenson and colleagues, with an educational dawood from [employer]. Review of Systems Const Details: Not done. Physical exam (Primary Care) Vital Signs: Last Vital Signs Temp 97.8 F 10/20/25 13:48 Pulse 71 10/20/25 13:48 BP 122/70 10/20/25 13:48 Pulse Ox 99 10/20/25 13:48 Oxygen Delivery Method Room Air 10/20/25 13:48 Tobacco/Smoking Status: Tobacco use Status Tobacco use date assessed 08/27/25 10/20/25 13:41 Patient Tobacco Use Status Former Tobacco user 10/20/25 13:41 Tobacco use type Cigarette 10/20/25 13:41 e-Cigarette/Vaping Use Never Used 10/20/25 13:41 Thrive Assessment: Date of Thrive Assessment Date Thrive assessed 03/12/25 10/20/25 13:41 Currently or been in a relationship where the following occur: No concerns reported Const Other: Pertinent findings are in BOLD GENERAL APPEARANCE NAD, activity normal for age, well developed/ well nourished, no cyanosis, pallor, or diaphoresis. EYES lids/conjunctiva normal. EARS/NOSE/THROAT Mucous membranes moist, nares normal, lips/teeth normal uvula midline without oral pharyngeal erythema, exudate or swelling TMs normal bilaterally. No lymphangitis/lymphedema. HEAD/NECK normocephalic atraumatic, no facial trauma, neck is supple. RESPIRATORY respiratory effort normal, speaks in full sentences, no tripod position, no accessory muscle use. Lungs clear to auscultation without rhonchi, wheezes, rales CARDIAC Regular rate and rhythm, no edema. ABDOMINAL Soft, ND/NT. No evidence of fluid wave. No pulsatile masses on exam, rebound tenderness, Prince sign or pain over Mcburney's point. MUSCLES/EXTREMITIES No abnormal range of motion, no swelling. SKIN Warm, pink and dry. No rashes, dermatoses, petechiae or lesions. NEUROLOGICAL Speech is clear and appropriate. Normal level of consciousness. Left sided hemiplagia, motor 0/5. Head laceration with james applied on right side of the scalp. PSYCH Normal mood and affect. Judgement/competence is appropriate Coding Level of Care Code Est Pt Level 4 (97406) Diagnoses CVA (cerebral vascular accident) I63.9 Primary insomnia F51.01 Insomnia type: primary Cognitive deficit, post-stroke I69.319 Urinary incontinence, unspecified type R32 Urinary Incontinence type: unspecified incontinence Nausea R11.0 Cerumen debris on tympanic membrane of both ears H61.23 Time Spent (min) 45 Assessment & Plan Assessment & Plan (1) CVA (cerebral vascular accident): Comment: Right middle cerebral, 06/16/2025 left hemiplegia TNK had thrombectomy via right femoral access Code(s): I63.9 - Cerebral infarction, unspecified Category: Medical Plan: - Plan is to complete disability paperwork for a one-year duration and then reassess annually, as advised by Dr. Cao. - Will discuss recommendations for a suitable adult daycare or senior center with Dr. Cao to provide social engagement and activities for the patient. (2) Insomnia: Code(s): G47.00 - Insomnia, unspecified Category: Medical Qualifiers: Insomnia type: primary Qualified Code(s): F51.01 - Primary insomnia Plan: - Gabapentin was increased to 200mg, noting it may also aid with sleep. - Trazodone dose was increased to twice per day. - Advised to discuss any changes to clonazepam with her psychiatrist at the upcoming appointment, as it was not prescribed by this clinic. (3) Cognitive deficit, post-stroke: Code(s): I69.319 - Unspecified symptoms and signs involving cognitive functions following cerebral infarction Category: Medical Plan: - The patient's family was advised to discuss medication management for be havioral symptoms with the patient's psychiatrist. - Recommended exploring placement in an adult day program to provide structure and reduce behavioral issues stemming from boredom. - Nurse navigator was contacted. (4) Urinary incontinence: Code(s): R32 - Unspecified urinary incontinence Category: Medical Qualifiers: Urinary Incontinence type: unspecified incontinence Qualified Code(s): R32 - Unspecified urinary incontinence Plan: - A prescription for medium-sized adult briefs will be provided. (5) Nausea: Code(s): R11.0 - Nausea Category: Medical Plan: - A refill for ondansetron was sent to the pharmacy. (6) Cerumen debris on tympanic membrane of both ears: Code(s): H61.23 - Impacted cerumen, bilateral Category: Medical Plan: - Advised the use of gogj-yhs-kvegufl Debrox drops for ear wax removal. Plan I had a detailed discussion with the patient and the patient's family regarding disability paperwork. We addressed the patient's severe insomnia, which is contributing to behavioral issues. I increased the patient's trazodone to twice daily and gabapentin to 200mg, explaining the latter may also promote drowsiness. I advised them to discuss any changes to clonazepam with her psychiatrist. I acknowledged the family's stress regarding the patient's post-stroke behavioral changes, including aggression and confusion. We discussed how an adult daycare or senior center could provide beneficial social stimulation and structure, and Nursing navigator referral was placed. I also recommended discussing these behaviors with the patient's psychiatrist. I ordered a refill of ondansetron for nausea and a prescription for adult diapers as requested. After examining the patient's ears and finding wax buildup, I recommended using Debrox drops at home. Time spent: 45 minutes, Time spent on extensive discussion of paperwork, reviewing the patient's chart and placing orders. Medications: New [Briefs] As directed 28 ea 3RF Changed From trazodone 50 mg PO BEDTIME PRN 20 tabs 0RF sleep To trazodone 100 mg (2 x 50 mg) PO BEDTIME PRN 20 tabs 0RF sleep From gabapentin 100 mg PO BEDTIME 30 caps 0RF To gabapentin 200 mg (2 x 100 mg) PO BEDTIME 30 caps 0RF Refilled ondansetron HCl 4 mg PO Q8H PRN 14 tabs 0RF nausea and vomiting 7 days R11.0 - Nausea
[2025-10-20 13:48] VITALS: BP 122/70; PULSE 71; TEMP 36.6; O2SAT 99
--- OUTSIDE RECORDS SUMMARY | 2025-10-20 15:46 | XMS_ITS | Encounter Summary ---
Author Organization [facility] Address [address] [place] [address] Care Team Providers Care Windows Systems Engineer Name Role Phone Adenkie Haider MD Primary Care Provider [phone] Encounter Details Date Type Department Care Team (Late st Contact Info) Description 07/10/2025 Lab Requisition [facility] - Main Lab [address] [facility] [place] [address] Destiney Red PA [address] [place] [id number] Encounter for other general examination Social History [...] CBC auto differential (07/10/2025 5:26 AM EDT) [facility] Signature WBC 7.4 4.8 - 10.8 K/mcL LAB HEMETOLOGY METHOD 07/10/2025 10:57 AM [facility] RBC 4.10 3.80 - 4.80 M/mcL LAB HEMETOLOGY METHOD 07/10/2025 10:57 AM [facility] Hemoglobin 10.3(L) 11.5 - 16.0 g/dL LAB HEMETOLOGY METHOD 07/10/2025 10:57 AM [facility] Hematocrit 33.3(L) 35.0 - 47.0 % LAB HEMETOLOGY METHOD 07/10/2025 10:57 AM [facility] MCV 82.2 79.0 - 98.0 FL LAB HEMETOLOGY METHOD 07/10/2025 10:57 AM [facility] MCH 25.4(L) 27.0 - 32.0 pcg LAB HEMETOLOGY METHOD 07/10/2025 10:57 AM [facility] MCHC 30.9(L) 32.0 - 37.0 g/dL LAB HEMETOLOGY METHOD 07/10/2025 10:57 AM [facility] RDW 15.2(H) 11.0 - 15.0 % LAB HEMETOLOGY METHOD 07/10/2025 10:57 AM [facility] Platelets 466(H) 130 - 400 K/mcL LAB HEMETOLOGY METHOD 07/10/2025 10:57 AM [facility] MPV 10.3 7.0 - 11.0 FL LAB HEMETOLOGY METHOD 07/10/2025 10:57 AM [facility] NRBC 0.0 <1.0 % LAB HEMETOLOGY METHOD 07/10/2025 10:57 AM [facility] NRBC Absolute 0.00 <0.10 K/mcL LAB HEMETOLOGY METHOD 07/10/2025 10:57 AM [facility] Neutrophils Relative 47.6 % LAB HEMETOLOGY METHOD 07/10/2025 10:57 AM [facility] Lymphocytes Relative 39.7 % LAB HEMETOLOGY METHOD 07/10/2025 10:57 AM [facility] Monocytes Relative 7.6 % LAB HEMETOLOGY METHOD 07/10/2025 10:57 AM [facility] Eosinophils Relative 3.4 % LAB HEMETOLOGY METHOD 07/10/2025 10:57 AM [facility] Basophils Relative 0.5 % LAB HEMETOLOGY METHOD 07/10/2025 10:57 AM [facility] Immature Granulocytes Relative 1.2 % LAB HEMETOLOGY METHOD 07/10/2025 10:57 AM [facility] Neutrophils Absolute 3.51 1.50 - 7.00 K/mcL LAB HEMETOLOGY METHOD 07/10/2025 10:57 AM [facility] Lymphocytes Absolute 2.93 1.00 - 5.00 K/mcL LAB HEMETOLOGY METHOD 07/10/2025 10:57 AM [facility] Monocytes Absolute 0.56 0.20 - 1.00 K/mcL LAB HEMETOLOGY METHOD 07/10/2025 10:57 AM [facility] Eosinophils Absolute 0.25 0.00 - 0.50 K/mcL LAB HEMETOLOGY METHOD 07/10/2025 10:57 AM [facility] Basophils Absolute 0.04 0.00 - 0.20 K/mcL LAB HEMETOLOGY METHOD 07/10/2025 10:57 AM [facility] Immature Granulocytes Absolute 0.09(H) 0.00 - 0.03 K/mcL LAB HEMETOLOGY METHOD 07/10/2025 10:57 AM EDT [facility] Blood Venous blood specimen / Unknown Venipuncture / Unknown 07/10/2025 5:26 AM EDT 07/10/2025 10:06 AM EDT Destiney TOLBERT LAB BLOOD ORDERABLES Final Resul t [facility] [address] [place] [address], [place] [phone] * Magnesium (07/10/2025 5:26 AM EDT) Pathologist [facility] Magnesium 2.4 1.9 - 2.6 mg/dL LAB CHEMISTRY METHOD 07/10/2025 11:26 AM EDT [facility] Blood Venous blood specimen / Unknown Venipuncture / Unknown 07/10/2025 5:26 AM EDT 07/10/2025 10:06 AM EDT Destiney TOLBERT LAB BLOOD ORDERABLES Final Resul t Performing Organization Address City/[facility]/ZIP Co de Phone Number [facility] [address] [place] [address], [place] [phone] * (ABNORMAL) Comprehensive metabolic panel (07/10/2025 5:26 AM EDT) Pathologist [facility] Sodium 134 133 - 145 mmol/L LAB CHEMISTRY METHOD 07/10/2025 11:26 AM EDT [facility] Potassium 4.7 3.5 - 5.5 mmol/L LAB CHEMISTRY METHOD 07/10/2025 11:26 AM EDT [facility] Chloride 99 96 - 110 mmol/L LAB CHEMISTRY METHOD 07/10/2025 11:26 AM EDT [facility] CO2 27 21 - 32 mmol/L LAB CHEMISTRY METHOD 07/10/2025 11:26 AM EDT [facility] Anion Gap 8 3 - 11 LAB CHEMISTRY METHOD 07/10/2025 11:26 AM [facility] Glucose 113(H) 70 - 100 mg/dL LAB CHEMISTRY METHOD 07/10/2025 11:26 AM [facility] BUN 22 5 - 25 mg/dL LAB CHEMISTRY METHOD 07/10/2025 11:26 AM [facility] Creatinine 0.58 0.50 - 1.10 mg/dL LAB CHEMISTRY METHOD 07/10/2025 11:26 AM [facility] eGFR 106 >=60 mL/min/1. 73m2 LAB CHEMISTRY METHOD 07/10/2025 11:26 AM [facility] Comment:Calculation based on the Chronic Kidney Disease Epidemiology Collaboration (CKD-EPI) equation refit without adjustment for race. BUN/Creatinine Ratio 37.9 LAB CHEMISTRY METHOD 07/10/2025 11:26 AM [facility] Calcium 9.4 8.5 - 10.5 mg/dL LAB CHEMISTRY METHOD 07/10/2025 11:26 AM [facility] AST (SGOT) 70(H) 10 - 42 unit/L LAB CHEMISTRY METHOD 07/10/2025 11:26 AM [facility] ALT (SGPT) 198(H) 10 - 60 unit/L LAB CHEMISTRY METHOD 07/10/2025 11:26 AM [facility] Alkaline Phosphatase 179(H) 42 - 121 unit/L LAB CHEMISTRY METHOD 07/10/2025 11:26 AM [facility] Total Protein 6.5 6.0 - 8.0 g/dL LAB CHEMISTRY METHOD 07/10/2025 11:26 AM [facility] Albumin 3.1(L) 3.2 - 5.0 g/dL LAB CHEMISTRY METHOD 07/10/2025 11:26 AM [facility] Total Bilirubin 0.3 0.0 - 1.4 mg/dL LAB CHEMISTRY METHOD 07/10/2025 11:26 AM EDT [facility] Blood Venous blood specimen / Unknown Venipuncture / Unknown 07/10/2025 5:26 AM EDT 07/10/2025 10:06 AM EDT us Destiney TOLBERT LAB BLOOD ORDERABLES Final Resul t [facility] [address] [place] [address], documented in this encounter Visit Diagnoses Diagnosis Encounter for other general examination documented in this encounter Care Teams Windows Systems Engineer Relationship Specialty Start Date End Date Adenike Haider MD [address] [place] [address] PCP - General Internal Medicine 05/24/21 documented as of this encounter
--- OUTSIDE RECORDS SUMMARY | 2025-10-20 15:46 | XMS_ITS | Encounter Summary ---
Author Organization [facility] Address [address] [place] [address] Care Team Providers Care Material Analyst Name Role Phone Adenike Haider MD Primary Care Provider [phone] Encounter Details Date Type Department Care Team (Late st Contact Info) Description 07/31/2025 Lab Requisition [facility] - Main Lab [address] [facility] [place] [phone] Kerri Hardy PA [address] [place] [phone] Encounter for other general examination Social History [...] AM EDT) WBC 5.0 4.8 - 10.8 K/[facility] LAB HEMETOLOGY METHOD 07/31/2025 10:55 AM [facility] LAB RBC 4.50 3.80 - 4.80 M/mcL LAB HEMETOLOGY METHOD 07/31/2025 10:55 AM [facility] LAB Hemoglobin 11.4(L) 11.5 - 16.0 g/dL LAB HEMETOLOGY METHOD 07/31/2025 10:55 AM [facility] LAB Hematocrit 36.8 35.0 - 47.0 % LAB HEMETOLOGY METHOD 07/31/2025 10:55 AM [facility] LAB MCV 82.0 79.0 - 98.0 FL LAB HEMETOLOGY METHOD 07/31/2025 10:55 AM [facility] LAB MCH 25.4(L) 27.0 - 32.0 pcg LAB HEMETOLOGY METHOD 07/31/2025 10:55 AM [facility] LAB MCHC 31.0(L) 32.0 - 37.0 g/dL LAB HEMETOLOGY METHOD 07/31/2025 10:55 AM [facility] LAB RDW 15.0 11.0 - 15.0 % LAB HEMETOLOGY METHOD 07/31/2025 10:55 AM [facility] LAB Platelets 441(H) 130 - 400 K/mcL LAB HEMETOLOGY METHOD 07/31/2025 10:55 AM [facility] LAB MPV 9.3 7.0 - 11.0 FL LAB HEMETOLOGY METHOD 07/31/2025 10:55 AM [facility] LAB NRBC 0.0 <1.0 % LAB HEMETOLOGY METHOD 07/31/2025 10:55 AM [facility] LAB NRBC Absolute 0.00 <0.10 K/mcL LAB HEMETOLOGY METHOD 07/31/2025 10:55 AM [facility] LAB Neutrophils Relative 43.0 % LAB HEMETOLOGY METHOD 07/31/2025 10:55 AM [facility] LAB Lymphocytes Relative 44.0 % LAB HEMETOLOGY METHOD 07/31/2025 10:55 AM [facility] LAB Monocytes Relative 8.4 % LAB HEMETOLOGY METHOD 07/31/2025 10:55 AM [facility] LAB Eosinophils Relative 3.6 % LAB HEMETOLOGY METHOD 07/31/2025 10:55 AM [facility] LAB Basophils Relative 0.6 % LAB HEMETOLOGY METHOD 07/31/2025 10:55 AM [facility] LAB Immature Granulocytes Relative 0.4 % LAB HEMETOLOGY METHOD 07/31/2025 10:55 AM [facility] LAB Neutrophils Absolute 2.16 1.50 - 7.00 K/mcL LAB HEMETOLOGY METHOD 07/31/2025 10:55 AM [facility] LAB Lymphocytes Absolute 2.21 1.00 - 5.00 K/mcL LAB HEMETOLOGY METHOD 07/31/2025 10:55 AM [facility] LAB Monocytes Absolute 0.42 0.20 - 1.00 K/mcL LAB HEMETOLOGY METHOD 07/31/2025 10:55 AM [facility] LAB Eosinophils Absolute 0.18 0.00 - 0.50 K/mcL LAB HEMETOLOGY METHOD 07/31/2025 10:55 AM [facility] LAB Basophils Absolute 0.03 0.00 - 0.20 K/mcL LAB HEMETOLOGY METHOD 07/31/2025 10:55 AM [facility] LAB Immature Granulocytes Absolute 0.02 0.00 - 0.03 K/mcL LAB HEMETOLOGY METHOD 07/31/2025 10:55 AM [facility] LAB Blood Venous blood specimen / Unknown Venipuncture / Unknown 07/31/2025 7:12 AM EDT 07/31/2025 9:56 AM EDT us Kerri TOLBERT LAB BLOOD ORDERABLES Final Resu lt [facility] [address] [place] [address], documented in this encounter Visit Diagnoses Diagnosis Encounter for other general examination documented in this encounter Care Teams Material Analyst Relationship Specialty Start Date End Date Adenike Haider MD [address] [place] [address] PCP - General Internal Medicine 05/24/21 documented as of this encounter
--- OUTSIDE RECORDS SUMMARY | 2025-10-20 15:46 | XMS_ITS | Clinical Summary ---
Author Organization 299 [facility] Address [address] [place] [address] Phone Care Team Providers Care Public Health Training Assistant Name Role Phone Adenike Haider MD Primary Care Provider [phone] Allergies Active Allergy Reactions Criticality Noted Date [...] Department Care Team Description 07/31/2025 Lab Requisition [facility] Main Lab [address] [place] [address] Kerri Hardy PA Encounter for other general examination 07/29/2025 Lab Requisition [facility] Lab [address] [place] [address] Reji Cueto PA Encounter for other general examination 07/26/2025 Lab Requisition [facility] Main Lab [address] [place] [phone] Reji Cueto PA Other residential (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 therapy 07/22/2025 Lab Requisition [facility] - Main Lab 299 [facility] [place] [address] Reji Cueto PA Encounter for other general examination from [...] 1989 LASER ABLATION OF THE CERVIX PROCEDURE: OH CAUTERY CERVIX LASER ABLATION; COMMENT: for a polyp BREAST SURGERY 25 YRS AGO PROCEDURE: OH UNLISTED PROCEDURE BREAST; COMMENT: for a cyst on the right breast OTHER SURGICAL HISTORY 07/2021 PROCEDURE: MAMMOGRAM, SCREENING, BOTH BREASTS COLONOSCOPY 02/07/2022 PROCEDURE: HISTORICAL COLONOSCOPY; COMMENT: tiny polyps removed - normal mucosa Medical History Medical History Date Comments Major depression DX:Major depres tanya; COMMENT: follows at [facility]- Dr Marte Anxiety DX:Anxiety Bilateral sciatica DX:Bilateral [...] Cervical Cancer Screening: Pap Smear 10/29/2021 10/29/2018, 10/29/2018 HIV Screening 10/27/2022 Hepatitis C Screening 10/27/2022 Social Influencers of Health Screening 10/27/2022 DTaP,Tdap,and Td Vaccines (2 - Td or Tdap) 10/21/2023 10/21/2013 Cholesterol Screening (Lipid Panel) 03/09/2024 03/09/2019 Depression Screening 11/18/2024 COVID-19 Vaccine ( season) 2025 03/29/2021, 02/27/2021 Influenza Vaccine (#1) [...] Routine 07/26/2025 6:19 AM EDT 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 WBC 5.0 4.8 - 10.8 K/mcL LAB HEMETOLOGY METHOD 07/31/2025 10:55 AM EDT [facility] LAB RBC 4.50 3.80 - 4.80 M/mcL LAB HEMETOLOGY METHOD 07/31/2025 10:55 AM [facility] LAB Hemoglobin 11.4(L) 11.5 - 16.0 g/dL LAB HEMETOLOGY METHOD 07/31/2025 10:55 AM [facility] LAB Hematocrit 36.8 35.0 - 47.0 % LAB HEMETOLOGY METHOD 07/31/2025 10:55 AM [facility] LAB MCV 82.0 79.0 - 98.0 FL LAB HEMETOLOGY METHOD 07/31/2025 10:55 AM [facility] LAB MCH 25.4(L) 27.0 - 32.0 pcg LAB HEMETOLOGY METHOD 07/31/2025 10:55 AM [facility] LAB MCHC 31.0(L) 32.0 - 37.0 g/dL LAB HEMETOLOGY METHOD 07/31/2025 10:55 AM [facility] LAB RDW 15.0 11.0 - 15.0 % LAB HEMETOLOGY METHOD 07/31/2025 10:55 AM [facility] LAB Platelets 441(H) 130 - 400 K/mcL LAB HEMETOLOGY METHOD 07/31/2025 10:55 AM [facility] LAB MPV 9.3 7.0 - 11.0 FL LAB HEMETOLOGY METHOD 07/31/2025 10:55 AM [facility] LAB NRBC 0.0 <1.0 % LAB HEMETOLOGY METHOD 07/31/2025 10:55 AM [facility] LAB NRBC Absolute 0.00 <0.10 K/mcL LAB HEMETOLOGY METHOD 07/31/2025 10:55 AM [facility] LAB Neutrophils Relative 43.0 % LAB HEMETOLOGY METHOD 07/31/2025 10:55 AM [facility] LAB Lymphocytes Relative 44.0 % LAB HEMETOLOGY METHOD 07/31/2025 10:55 AM [facility] LAB Monocytes Relative 8.4 % LAB HEMETOLOGY METHOD 07/31/2025 10:55 AM [facility] LAB Eosinophils Relative 3.6 % LAB HEMETOLOGY METHOD 07/31/2025 10:55 AM [facility] LAB Basophils Relative 0.6 % LAB HEMETOLOGY METHOD 07/31/2025 10:55 AM [facility] LAB Immature Granulocytes Relative 0.4 % LAB HEMETOLOGY METHOD 07/31/2025 10:55 AM [facility] LAB Neutrophils Absolute 2.16 1.50 - 7.00 K/mcL LAB HEMETOLOGY METHOD 07/31/2025 10:55 AM [facility] LAB Lymphocytes Absolute 2.21 1.00 - 5.00 K/mcL LAB HEMETOLOGY METHOD 07/31/2025 10:55 AM [facility] LAB Monocytes Absolute 0.42 0.20 - 1.00 K/mcL LAB HEMETOLOGY METHOD 07/31/2025 10:55 AM [facility] LAB Eosinophils Absolute 0.18 0.00 - 0.50 K/mcL LAB HEMETOLOGY METHOD 07/31/2025 10:55 AM [facility] LAB Basophils Absolute 0.03 0.00 - 0.20 K/mcL LAB HEMETOLOGY METHOD 07/31/2025 10:55 AM [facility] LAB Immature Granulocytes Absolute 0.02 0.00 - 0.03 K/mcL LAB HEMETOLOGY METHOD 07/31/2025 10:55 AM [facility] LAB Blood Venous blood specimen / Unknown Venipuncture / Unknown 07/31/2025 7:12 AM EDT 07/31/2025 9:56 AM EDT Kerri TOLBERT LAB BLOOD ORDERABLES Final Resu lt [facility] [address] [place] [address], * Basic metabolic panel (07/29/2025 6:54 AM EDT) Only the most recent of3 resultswithin the time period is included. Sodium 140 133 - 145 mmol/L LAB CHEMISTRY METHOD 07/29/2025 1:57 PM EDT [facility] Potassium 4.3 3.5 - 5.5 mmol/L LAB CHEMISTRY METHOD 07/29/2025 1:57 PM EDT [facility] Chloride 106 96 - 110 mmol/L LAB CHEMISTRY METHOD 07/29/2025 1:57 PM [facility] CO2 26 21 - 32 mmol/L LAB CHEMISTRY METHOD 07/29/2025 1:57 PM EDT [facility] Anion Gap 8 3 - 11 LAB CHEMISTR[facility] Glucose 80 70 - 100 mg/dL LAB CHEMISTRY METHOD 07/29[facility]2025 1:[facility] BUN 9 5 - 25 mg/dL LAB CHEMISTRY METHOD 07/29/2025 1:57 PM T [facility] Creatinine 0.50 0.50 - 1.10 mg/dL LAB CHEMISTRY METHOD 07/29/2025 1:57 PM EDT [facility] eGFR 110 >=60 mL/min/1. 73m2 LAB CHEMISTRY METHOD 07/29/2025 1:57 [facility] Comment:Calculation based on the Chronic Kidney Disease Epidemiology Collaboration (CKD-EPI) equation refit without adjustment for race. BUN/Creatinine Ratio 18.0 LAB CHEMISTRY METHOD 07/29/2025 1:57 PM EDT [facility] Calcium 9.4 8.5 - 10.5 mg/dL LAB CHEMISTRY METHOD 07/29/2025 1:57 PM EDT [facility] Blood Venous blood specimen / Unknown Venipuncture / Unknown 07/29/2025 6:54 AM EDT 07/29/2025 10:27 AM EDT Reji TOLBERT LAB BLOOD ORDERABLES Final R esult [facility] [address] [place] [address], * SCREENING MAMMOGRAPHY BI 2-VIEW BREAST INC [...] XR PROCEDURES Final Result * Colonoscopy (02/07/2022) Pathologist [facility] Colonoscopy abstracted,no interpretation Anatomical Region Laterality Modality Other Historical Provider HEALTH MAINTENANCE Final Result * (ABNORMAL) Lipid panel (03/09/2019) Pathologist [facility] LDL/HDL Ratio 4 0 - 4 Triglycerides 191(A) 0 - 150 mg/dL Cholesterol 142 0 - 200 mg/dL HDL 32(A) >=40 mg/dL LDL Cholesterol 72 0 - 100 mg/dL Blood Venous blood specimen / Unknown Historical Provider LAB BLOOD ORDERABLES Evelia l Result * Pap smear (10/29/2018) 10/29/2018 Narrative HISTORICAL TESTING LAB RESULTING AGENCY - 11/03/2018 1:18 PM EST [id number] THINPREP PAP, IMAGED: NEGATIVE FOR SQUAMOUS INTRAEPITHELIAL [...] Relevant to Health Maintenance Insurance Care Teams Public Health Training Assistant Relationship Specialty Start Date End Date Adenike Haider MD [address] [place] [phone] PCP - General Internal Medicine 05/24/21
--- OUTSIDE RECORDS SUMMARY | 2025-10-20 15:46 | XMS_ITS | Encounter Summary ---
Author Organization [facility] Address [address] [place] [address] Care Team Providers Care Publications Manager Name Role Phone Adenike Haider MD Primary Care Provider [phone] Encounter Details Date Type Department Care Team (Late st Contact Info) Description 07/29/2025 Lab Requisition [facility] - Main Lab [address] [facility] [place] [address] Reji Cueto PA [address] [phone] Encounter for other general examination [...] LAB CHEMISTRY METHOD 07/29/2025 1:57 PM EDT [facility] Potassium 4.3 3.5 - 5.5 mmol/L LAB CHEMISTRY METHOD 07/29/2025 1:57 PM EDT [facility] Chloride 106 96 - 110 mmol/L LAB CHEMISTRY METHOD 07/29/2025 1:57 PM EDT [facility] LAB CO2 26 21 - 32 mmol/L LAB CHEMISTRY METHOD 07/29/2025 1:57 PM [facility] LAB Anion Gap 8 3 - 11 LAB CHEMISTRY METHOD 07/29/2025 1:57 PM EDT [facility] LAB Glucose 80 70 - 100 mg/dL LAB CHEMISTRY METHOD 07/29/2025 1:57 PM [facility] LAB BUN 9 5 - 25 mg/dL LAB CHEMISTRY METHOD 07/29/2025 1:57 PM [facility] Creatinine 0.50 0.50 - 1.10 mg/dL LAB CHEMISTRY METHOD 07/29[facility]2025 [facility] eGFR 110 >=60 mL/min/1. 73m2 LAB CHEMISTRY METHOD 07/29/2025 1:57 PM T [facility] LAB Comment:Calculation based on the Chronic Kidney Disease Epidemiology Collaboration (CKD-EPI) equation refit without adjustment for race. BUN/Creatinine Ratio 18.0 LAB CHEMISTRY METHOD 07/29/2025 1:57 PM T [facility] Calcium 9.4 8.5 - 10.5 mg/dL LAB CHEMISTRY METHOD 07/29/2025 1:57 PM T [facility] Blood Venous blood specimen / Unknown Venipuncture / Unknown 07/29/2025 6:54 AM EDT 07/29/2025 10:27 AM EDT us Reji TOLBERT LAB BLOOD ORDERABLES Final R esult [facility] [address] [place] [address], documented in this encounter Visit Diagnoses Diagnosis Encounter for other general examination documented in this encounter Care Teams Publications Manager Relationship Specialty Start Date End Date Adenike Haider MD [address] [place] [address] PCP - General Internal Medicine 05/24/21 documented as of this encounter
--- OUTSIDE RECORDS SUMMARY | 2025-10-20 15:46 | XMS_ITS | Encounter Summary ---
Author Organization [facility] Address [address] [place] [address] Care Team Providers Care Rn Maternity Name Role Phone Adenike Haider MD Primary Care Provider [phone] Encounter Details Date Type Department Care Team (Late st Contact Info) Description 07/22/2025 Lab Requisition [facility] - Main Lab 299 [facility] [place] [address] Reji Cueto PA [address] [phone] Encounter for other general examination [...] LAB CHEMISTRY METHOD 07/22/2025 12:31 PM EDT [facility] Potassium 4.2 3.5 - 5.5 mmol/L LAB CHEMISTRY METHOD 07/22/2025 12:31 PM [facility] Chloride 102 96 - 110 mmol/L LAB CHEMISTRY METHOD 07/22/2025 12:31 PM [facility] CO2 28 21 - 32 mmol/L LAB CHEMISTRY METHOD 07/22/2025 12:31 PM [facility] Anion Gap 9 3 - 11 LAB CHEMISTRY METHOD 07/22/2025 12:31 PM [facility] Glucose 95 70 - 100 mg/dL LAB CHEMISTRY METHOD 07/22/2025 12:31 PM [facility] BUN 21 5 - 25 mg/dL LAB CHEMISTRY METHOD 07/22/2025 12:31 PM [facility] Creatinine 0.58 0.50 - 1.10 mg/dL LAB CHEMISTRY METHOD 07/22/2025 12:31 PM [facility] LAB eGFR 106 >=60 mL/min/1. 73m2 LAB CHEMISTRY METHOD 07/22/2025 12:31 PM [facility] LAB Comment:Calculation based on the Chronic Kidney Disease Epidemiology Collaboration (CKD-EPI) equation refit without adjustment for race. BUN/Creatinine Ratio 36.2 LAB CHEMISTRY METHOD 07/22/2025 12:31 PM [facility] Calcium 9.2 8.5 - 10.5 mg/dL LAB CHEMISTRY METHOD 07/22/2025 12:31 PM [facility] Blood Venous blood specimen / Unknown Venipuncture / Unknown 07/22/2025 5:56 AM EDT 07/22/2025 9:40 AM EDT us Reji TOLBERT LAB BLOOD ORDERABLES Final R esult [facility] [address] [place] [address], documented in this encounter Visit Diagnoses Diagnosis Encounter for other general examination documented in this encounter Care Teams Rn Maternity Relationship Specialty Start Date End Date Adenike Haider MD [address] [place] [address] PCP - General Internal Medicine 05/24/21 documented as of this encounter
--- OUTSIDE RECORDS SUMMARY | 2025-10-20 15:47 | XMS_ITS | Encounter Summary ---
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 therapy CBC AND DIFFERENTIAL Routine 07/26/2025 6:19 AM EDT Other terminal supervisor (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 therapy BASIC METABOLIC PANEL Routine 07/26/2025 6:19 AM EDT Other senior care (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 therapy documented in this encounter Results * (ABNORMAL) CBC auto differential (07/26/2025 6:19 AM EDT) [facility] WBC 5.6 4.8 - 10.8 K/mcL LAB HEMETOLOGY METHOD 07/26/2025 8:30 AM [facility] RBC 3.70(L) 3.80 - 4.80 M/mcL LAB HEMETOLOGY METHOD 07/26/2025 8:30 AM [facility] Hemoglobin 9.5(L) 11.5 - 16.0 g/dL LAB HEMETOLOGY METHOD 07/26/2025 8:30 AM [facility] LAB Hematocrit 30.7(L) 35.0 - 47.0 % LAB HEMETOLOGY METHOD 07/26/2025 8:30 AM [facility] LAB MCV 82.7 79.0 - 98.0 FL LAB HEMETOLOGY METHOD 07/26/2025 8:30 AM [facility] LAB MCH 25.6(L) 27.0 - 32.0 pcg LAB HEMETOLOGY METHOD 07/26/2025 8:30 AM [facility] LAB MCHC 30.9(L) 32.0 - 37.0 g/dL LAB HEMETOLOGY METHOD 07/26/2025 8:30 AM [facility] LAB RDW 14.9 11.0 - 15.0 % LAB HEMETOLOGY METHOD 07/26/2025 8:30 AM [facility] LAB Platelets 351 130 - 400 K/mcL LAB HEMETOLOGY METHOD 07/26/2025 8:30 AM [facility] MPV 9.1 7.0 - 11.0 FL LAB HEMETOLOGY METHOD 07/26/2025 8:30 AM [facility] NRBC 0.0 <1.0 % LAB HEMETOLOGY METHOD 07/26/2025 8:30 AM [facility] NRBC Absolute 0.00 <0.10 K/mcL LAB HEMETOLOGY METHOD 07/26/2025 8:30 AM [facility] Neutrophils Relative 45.8 % LAB HEMETOLOGY METHOD 07/26/2025 8:30 AM [facility] Lymphocytes Relative 39.2 % LAB HEMETOLOGY METHOD 07/26/2025 8:30 AM [facility] Monocytes Relative 8.4 % LAB HEMETOLOGY METHOD 07/26/2025 8:30 AM [facility] Eosinophils Relative 5.2 % LAB HEMETOLOGY METHOD 07/26/2025 8:30 AM [facility] Basophils Relative 0.7 % LAB HEMETOLOGY METHOD 07/26/2025 8:30 AM [facility] Immature Granulocytes Relative 0.7 % LAB HEMETOLOGY METHOD 07/26/2025 8:30 AM [facility] Neutrophils Absolute 2.57 1.50 - 7.00 K/mcL LAB HEMETOLOGY METHOD 07/26/2025 8:30 AM [facility] Lymphocytes Absolute 2.20 1.00 - 5.00 K/mcL LAB HEMETOLOGY METHOD 07/26/2025 8:30 AM [facility] Monocytes Absolute 0.47 0.20 - 1.00 K/mcL LAB HEMETOLOGY METHOD 07/26/2025 8:30 AM [facility] Eosinophils Absolute 0.29 0.00 - 0.50 K/mcL LAB HEMETOLOGY METHOD 07/26/2025 8:30 AM [facility] Basophils Absolute 0.04 0.00 - 0.20 K/mcL LAB HEMETOLOGY METHOD 07/26/2025 8:30 AM [facility] Immature Granulocytes Absolute 0.04(H) 0.00 - 0.03 K/mcL LAB HEMETOLOGY METHOD 07/26/2025 8:30 AM [facility] Blood Venous blood specimen / Unknown 07/26/2025 6:19 AM EDT 07/26/2025 7:23 AM EDT us Reji TOLBERT LAB BLOOD ORDERABLES Final R esult [facility] [address] [place] [address], * (ABNORMAL) Basic metabolic panel (07/26/2025 6:19 AM EDT) Sodium 139 133 - 145 mmol/L LAB CHEMISTRY METHOD 07/26/2025 8:33 AM [facility] Potassium 4.3 3.5 - 5.5 mmol/L LAB CHEMISTRY METHOD 07/26/2025 8:33 AM [facility] Chloride 107 96 - 110 mmol/L LAB CHEMISTRY METHOD 07/26/2025 8:33 AM [facility] CO2 30 21 - 32 mmol/L LAB CHEMISTRY METHOD 07/26/2025 8:33 AM [facility] Anion Gap 2(L) 3 - 11 LAB CHEMISTRY METHOD 07/26/2025 8:33 AM [facility] Glucose 84 70 - 100 mg/dL LAB CHEMISTRY METHOD 07/26/2025 8:33 AM [facility] BUN 17 5 - 25 mg/dL LAB CHEMISTRY METHOD 07/26/2025 8:33 AM [facility] Creatinine 0.55 0.50 - 1.10 mg/dL LAB CHEMISTRY METHOD 07/26/2025 8:33 AM [facility] eGFR 107 >=60 mL/min/1. 73m2 LAB CHEMISTRY METHOD 07/26/2025 8:33 AM [facility] Comment:Calculation based on the Chronic Kidney Disease Epidemiology Collaboration (CKD-EPI) equation refit without adjustment for race. BUN/Creatinine Ratio 30.9 LAB CHEMISTRY METHOD 07/26/2025 8:33 AM EDT [facility] Calcium 9.1 8.5 - 10.5 mg/dL LAB CHEMISTRY METHOD 07/26/2025 8:33 AM EDT [facility] Blood Venous blood specimen / Unknown Venipuncture / Unknown 07/26/2025 6:19 AM EDT 07/26/2025 7:23 AM EDT us Reji TOLBERT LAB BLOOD ORDERABLES Final R esult [facility] [address] [place] [address], documented in this encounter Visit Diagnoses Diagnosis Other senior care (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 therapy documented in this encounter Care Teams Varnish Mixer Relationship Specialty Start Date End Date Adenike Haider MD [address] [place] [phone] PCP - General Internal Medicine 05/24/21 documented as of this encounter
--- OUTSIDE RECORDS SUMMARY | 2025-10-20 15:47 | XMS_ITS | Encounter Summary ---
Author Organization [facility] Address [address] [place] [address] Care Team Providers Care Youth Teacher Name Role Phone Adenike Haider MD Primary Care Provider [phone] Encounter Details Date Type Department Care Team (Late st Contact Info) Description 07/13/2025 Lab Requisition [facility] - Main Lab 299 [facility] [place] [address] Zoë Zambrano PA [address] [place] [address] Encounter for other general examination Social History [...] LAB HEMETOLOGY METHOD 07/13/2025 11:27 AM EDT [facility] Blood Venous blood specimen / Unknown Venipuncture / Unknown 07/13/2025 6:20 AM EDT 07/13/2025 10:28 AM EDT us Zoë TOLBERT LAB BLOOD ORDERABLES Final Re sult [facility] [address] [place] [address], * (ABNORMAL) Comprehensive metabolic panel (07/13/2025 6:20 [...] LAB CHEMISTRY METHOD 07/13/2025 2:12 PM EDT [facility] Comment:Calculation based on the Chronic Kidney Disease Epidemiology Collaboration (CKD-EPI) equation refit without adjustment for race. BUN/Creatinine Ratio 33.3 LAB CHEMISTRY METHOD 07/13/2025 2:12 PM EDT [facility] Calcium 9.7 8.5 - 10.5 mg/dL LAB CHEMISTRY METHOD 07/13/2025 2:12 PM EDT [facility] AST (SGOT) 40 10 - 42 unit/L LAB CHEMISTRY METHOD 07/13/2025 2:12 PM [facility] ALT (SGPT) 121(H) 10 - 60 unit/L LAB CHEMISTRY METHOD 07/13/2025 2:12 PM [facility] Alkaline Phosphatase 179(H) 42 - 121 unit/L LAB CHEMISTRY [facility] Total Protein 6.3 6.0 - 8.0 g/dL LAB CHEMISTRY METHOD 07/13/2025 2:12 PM [facility] Albumin 3.2 3.2 - 5.0 g/dL LAB CHEMISTRY METHOD 07/13/2025 2:12 PM [facility] Total Bilirubin 0.3 0.0 - 1.4 mg/dL LAB CHEMISTRY METHOD 07/13/2025 2:12 PM T [facility] Blood Venous blood specimen / Unknown Venipuncture / Unknown 07/13/2025 6:20 AM EDT 07/13/2025 10:28 AM EDT us Zoë TOLBERT LAB BLOOD ORDERABLES Final Re sult [facility] [address] [place] [address], * Lipase (07/13/2025 6:20 AM EDT) Lipase 57 13 - 75 unit/L LAB CHEMISTRY METHOD 07/13/2025 1:48 PM EDT [facility] Blood Venous blood specimen / Unknown Venipuncture / Unknown 07/13/2025 6:20 AM EDT 07/13/2025 10:28 AM EDT Zoë TOLBERT LAB BLOOD ORDERABLES Final Re sult Performing Organization Address [facility]/ZIP Co de Phone Number [facility] [address] [place] [address], [place] [phone] * Amylase (07/13/2025 6:20 AM EDT) Amylase 51 25 - 115 unit/L LAB CHEMISTRY METHOD 07/13/2025 1:48 PM EDT [facility] Blood Venous blood specimen / Unknown Venipuncture / Unknown 07/13/2025 6:20 AM EDT 07/13/2025 10:28 AM EDT Zoë TOLBERT LAB BLOOD ORDERABLES Final Re sult Performing Organization Address [facility] Co de Phone Number [facility] [address] [place] [address], [place] [phone] documented in this encounter Visit Diagnoses Diagnosis Encounter for other general examination documented in this encounter Care Teams Youth Teacher Relationship Specialty Start Date End Date Adenike Haider MD [address] [place] [address] PCP - General Internal Medicine 05/24/21 documented as of this encounter
--- OUTSIDE RECORDS SUMMARY | 2025-10-20 15:47 | XMS_ITS | Encounter Summary ---
Author Organization [facility] Address [address] [place] [address] Care Team Providers Care Senior Sas Developer Name Role Phone Adenike Haider MD Primary Care Provider [phone] Encounter Details Date Type Department Care Team (Late st Contact Info) Description 07/15/2025 Lab Requisition [facility] - Main Lab 299 [facility] [place] [address] Reji Cueto PA [address] [address] Encounter for other general examination [...] LAB CHEMISTRY METHOD 07/15/2025 12:51 PM EDT [facility] Potassium 4.4 3.5 - 5.5 mmol/L LAB CHEMISTRY METHOD 07/15/2025 12:51 PM [facility] Chloride 97 96 - 110 mmol/L LAB CHEMISTRY METHOD 07/15/2025 12:51 PM [facility] CO2 29 21 - 32 mmol/L LAB CHEMISTRY METHOD 07/15/2025 12:51 PM [facility] Anion Gap 8 3 - 11 LAB CHEMISTRY METHOD 07/15/2025 12:51 PM [facility] Glucose 94 70 - 100 mg/dL LAB CHEMISTRY METHOD 07/15/2025 12:51 PM [facility] BUN 23 5 - 25 mg/dL LAB CHEMISTRY METHOD 07/15/2025 12:51 PM [facility] Creatinine 0.52 0.50 - 1.10 mg/dL LAB CHEMISTRY METHOD 07/15/2025 12:51 PM [facility] eGFR 109 >=60 mL/min/1. 73m2 LAB CHEMISTRY METHOD 07/15/2025 12:51 PM [facility] Comment:Calculation based on the Chronic Kidney Disease Epidemiology Collaboration (CKD-EPI) equation refit without adjustment for race. BUN/Creatinine Ratio 44.2 LAB CHEMISTRY METHOD 07/15/2025 12:51 PM [facility] Calcium 9.7 8.5 - 10.5 mg/dL LAB CHEMISTRY METHOD 07/15/2025 12:51 PM [facility] Blood Venous blood specimen / Unknown Venipuncture / Unknown 07/15/2025 6:05 AM EDT 07/15/2025 11:04 AM EDT us Reji TOLBERT LAB BLOOD ORDERABLES Final R esult [facility] [address] [place] [address], documented in this encounter Visit Diagnoses Diagnosis Encounter for other general examination documented in this encounter Care Teams Senior Sas Developer Relationship Specialty Start Date End Date Adenike Haider MD [address] [place] [address] PCP - General Internal Medicine 05/24/21 documented as of this encounter
--- OUTSIDE RECORDS SUMMARY | 2025-10-20 15:47 | XMS_ITS | Encounter Summary ---
Author Organization [facility] Address [address] [place] [address] Care Team Providers Care Otc Clerk Name Role Phone Adenike Haider MD Primary Care Provider [phone] Encounter Details Date Type Department Care Team (Late st Contact Info) Description 07/19/2025 Lab Requisition [facility] - Main Lab 299 [facility] [place] [address] Reji Cueto PA [address] [address] Encounter for other general examination [...] LAB CHEMISTRY METHOD 07/19/2025 9:55 AM EDT [facility] Potassium 4.0 3.5 - 5.5 mmol/L LAB CHEMISTRY METHOD 07/19/2025 9:55 AM [facility] Chloride 98 96 - 110 mmol/L LAB CHEMISTRY METHOD 07/19/2025 9:55 AM [facility] CO2 30 21 - 32 mmol/L LAB CHEMISTRY METHOD 07/19/2025 9:55 AM [facility] Anion Gap 7 3 - 11 LAB CHEMISTRY METHOD 07/19/2025 9:55 AM [facility] Glucose 139(H) 70 - 100 mg/dL LAB CHEMISTRY METHOD 07/19/2025 9:55 AM [facility] BUN 25 5 - 25 mg/dL LAB CHEMISTRY METHOD 07/19/2025 9:55 AM [facility] Creatinine 0.47(L) 0.50 - 1.10 mg/dL LAB CHEMISTRY METHOD 07/19/2025 9:55 AM [facility] eGFR 111 >=60 mL/min/1. 73m2 LAB CHEMISTRY METHOD 07/19/2025 9:55 AM [facility] Comment:Calculation based on the Chronic Kidney Disease Epidemiology Collaboration (CKD-EPI) equation refit without adjustment for race. BUN/Creatinine Ratio 53.2 LAB CHEMISTRY METHOD 07/19/2025 9:55 AM [facility] Calcium 9.3 8.5 - 10.5 mg/dL LAB CHEMISTRY METHOD 07/19/2025 9:55 AM [facility] Blood Venous blood specimen / Unknown Venipuncture / Unknown 07/19/2025 6:06 AM EDT 07/19/2025 8:54 AM EDT us Reji TOLBERT LAB BLOOD ORDERABLES Final R esult [facility] [address] [place] [address], documented in this encounter Visit Diagnoses Diagnosis Encounter for other general examination documented in this encounter Care Teams Otc Clerk Relationship Specialty Start Date End Date Adenike Haider MD [address] [place] [address] PCP - General Internal Medicine 05/24/21 documented as of this encounter
== END 2025-10-20 14:27 | disposition home or self-care (01) ==
LOC: HO.HMCH 13:18
PROVIDERS: PCP Internal Medicine; Visit Provider Internal Medicine
DX: I63.9 Cerebral infarction, unspecified (principal); F51.01 Primary insomnia; I69.319 Unspecified symptoms and signs involving cognitive functions following cerebral infarction; R32 Unspecified urinary incontinence; R11.0 Nausea; H61.23 Impacted cerumen, bilateral

== ENCOUNTER 2025-10-21 18:30 | Emergency (ER) | payer OTHER, SELFPAY ==
[2025-10-21 18:57] VITALS: BP 140/70; BP 144/45; PULSE 50; PULSE 65; RESP 16; TEMP 36.6; O2SAT 100; O2SAT 97; BMI 21.9
[2025-10-21 20:09] VITALS: BP 141/57; PULSE 49; RESP 18; O2SAT 98
--- OUTSIDE RECORDS SUMMARY | 2025-10-21 22:26 | XMS_ITS | Encounter Summary ---
Author Organization [facility] Address [address] [place] [address] Care Team Providers Care Serology Teacher Name Role Phone Adenike Haider MD Primary Care Provider [phone] Encounter Details Date Type Department Care Team (Late st Contact Info) Description 07/13/2025 Lab Requisition [facility] - Main Lab 299 [facility] [place] [address] Zoë Zambrano PA [address] [place] [address] Encounter for other general examination Social History [...] K/mcL LAB HEMETOLOGY METHOD 07/13/2025 11:27 AM [facility] RBC 4.00 3.80 - 4.80 M/mcL LAB HEMETOLOGY METHOD 07/13/2025 11:27 AM [facility] Hemoglobin 10.1(L) 11.5 - 16.0 g/dL LAB HEMETOLOGY METHOD 07/13/2025 11:27 AM [facility] Hematocrit 33.0(L) 35.0 - 47.0 % LAB HEMETOLOGY METHOD 07/13/2025 11:27 AM [facility] MCV 83.1 79.0 - 98.0 FL LAB HEMETOLOGY METHOD 07/13/2025 11:27 AM [facility] MCH 25.4(L) 27.0 - 32.0 pcg LAB HEMETOLOGY METHOD 07/13/2025 11:27 AM [facility] MCHC 30.6(L) 32.0 - 37.0 g/dL LAB HEMETOLOGY METHOD 07/13/2025 11:27 AM [facility] RDW 14.8 11.0 - 15.0 % LAB HEMETOLOGY METHOD 07/13/2025 11:27 AM [facility] Platelets 371 130 - 400 K/mcL LAB HEMETOLOGY METHOD 07/13/2025 11:27 AM [facility] MPV 10.4 7.0 - 11.0 FL LAB HEMETOLOGY METHOD 07/13/2025 11:27 AM [facility] NRBC 0.0 <1.0 % LAB HEMETOLOGY METHOD 07/13/2025 11:27 AM [facility] NRBC Absolute 0.00 <0.10 K/mcL LAB HEMETOLOGY METHOD 07/13/2025 11:27 AM [facility] Neutrophils Relative 55.6 % LAB HEMETOLOGY METHOD 07/13/2025 11:27 AM [facility] Lymphocytes Relative 33.4 % LAB HEMETOLOGY METHOD 07/13/2025 11:27 AM [facility] Monocytes Relative 6.7 % LAB HEMETOLOGY METHOD 07/13/2025 11:27 AM [facility] Eosinophils Relative 3.4 % LAB HEMETOLOGY METHOD 07/13/2025 11:27 AM [facility] Basophils Relative 0.3 % LAB HEMETOLOGY METHOD 07/13/2025 11:27 AM [facility] Immature Granulocytes Relative 0.6 % LAB HEMETOLOGY METHOD 07/13/2025 11:27 AM [facility] Neutrophils Absolute 3.81 1.50 - 7.00 K/mcL LAB HEMETOLOGY METHOD 07/13/2025 11:27 AM [facility] Lymphocytes Absolute 2.29 1.00 - 5.00 K/mcL LAB HEMETOLOGY METHOD 07/13/2025 11:27 AM [facility] Monocytes Absolute 0.46 0.20 - 1.00 K/mcL LAB HEMETOLOGY METHOD 07/13/2025 11:27 AM [facility] Eosinophils Absolute 0.23 0.00 - 0.50 K/mcL LAB HEMETOLOGY METHOD 07/13/2025 11:27 AM [facility] Basophils Absolute 0.02 0.00 - 0.20 K/mcL LAB HEMETOLOGY METHOD 07/13/2025 11:27 AM [facility] Immature Granulocytes Absolute 0.04(H) 0.00 - 0.03 K/mcL LAB HEMETOLOGY METHOD 07/13/2025 11:27 AM EDT [facility] Blood Venous blood specimen / Unknown Venipuncture / Unknown 07/13/2025 6:20 AM EDT 07/13/2025 10:28 AM EDT us Zoë TOLBERT LAB BLOOD ORDERABLES Final Re sult [facility] [address] [place] [address], * (ABNORMAL) Comprehensive metabolic panel (07/13/2025 6:20 AM EDT) Sodium 135 133 - 145 mmol/L LAB CHEMISTRY METHOD 07/13/2025 2:12 PM [facility] Potassium 4.7 3.5 - 5.5 mmol/L LAB CHEMISTRY METHOD 07/13/2025 2:12 PM [facility] Chloride 100 96 - 110 mmol/L LAB CHEMISTRY METHOD 07/13/2025 2:12 PM [facility] CO2 27 21 - 32 mmol/L LAB CHEMISTRY METHOD 07/13/2025 2:12 PM [facility] Anion Gap 8 3 - 11 LAB CHEMISTRY METHOD 07/13/2025 2:12 PM [facility] Glucose 109(H) 70 - 100 mg/dL LAB CHEMISTRY METHOD 07/13/2025 2:12 PM [facility] BUN 19 5 - 25 mg/dL LAB CHEMISTRY METHOD 07/13/2025 2:12 PM [facility] Creatinine 0.57 0.50 - 1.10 mg/dL LAB CHEMISTRY METHOD 07/13/2025 2:12 PM [facility] eGFR 106 >=60 mL/min/1. [...] unit/L LAB CHEMISTRY METHOD 07/13/2025 2:12 PM [facility] ALT (SGPT) 121(H) 10 - 60 unit/L LAB CHEMISTRY METHOD 07/13/2025 2:12 PM [facility] Alkaline Phosphatase 179(H) 42 - 121 unit/L LAB [facility]STR[facility] Total Protein 6.3 6.0 - 8.0 g/dL LAB CHEMISTRY METHOD 07/13/2025 2:12 PM [facility] Albumin 3.2 3.2 - 5.0 g/dL LAB CHEMISTRY METHOD 07/13/2025 2:12 PM [facility] Total Bilirubin 0.3 0.0 - 1.4 mg/dL LAB CHEMISTRY METHOD 07/13/2025 2:12 PM T [facility] Blood Venous blood specimen / Unknown Venipuncture / Unknown 07/13/2025 6:20 AM EDT 07/13/2025 10:28 AM EDT us Zoë TOLBERT LAB BLOOD ORDERABLES Final Re sult [facility] [address] [place] [address], * Lipase (07/13/2025 6:20 AM EDT) Lipase 57 13 - 75 unit/L LAB CHEMISTRY METHOD 07/13/2025 1:48 PM EDT [facility] Blood Venous blood specimen / Unknown Venipuncture / Unknown 07/13/2025 6:20 AM EDT 07/13/2025 10:28 AM EDT Zoë TOLBERT LAB BLOOD ORDERABLES Final Re sult Performing Organization Address [facility]/ZIP Co de Phone Number [facility] [address] [place] [address], [place] [phone] * Amylase (07/13/2025 6:20 AM EDT) Amylase 51 25 - 115 unit/L LAB CHEMISTRY METHOD 07/13/2025 1:48 PM EDT [facility] Blood Venous blood specimen / Unknown Venipuncture / Unknown 07/13/2025 6:20 AM EDT 07/13/2025 10:28 AM EDT Zoë TOLBERT LAB BLOOD ORDERABLES Final Re sult Performing Organization Address [facility] Co de Phone Number [facility] [address] [place] [address], [place] [phone] documented in this encounter Visit Diagnoses Diagnosis Encounter for other general examination documented in this encounter Care Teams Serology Teacher Relationship Specialty Start Date End Date Adenike Haider MD [address] [place] [address] PCP - General Internal Medicine 05/24/21 documented as of this encounter
--- OUTSIDE RECORDS SUMMARY | 2025-10-21 22:26 | XMS_ITS | Encounter Summary ---
Author Organization [facility] Address [address] [place] [address] Care Team Providers Care Inspector Elevators Name Role Phone Adenike Haider MD Primary Care Provider [phone] Encounter Details Date Type Department Care Team (Late st Contact Info) Description 07/10/2025 Lab Requisition [facility] - Main Lab 299 [facility] [place] [address] Destiney Red PA [address] [place] [phone] Encounter for other general examination Social History [...] CBC auto differential (07/10/2025 5:26 AM EDT) [facility] Signature WBC 7.4 4.8 - 10.8 [...] t [facility] [address] [place] [address], [place] [phone] * Magnesium (07/10/2025 5:26 AM EDT) Pathologist [facility] Magnesium 2.4 1.9 - 2.6 mg/dL LAB CHEMISTRY METHOD 07/10/2025 11:26 AM EDT [facility] Blood Venous blood specimen / Unknown Venipuncture / Unknown 07/10/2025 5:26 AM EDT 07/10/2025 10:06 AM EDT Destiney TOLBERT LAB BLOOD ORDERABLES Final Resul t Performing Organization Address City/[facility]/ZIP Co de Phone Number [facility] [address] [place] [address], [place] [phone] * (ABNORMAL) Comprehensive metabolic panel (07/10/2025 5:26 AM EDT) Pathologist [facility] Sodium 134 133 - 145 mmol/L LAB [...] t [facility] [address] [place] [address], documented in this encounter Visit Diagnoses Diagnosis Encounter for other general examination documented in this encounter Care Teams Inspector Elevators Relationship Specialty Start Date End Date Adenike Haider MD [address] [place] [address] PCP - General Internal Medicine 05/24/21 documented as of this encounter
--- OUTSIDE RECORDS SUMMARY | 2025-10-21 22:26 | XMS_ITS | Clinical Summary ---
Author Organization 299 [facility] Address [address] [place] [address] Phone Care Team Providers Care Seating And Mobility Technologist Name Role Phone Adenike Haider MD Primary Care Provider [phone] Allergies Active Allergy Reactions Criticality Noted Date [...] Department Care Team Description 07/31/2025 Lab Requisition [facility] Main Lab [address] [place] [address] Kerri Hardy PA Encounter for other general examination 07/29/2025 Lab Requisition [facility] [address] [place] [address] Reji Cueto PA Encounter for other general examination 07/26/2025 Lab Requisition [facility] Main Lab [address] [place] [address] Reji Cueto PA Other halfway (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 therapy 07/22/2025 Lab Requisition [facility] - Main Lab 299 [facility] [place] [address] Reji Cueto PA Encounter for [...] 1989 LASER ABLATION OF THE CERVIX PROCEDURE: SC CAUTERY CERVIX LASER ABLATION; COMMENT: for a polyp BREAST SURGERY 25 YRS AGO PROCEDURE: SC UNLISTED PROCEDURE BREAST; COMMENT: for a cyst on the right breast OTHER SURGICAL HISTORY 07/2021 PROCEDURE: MAMMOGRAM, SCREENING, BOTH BREASTS COLONOSCOPY 02/07/2022 PROCEDURE: HISTORICAL COLONOSCOPY; COMMENT: tiny polyps removed - normal mucosa Medical History Medical History Date Comments Major depression DX:Major depres tanya; COMMENT: follows at [facility]- Dr Marte Anxiety DX:Anxiety [...] DIFFERENTIAL Routine 07/26/2025 6:19 AM EDT Other press tender long goods (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 therapy CBC AND DIFFERENTIAL Routine 07/26/2025 6:19 AM EDT Other halfway (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 therapy BASIC METABOLIC PANEL Routine 07/26/2025 6:19 AM EDT Other halfway (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 therapy BASIC METABOLIC PANEL Routine [...] LAB HEMETOLOGY METHOD 07/31/2025 10:55 AM EDT [facility] RBC 4.50 3.80 - 4.80 M/mcL LAB HEMETOLOGY METHOD 07/31/2025 10:55 AM [facility] Hemoglobin 11.4(L) 11.5 - 16.0 g/dL LAB HEMETOLOGY METHOD 07/31/2025 10:55 AM [facility] Hematocrit 36.8 35.0 - 47.0 % LAB HEMETOLOGY METHOD 07/31/2025 10:55 AM [facility] MCV 82.0 79.0 - 98.0 FL LAB HEMETOLOGY METHOD 07/31/2025 10:55 AM [facility] MCH 25.4(L) 27.0 - 32.0 pcg LAB HEMETOLOGY METHOD 07/31/2025 10:55 AM [facility] MCHC 31.0(L) 32.0 - 37.0 g/dL LAB HEMETOLOGY METHOD 07/31/2025 10:55 AM [facility] RDW 15.0 11.0 - 15.0 % LAB HEMETOLOGY METHOD 07/31/2025 10:55 AM [facility] Platelets 441(H) 130 - 400 K/mcL LAB HEMETOLOGY METHOD 07/31/2025 10:55 AM [facility] MPV 9.3 7.0 - 11.0 FL LAB HEMETOLOGY METHOD 07/31/2025 10:55 AM [facility] NRBC 0.0 <1.0 % LAB HEMETOLOGY METHOD 07/31/2025 10:55 AM [facility] NRBC Absolute 0.00 <0.10 K/mcL LAB HEMETOLOGY METHOD 07/31/2025 10:55 AM [facility] Neutrophils Relative 43.0 % LAB HEMETOLOGY METHOD 07/31/2025 10:55 AM [facility] Lymphocytes Relative 44.0 % LAB HEMETOLOGY METHOD 07/31/2025 10:55 AM [facility] Monocytes Relative 8.4 % LAB HEMETOLOGY METHOD 07/31/2025 10:55 AM [facility] Eosinophils Relative 3.6 % LAB HEMETOLOGY METHOD 07/31/2025 10:55 AM [facility] Basophils Relative 0.6 % LAB HEMETOLOGY METHOD 07/31/2025 10:55 AM [facility] Immature Granulocytes Relative 0.4 % LAB HEMETOLOGY METHOD 07/31/2025 10:55 AM [facility] Neutrophils Absolute 2.16 1.50 - 7.00 K/mcL LAB HEMETOLOGY METHOD 07/31/2025 10:55 AM [facility] Lymphocytes Absolute 2.21 1.00 - 5.00 K/mcL LAB HEMETOLOGY METHOD 07/31/2025 10:55 AM [facility] Monocytes Absolute 0.42 0.20 - 1.00 K/mcL LAB HEMETOLOGY METHOD 07/31/2025 10:55 AM [facility] Eosinophils Absolute 0.18 0.00 - 0.50 K/mcL LAB HEMETOLOGY METHOD 07/31/2025 10:55 AM [facility] Basophils Absolute 0.03 0.00 - 0.20 K/mcL LAB HEMETOLOGY METHOD 07/31/2025 10:55 AM [facility] Immature Granulocytes Absolute 0.02 0.00 - 0.03 K/mcL LAB HEMETOLOGY METHOD 07/31/2025 10:55 AM [facility] Blood Venous blood specimen / Unknown Venipuncture / Unknown 07/31/2025 7:12 AM EDT 07/31/2025 9:56 AM EDT Kerri TOLBERT LAB BLOOD ORDERABLES Final Resu lt [facility] [address] [place] [address], * Basic metabolic panel (07/29/2025 6:54 AM EDT) Only the most recent of3 resultswithin the time period is included. Sodium 140 133 - 145 mmol/L LAB CHEMISTRY METHOD 07/29/2025 1:57 PM EDT [facility] Potassium 4.3 3.5 - 5.5 mmol/L LAB CHEMISTRY METHOD 07/29/2025 1:57 PM EDT [facility] Chloride 106 96 - 110 mmol/L LAB CHEMISTRY METHOD 07/29/2025 1:57 PM [facility] CO2 26 21 - 32 mmol/L LAB CHEMISTRY METHOD 07/29/2025 1:57 PM EDT [facility] Anion Gap 8 3 - 11 LAB CHEMISTRY METHOD 07/29/2025 1:[facility] Glucose 80 70 - 100 mg/dL LAB CHEMISTRY METHOD 07/29/2025 1:57 [facility] BUN 9 5 - 25 mg/dL LAB CHEMISTRY METHOD 07/29/2025 1:57 PM T [facility] Creatinine 0.50 0.50 - 1.10 mg/dL LAB CHEMISTRY METHOD 07/29/2025 1:57 PM EDT [facility] eGFR 110 >=60 mL/min/1. 73m2 LAB CHEMISTRY METHOD 07/29/2025 1:57 PM [facility] Comment:Calculation based on the Chronic Kidney Disease Epidemiology Collaboration (CKD-EPI) equation refit without adjustment for race. BUN/Creatinine Ratio 18.0 LAB CHEMISTRY METHOD 07/29/2025 1:57 PM EDT [facility] Calcium 9.4 8.5 - 10.5 mg/dL LAB CHEMISTRY METHOD 07/29/2025 1:57 PM EDT [facility] Blood Venous blood specimen / Unknown Venipuncture / Unknown 07/29/2025 6:54 AM EDT 07/29/2025 10:27 AM EDT Reji TOLBERT LAB BLOOD ORDERABLES Final R esult [facility] [address] [place] [address], * SCREENING MAMMOGRAPHY BI 2-VIEW BREAST INC [...] PROCEDURES Final Result * Colonoscopy (02/07/2022) Pathologist [facility] Colonoscopy abstracted,no interpretation Anatomical Region Laterality Modality Other Historical Provider HEALTH MAINTENANCE Final Result * (ABNORMAL) Lipid panel (03/09/2019) Pathologist [facility] LDL/HDL Ratio 4 0 - 4 Triglycerides 191(A) 0 - 150 mg/dL Cholesterol 142 0 - 200 mg/dL HDL 32(A) >=40 mg/dL LDL Cholesterol 72 0 - 100 mg/dL Blood Venous blood specimen / Unknown Historical Provider LAB BLOOD ORDERABLES Evelia l Result * Pap smear (10/29/2018) 10/29/2018 Narrative HISTORICAL TESTING LAB RESULTING AGENCY - 11/03/2018 1:18 PM EST [id number] THINPREP PAP, IMAGED: NEGATIVE FOR SQUAMOUS INTRAEPITHELIAL [...] Relevant to Health Maintenance Insurance Care Teams Seating And Mobility Technologist Relationship Specialty Start Date End Date Adenike Haider MD [address] [place] [phone] PCP - General Internal Medicine 05/24/21
--- OUTSIDE RECORDS SUMMARY | 2025-10-21 22:26 | XMS_ITS | Encounter Summary ---
Author Organization [facility] Address [address] [place] [address] Care Team Providers Care Inspector Finishing Name Role Phone Adenike Haider MD Primary Care Provider [phone] Encounter Details Date Type Department Care Team (Late st Contact Info) Description 07/29/2025 Lab Requisition [facility] - Main Lab 299 [facility] [place] [employer] [place] [address] Reji Cueto PA [address] [address] Encounter for other general examination [...] LAB CHEMISTRY METHOD 07/29/2025 1:57 PM EDT [facility] Potassium 4.3 3.5 - 5.5 mmol/L LAB CHEMISTRY METHOD 07/29/2025 1:57 PM EDT [facility] Chloride 106 96 - 110 mmol/L LAB CHEMISTRY METHOD 07/29/2025 1:57 PM EDT [facility] CO2 26 21 - 32 mmol/L LAB CHEMISTRY METHOD 07/29/2025 1:57 PM [facility] Anion Gap 8 3 - 11 LAB CHEMISTRY METHOD 07/29/2025 1:57 PM EDT [facility] Glucose 80 70 - 100 mg/dL LAB CHEMISTRY METHOD 07/29/2025 1:57 PM [facility] BUN 9 5 - 25 mg/dL LAB CHEMISTRY METHOD 07/29/2025 1:57 PM [facility] Creatinine 0.50 0.50 - 1.10 mg/dL LAB CHEMISTRY METHOD [facility] eGFR 110 >=60 mL/min/1. 73m2 LAB CHEMISTRY METHOD 07/29/2025 1:57 PM T [facility] Comment:Calculation based on the Chronic Kidney Disease Epidemiology Collaboration (CKD-EPI) equation refit without adjustment for race. BUN/Creatinine Ratio 18.0 LAB CHEMISTRY METHOD 07/29/2025 1:57 PM T [facility] Calcium 9.4 8.5 - 10.5 mg/dL LAB CHEMISTRY METHOD 07/29/2025 1:57 PM T [facility] Blood Venous blood specimen / Unknown Venipuncture / Unknown 07/29/2025 6:54 AM EDT 07/29/2025 10:27 AM EDT us Reji TOLBERT LAB BLOOD ORDERABLES Final R esult [facility] [address] [place] [address], documented in this encounter Visit Diagnoses Diagnosis Encounter for other general examination documented in this encounter Care Teams Inspector Finishing Relationship Specialty Start Date End Date Adenike Haider MD [address] [place] [address] PCP - General Internal Medicine 05/24/21 documented as of this encounter
--- OUTSIDE RECORDS SUMMARY | 2025-10-21 22:26 | XMS_ITS | Encounter Summary ---
Author Organization [facility] Address [address] [place] [address] Care Team Providers Care Engineering Geologist Name Role Phone Adenike Haider MD Primary Care Provider [phone] Encounter Details Date Type Department Care Team (Late st Contact Info) Description 07/22/2025 Lab Requisition [facility] - Main Lab 299 [facility] [place] [address] Reji Cueto PA [address] [address] Encounter for other general examination [...] LAB CHEMISTRY METHOD 07/22/2025 12:31 PM EDT [facility] Potassium 4.2 3.5 - 5.5 mmol/L LAB CHEMISTRY METHOD 07/22/2025 12:31 PM [facility] Chloride 102 96 - 110 mmol/L LAB CHEMISTRY METHOD 07/22/2025 12:31 PM [facility] CO2 28 21 - 32 mmol/L LAB CHEMISTRY METHOD 07/22/2025 12:31 PM [facility] Anion Gap 9 3 - 11 LAB CHEMISTRY METHOD 07/22/2025 12:31 PM [facility] Glucose 95 70 - 100 mg/dL LAB CHEMISTRY METHOD 07/22/2025 12:31 PM [facility] BUN 21 5 - 25 mg/dL LAB CHEMISTRY METHOD 07/22/2025 12:31 PM [facility] Creatinine 0.58 0.50 - 1.10 mg/dL LAB CHEMISTRY METHOD 07/22/2025 12:31 PM [facility] eGFR 106 >=60 mL/min/1. 73m2 LAB CHEMISTRY METHOD 07/22/2025 12:31 PM [facility] Comment:Calculation based on the Chronic Kidney Disease Epidemiology Collaboration (CKD-EPI) equation refit without adjustment for race. BUN/Creatinine Ratio 36.2 LAB CHEMISTRY METHOD 07/22/2025 12:31 PM [facility] Calcium 9.2 8.5 - 10.5 mg/dL LAB CHEMISTRY METHOD 07/22/2025 12:31 PM [facility] Blood Venous blood specimen / Unknown Venipuncture / Unknown 07/22/2025 5:56 AM EDT 07/22/2025 9:40 AM EDT us Reji TOLBERT LAB BLOOD ORDERABLES Final R esult [facility] [address] [place] [address], documented in this encounter Visit Diagnoses Diagnosis Encounter for other general examination documented in this encounter Care Teams Engineering Geologist Relationship Specialty Start Date End Date Adenike Haider MD [address] [place] [address] PCP - General Internal Medicine 05/24/21 documented as of this encounter
--- OUTSIDE RECORDS SUMMARY | 2025-10-21 22:26 | XMS_ITS | Encounter Summary ---
Author Organization [facility] Address [address] [place] [address] Care Team Providers Care Larder Cook Name Role Phone Adenike Haider MD Primary Care Provider [phone] Encounter Details Date Type Department Care Team (Late st Contact Info) Description 07/15/2025 Lab Requisition [facility] - Main Lab 299 [facility] [email or web address] [address] Reji Cueto PA [address] [address] Encounter for other general examination [...] LAB CHEMISTRY METHOD 07/15/2025 12:[address] [facility] Potassium 4.4 3.5 - 5.5 mmol/L LAB CHEMISTRY METHOD 07/15/2025 12:51 PM [facility] Chloride 97 96 - 110 mmol/L LAB CHEMISTRY METHOD 07/15/2025 12:51 PM [facility] CO2 29 21 - 32 mmol/L LAB CHEMISTRY METHOD 07/15/2025 12:51 PM [facility] Anion Gap 8 3 - 11 LAB CHEMISTRY METHOD 07/15/2025 12:51 PM [facility] Glucose 94 70 - 100 mg/dL LAB CHEMISTRY METHOD 07/15/2025 12:51 PM [facility] BUN 23 5 - 25 mg/dL LAB CHEMISTRY METHOD 07/15/2025 12:51 PM [facility] Creatinine 0.52 0.50 - 1.10 mg/dL LAB CHEMISTRY METHOD 07/15/2025 12:51 PM [facility] eGFR 109 >=60 mL/min/1. 73m2 LAB CHEMISTRY METHOD 07/15/2025 12:51 PM [facility] Comment:Calculation based on the Chronic Kidney Disease Epidemiology Collaboration (CKD-EPI) equation refit without adjustment for race. BUN/Creatinine Ratio 44.2 LAB CHEMISTRY METHOD 07/15/2025 12:51 PM [facility] Calcium 9.7 8.5 - 10.5 mg/dL LAB CHEMISTRY METHOD 07/15/2025 12:51 PM [facility] Blood Venous blood specimen / Unknown Venipuncture / Unknown 07/15/2025 6:05 AM EDT 07/15/2025 11:04 AM EDT us Reji TOLBERT LAB BLOOD ORDERABLES Final R esult [facility] [address] [place] [address], documented in this encounter Visit Diagnoses Diagnosis Encounter for other general examination documented in this encounter Care Teams Larder Cook Relationship Specialty Start Date End Date Adenike Haider MD [address] [place] [address] PCP - General Internal Medicine 05/24/21 documented as of this encounter
--- OUTSIDE RECORDS SUMMARY | 2025-10-21 22:26 | XMS_ITS | Encounter Summary ---
Author Organization [facility] Address [address] [place] [address] Care Team Providers Care Cytotechnologist/Histotechnologist Name Role Phone Adenike Haider MD Primary Care Provider [phone] Encounter Details Date Type Department Care Team (Late st Contact Info) Description 07/31/2025 Lab Requisition [facility] - Main Lab 299 [facility] [place] [phone] Kerri Hardy PA [address] [place] [phone] Encounter for other general examination Social History [...] AM EDT) WBC 5.0 4.8 - 10.8 K/[facility] LAB HEMETOLOGY METHOD 07/31/2025 10:55 AM [facility] RBC 4.50 3.80 - 4.80 [...] TOLBERT LAB BLOOD ORDERABLES Final Resu lt [facility] [address] [place] [address], documented in this encounter Visit Diagnoses Diagnosis Encounter for other general examination documented in this encounter Care Teams Cytotechnologist/Histotechnologist Relationship Specialty Start Date End Date Adenike Haider MD [address] [place] [address] PCP - General Internal Medicine 05/24/21 documented as of this encounter
--- OUTSIDE RECORDS SUMMARY | 2025-10-21 22:26 | XMS_ITS | Encounter Summary ---
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 WBC 5.6 4.8 - 10.8 K/mcL LAB HEMETOLOGY METHOD 07/26/2025 8:30 AM [facility] RBC 3.70(L) 3.80 - 4.80 M/mcL LAB HEMETOLOGY METHOD 07/26/2025 8:30 AM [facility] Hemoglobin 9.5(L) 11.5 - 16.0 g/dL LAB HEMETOLOGY METHOD 07/26/2025 8:30 AM [facility] Hematocrit 30.7(L) 35.0 - 47.0 % LAB HEMETOLOGY METHOD 07/26/2025 8:30 AM [facility] MCV 82.7 79.0 - 98.0 FL LAB HEMETOLOGY METHOD 07/26/2025 8:30 AM [facility] MCH 25.6(L) 27.0 - 32.0 pcg LAB HEMETOLOGY METHOD 07/26/2025 8:30 AM [facility] MCHC 30.9(L) 32.0 - 37.0 g/dL LAB HEMETOLOGY METHOD 07/26/2025 8:30 AM [facility] RDW 14.9 11.0 - 15.0 % LAB HEMETOLOGY METHOD 07/26/2025 8:30 AM [facility] Platelets 351 130 - 400 K/mcL LAB HEMETOLOGY METHOD 07/26/2025 8:30 AM [facility] MPV 9.1 7.0 - 11.0 FL LAB HEMETOLOGY METHOD 07/26/2025 8:30 AM [facility] NRBC 0.0 <1.0 % LAB HEMETOLOGY METHOD 07/26/2025 8:30 AM [facility] NRBC Absolute 0.00 <0.10 K/mcL LAB HEMETOLOGY METHOD 07/26/2025 8:30 AM [facility] Neutrophils Relative 45.8 % LAB HEMETOLOGY METHOD 07/26/2025 8:30 AM [facility] Lymphocytes Relative 39.2 % LAB HEMETOLOGY METHOD 07/26/2025 8:30 AM [facility] Monocytes Relative 8.4 % LAB HEMETOLOGY METHOD 07/26/2025 8:30 AM [facility] Eosinophils Relative 5.2 % LAB HEMETOLOGY METHOD 07/26/2025 8:30 AM [facility] Basophils Relative 0.7 % LAB HEMETOLOGY METHOD 07/26/2025 8:30 AM [facility] Immature Granulocytes Relative 0.7 % LAB HEMETOLOGY METHOD 07/26/2025 8:30 AM [facility] Neutrophils Absolute 2.57 1.50 - 7.00 K/mcL LAB HEMETOLOGY METHOD 07/26/2025 8:30 AM [facility] Lymphocytes Absolute 2.20 1.00 - 5.00 K/mcL LAB HEMETOLOGY METHOD 07/26/2025 8:30 AM [facility] Monocytes Absolute 0.47 0.20 - 1.00 K/mcL LAB HEMETOLOGY METHOD 07/26/2025 8:30 AM [facility] Eosinophils Absolute 0.29 0.00 - 0.50 K/mcL LAB HEMETOLOGY METHOD 07/26/2025 8:30 AM [facility] Basophils Absolute 0.04 0.00 - 0.20 K/mcL LAB HEMETOLOGY METHOD 07/26/2025 8:30 AM [facility] Immature Granulocytes Absolute 0.04(H) 0.00 - 0.03 K/mcL LAB HEMETOLOGY METHOD 07/26/2025 8:30 AM [facility] Blood Venous blood specimen / Unknown 07/26/2025 6:19 AM EDT 07/26/2025 7:23 AM EDT us Reji TOLBERT LAB BLOOD ORDERABLES Final R esult [facility] [address] [place] [address], * (ABNORMAL) Basic metabolic panel (07/26/2025 6:19 AM EDT) Sodium 139 133 - 145 mmol/L LAB CHEMISTRY METHOD 07/26/2025 8:33 AM [facility] Potassium 4.3 3.5 - 5.5 mmol/L LAB CHEMISTRY METHOD 07/26/2025 8:33 AM [facility] Chloride 107 96 - 110 mmol/L LAB CHEMISTRY METHOD 07/26/2025 8:33 AM [facility] CO2 30 21 - 32 mmol/L LAB CHEMISTRY METHOD 07/26/2025 8:33 AM [facility] Anion Gap 2(L) 3 - 11 LAB CHEMISTRY METHOD 07/26/2025 8:33 AM [facility] Glucose 84 70 - 100 mg/dL LAB CHEMISTRY METHOD 07/26/2025 8:33 AM [facility] BUN 17 5 - 25 mg/dL LAB CHEMISTRY METHOD 07/26/2025 8:33 AM [facility] Creatinine 0.55 0.50 - 1.10 mg/dL LAB CHEMISTRY METHOD 07/26/2025 8:33 AM [facility] eGFR 107 >=60 mL/min/1. 73m2 LAB CHEMISTRY METHOD 07/26/2025 8:33 AM [facility] Comment:Calculation based on the Chronic Kidney Disease Epidemiology Collaboration (CKD-EPI) equation refit without adjustment for race. BUN/Creatinine Ratio 30.9 LAB CHEMISTRY METHOD 07/26/2025 8:33 AM EDT [facility] Calcium 9.1 8.5 - 10.5 mg/dL LAB CHEMISTRY METHOD 07/26/2025 8:33 AM EDT [facility] Blood Venous blood specimen / Unknown Venipuncture / Unknown 07/26/2025 6:19 AM EDT 07/26/2025 7:23 AM EDT us Reji TOLBERT LAB BLOOD ORDERABLES Final R esult [facility] [address] [place] [address], documented in this encounter Visit Diagnoses Diagnosis Other skilled nursing (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 therapy documented in this encounter Care Teams Mash Tub Cooker Relationship Specialty Start Date End Date Adenike Haider MD [address] [place] [address] PCP - General Internal Medicine 05/24/21 documented as of this encounter
--- OUTSIDE RECORDS SUMMARY | 2025-10-21 22:26 | XMS_ITS | Encounter Summary ---
Author Organization [facility] Address [address] [place] [address] Care Team Providers Care Cathode Ray Tube Salvage Processor Name Role Phone Adenike Haider MD Primary Care Provider [phone] Encounter Details Date Type Department Care Team (Late st Contact Info) Description 07/19/2025 Lab Requisition [facility] - Main Lab 299 [facility] [place] [address] Reji Cueto PA [address] [address] Encounter for other general examination [...] LAB CHEMISTRY METHOD 07/19/2025 9:55 AM EDT [facility] Potassium 4.0 3.5 - 5.5 mmol/L LAB CHEMISTRY METHOD 07/19/2025 9:55 AM [facility] Chloride 98 96 - 110 mmol/L LAB CHEMISTRY METHOD 07/19/2025 9:55 AM [facility] CO2 30 21 - 32 mmol/L LAB CHEMISTRY METHOD 07/19/2025 9:55 AM [facility] Anion Gap 7 3 - 11 LAB CHEMISTRY METHOD 07/19/2025 9:55 AM [facility] Glucose 139(H) 70 - 100 mg/dL LAB CHEMISTRY METHOD 07/19/2025 9:55 AM [facility] BUN 25 5 - 25 mg/dL LAB CHEMISTRY METHOD 07/19/2025 9:55 AM [facility] Creatinine 0.47(L) 0.50 - 1.10 mg/dL LAB CHEMISTRY METHOD 07/19/2025 9:55 AM [facility] eGFR 111 >=60 mL/min/1. 73m2 LAB CHEMISTRY METHOD 07/19/2025 9:55 AM [facility] Comment:Calculation based on the Chronic Kidney Disease Epidemiology Collaboration (CKD-EPI) equation refit without adjustment for race. BUN/Creatinine Ratio 53.2 LAB CHEMISTRY METHOD 07/19/2025 9:55 AM [facility] Calcium 9.3 8.5 - 10.5 mg/dL LAB CHEMISTRY METHOD 07/19/2025 9:55 AM [facility] Blood Venous blood specimen / Unknown Venipuncture / Unknown 07/19/2025 6:06 AM EDT 07/19/2025 8:54 AM EDT us Reji TOLBERT LAB BLOOD ORDERABLES Final R esult [facility] [address] [place] [address], documented in this encounter Visit Diagnoses Diagnosis Encounter for other general examination documented in this encounter Care Teams Cathode Ray Tube Salvage Processor Relationship Specialty Start Date End Date Adenike Haider MD [address] [place] [address] PCP - General Internal Medicine 05/24/21 documented as of this encounter
--- NOTE | 2025-10-21 22:47 | ED.GENADULT ---
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 Associated increased urinary frequency, voiding small amounts at a time. Denies obvious hematuria, fever, abdominal pain, back pain nausea vomiting. Related Data Home Medications ?Medication ?Instructions ?Recorded ?Confirmed clonazepam 1 mg tablet 1 mg PO BEDTIME 04/03/22 09/20/25 fluoxetine 20 mg/5 mL (4 mg/mL) 20 mg PO BEDTIME 08/09/25 09/20/25 oral solution Previous Rx's ?Medication ?Instructions ?Recorded lidocaine 5 % topical patch 1 patch topical DAILY #30 ea 01/21/25 cholestyramine-aspartame 4 gram 4 g PO BID #60 ea 02/10/25 oral powder for susp in a packet (Prevalite) loratadine 10 mg tablet (Claritin) 10 mg PO DAILY #90 tabs 04/14/25 acetaminophen 500 mg capsule 1,000 mg (2 x 500 mg) PO Q8H PRN 08/06/25 fever #30 caps cholecalciferol (vitamin D3) 25 25 mcg PO DAILY #90 caps 08/06/25 mcg (1,000 unit) capsule simethicone 80 mg chewable tablet 80 mg PO TID-QID PRN abdominal 08/06/25 (Gas Relief 80 (simethicone)) distention #60 tabs docusate sodium 50 mg/5 mL oral 100 mg (10 mL) PO BEDTIME #200 mL 09/01/25 liquid simvastatin 5 mg tablet 5 mg PO BEDTIME #90 tabs 09/01/25 aspirin 81 mg chewable tablet 1 tab PO DAILY #30 tabs 09/20/25 metformin 500 mg tablet 500 mg PO BID #60 tabs 09/20/25 acetaminophen 500 mg capsule 1,000 mg (2 x 500 mg) PO .q8 PRN 10/10/25 pain #60 caps lidocaine 5 % topical patch 1 patch topical DAILY #15 ea 10/10/25 (Lidoderm) Briefs #28 ea 10/20/25 gabapentin 100 mg capsule 200 mg (2 x 100 mg) PO BEDTIME #30 10/20/25 caps ondansetron HCl 4 mg tablet 4 mg PO Q8H PRN nausea and 10/20/25 vomiting 7 days #14 tabs trazodone 50 mg tablet 100 mg (2 x 50 mg) PO BEDTIME PRN 10/20/25 sleep #20 tabs nitrofurantoin 100 mg PO Q12H 7 days #13 caps 10/22/25 monohydrate/macrocrystals 100 mg capsule (Macrobid) phenazopyridine 200 mg tablet 200 mg PO TID PRN pain #10 tabs 10/22/25 (Pyridium) Allergies Allergy/AdvReac Type Severity Reaction Status Date / Time diazepam (From Valium) AdvReac Unknown Abdominal Verified 10/21/25 19:02 Pain ezetimibe (From Zetia) AdvReac Unknown Drowsiness, Verified 10/21/25 19:02 Bodyaches Review of Systems Review of Systems: Yes all other systems are reviewed and are negative Constitutional: Constitutional: Denies fatigue and Denies fever(s) Cardiovascular: Cardiovascular: Denies chest pain and Denies dyspnea Respiratory: Respiratory: Denies cough and Denies dyspnea Gastrointestinal: Gastrointestinal: Denies abdominal pain, Denies nausea and Denies vomiting Genitourinary: Genitourinary: Denies hematuria, Reports dysuria and Denies flank pain Musculoskeletal: Musculoskeletal: Denies back pain Endocrine: Endocrine: Denies fatigue PMF Past Medical History Attestation statement: The following information was validated with the patient. Medical History Breast tenderness Blood pressure elevated without history of HTN Acute respiratory disease Annual physical exam Nasal congestion Overweight (BMI 25.0-29.9) Dysuria COVID-19 virus infection Burn of pharynx Renal calculus, left LFT elevation Impaired glucose tolerance Osteoarthritis of right knee Knee osteoarthritis TSH elevation Generalized anxiety disorder Obesity (BMI 30.0-34.9) Surgical History History of surgery History of brain surgery Hx of cholecystectomy Breast cyst Hx of tubal ligation Family History Family History Mother Breast cancer Cervical cancer Anxiety Father No problems noted. Sister Anxiety Sister No problems noted. Sister No problems noted. Sister No problems noted. Sister No problems noted. Brother No problems noted. Brother No problems noted. Brother No problems noted. Brother No problems noted. Daughter No problems noted. Daughter Substance abuse Daughter No problems noted. Other UTI (urinary tract infection), bacterial Social History Social History Housing: House Alcohol intake: never Patient Tobacco Use Status: Former Tobacco user Tobacco use type: Cigarette Cigarette Packs Per Day: 4 Cigarettes Per Day: 6 Smoked in Last 30 Days: No e-Cigarette/Vaping Use: Never Used Second Hand Smoke Exposure: No Use of substances other than those prescribed or required for medical reasons: No Advance Directives: No Advance Directives Information Provided: No Do you have a plan to hurt others: No Plan Patient : No service: No Current occupational status: employed Current occupation: [employer] - [employer] Current occupational exposures/hazards: No Cognitive needs: No Hearing needs: No Vision needs: Yes Physical Exam ED Vital Signs: Vital Signs - 24 hr 10/21/25 18:57 10/21/25 20:09 10/21/25 23:36 Temperature 97.9 F Pulse Rate 50 49 L 49 L Respiratory Rate 16 18 18 Blood Pressure 144/45 H 141/57 H 151/64 H Pulse Oximetry 97 98 100 Oxygen Delivery Method Room Air Room Air Room Air 10/22/25 00:53 Temperature 97.9 F Pulse Rate 49 L Respiratory Rate 18 Blood Pressure 151/64 H Pulse Oximetry 100 Oxygen Delivery Method Room Air BMI result Body Mass Index 21.9 Const Other: Alert Orientation/consciousness: patient oriented x3 Resp Effort & Inspection: normal respiratory effort Cardio Other: Normal peripheral perfusion Skin Other: Warm dry no rash Neuro Other: Ambulates with the assistance with an antalgic gait, pleasantly confused at times General: patient oriented x3, no focal motor deficits and CN's II-XI intact bilaterally Psych Other: Cooperative Medications Administered Discontinued Medications Generic Name Dose Route Start Last Admin Trade Name Freq PRN Reason Stop Dose Admin Sodium Chloride 1,000 mls @ 999 mls/hr 10/21/25 22:15 10/22/25 00:30 Ns IV 10/21/25 23:15 Infused .Q1H1M VIPUL Infusion Nitrofurantoin Macrocrystals 100 mg 10/22/25 00:09 10/22/25 00:34 Nitrofurantoin Monohyd/M-Cryst 100 Mg Capsule PO 10/22/25 00:10 100 mg ONCE ONE Administration Phenazopyridine HCl 200 mg 10/22/25 00:08 10/22/25 00:34 Phenazopyridine Hcl 200 Mg Tablet PO 10/22/25 00:09 200 mg ONCE ONE Administration Procedures Ultrasound ED POC Ultrasound: EMERGENCY ULTRASOUND REPORT?Ultrasound-Assisted ED Procedures Indication: Vein Catheterization: 20 gauge 1-3/4 inch IV placed in right upper extremity. 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 Associated increased urinary frequency, voiding small amounts at a time. Denies obvious hematuria, fever, abdominal pain, back pain nausea vomiting. Problem: Vascular disease, prior stroke with a residual deficits, kidney stones History: Per patient and her I have considered the following differential diagnoses: UTI, pyelonephritis, renal colic Plan: The patient is simply having urinary symptoms, no back pain, abdominal pain or active GI symptoms to suggest pyelonephritis versus renal colic. Imaging not warranted. Screening labs obtained, we are waiting on a urine sample. Labs: No leukocytosis, not anemic, no electrolyte abnormality, urine appears potentially infected, given she is symptomatic we will treat Differential Diagnosis Differential Diagnoses: The differential diagnosis associated with the presentation includes See MDM Admission/Observation Consideration of admission/observation: Escalation of care including admission/observation considered Not applicable Lab Data [facility] Lab Attestation statement: I reviewed the patient's lab results. 10/21/25 21:10 10/21/25 21:10 Labs: Lab Results 10/21/25 10/21/25 Range/Units 21:10 23:36 WBC 5.3 (4.8-10.8) X10*3/uL RBC 4.71 (4.20-5.50) X10*6/uL Hgb 11.5 L (12.0-16.0) g/dl Hct 36.3 L (37.0-47.0) % MCV 77.1 L (80.0-98.0) fL MCH 24.4 L (27.0-33.0) pg MCHC 31.7 (31.0-35.0) g/dl RDW 14.9 (11.0-16.0) % Plt Count 398 D (160-400) X10*3/uL MPV 9.2 L (9.4-12.3) fL Immature Gran % (Auto) 0.2 (0.0-0.4) % Neut % (Auto) 40.7 L (45-73) % Lymph % (Auto) 48.7 H (20-40) % [place] % (Auto) 6.8 (2-11) % Eos % (Auto) 3.0 (0-4) % Baso % (Auto) 0.6 (0-2) % Lymph # (Auto) 2.6 (1.2-4.9) X10*3/uL [place] # (Auto) 0.4 (0.1-1.2) X10*3/uL Eos # (Auto) 0.2 (0.0-0.4) X10*3/uL Baso # (Auto) 0.0 (0.0-0.2) X10*3/uL Abs Immat Gran (auto) 0.01 (0.00-0.03) X10*3/uL Absolute Neuts (auto) 2.2 (2.0-8.3) x10*3/uL Absolute Nucleated RBC 0.000 (0.0-0.012) X10*3/uL Nucleated RBC % (auto) 0.0 (0.0-0.2) /100WBC Sodium 145 (135-145) mmol/L Potassium 3.3 (3.3-5.1) mmol/L Chloride 107 (96-108) mmol/L Carbon Dioxide 28 (22-29) mmol/L Anion Gap 13 (12-20) BUN 11 (9-16) mg/dL Creatinine 0.53 (0.5-1.4) mg/dL Estim Creat Clear Calc 92.6 Estimated GFR > 60 Random Glucose 103 (60-115) mg/dL Calcium 9.6 (8.4-10.2) mg/dL Magnesium 2.0 (1.6-2.6) mg/dL Total Bilirubin 0.6 (0.0-1.0) mg/dL AST 21 (5-31) U/L ALT 20 (0-31) U/L Alkaline Phosphatase 102 (39-117) U/L Total Protein 7.1 (6.5-8.0) g/dL Albumin 4.5 (3.5-5.0) g/dL Urine Color Yellow Urine Appearance Clear Urine pH 6.5 (5.0-9.0) Ur Specific [place] 1.020 (1.005-1.025) Urine Protein Negative (Neg-Trace) mg/dL Urine Glucose (UA) Negative (Negative) mg/dL Urine Ketones Trace (Negative) mg/dL Urine Blood Trace H (Negative) Urine Nitrite Negative (Negative) Ur Leukocyte Esterase Small (1+) H (Negative) Urine RBC 0-2 (0-2) /HPF Urine WBC 21-50 H (0-5) /HPF Ur Squamous Epith Cells 6-10 (0-2) /HPF Urine Bacteria Trace (None Seen) Hyaline Casts 0-2 (0-2) /LPF Salicylates < 5.0 L (15-30) mg/dL Urine Opiates Screen Not Detected (Not Detect) Ur Buprenorphine Scrn Not Detected (Not Detect) ng/mL Ur Oxycodone Screen Not Detected (Not Detect) ng/mL Urine Methadone Screen Not Detected (Not Detect) ng/mL Urine Fentanyl Screen Not Detected (Not Detect) Acetaminophen 4 (<30) mcg/mL Ur Barbiturates Screen Not Detected (Not Detect) Ur Phencyclidine Scrn Not Detected (Not Detect) Ur Amphetamines Screen Not Detected (Not Detect) U Benzodiazepines Scrn POSITIVE H (Not Detect) Urine Cocaine Screen Not Detected (Not Detect) U Marijuana (THC) Screen Not Detected (Not Detect) Ethyl Alcohol < 10 mg/dL Discharge Plan Discharge Clinical Impression: Urinary tract infection Patient Disposition: Home, Self-Care Instructions: Urinary Tract Infection in Women (ED) Additional Instructions: You were found to have a urinary tract infection. See home care instructions. Take the Macrobid as directed this is an antibiotic. Use the Pyridium as needed for urinary pain, this medication will cause your urine to become fluorescent orange, this is normal. Simply increase your water intake. Follow up with primary care as needed. Prescriptions: New nitrofurantoin monohyd/m-cryst [Macrobid] 100 mg capsule 100 mg PO Q12H 7 Days Qty: 13 0RF Rx Instructions: must administer with a meal/food phenazopyridine [Pyridium] 200 mg tablet 200 mg PO TID PRN (Reason: pain) Qty: 10 0RF No Action cholestyramine-aspartame [Prevalite] 4 gram powder in packet 4 g PO BID Qty: 60 8RF Rx Instructions: administer w/meal; avoid other meds within 1hr before or 4-6hr after dose loratadine [Claritin] 10 mg tablet 10 mg PO DAILY Qty: 90 0RF cholecalciferol (vitamin D3) 25 mcg (1,000 unit) capsule 25 mcg PO DAILY Qty: 90 3RF acetaminophen 500 mg capsule 1,000 mg PO Q8H PRN (Reason: fever) Qty: 30 0RF simethicone [Gas Relief 80 (simethicone)] 80 mg tablet,chewable 80 mg PO TID-QID PRN (Reason: abdominal distention) Qty: 60 0RF simvastatin 5 mg tablet 5 mg PO BEDTIME Qty: 90 3RF docusate sodium 50 mg/5 mL liquid 100 mg PO BEDTIME Qty: 200 0RF acetaminophen 500 mg capsule 1,000 mg PO .q8 PRN (Reason: pain) Qty: 60 0RF lidocaine [Lidoderm] 5 % adhesive patch,medicated 1 patch topical DAILY Qty: 15 0RF Rx Instructions: leave on most painful area for up to 12 hrs clonazepam 1 mg tablet 1 mg PO BEDTIME Rx Instructions: administer 30 minutes before bedtime fluoxetine 20 mg/5 mL (4 mg/mL) solution 20 mg PO BEDTIME ondansetron HCl 4 mg tablet 4 mg PO Q8H PRN (Reason: nausea and vomiting) 7 Days Qty: 14 0RF trazodone 50 mg tablet 100 mg PO BEDTIME PRN (Reason: sleep) Qty: 20 0RF gabapentin 100 mg capsule 200 mg PO BEDTIME Qty: 30 0RF (DME) Briefs M See Rx Instructions .Route .MEDSUPPLY Qty: 28 3RF Rx Instructions: As directed lidocaine 5 % adhesive patch,medicated 1 patch topical DAILY Qty: 30 0RF Rx Instructions: leave on most painful area for up to 12 hrs metformin 500 mg tablet 500 mg PO BID Qty: 60 3RF aspirin 81 mg tablet,chewable 1 tab PO DAILY Qty: 30 0RF Interventions: ED Discharge Assessment Last Done: 10/22/25 00:53 Discharge Date/Time: 10/22/25 00:56 Print Language: Macedonian
--- NOTE | 2025-10-21 22:51 | PC.NURSE ---
assumed care of patient at this time, PA at bedside to plan U/S IV due to patient being a difficult stick.
[2025-10-21 23:36] VITALS: BP 151/64; PULSE 49; RESP 18; O2SAT 100
[2025-10-21 23:45] LABS: Appearance Urine Clear; Glucose Urine UA Negative (Negative); PH 6.5 (5.0-9.0); Specific Gravity - Urine 1.020 (1.005-1.025); UMIC TRIGGER UACC YES
[2025-10-21 23:48] LABS: UACC Culture Trigger YES
[2025-10-21 23:57] LABS: Cannabinoid Screen Urine Not Detected (Not Detect)
[2025-10-22 00:53] VITALS: BP 151/64; PULSE 49; RESP 18; TEMP 36.6; O2SAT 100
== END 2025-10-22 00:56 | disposition home or self-care (01) ==
PROVIDERS: Physician Assistant Medical; Emergency Provider Emergency Medicine; PCP Internal Medicine
DX: N39.0 Urinary tract infection, site not specified (principal); R30.0 Dysuria; E11.9 Type 2 diabetes mellitus without complications; E78.5 Hyperlipidemia, unspecified; I69.354 Hemiplegia and hemiparesis following cerebral infarction affecting left non-dominant side; Z79.82 Long term (current) use of aspirin; Z79.84 Long term (current) use of oral hypoglycemic drugs; Z87.891 Personal history of nicotine dependence
CPT/HCPCS: 36415; 80053; 80143; 80179; 80307; 81001; 83735; 85025; 87086; 87088; 87186; 99284

== ENCOUNTER 2025-11-10 09:45 | Outpatient (AMB) | payer OTHER, SELFPAY ==
--- OUTSIDE RECORDS SUMMARY | 2025-11-10 09:52 | XMS_ITS | Encounter Summary ---
Author Organization [facility] Address [address] [place] [address] Care Team Providers Care Cooking Appliance Repair Technician Name Role Phone Adenike Haider MD Primary Care Provider [phone] Encounter Details Date Type Department Care Team (Late st Contact Info) Description 07/13/2025 Lab Requisition [facility] Main Lab [address] [place] [address] Zoë Zambrano PA [address] [place] [id number] Encounter for other general examination Social History [...] K/mcL LAB HEMETOLOGY METHOD 07/13/2025 11:27 AM [facility] RBC 4.00 3.80 - 4.80 M/mcL LAB HEMETOLOGY METHOD 07/13/2025 11:27 AM [facility] Hemoglobin 10.1(L) 11.5 - 16.0 g/dL LAB HEMETOLOGY METHOD 07/13/2025 11:27 AM [facility] Hematocrit 33.0(L) 35.0 - 47.0 % LAB HEMETOLOGY METHOD 07/13/2025 11:27 AM [facility] MCV 83.1 79.0 - 98.0 FL LAB HEMETOLOGY METHOD 07/13/2025 11:27 AM [facility] MCH 25.4(L) 27.0 - 32.0 pcg LAB HEMETOLOGY METHOD 07/13/2025 11:27 AM [facility] MCHC 30.6(L) 32.0 - 37.0 g/dL LAB HEMETOLOGY METHOD 07/13/2025 11:27 AM [facility] RDW 14.8 11.0 - 15.0 % LAB HEMETOLOGY METHOD 07/13/2025 11:27 AM [facility] Platelets 371 130 - 400 K/mcL LAB HEMETOLOGY METHOD 07/13/2025 11:27 AM [facility] MPV 10.4 7.0 - 11.0 FL LAB HEMETOLOGY METHOD 07/13/2025 11:27 AM [facility] NRBC 0.0 <1.0 % LAB HEMETOLOGY METHOD 07/13/2025 11:27 AM [facility] NRBC Absolute 0.00 <0.10 K/mcL LAB HEMETOLOGY METHOD 07/13/2025 11:27 AM [facility] Neutrophils Relative 55.6 % LAB HEMETOLOGY METHOD 07/13/2025 11:27 AM [facility] Lymphocytes Relative 33.4 % LAB HEMETOLOGY METHOD 07/13/2025 11:27 AM [facility] Monocytes Relative 6.7 % LAB HEMETOLOGY METHOD 07/13/2025 11:27 AM [facility] Eosinophils Relative 3.4 % LAB HEMETOLOGY METHOD 07/13/2025 11:27 AM [facility] Basophils Relative 0.3 % LAB HEMETOLOGY METHOD 07/13/2025 11:27 AM [facility] Immature Granulocytes Relative 0.6 % LAB HEMETOLOGY METHOD 07/13/2025 11:27 AM [facility] Neutrophils Absolute 3.81 1.50 - 7.00 K/mcL LAB HEMETOLOGY METHOD 07/13/2025 11:27 AM [facility] Lymphocytes Absolute 2.29 1.00 - 5.00 K/mcL LAB HEMETOLOGY METHOD 07/13/2025 11:27 AM [facility] Monocytes Absolute 0.46 0.20 - 1.00 K/mcL LAB HEMETOLOGY METHOD 07/13/2025 11:27 AM [facility] Eosinophils Absolute 0.23 0.00 - 0.50 K/mcL LAB HEMETOLOGY METHOD 07/13/2025 11:27 AM [facility] Basophils Absolute 0.02 0.00 - 0.20 K/mcL LAB HEMETOLOGY METHOD 07/13/2025 11:27 AM [facility] Immature Granulocytes Absolute 0.04(H) 0.00 - 0.03 K/mcL LAB HEMETOLOGY METHOD 07/13/2025 11:27 AM EDT [facility] Blood Venous blood specimen / Unknown Venipuncture / Unknown 07/13/2025 6:20 AM EDT 07/13/2025 10:28 AM EDT us Zoë TOLBERT LAB BLOOD ORDERABLES Final Re sult [facility] [address] [place] [address], * (ABNORMAL) Comprehensive metabolic panel (07/13/2025 6:20 AM EDT) Sodium 135 133 - 145 mmol/L LAB CHEMISTRY METHOD 07/13/2025 2:12 PM [facility] Potassium 4.7 3.5 - 5.5 mmol/L LAB CHEMISTRY METHOD 07/13/2025 2:12 PM [facility] Chloride 100 96 - 110 mmol/L LAB CHEMISTRY METHOD 07/13/2025 2:12 PM [facility] CO2 27 21 - 32 mmol/L LAB CHEMISTRY METHOD 07/13/2025 2:12 PM [facility] Anion Gap 8 3 - 11 LAB CHEMISTRY METHOD 07/13/2025 2:12 PM [facility] Glucose 109(H) 70 - 100 mg/dL LAB CHEMISTRY METHOD 07/13/2025 2:12 PM [facility] BUN 19 5 - 25 mg/dL LAB CHEMISTRY METHOD 07/13/2025 2:12 PM [facility] Creatinine 0.57 0.50 - 1.10 mg/dL LAB CHEMISTRY METHOD 07/13/2025 2:12 PM [facility] eGFR [...] unit/L LAB CHEMISTRY METHOD 07/13/2025 2:12 PM [facility] ALT (SGPT) 121(H) 10 - 60 unit/L LAB CHEMISTRY METHOD 07/13/2025 2:12 PM [facility] Alkaline Phosphatase 179(H) 42 - 121 unit/L LAB [facility]STR[facility] Total Protein 6.3 6.0 - 8.0 g/dL LAB CHEMISTRY METHOD 07/13/2025 2:12 PM [facility] Albumin 3.2 3.2 - 5.0 g/dL LAB CHEMISTRY METHOD 07/13/2025 2:12 PM [facility] Total Bilirubin 0.3 0.0 - 1.4 mg/dL LAB CHEMISTRY METHOD 07/13/2025 2:12 PM T [facility] Blood Venous blood specimen / Unknown Venipuncture / Unknown 07/13/2025 6:20 AM EDT 07/13/2025 10:28 AM EDT us Zoë TOLBERT LAB BLOOD ORDERABLES Final Re sult [facility] [address] [place] [address], * Lipase (07/13/2025 6:20 AM EDT) Lipase 57 13 - 75 unit/L LAB CHEMISTRY METHOD 07/13/2025 1:48 PM EDT [facility] Blood Venous blood specimen / Unknown Venipuncture / Unknown 07/13/2025 6:20 AM EDT 07/13/2025 10:28 AM EDT Zoë TOLBERT LAB BLOOD ORDERABLES Final Re sult Performing Organization Address [facility]/ZIP Co de Phone Number [facility] [address] [place] [address], [place] [phone] * Amylase (07/13/2025 6:20 AM EDT) Amylase 51 25 - 115 unit/L LAB CHEMISTRY METHOD 07/13/2025 1:48 PM EDT [facility] Blood Venous blood specimen / Unknown Venipuncture / Unknown 07/13/2025 6:20 AM EDT 07/13/2025 10:28 AM EDT Zoë TOLBERT LAB BLOOD ORDERABLES Final Re sult Performing Organization Address [facility] Co de Phone Number [facility] [address] [place] [address], [place] [phone] documented in this encounter Visit Diagnoses Diagnosis Encounter for other general examination documented in this encounter Care Teams Cooking Appliance Repair Technician Relationship Specialty Start Date End Date Adenike Haider MD [address] [place] [address] PCP - General Internal Medicine 05/24/21 documented as of this encounter
--- OUTSIDE RECORDS SUMMARY | 2025-11-10 09:52 | XMS_ITS | Encounter Summary ---
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 (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 therapy CBC AND DIFFERENTIAL Routine 07/26/2025 6:19 AM EDT Other terminal press operator (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 therapy BASIC METABOLIC PANEL Routine 07/26/2025 6:19 AM EDT Other group home (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 therapy documented in this encounter Results * (ABNORMAL) CBC auto differential (07/26/2025 6:19 AM EDT) [facility] WBC 5.6 4.8 - 10.8 K/mcL LAB HEMETOLOGY METHOD 07/26/2025 8:30 AM [facility] RBC 3.70(L) 3.80 - 4.80 M/mcL LAB HEMETOLOGY METHOD 07/26/2025 8:30 AM [facility] Hemoglobin 9.5(L) 11.5 - 16.0 g/dL LAB HEMETOLOGY METHOD 07/26/2025 8:30 AM [facility] Hematocrit 30.7(L) 35.0 - 47.0 % LAB HEMETOLOGY METHOD 07/26/2025 8:30 AM [facility] MCV 82.7 79.0 - 98.0 FL LAB HEMETOLOGY METHOD 07/26/2025 8:30 AM [facility] MCH 25.6(L) 27.0 - 32.0 pcg LAB HEMETOLOGY METHOD 07/26/2025 8:30 AM [facility] MCHC 30.9(L) 32.0 - 37.0 g/dL LAB HEMETOLOGY METHOD 07/26/2025 8:30 AM [facility] RDW 14.9 11.0 - 15.0 % LAB HEMETOLOGY METHOD 07/26/2025 8:30 AM [facility] Platelets 351 130 - 400 K/mcL LAB HEMETOLOGY METHOD 07/26/2025 8:30 AM [facility] MPV 9.1 7.0 - 11.0 FL LAB HEMETOLOGY METHOD 07/26/2025 8:30 AM [facility] NRBC 0.0 <1.0 % LAB HEMETOLOGY METHOD 07/26/2025 8:30 AM [facility] NRBC Absolute 0.00 <0.10 K/mcL LAB HEMETOLOGY METHOD 07/26/2025 8:30 AM [facility] Neutrophils Relative 45.8 % LAB HEMETOLOGY METHOD 07/26/2025 8:30 AM [facility] Lymphocytes Relative 39.2 % LAB HEMETOLOGY METHOD 07/26/2025 8:30 AM [facility] Monocytes Relative 8.4 % LAB HEMETOLOGY METHOD 07/26/2025 8:30 AM [facility] Eosinophils Relative 5.2 % LAB HEMETOLOGY METHOD 07/26/2025 8:30 AM [facility] Basophils Relative 0.7 % LAB HEMETOLOGY METHOD 07/26/2025 8:30 AM [facility] Immature Granulocytes Relative 0.7 % LAB HEMETOLOGY METHOD 07/26/2025 8:30 AM [facility] Neutrophils Absolute 2.57 1.50 - 7.00 K/mcL LAB HEMETOLOGY METHOD 07/26/2025 8:30 AM [facility] Lymphocytes Absolute 2.20 1.00 - 5.00 K/mcL LAB HEMETOLOGY METHOD 07/26/2025 8:30 AM [facility] Monocytes Absolute 0.47 0.20 - 1.00 K/mcL LAB HEMETOLOGY METHOD 07/26/2025 8:30 AM [facility] Eosinophils Absolute 0.29 0.00 - 0.50 K/mcL LAB HEMETOLOGY METHOD 07/26/2025 8:30 AM [facility] Basophils Absolute 0.04 0.00 - 0.20 K/mcL LAB HEMETOLOGY METHOD 07/26/2025 8:30 AM [facility] Immature Granulocytes Absolute 0.04(H) 0.00 - 0.03 K/mcL LAB HEMETOLOGY METHOD 07/26/2025 8:30 AM [facility] Blood Venous blood specimen / Unknown 07/26/2025 6:19 AM EDT 07/26/2025 7:23 AM EDT us Reji TOLBERT LAB BLOOD ORDERABLES Final R esult [facility] [address] [place] [address], * (ABNORMAL) Basic metabolic panel (07/26/2025 6:19 AM EDT) Sodium 139 133 - 145 mmol/L LAB CHEMISTRY METHOD 07/26/2025 8:33 AM [facility] Potassium 4.3 3.5 - 5.5 mmol/L LAB CHEMISTRY METHOD 07/26/2025 8:33 AM [facility] Chloride 107 96 - 110 mmol/L LAB CHEMISTRY METHOD 07/26/2025 8:33 AM [facility] CO2 30 21 - 32 mmol/L LAB CHEMISTRY METHOD 07/26/2025 8:33 AM [facility] Anion Gap 2(L) 3 - 11 LAB CHEMISTRY METHOD 07/26/2025 8:33 AM [facility] Glucose 84 70 - 100 mg/dL LAB CHEMISTRY METHOD 07/26/2025 8:33 AM [facility] BUN 17 5 - 25 mg/dL LAB CHEMISTRY METHOD 07/26/2025 8:33 AM [facility] Creatinine 0.55 0.50 - 1.10 mg/dL LAB CHEMISTRY METHOD 07/26/2025 8:33 AM [facility] eGFR 107 >=60 mL/min/1. 73m2 LAB CHEMISTRY METHOD 07/26/2025 8:33 AM [facility] Comment:Calculation based on the Chronic Kidney Disease Epidemiology Collaboration (CKD-EPI) equation refit without adjustment for race. 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
--- OUTSIDE RECORDS SUMMARY | 2025-11-10 09:52 | XMS_ITS | Encounter Summary ---
[facility] Organization [facility] Address [address] [place] [address] Care Team Providers Care Painter Name Role Phone Adenike Haider MD Primary Care Provider [phone] Encounter Details Date Type Department Care Team (Late st Contact Info) Description 07/15/2025 Lab Requisition [facility] - Main Lab 299 [facility] [place] [address] Reji Cueto PA [address] [address] Encounter for other general examination [...] LAB CHEMISTRY METHOD 07/15/2025 12:51 PM EDT [facility] Potassium 4.4 3.5 - 5.5 mmol/L LAB CHEMISTRY METHOD 07/15/2025 12:51 PM [facility] Chloride 97 96 - 110 mmol/L LAB CHEMISTRY METHOD 07/15/2025 12:51 PM [facility] CO2 29 21 - 32 mmol/L LAB CHEMISTRY METHOD 07/15/2025 12:51 PM [facility] Anion Gap 8 3 - 11 LAB CHEMISTRY METHOD 07/15/2025 12:51 PM [facility] Glucose 94 70 - 100 mg/dL LAB CHEMISTRY METHOD 07/15/2025 12:51 PM [facility] BUN 23 5 - 25 mg/dL LAB CHEMISTRY METHOD 07/15/2025 12:51 PM [facility] Creatinine 0.52 0.50 - 1.10 mg/dL LAB CHEMISTRY METHOD 07/15/2025 12:51 PM [facility] eGFR 109 >=60 mL/min/1. 73m2 LAB CHEMISTRY METHOD 07/15/2025 12:51 PM [facility] Comment:Calculation based on the Chronic Kidney Disease Epidemiology Collaboration (CKD-EPI) equation refit without adjustment for race. BUN/Creatinine Ratio 44.2 LAB CHEMISTRY METHOD 07/15/2025 12:51 PM [facility] Calcium 9.7 8.5 - 10.5 mg/dL LAB CHEMISTRY METHOD 07/15/2025 12:51 PM [facility] Blood Venous blood specimen / Unknown Venipuncture / Unknown 07/15/2025 6:05 AM EDT 07/15/2025 11:04 AM EDT us Reji TOLBERT LAB BLOOD ORDERABLES Final R esult [facility] [address] [place] [address], documented in this encounter Visit Diagnoses Diagnosis Encounter for other general examination documented in this encounter Care Teams Painter Relationship Specialty Start Date End Date Adenike Haider MD [address] [place] [address] PCP - General Internal Medicine 05/24/21 documented as of this encounter
--- OUTSIDE RECORDS SUMMARY | 2025-11-10 09:52 | XMS_ITS | Encounter Summary ---
Author Organization [facility] Address [address] [place] [address] Care Team Providers Care Rn Family Name Role Phone Adenike Haider MD Primary Care Provider [phone] Encounter Details Date Type Department Care Team (Late st Contact Info) Description 07/19/2025 Lab Requisition [facility] - Main Lab 299 [facility] [place] [address] Reji Cueto PA [address] [address] Encounter for other general examination [...] mmol/L LAB CHEMISTRY METHOD 07/19/2025 9:55 AM [facility] Chloride 98 96 - 110 mmol/L LAB CHEMISTRY METHOD 07/19/2025 9:55 AM [facility] CO2 30 21 - 32 mmol/L LAB CHEMISTRY METHOD 07/19/2025 9:55 AM [facility] Anion Gap 7 3 - 11 LAB CHEMISTRY METHOD 07/19/2025 9:55 AM [facility] Glucose 139(H) 70 - 100 mg/dL LAB CHEMISTRY METHOD 07/19/2025 9:55 AM [facility] BUN 25 5 - 25 mg/dL LAB CHEMISTRY METHOD 07/19/2025 9:55 AM [facility] Creatinine 0.47(L) 0.50 - 1.10 mg/dL LAB CHEMISTRY METHOD 07/19/2025 9:55 AM [facility] eGFR 111 >=60 mL/min/1. 73m2 LAB CHEMISTRY METHOD 07/19/2025 9:55 AM [facility] Comment:Calculation based on the Chronic Kidney Disease Epidemiology Collaboration (CKD-EPI) equation refit without adjustment for race. BUN/Creatinine Ratio 53.2 LAB CHEMISTRY METHOD 07/19/2025 9:55 AM [facility] Calcium 9.3 8.5 - 10.5 mg/dL LAB CHEMISTRY METHOD 07/19/2025 9:55 AM [facility] Blood Venous blood specimen / Unknown Venipuncture / Unknown 07/19/2025 6:06 AM EDT 07/19/2025 8:54 AM EDT us Reji TOLBERT LAB BLOOD ORDERABLES Final R esult [facility] [address] [place] [address], documented in this encounter Visit Diagnoses Diagnosis Encounter for other general examination documented in this encounter Care Teams Rn Family Relationship Specialty Start Date End Date Adenike Haider MD [address] [place] [address] PCP - General Internal Medicine 05/24/21 documented as of this encounter
--- OUTSIDE RECORDS SUMMARY | 2025-11-10 09:52 | XMS_ITS | Encounter Summary ---
Author Organization [facility] Address [address] [place] [address] Care Team Providers Care Bench Carpenter Name Role Phone Adenike Haider MD Primary Care Provider [phone] Encounter Details Date Type Department Care Team (Late st Contact Info) Description 07/10/2025 Lab Requisition [facility] - Main Lab [address] [facility] [place] [address] Destiney Red PA [address] [place] [phone] Encounter for other general examination Social History [...] CBC auto differential (07/10/2025 5:26 AM EDT) [facility] Signature WBC 7.4 4.8 - 10.8 K/mcL LAB HEMETOLOGY METHOD 07/10/2025 10:57 AM [facility] RBC 4.10 3.80 - 4.80 M/mcL LAB HEMETOLOGY METHOD 07/10/2025 10:57 AM [facility] Hemoglobin 10.3(L) 11.5 - 16.0 g/dL LAB HEMETOLOGY METHOD 07/10/2025 10:57 AM [facility] Hematocrit 33.3(L) 35.0 - 47.0 % LAB HEMETOLOGY METHOD 07/10/2025 10:57 AM [facility] LAB MCV 82.2 79.0 - 98.0 FL LAB HEMETOLOGY METHOD 07/10/2025 10:57 AM [facility] MCH 25.4(L) 27.0 - 32.0 pcg LAB HEMETOLOGY METHOD 07/10/2025 10:57 AM [facility] MCHC 30.9(L) 32.0 - 37.0 g/dL LAB HEMETOLOGY METHOD 07/10/2025 10:57 AM [facility] RDW 15.2(H) 11.0 - 15.0 % LAB HEMETOLOGY METHOD 07/10/2025 10:57 AM [facility] LAB Platelets 466(H) 130 - 400 K/mcL LAB HEMETOLOGY METHOD 07/10/2025 10:57 AM [facility] LAB MPV 10.3 7.0 - 11.0 FL LAB HEMETOLOGY METHOD 07/10/2025 10:57 AM [facility] NRBC 0.0 <1.0 % LAB HEMETOLOGY METHOD 07/10/2025 10:57 AM [facility] NRBC Absolute 0.00 <0.10 K/mcL LAB HEMETOLOGY METHOD 07/10/2025 10:57 AM [facility] Neutrophils Relative 47.6 % LAB HEMETOLOGY METHOD 07/10/2025 10:57 AM [facility] Lymphocytes Relative 39.7 % LAB HEMETOLOGY METHOD 07/10/2025 10:57 AM [facility] Monocytes Relative 7.6 % LAB HEMETOLOGY METHOD 07/10/2025 10:57 AM [facility] Eosinophils Relative 3.4 % LAB HEMETOLOGY METHOD 07/10/2025 10:57 AM [facility] Basophils Relative 0.5 % LAB HEMETOLOGY METHOD 07/10/2025 10:57 AM [facility] Immature Granulocytes Relative 1.2 % LAB HEMETOLOGY METHOD 07/10/2025 10:57 AM [facility] Neutrophils Absolute 3.51 1.50 - 7.00 K/mcL LAB HEMETOLOGY METHOD 07/10/2025 10:57 AM [facility] Lymphocytes Absolute 2.93 1.00 - 5.00 K/mcL LAB HEMETOLOGY METHOD 07/10/2025 10:57 AM [facility] Monocytes Absolute 0.56 0.20 - 1.00 K/mcL LAB HEMETOLOGY METHOD 07/10/2025 10:57 AM [facility] Eosinophils Absolute 0.25 0.00 - 0.50 K/mcL LAB HEMETOLOGY METHOD 07/10/2025 10:57 AM [facility] Basophils Absolute 0.04 0.00 - 0.20 K/mcL LAB HEMETOLOGY METHOD 07/10/2025 10:57 AM [facility] Immature Granulocytes Absolute 0.09(H) 0.00 - 0.03 K/mcL LAB HEMETOLOGY METHOD 07/10/2025 10:57 AM EDT [facility] Blood Venous blood specimen / Unknown Venipuncture / Unknown 07/10/2025 5:26 AM EDT 07/10/2025 10:06 AM EDT Destiney TOLBERT LAB BLOOD ORDERABLES Final Resul t [facility] [address] [place] [address], [place] [phone] * Magnesium (07/10/2025 5:26 AM EDT) Pathologist [facility] Magnesium 2.4 1.9 - 2.6 mg/dL LAB CHEMISTRY METHOD 07/10/2025 11:26 AM EDT [facility] Blood Venous blood specimen / Unknown Venipuncture / Unknown 07/10/2025 5:26 AM EDT 07/10/2025 10:06 AM EDT Destiney TOLBERT LAB BLOOD ORDERABLES Final Resul t Performing Organization Address City/[facility]/ZIP Co de Phone Number [facility] [address] [place] [address], [place] [phone] * (ABNORMAL) Comprehensive metabolic panel (07/10/2025 5:26 AM EDT) Pathologist [facility] Sodium 134 133 - 145 mmol/L LAB CHEMISTRY METHOD 07/10/2025 11:26 AM EDT [facility] Potassium 4.7 3.5 - 5.5 mmol/L LAB CHEMISTRY METHOD 07/10/2025 11:26 AM EDT [facility] Chloride 99 96 - 110 mmol/L LAB CHEMISTRY METHOD 07/10/2025 11:26 AM EDT [facility] CO2 27 21 - 32 mmol/L LAB CHEMISTRY METHOD 07/10/2025 11:26 AM EDT [facility] Anion Gap 8 3 - 11 LAB CHEMISTRY METHOD 07/10/2025 11:26 AM [facility] Glucose 113(H) 70 - 100 mg/dL LAB CHEMISTRY METHOD 07/10/2025 11:26 AM [facility] BUN 22 5 - 25 mg/dL LAB CHEMISTRY METHOD 07/10/2025 11:26 AM [facility] Creatinine 0.58 0.50 - 1.10 mg/dL LAB CHEMISTRY METHOD 07/10/2025 11:26 AM [facility] eGFR 106 >=60 mL/min/1. 73m2 LAB CHEMISTRY METHOD 07/10/2025 11:26 AM [facility] Comment:Calculation based on the Chronic Kidney Disease Epidemiology Collaboration (CKD-EPI) equation refit without adjustment for race. BUN/Creatinine Ratio 37.9 LAB CHEMISTRY METHOD 07/10/2025 11:26 AM [facility] Calcium 9.4 8.5 - 10.5 mg/dL LAB CHEMISTRY METHOD 07/10/2025 11:26 AM [facility] AST (SGOT) 70(H) 10 - 42 unit/L LAB CHEMISTRY METHOD 07/10/2025 11:26 AM [facility] ALT (SGPT) 198(H) 10 - 60 unit/L LAB CHEMISTRY METHOD 07/10/2025 11:26 AM [facility] Alkaline Phosphatase 179(H) 42 - 121 unit/L LAB CHEMISTRY METHOD 07/10/2025 11:26 AM [facility] Total Protein 6.5 6.0 - 8.0 g/dL LAB CHEMISTRY METHOD 07/10/2025 11:26 AM [facility] Albumin 3.1(L) 3.2 - 5.0 g/dL LAB CHEMISTRY METHOD 07/10/2025 11:26 AM [facility] Total Bilirubin 0.3 0.0 - 1.4 mg/dL LAB CHEMISTRY METHOD 07/10/2025 11:26 AM EDT [facility] Blood Venous blood specimen / Unknown Venipuncture / Unknown 07/10/2025 5:26 AM EDT 07/10/2025 10:06 AM EDT us Destiney TOLBERT LAB BLOOD ORDERABLES Final Resul t [facility] [address] [place] [address], documented in this encounter Visit Diagnoses Diagnosis Encounter for other general examination documented in this encounter Care Teams Bench Carpenter Relationship Specialty Start Date End Date Adenike Haider MD [address] [place] [address] PCP - General Internal Medicine 05/24/21 documented as of this encounter
--- OUTSIDE RECORDS SUMMARY | 2025-11-10 09:52 | XMS_ITS | Encounter Summary ---
[facility] Organization [facility] Address [address] [place] [address] Care Team Providers Care Sr. Social Media & Mobile Manager Name Role Phone Adenike Haider MD Primary Care Provider [phone] Encounter Details Date Type Department Care Team (Late st Contact Info) Description 07/22/2025 Lab Requisition [facility] - Main Lab [address] [facility] [place] [address] Reji Cueto PA [address] [address] Encounter for other general examination [...] LAB CHEMISTRY METHOD 07/22/2025 12:31 PM EDT [facility] Potassium 4.2 3.5 - 5.5 mmol/L LAB CHEMISTRY METHOD 07/22/2025 12:31 PM [facility] Chloride 102 96 - 110 mmol/L LAB CHEMISTRY METHOD 07/22/2025 12:31 PM [facility] CO2 28 21 - 32 mmol/L LAB CHEMISTRY METHOD 07/22/2025 12:31 PM [facility] Anion Gap 9 3 - 11 LAB CHEMISTRY METHOD 07/22/2025 12:31 PM [facility] Glucose 95 70 - 100 mg/dL LAB CHEMISTRY METHOD 07/22/2025 12:31 PM [facility] BUN 21 5 - 25 mg/dL LAB CHEMISTRY METHOD 07/22/2025 12:31 PM [facility] Creatinine 0.58 0.50 - 1.10 mg/dL LAB CHEMISTRY METHOD 07/22/2025 12:31 PM [facility] eGFR 106 >=60 mL/min/1. 73m2 LAB CHEMISTRY METHOD 07/22/2025 12:31 PM [facility] Comment:Calculation based on the Chronic Kidney Disease Epidemiology Collaboration (CKD-EPI) equation refit without adjustment for race. BUN/Creatinine Ratio 36.2 LAB CHEMISTRY METHOD 07/22/2025 12:31 PM [facility] Calcium 9.2 8.5 - 10.5 mg/dL LAB CHEMISTRY METHOD 07/22/2025 12:31 PM [facility] Blood Venous blood specimen / Unknown Venipuncture / Unknown 07/22/2025 5:56 AM EDT 07/22/2025 9:40 AM EDT us Reji TOLBERT LAB BLOOD ORDERABLES Final R esult [facility] [address] [place] [address], documented in this encounter Visit Diagnoses Diagnosis Encounter for other general examination documented in this encounter Care Teams Sr. Social Media & Mobile Manager Relationship Specialty Start Date End Date Adenike Haider MD [address] [place] [address] PCP - General Internal Medicine 05/24/21 documented as of this encounter
--- OUTSIDE RECORDS SUMMARY | 2025-11-10 09:52 | XMS_ITS | Clinical Summary ---
Author Organization [address] Address [address] [place] [address] Phone Care Team Providers Care Senior Product Development Manager Name Role Phone Adenike Haider MD Primary Care Provider [phone] Allergies Active Allergy Reactions Criticality Noted Date [...] 02/28/2016 Degenerative disc disease, lumbar 06/18/2014 Immunizations Immunization Administration Dates Next Due Influenza [...] 1989 LASER ABLATION OF THE CERVIX PROCEDURE: ND CAUTERY CERVIX LASER ABLATION; COMMENT: for a polyp BREAST SURGERY 25 YRS AGO PROCEDURE: ND UNLISTED PROCEDURE BREAST; COMMENT: for a cyst on the right breast OTHER SURGICAL HISTORY 07/2021 PROCEDURE: MAMMOGRAM, SCREENING, BOTH BREASTS COLONOSCOPY 02/07/2022 PROCEDURE: HISTORICAL COLONOSCOPY; COMMENT: tiny polyps removed - normal mucosa Medical History Medical History Date Comments Major depression DX:Major depres tanya; COMMENT: follows at [facility]- Dr Marte Anxiety DX:Anxiety Bilateral sciatica DX:Bilateral [...] on file Sexual Orientation Not on file Plan of Treatment Health Maintenance Due Date Last Done Comments Drug Screen 1970 Non-Opioid Controlled Substance Agreement 1968 Hepatitis B Vaccines (1 of 3 - 19+ 3-dose series) 1987 Pneumococcal Vaccine: 50+ Years (1 of 2 - PCV) 1987 Zoster Vaccines (1 of 2) 2018 Cervical Cancer Screening: Pap Smear 10/29/2021 10/29/2018, 10/29/2018 HIV Screening 10/27/2022 Hepatitis C Screening 10/27/2022 Social Influencers of Health Screening 10/27/2022 DTaP,Tdap,and Td Vaccines (2 - Td or Tdap) 10/21/2023 10/21/2013 Depression Screening 11/18/2024 COVID-19 Vaccine (3 - 2025-26 season) 2025 03/29/2021, 02/27/2021 Influenza Vaccine (#1) [...] neoplasm of breast HM COLONOSCOPY Routine 02/07/2022 PAP SMEAR Routine 10/29/2018 from Last 3 [...] Anatomical Region Laterality Modality Other Historical Provider [facility] Final Result * Pap smear (10/29/2018) 10/29/2018 Narrative HISTORICAL TESTING LAB RESULTING AGENCY - 11/03/2018 1:18 PM EST [id number] THINPREP PAP, IMAGED: NEGATIVE FOR SQUAMOUS INTRAEPITHELIAL LESION AND MALIGNANCY . NESHA JOHNNYANDREINA TYSON(ASCP) (CASE ELECTRONICALLY SIGNED 11 03 2018) RESULT [...] Relevant to Health Maintenance Insurance Care Teams Senior Product Development Manager Relationship Specialty Start Date End Date Adenike Haider MD [address] [place] [phone] PCP - General Internal Medicine 05/24/21
--- OUTSIDE RECORDS SUMMARY | 2025-11-10 09:52 | XMS_ITS | Encounter Summary ---
Author Organization 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 Name Role Phone Adenike Haider MD Primary Care Provider [phone] Encounter Details Date Type Department Care Team (Late st Contact Info) Description 07/29/2025 Lab Requisition [facility] - Main Lab [address] [facility] [place] [address] Reji Cueto PA [address] [phone] Encounter for other general examination [...] LAB CHEMISTRY METHOD 07/29/2025 1:57 PM EDT [facility] Potassium 4.3 3.5 - 5.5 mmol/L LAB CHEMISTRY METHOD 07/29/2025 1:57 PM EDT [facility] Chloride 106 96 - 110 mmol/L LAB CHEMISTRY METHOD 07/29/2025 1:57 PM EDT [facility] CO2 26 21 - 32 mmol/L LAB CHEMISTRY METHOD 07/29/2025 1:57 PM [facility] Anion Gap 8 3 - 11 LAB CHEMISTRY METHOD 07/29/2025 1:57 PM EDT [facility] Glucose 80 70 - 100 mg/dL LAB CHEMISTRY METHOD 07/29/2025 1:57 PM [facility] BUN 9 5 - 25 mg/dL LAB CHEMISTRY METHOD 07/29/2025 1:57 PM [facility] Creatinine 0.50 0.50 - 1.10 mg/dL LAB [facility] 110 >=60 mL/min/1. 73m2 LAB CHEMISTRY METHOD 07/29/2025 1:57 PM T [facility] Comment:Calculation based on the Chronic Kidney Disease Epidemiology Collaboration (CKD-EPI) equation refit without adjustment for race. BUN/Creatinine Ratio 18.0 LAB CHEMISTRY METHOD 07/29/2025 1:57 PM T [facility] Calcium 9.4 8.5 - 10.5 mg/dL LAB CHEMISTRY METHOD 07/29/2025 1:57 PM T [facility] Blood Venous blood specimen / Unknown Venipuncture / Unknown 07/29/2025 6:54 AM EDT 07/29/2025 10:27 AM EDT us Reji TOLBERT LAB BLOOD ORDERABLES Final R esult [facility] [address] [place] [address], documented in this encounter Visit Diagnoses Diagnosis Encounter for other general examination documented in this encounter Care Teams Fab[employer] And Material Cutter Relationship Specialty Start Date End Date Adenike Haider MD [address] [place] [address] PCP - General Internal Medicine 05/24/21 documented as of this encounter
--- OUTSIDE RECORDS SUMMARY | 2025-11-10 09:52 | XMS_ITS | Encounter Summary ---
Author Organization [facility] Address [address] [place] [address] Care Team Providers Care Mica Miner Blasting Name Role Phone Adenike Haider MD Primary Care Provider [phone] Encounter Details Date Type Department Care Team (Late st Contact Info) Description 07/31/2025 Lab Requisition [facility] - Main Lab [address] [facility] [place] [phone] Kerri Hardy PA [address] [place] [phone] Encounter for other general examination Social History [...] AM EDT) WBC 5.0 4.8 - 10.8 K/[facility] LAB HEMETOLOGY METHOD 07/31/2025 10:55 AM [facility] RBC 4.50 3.80 - 4.80 M/mcL LAB HEMETOLOGY METHOD 07/31/2025 10:55 AM [facility] Hemoglobin 11.4(L) 11.5 - 16.0 g/dL LAB HEMETOLOGY METHOD 07/31/2025 10:55 AM [facility] Hematocrit 36.8 35.0 - 47.0 % LAB HEMETOLOGY METHOD 07/31/2025 10:55 AM [facility] MCV 82.0 79.0 - 98.0 FL LAB HEMETOLOGY METHOD 07/31/2025 10:55 AM [facility] MCH 25.4(L) 27.0 - 32.0 pcg LAB HEMETOLOGY METHOD 07/31/2025 10:55 AM [facility] MCHC 31.0(L) 32.0 - 37.0 g/dL LAB HEMETOLOGY METHOD 07/31/2025 10:55 AM [facility] RDW 15.0 11.0 - 15.0 % LAB HEMETOLOGY METHOD 07/31/2025 10:55 AM [facility] Platelets 441(H) 130 - 400 K/mcL LAB HEMETOLOGY METHOD 07/31/2025 10:55 AM [facility] MPV 9.3 7.0 - 11.0 FL LAB HEMETOLOGY METHOD 07/31/2025 10:55 AM [facility] NRBC 0.0 <1.0 % LAB HEMETOLOGY METHOD 07/31/2025 10:55 AM [facility] NRBC Absolute 0.00 <0.10 K/mcL LAB HEMETOLOGY METHOD 07/31/2025 10:55 AM [facility] Neutrophils Relative 43.0 % LAB HEMETOLOGY METHOD 07/31/2025 10:55 AM [facility] Lymphocytes Relative 44.0 % LAB HEMETOLOGY METHOD 07/31/2025 10:55 AM [facility] Monocytes Relative 8.4 % LAB HEMETOLOGY METHOD 07/31/2025 10:55 AM [facility] Eosinophils Relative 3.6 % LAB HEMETOLOGY METHOD 07/31/2025 10:55 AM [facility] Basophils Relative 0.6 % LAB HEMETOLOGY METHOD 07/31/2025 10:55 AM [facility] Immature Granulocytes Relative 0.4 % LAB HEMETOLOGY METHOD 07/31/2025 10:55 AM [facility] Neutrophils Absolute 2.16 1.50 - 7.00 K/mcL LAB HEMETOLOGY METHOD 07/31/2025 10:55 AM [facility] Lymphocytes Absolute 2.21 1.00 - 5.00 K/mcL LAB HEMETOLOGY METHOD 07/31/2025 10:55 AM [facility] Monocytes Absolute 0.42 0.20 - 1.00 K/mcL LAB HEMETOLOGY METHOD 07/31/2025 10:55 AM [facility] Eosinophils Absolute 0.18 0.00 - 0.50 K/mcL LAB HEMETOLOGY METHOD 07/31/2025 10:55 AM [facility] Basophils Absolute 0.03 0.00 - 0.20 K/mcL LAB HEMETOLOGY METHOD 07/31/2025 10:55 AM [facility] Immature Granulocytes Absolute 0.02 0.00 - 0.03 K/mcL LAB HEMETOLOGY METHOD 07/31/2025 10:55 AM [facility] Blood Venous blood specimen / Unknown Venipuncture / Unknown 07/31/2025 7:12 AM EDT 07/31/2025 9:56 AM EDT us Kerri TOLBERT LAB BLOOD ORDERABLES Final Resu lt [facility] ([facility]) [facility] [address] [place] [address], documented in this encounter Visit Diagnoses Diagnosis Encounter for other general examination documented in this encounter Care Teams Mica Miner Blasting Relationship Specialty Start Date End Date Adenike Haider MD [address] [place] [phone] PCP - General Internal Medicine 05/24/21 documented as of this encounter
--- NOTE | 2025-11-10 09:56 | MHC.PC.OV ---
Vital Signs 11/10/25 10:02 Height 5 ft 2 in Weight 109 lb 5.588 oz BMI 20.0 BP 122/62 Blood Pressure Location Lt brachial Position Sitting Pulse 65 Pulse Source Pulse Oximeter Pulse Oximetry (%) 97 Oxygen Delivery Method Room Air Intake Visit Reasons: follow up Allergies diazepam (From Valium) Adverse Reaction (Unknown, Verified 11/10/25 10:02) Abdominal Pain ezetimibe (From Zetia) Adverse Reaction (Unknown, Verified 11/10/25 10:02) Drowsiness, Bodyaches Tobacco use date assessed: 08/27/25 Dental Screening Dental Screen Date: 09/20/25 HPI HPI Comments History of Present Illness Details History of Present Illness The patient is a 55-year-old female with a history of smoking, hypercholesterolemia, diabetes mellitus, hepatic steatosis, anxiety disorder, DVT, and kidney stones who presents for a follow-up visit. 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 She underwent a thrombectomy via femoral access and subsequently required a right decompressive hemicraniectomy on June 18, 2025, due to midline shift seen on MRI. A right cranioplasty was performed on October 13, 2025, and she was discharged on October 14, 2025. Her sequelae from the stroke include left upper and lower extremity weakness, a left facial droop, and cognitive deficits. The patient's family reports significant behavioral changes since the stroke, including confusion, anger, impulsivity, lying, and possible auditory hallucinations. She has been calling 911 inappropriately and has poor sleep despite being on clonazepam and an increased dose of trazodone. Her health maintenance includes an up-to-date colonoscopy from 2021 and a mammogram from February. In September, she had an ER visit for right breast pain, and an ultrasound with mammogram showed a cyst in the right pectoral region. She has moderate knee osteoarthritis and had a joint injection in July 2022 that did not provide relief. Blood work from October 21 showed mild microcytic anemia, mild hypokalemia, and mildly elevated blood sugar. Her last cholesterol check in March showed an LDL of 85 mg/dL, and her hemoglobin A1c was 6.0%. An echocardiogram in August 2025 was normal with an EF of 55-60%. A carotid Doppler study showed mixed plaque with 0-49% stenosis bilaterally. Health Maintenance - Colonoscopy: Last performed in 2021 and is up to date. - Mammogram: Last performed in February. - Sleep Study: A sleep study was advised by neurology. - Lifestyle Counseling: The patient was advised to follow a high-fiber, low-fat diet and to exercise regularly. - Cardiovascular Risk Reduction: The goal for LDL cholesterol is less than 55 mg/dL due to her history of stroke and diabetes. - Diabetes Management: The hemoglobin A1c goal is less than 6.5%. - Smoking Cessation: The patient reports she has stopped smoking. Social History - Tobacco Use: The patient has a history of smoking but reports she has quit. - Diet: She has been advised to follow a low-fat, high-fiber diet and limit coffee to one cup per day. - Exercise: The patient participates in physical therapy. - Functional Status: The patient has left-sided weakness and cognitive deficits from her stroke and requires assistance from her family. - Social Support: The patient lives with her family who act as her primary caregivers. - Employment: She misses working. Results - Bloodwork (October 21): Showed mild microcytic anemia (Hgb 11.5, Hct 36.3), mild hypokalemia, and good renal function. - Bloodwork (March): Hemoglobin A1c was 6.0%. - Lipid panel revealed an LDL of 85 mg/dL. - Echocardiogram (September 08, 2025): Normal study with an ejection fraction of 55-60%. - Carotid Doppler: Showed mixed plaque causing 0-49% stenosis on the right and small plaque causing 0-49% stenosis on the left. - Ultrasound of the leg: Negative for DVT. - Breast Ultrasound/Mammogram: Confirmed a cyst in the right pectoral region. - MRI Brain: Showed a midline shift following her CVA. [facility] Medical History Breast tenderness Blood pressure elevated without history of HTN Acute respiratory disease Annual physical exam Nasal congestion Overweight (BMI 25.0-29.9) Dysuria COVID-19 virus infection Burn of pharynx Renal calculus, left LFT elevation Impaired glucose tolerance Osteoarthritis of right knee Knee osteoarthritis TSH elevation Generalized anxiety disorder Obesity (BMI 30.0-34.9) Surgical History History of surgery History of brain surgery Hx of cholecystectomy Breast cyst Hx of tubal ligation Family History Mother Breast cancer Cervical cancer Anxiety Father No problems noted. Sister Anxiety Sister No problems noted. Sister No problems noted. Sister No problems noted. Sister No problems noted. Brother No problems noted. Brother No problems noted. Brother No problems noted. Brother No problems noted. Daughter No problems noted. Daughter Substance abuse Daughter No problems noted. Other UTI (urinary tract infection), bacterial Social History Housing: House Alcohol intake: never Patient Tobacco Use Status: Former Tobacco user Tobacco use type: Cigarette Cigarette Packs Per Day: 4 Cigarettes Per Day: 6 e-Cigarette/Vaping Use: Never Used Second Hand Smoke Exposure: No service: No Current occupational status: employed Current occupation: [employer] Current occupational exposures/hazards: No Cognitive needs: No Hearing needs: No Vision needs: Yes Questionnaire Thrive Questionnaire Date Thrive assessed: 03/12/25 I am a: Patient What is your living situation today?: I have a steady place to live Within the past 12 months, did the food you bought not last and you didn't have the money to get more?: Never true Within the past 12 months, did you worry whether your food would run out before you got money to buy more?: Never true Do you have trouble paying for medicines?: No Do you have trouble getting transportation to medical appointments?: No Do you have trouble paying your heating and electricity bill?: No Do you have trouble taking care of your child, family member or friend?: No Do you have trouble with day-to-day activities such as bathing, preparing meals, shopping, managing finances, etc.?: No Are you currently unemployed and looking for a job?: No Are you interested in more education?: No Currently or been in a relationship where the following occur: No concerns reported THRIVE Score: 0 JACQUELINE-7 AMB Questionnaire JACQUELINE-7 Date JACQUELINE - 7 assessed: 09/20/25 Source: Developed by Drs. Medardo Sanches, Ijeoma Botello, Fabian Stevenson and colleagues, with an educational dawood from [employer]. 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 - Ears: Reports pain when the ear is pulled. - Chest: Reports pain in the right breast attributed to a cyst. - Genitourinary: Reports a burning sensation during urination. - Musculoskeletal: Reports knee pain due to osteoarthritis and an inability to walk well. - Neurological: Reports left-sided weakness, cognitive deficits, and confusion. - Psychiatric: Reports anxiety and significant trouble sleeping. Physical exam (Primary Care) Vital Signs: Last Vital Signs Pulse 65 11/10/25 10:02 BP 122/62 11/10/25 10:02 Pulse Ox 97 11/10/25 10:02 Oxygen Delivery Method Room Air 11/10/25 10:02 BMI result Body Mass Index 20.0 Tobacco/Smoking Status: Tobacco use Status Tobacco use date assessed 08/27/25 11/10/25 09:56 Patient Tobacco Use Status Former Tobacco user 11/10/25 09:56 Tobacco use type Cigarette 11/10/25 09:56 e-Cigarette/Vaping Use Never Used 11/10/25 09:56 Thrive Assessment: Date of Thrive Assessment Date Thrive assessed 03/12/25 11/10/25 09:56 Currently or been in a relationship where the following occur: No concerns reported Narrative Physical Exam - General: Patient is alert but demonstrates confusion. - HEENT: Tympanic membranes are intact and canals are clean bilaterally; however, there is tenderness on traction of the auricle. - She reports blindness in the left eye. - She can close her eyes bilaterally. - Tongue protrudes midline. - Neurological: Motor strength is 4/5 in the left upper and lower extremities and 5/5 in the right upper and lower extremities. Const General: alert; No acute distress Eyes Conjunctivae: conjunctivae normal Resp Auscultation: clear to auscultation bilaterally Cardio Rate: regular rate Rhythm: regular rhythm GI Inspection: Yes normal to inspection Neuro Other: Left upper arm and left leg has 4/5 strength, right arm and leg has 5/5 patient is blind on the left eye can see shadows. Tongue midline can close the eyes bilaterally TM bilateral intact Results AMB Hemoglobin A1c AMB Hemoglobin A1c 5.6 % Last Edit by Ila Ellis CMA on 11/10/25 10:43 Results Reviewed Results Reviewed: Laboratory Last Values Hgb A1c (Clinic) 5.6 % (4.0-6.0) 11/10/25 10:17 Coding Level of Care Code Est Pt Level 4 (88435) Add On Problem Visit Only Diagnoses Type 2 diabetes mellitus with hyperglycemia E11.65 CVA (cerebral vascular accident) I63.9 Hypercholesterolemia E78.00 Generalized anxiety disorder F41.1 Vitamin B12 deficiency E53.8 Fatty liver K76.0 Knee osteoarthritis M17.10 Tobacco abuse Z72.0 Vision changes H53.9 Cyst of right breast N60.01 Assessment & Plan Assessment & Plan (1) Type 2 diabetes mellitus with hyperglycemia: Comment: [employer] Code(s): E11.65 - Type 2 diabetes mellitus with hyperglycemia Category: Medical Plan: Decrease the amount of carbohydrate intake, pasta, bread, rice and potatoes are all sugar and that is aside from all the sweet stuff, remember that fruits are good but they are Sweet also. Hemoglobin A1c goal of less than 6.5. Patient on metformin 500 mg twice a day (2) CVA (cerebral vascular accident): Comment: Right middle cerebral, 06/16/2025 left hemiplegia TNK had thrombectomy via right femoral access Code(s): I63.9 - Cerebral infarction, unspecified Category: Medical Plan: Continue with aspirin 81 mg once a day for prevention. Increase trazodone to 150 mg to help with sleep. (3) Hypercholesterolemia: Code(s): E78.00 - Pure hypercholesterolemia, unspecified Category: Medical Plan: Avoid fried foods, chicken skin, eggs, butter margarine, pastries and meat. Be it pork or beef they have a lot of cholesterol simvastatin 5 mg at bedtime LDL goal of less than 55 (4) Generalized anxiety disorder: Comment: [facility] Dr. Fabian Q3 months counselling Q month (03/2022) Code(s): F41.1 - Generalized anxiety disorder Category: Medical Plan: Continue with counseling and therapy on clonazepam and trazodone (5) Vitamin B12 deficiency: Code(s): E53.8 - Deficiency of other specified B group vitamins Category: Medical Plan: Vitamin B12 1000 mcg once a day (6) Fatty liver: Code(s): K76.0 - Fatty (change of) liver, not elsewhere classified Category: Medical Plan: Low-fat diet and exercise (7) Knee osteoarthritis: Comment: July 2022There is moderate osteoarthritic change of the medial joint space compartment of the right knee. 2. There is minimal osteoarthritic change of the medial joint space compartment the left knee. 3. No significant varus or valgus configuration is seen bilaterally. Code(s): M17.10 - Unilateral primary osteoarthritis, unspecified knee Category: Medical Plan: Keep active, follows up with orthopedics has had injections of the knee (8) Tobacco abuse: Code(s): Z72.0 - Tobacco use Category: Medical Plan: Patient has stopped! (9) Vision changes: Comment: L eye blindness Code(s): H53.9 - Unspecified visual disturbance Category: Medical (10) Cyst of right breast: Code(s): N60.01 - Solitary cyst of right breast Category: Medical Plan Plan Patient was informed and verbally consented to the use of an ambient scribe for clinic note documentation during this visit. 1. Sequelae Of Cerebrovascular Disease The patient's left hemiplegia, cognitive deficits, and behavioral disturbances are sequelae of her right MCA stroke. For secondary stroke prevention, continue aspirin 81 mg daily. Family and patient were counseled that some brain damage is permanent and that cooperation with caregivers is crucial for her safety. Continue physical therapy to maintain function. 2. Hypercholesterolemia The patient's hypercholesterolemia is undertreated for secondary stroke prevention, with a recent LDL of 85 mg/dL and a goal of <55 mg/dL. She is currently on simvastatin 5 mg. A fasting lipid panel will be ordered, and her statin therapy will likely be intensified if the LDL remains elevated. Continue low-fat diet. 3. Insomnia And Anxiety Disorder The patient reports persistent insomnia and anxiety, which are not well-controlled on her current regimen. Her trazodone dose will be increased to 150 mg at bedtime to improve sleep. She will continue clonazepam and follow up with her psychiatry team for further management of her anxiety. A referral for a sleep study, as requested by neurology, will be placed. 4. Type 2 Diabetes Mellitus The patient's diabetes is managed with metformin 500 mg twice daily, with a recent A1c of 6.0%. Continue current medication and diet. 5. Right Breast Cyst The patient reports that the previously identified cyst in her right breast is now painful. A referral to General Surgery will be placed for evaluation and consideration of excision. 6. Dysuria The patient reports a new burning sensation on urination, raising suspicion for a UTI. A urinalysis will be ordered along with her blood work to investigate. 7. Blindness, Left Eye The patient reports being blind in her left eye, though her family suspects it may be left-sided neglect. An urgent referral to ophthalmology will be placed for evaluation. Discussion Notes I had a detailed discussion with the patient and her family regarding her medical conditions, particularly the permanent effects of her stroke on her brain, which cause her confusion, auditory symptoms, and behavioral issues. I emphasized that the primary goal now is the prevention of a future stroke through aggressive management of her risk factors. I explained that her last LDL cholesterol of 85 was too high and that the goal is below 55. I informed them that I am ordering a new fasting blood test and will likely need to increase her cholesterol medication based on the results. To address her poor sleep, I have increased her trazodone dose to 150 mg. We discussed her anxiety and the need to coordinate medication changes with her psychiatrist to ensure continuity of care. I also counseled the patient on the importance of cooperating with her family, as they are her support system and can provide accurate information when she is confused. I informed them of new referrals being made to ophthalmology for her vision loss and to general surgery for the painful breast cyst. I also ordered a urine test to investigate her report of burning on urination. Patient Instructions - Take your new dose of trazodone 150 mg every night at bedtime to help you sleep. - Continue taking your other medications as prescribed, including aspirin for stroke prevention, metformin for diabetes, and simvastatin for cholesterol. - Go to the lab for blood tests. - You must be fasting, meaning no food for at least 8 hours beforehand, but you can drink water. - You will also need to provide a urine sample at the lab to check for infection. - We are referring you to an eye doctor to check your vision, especially in the left eye. - We are also referring you to a surgeon to look at the painful cyst on your right breast. - Continue to eat a healthy diet, limit coffee to one cup per day, and do your physical therapy exercises carefully to prevent falls. - It is very important to listen to your family. - The stroke has affected your brain, and you need their help to stay safe. Orders: Orders AMB Hemoglobin A1c Today Z13.9 - Encounter for screening, unspecified Free T4 (Free Thyroxine) Today N60.01 - Solitary cyst of right breast Hemoglobin A1c Today N60.01 - Solitary cyst of right breast Vitamin B12 and Folate Today N60.01 - Solitary cyst of right breast Vitamin D 25-OH Total Today N60.01 - Solitary cyst of right breast Microalbumin, Random (w Creat) Today E11.65 - Type 2 diabetes mellitus with hyperglycemia, N60.01 - Solitary cyst of right breast Reticulocyte Count Today N60.01 - Solitary cyst of right breast UA CC w/rflx Micro + Cult Today N60.01 - Solitary cyst of right breast, R30.0 - Dysuria Complete Blood Count Auto Diff Today N60.01 - Solitary cyst of right breast Thyroid Stimulating Hormone Today N60.01 - Solitary cyst of right breast Ferritin Today N60.01 - Solitary cyst of right breast IRON PROFILE Today N60.01 - Solitary cyst of right breast Referrals Ophthalmology Referral H53.9 - Unspecified visual disturbance General Surgery Referral N60.01 - Solitary cyst of right breast Medications: Changed From trazodone 100 mg (2 x 50 mg) PO BEDTIME PRN 20 tabs 0RF sleep I63.9 - Cerebral infarction, unspecified To trazodone 150 mg PO BEDTIME PRN 30 tabs 3RF sleep I63.9 - Cerebral infarction, unspecified
[2025-11-10 10:02] VITALS: BP 122/62; PULSE 65; O2SAT 97
== END 2025-11-10 11:06 | disposition home or self-care (01) ==
LOC: HO.HMCH 09:45
PROVIDERS: Visit Provider Internal Medicine
DX: E11.65 Type 2 diabetes mellitus with hyperglycemia (principal); I63.9 Cerebral infarction, unspecified; E78.00 Pure hypercholesterolemia, unspecified; F41.1 Generalized anxiety disorder; E53.8 Deficiency of other specified B group vitamins; K76.0 Fatty (change of) liver, not elsewhere classified; M17.10 Unilateral primary osteoarthritis, unspecified knee; Z72.0 Tobacco use; H53.9 Unspecified visual disturbance; N60.01 Solitary cyst of right breast; Z13.9 Encounter for screening, unspecified

== ENCOUNTER → 2025-11-10 09:45 | Outpatient (BNVA) | payer OTHER, SELFPAY | PROVIDERS: Visit Provider Internal Medicine | DX: E11.65 Type 2 diabetes mellitus with hyperglycemia (principal); E78.00 Pure hypercholesterolemia, unspecified; E53.8 Deficiency of other specified B group vitamins; F41.1 Generalized anxiety disorder; K76.0 Fatty (change of) liver, not elsewhere classified; M17.10 Unilateral primary osteoarthritis, unspecified knee; H53.9 Unspecified visual disturbance; N60.01 Solitary cyst of right breast; F17.210 Nicotine dependence, cigarettes, uncomplicated | CPT/HCPCS: 83036 ==